=== PATIENT | female | born 1980 | race Caucasian/White ===

== ENCOUNTER 2020-04-21 13:06 | Outpatient (CLI) | payer BC, SELFPAY ==
[2020-04-21 14:03] LABS: Anion Gap 11 mmol/L (8-16); Blood Urea Nitrogen 13 mg/dL (7-18); Calcium 9.1 mg/dL (8.5-10.1); Carbon Dioxide 28 mmol/L (21-32); Chloride 101 mmol/L (98-108); Cholesterol 252 mg/dL (0-200); Estimated Glomerular Filt Rate > 60; Glucose 112 mg/dL (70-99); HDL Direct 67 mg/dL (40-60); LDL Cholesterol Calculated 159 mg/dL (<130); Osmolality Calculated 291 mOsm/kg (285-295); Potassium 3.3 mmol/L (3.5-5.1); Sodium 140 mmol/L (136-145); Thyroid Stimulating Hormone 1.06 uIU/mL (0.36-3.74); Triglycerides 129 mg/dL (0-150)
[2020-04-25 10:30] LABS: Vitamin D 25 Hydroxy 27 ng/mL (30-100)
== END 2020-04-21 13:07 | disposition home or self-care (01) ==
LOC: CHSLAB 13:10
PROVIDERS: PCP Family Medicine
DX: E55.9 Vitamin D deficiency, unspecified (principal); I10 Essential (primary) hypertension
CPT/HCPCS: 36415; 80048; 80061; 82306; 84443

== ENCOUNTER 2020-04-26 00:29 | Emergency (ER) | payer BC, SELFPAY ==
--- NOTE | ~2020-04-26 | XR_ITS ---
EXAMINATION: XR foot RT min 3V DATE: 04/26/2020 01:06 INDICATION: Right foot pain. Injury. TECHNIQUE: 4 views of right foot were obtained. COMPARISON: None. FINDINGS: Bone alignment is normal. No fracture. There is mild osteoarthritis of first metatarsophala ngeal joint. There are enthesophytes at the posterior and plantar aspects of calcaneal tuberosity. IMPRESSION: 1. No fracture. Reviewed, dictated and finalized at location A. IMPRESSION: 1. No fracture.
[2020-04-26 00:30] VITALS: BP 129/90; PULSE 94; RESP 20; TEMP 36.3; O2SAT 99
--- NOTE | 2020-04-26 00:49 | ED.GENADULT ---
HPI - General Adult General Chief complaint: Extremity Injury, Lower Stated complaint: foot ankle injury Source: patient Mode of arrival: ambulatory Limitations: no limitations History of Present Illness HPI narrative: Carmen is a 40F with a PMH of HTN, anxiety, right tarsal tunnel syndrome, and right peroneal tendon tear that presented to the ED after hitting her foot on a door frame. Earlier in the day she was carrying a box, couldn't see and hit her foot on the bottom of the door frame. She had immediate pain and swelling. No paralysis or loss of sensation. No other injuries or medical concerns today. Related Data Home Medications Medication Instructions Recorded Confirmed buspirone 10 mg tablet 10 mg PO BID 07/04/19 04/26/20 indapamide 2.5 mg tablet 2.5 mg PO DAILY 07/04/19 04/26/20 alprazolam 0.25 mg tablet 0.5 mg PO BID tablet 07/07/19 04/26/20 Allergies Allergy/AdvReac Type Severity Reaction Status Date / Time fluoxetine Allergy Unknown Verified 07/22/19 07:58 latex Allergy Unknown Verified 07/22/19 07:58 Review of Systems Constitutional: Constitutional: Reports no additional constitutional complaints Eyes: Eyes: Reports no additional eye complaints ENT: Reports system reviewed and no additional complaints, except as documented Cardiovascular: Cardiovascular: Reports no additional cardiovascular complaints Respiratory: Respiratory: Reports no additional respiratory complaints Gastrointestinal: Gastrointestinal: Reports no additional gastrointestinal complaints Genitourinary: Genitourinary: Reports no additional female genitourinary complaints Musculoskeletal: Musculoskeletal: Reports as per HPI Integumentary/Breasts: Skin/Breast: Reports system reviewed and no additional complaints, except as docu Neurologic: Reports system reviewed and no additional complaints, except as documented Psychiatric: Psychiatric: Reports no additional psychiatric complaints Endocrine: Endocrine: Reports no additional endocrine complaints Hematologic/Lymphatic: Hematologic/Lymphatic: Reports no additional hematologic/lymphatic complaints Allergic/Immunologic: Allergic/Immunologic: Reports no additional allergic/immunologic complaints FOR[facility]LY [facility] Past Medical History Medical History Anxiety GERD (gastroesophageal reflux disease) Premenopausal menorrhagia Rectal polyp Stress Family History Family History Mother Family history of obesity Patient's mother is in good health Family history of coronary artery disease Father Family history of diabetes mellitus in first degree relative Family history of coronary artery disease Grandparent Family history of malignant neoplasm of breast Family history of malignant neoplasm of ovary Other Family history of thyroid disease Social History Social History Smoking status: Never smoker Alcohol intake: never Exam Const: General: no acute distress and alert Orientation/consciousness: patient oriented x3 Limitations: No altered mental status HENMT: Head: normal to inspection Eyes: Conjunctivae: conjunctivae normal Pupils: Equal, round and reactive pupils present Neck: Neck: normal visual inspection Chest: Chest palpation & inspection: normal inspection of the chest Resp: Effort & Inspection: normal respiratory effort, not labored and not tachypneic Cardio: Rate: regular rate Skin: General skin exam: normal color Rashes: no rashes Neuro: General: patient oriented x3 and moves all extremities Extrem: General: normal to inspection Other: No deformity of the right foot. TTP worse over the anterior plantar surface of the foot. She is able to wiggle her toes without difficulty. No numbness. Pedal pulse intact as well as posterior tibialis tendon. Psych: Appearance: grossly normal Menta
[2020-04-26] MEDS: KETOROLAC (*BKC) 60 MG/2 ML VIAL 30 MG IM (01:03)
[2020-04-26 01:30] VITALS: BP 126/86; PULSE 85; RESP 18; TEMP 36.6; O2SAT 99
== END 2020-04-26 01:34 | disposition home or self-care (01) ==
PROVIDERS: Emergency Provider Family Medicine
DX: S90.31XA Contusion of right foot, initial encounter (principal); W22.09XA Striking against other stationary object, initial encounter
CPT/HCPCS: 73630; 96372; 99283; J1885; L2112

== ENCOUNTER → 2020-05-24 17:36 | Outpatient (CLI) | payer BC, SELFPAY ==
--- NOTE | ~2020-05-24 | MM_ITS ---
EXAMINATION: MM screening annabel BI w zuleyma HISTORY: Screening mammogram, family history of breast cancer in her mother. TECHNIQUE: Craniocaudal and mediolateral oblique 3-D tomosynthesis images were obtained and synthetic 2-D images were generated. CAD analysis was submitted and interpreted. COMPARISON: 05/06/2019, 04/30/2018, 04/06/2017 BREAST PARENCHYMAL COMPOSITION: The breasts are heterogeneously dense, which may obscure small masses . FINDINGS: There is no evidence of suspicious mass, calcification, or architectural distortion to sugg est malignancy in either breast. There has been no suspicious interval change. IMPRESSION: 1. No mammographic evidence of malignancy. 2. Recommend routine screening mammography in one year. BI-RADS Category 1: Negative Reviewed, dictated and finalized at location A. LEAK TESTER
== END ==
PROVIDERS: Visit Provider Nurse Practitioner
DX: Z12.31 Encounter for screening mammogram for malignant neoplasm of breast (principal)
CPT/HCPCS: 77063; 77067

== ENCOUNTER 2020-08-31 15:16 | Emergency (ER) | payer BC, SELFPAY ==
--- NOTE | ~2020-08-31 | CT_ITS ---
EXAMINATION: CT brain wo con DATE: 08/31/2020 17:18 INDICATION: Posterior and frontal headaches. TECHNIQUE: Computed tomography (CT) of the head was performed without intravenous contrast. The mA wa s adjusted according to patient size. Iterative reconstruction technique was employed. Exam dose: 60 5.33 mGy-cm total exam DLP. COMPARISON: 11/04/2018 MRI brain/brainstem 05/27/2015 CT brain FINDINGS: No intracranial mass lesion or hemorrhage or cerebrovascular accident. No midline shift or mass effect effect. Normal lloyd-white matter differentiation. Normal ventricular size. No subdural or epidural hematoma. No fracture or bone destruction of the cranial vault. Included paranasal sinuses and mastoid air cells are normally developed and aerated. IMPRESSION: Negative Reviewed, dictated and finalized at Location A. Reviewed, dictated and finalized at location B. EM DEVELOPER ASSOCIATE MANAGER IMPRESSION: Negative
[2020-08-31 15:48] VITALS: BP 157/113; PULSE 100; RESP 16; TEMP 36.6; O2SAT 97
--- NOTE | 2020-08-31 16:00 | PC.NURSE ---
PER EDP OK TO BREAK DEPAKOTE IN HALF.
[2020-08-31] MEDS: KETOROLAC (*BKC) 60 MG/2 ML VIAL IM (16:03)
[2020-08-31] MEDS: BACLOFEN 10 MG TABLET 20 MG PO (16:04)
[2020-08-31 16:05] LABS: Basophils Absolute Auto 0.03 K/mm3 (0.00-0.10); Basophils Percent Auto 0.3 % (0.0-1.0); Eosinophils Percent Auto 1.1 % (1.0-6.0); Hematocrit 45.3 % (35.0-49.0); Hemoglobin 15.1 g/dL (12.0-15.0); Immature Granulocyte Absolute 0.03 K/mm3 (0.00-0.00); Immature Granulocyte Percent A 0.3 % (0.0-0.0); Lymphocytes Absolute Auto 2.47 K/mm3 (1.10-4.50); Lymphocytes Percent Auto 27.7 % (18.0-42.0); Mean Corpuscular HGB Conc 33.3 g/dL (32.0-36.0); Mean Corpuscular Hemoglobin 27.7 pg (27.0-31.0); Mean Corpuscular Volume 83.1 fL (78.0-102.0); Mean Platelet Volume 10.2 fl (9.2-11.8); Monocytes Absolute Auto 0.63 K/mm3 (0.10-0.90); Monocytes Percent Auto 7.1 % (2.0-11.0); Neutrophils Absolute Auto 5.7 K/mm3 (1.7-7.2); Neutrophils Percent Auto 63.5 % (50.0-70.0); Platelet Count Result 288 K/mm3 (150-420); Red Blood Count 5.45 M/mm3 (4.20-5.40); Red Cell Distribution Width 12.9 % (11.6-14.4); White Blood Count 8.9 K/mm3 (4.8-10.8)
[2020-08-31 16:06] LABS: Add Urine Microscopic? NO; Appearance Urine Clear (Clear); Bilirubin Urine Negative (Negative); Blood Urine Negative (Negative); Color Urine Yellow (Yellow); Glucose Urine UA Negative (Negative); Ketones Urine Negative (Negative); Leukocyte Esterase Ur Negative (Negative); Nitrate Urine Negative (Negative); Protein Urine Negative (Negative); Urobilinogen Urine 0.2 mg/dL (0.2-1.0); pH Urine 6.5 (5.0-8.0)
[2020-08-31] MEDS: DIVALPROEX SODIUM ER 250 MG TAB.24H 750 MG PO (16:09)
--- NOTE | 2020-08-31 16:16 | ED.HA ---
HPI - Headache General Chief Complaint: Urogenital-Female Stated Complaint: peeing blood,random bruising, headache Time Seen by Provider: 08/31/20 15:50 Source: patient Mode of arrival: ambulatory Limitations: no limitations History of Present Illness MD elicited complaint: headache Onset description: gradually Location: left (behind left eye) Severity: moderate Quality & Timing: throbbing and pulsatile Exacerbating factors: none Relieving factors: nothing Associated symptoms: malaise Related Data Home Medications Medication Instructions Recorded Confirmed alprazolam 0.5 mg PO BID PRN 08/31/20 08/31/20 ergocalciferol (vitamin D2) 1,250 mcg PO WEEKLY 08/31/20 08/31/20 indapamide 1.5 mg PO DAILY 08/31/20 08/31/20 venlafaxine 150 mg PO DAILY 08/31/20 08/31/20 Allergies Allergy/AdvReac Type Severity Reaction Status Date / Time fluoxetine Allergy Unknown Verified 07/22/19 07:58 latex Allergy Unknown Verified 07/22/19 07:58 Review of Systems Constitutional: Constitutional: Reports no additional constitutional complaints Eyes: Eyes: Reports no additional eye complaints ENT: Reports system reviewed and no additional complaints, except as documented Cardiovascular: Cardiovascular: Reports no additional cardiovascular complaints Respiratory: Respiratory: Reports no additional respiratory complaints Gastrointestinal: Gastrointestinal: Reports no additional gastrointestinal complaints Genitourinary: Genitourinary: Reports no additional female genitourinary complaints Musculoskeletal: Musculoskeletal: Reports no additional musculoskeletal complaints Comments: Bruising on skin, on bilateral thighs, on left upper arm she is worried about. Integumentary/Breasts: Skin/Breast: Reports system reviewed and no additional complaints, except as docu Neurologic: Reports system reviewed and no additional complaints, except as documented Psychiatric: Psychiatric: Reports no additional psychiatric complaints Endocrine: Endocrine: Reports no additional endocrine complaints Hematologic/Lymphatic: Hematologic/Lymphatic: Reports no additional hematologic/lymphatic complaints Allergic/Immunologic: Allergic/Immunologic: Reports no additional allergic/immunologic complaints PMFSH Past Medical History Medical History Anxiety GERD (gastroesophageal reflux disease) Migraine Premenopausal menorrhagia Rectal polyp Stress Family History Family History Mother Family history of obesity Patient's mother is in good health Family history of coronary artery disease Father Family history of diabetes mellitus in first degree relative Family history of coronary artery disease Grandparent Family history of malignant neoplasm of breast Family history of malignant neoplasm of ovary Other Family history of thyroid disease Social History Social History Smoking status: Never smoker Alcohol intake: never Exam Const: General: no acute distress and alert Orientation/consciousness: patient oriented x3 HENMT: Head: normal to inspection Ears: external ears normal and TM's normal bilaterally Face and sinus: normal facial exam Mouth: Yes Normal oral and palatal mucosa present Eyes: Conjunctivae: conjunctivae normal Neck: Neck: normal visual inspection Chest: Chest palpation & inspection: normal inspection of the chest Resp: Effort & Inspection: normal respiratory effort Auscultation: clear to auscultation bilaterally Cardio: Rate: regular rate Rhythm: regular rhythm GI: GI Palp: Yes Soft to palpation (nontender ) Skin: General skin exam: normal color Neuro: General: patient oriented x3 and moves all extremities Extrem: General: normal to inspection Psych: Appearance: grossly normal Mental Status: mental status grossly normal Course Course Emergency C
[2020-08-31 16:18] LABS: Partial Thromboplastin Time 28.8 SEC (23.90-30.70); Prothrombin Time 10.3 Seconds (9.50-12.10)
[2020-08-31 16:19] LABS: Alanine Aminotransferase 22 U/L (14-59); Albumin Level 3.4 g/dL (3.4-5.0); Alkaline Phosphatase 66 U/L (46-116); Anion Gap 12 mmol/L (8-16); Aspartate Amino Transferase 13 U/L (15-37); Bilirubin,Total 0.4 mg/dL (0.00-1.00); Blood Urea Nitrogen 19 mg/dL (7-18); Calcium 9.3 mg/dL (8.5-10.1); Carbon Dioxide 27 mmol/L (21-32); Chloride 98 mmol/L (98-108); Estimated CRCL calculation 79 ml/min; Estimated Glomerular Filt Rate > 60; Glucose 134 mg/dL (70-99); Osmolality Calculated 288 mOsm/kg (285-295); Sodium 137 mmol/L (136-145); Total Protein 7.1 g/dL (6.4-8.2)
[2020-08-31 16:22] LABS: Potassium 2.5 mmol/L (3.5-5.1)
--- NOTE | 2020-08-31 16:30 | PC.NURSE ---
POTASSIUM DOSAGE CLARIFIED WITH EDP.
[2020-08-31 16:31] VITALS: BP 142/88; PULSE 96; O2SAT 97
--- NOTE | 2020-08-31 16:35 | PC.NURSE ---
PT PLACED ON CABLE COVERER
[2020-08-31] MEDS: POTASSIUM CHLORIDE 20 MEQ TABLET 50 MEQ PO (16:41)
[2020-08-31 16:47] LABS: Magnesium 1.8 mg/dL (1.8-2.4)
[2020-08-31 17:31] VITALS: BP 136/95; PULSE 95; RESP 16; O2SAT 98
== END 2020-08-31 17:40 | disposition home or self-care (01) ==
PROVIDERS: Emergency Provider Emergency Medicine; PCP Nurse Practitioner Adult Health
DX: E87.6 Hypokalemia (principal)
CPT/HCPCS: 36415; 70450; 80053; 81003; 83735; 85025; 85610; 85730; 99283; 99284; A9270; J1885

== ENCOUNTER 2021-01-04 01:01 | Emergency (ER) | payer SELFPAY ==
--- NOTE | ~2021-01-04 | XR_ITS ---
EXAMINATION: XR foot LT min 3V DATE: 01/04/2021 01:30 INDICATION: Left foot pain near the heel TECHNIQUE: Dorsoplantar, two oblique and lateral views of the left foot were obtained. COMPARISON: 05/08/2011 FINDINGS: Alignment is normal. No fracture. Joint spaces are normal. Small plantar calcaneal spur. Soft tissues are unremarkable. IMPRESSION: 1. Small plantar calcaneal spur. No acute osseous abnormality. Reviewed, dictated and finalized at location A.
[2021-01-04 01:08] VITALS: BP 157/112; PULSE 100; RESP 18; TEMP 36.7; O2SAT 98
--- NOTE | 2021-01-04 01:12 | ED.GENADULT ---
HPI - General Adult General Chief complaint: Extremity Injury, Lower <CAMDEN Moreno Last Filed: 01/04/21 01:14> Stated complaint: [place] a pop foot pain <CAMDEN Moreno Last Filed: 01/04/21 01:14> Time Seen by Provider: 01/04/21 01:07 <CAMDEN Moreno Last Filed: 01/04/21 01:14> Source: patient and RN notes reviewed <CAMDEN Moreno Last Filed: 01/04/21 01:14> Mode of arrival: ambulatory <CAMDEN Moreno Last Filed: 01/04/21 01:14> Limitations: no limitations <CAMDEN Moreno Last Filed: 01/04/21 01:14> History of Present Illness HPI narrative: Patient is a 40-year-old female who presents with left foot pain that began while dancing tonight and she felt a pop in the heel and has had moderate aching pain at this location since. 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 follows with <CAMDEN Moreno Last Filed: 01/04/21 01:14> Related Data Home medications: Home Medications Medication Instructions Recorded Confirmed alprazolam 0.5 mg PO BID PRN 08/31/20 08/31/20 ergocalciferol (vitamin D2) 1,250 mcg PO WEEKLY 08/31/20 08/31/20 hydrochlorothiazide 50 mg tablet 50 mg PO DAILY 11/21/20 indomethacin 25 mg capsule 25 mg PO BID cap 11/21/20 labetalol 100 mg tablet 50 mg PO Q12H tablet 11/21/20 magnesium oxide 400 mg PO BID 11/21/20 melatonin 10 mg capsule 10 mg PO QHS 11/21/20 potassium chloride 20 mEq 20 meq PO DAILY 11/21/20 tablet,extended release(part/cryst) <CAMDEN Moreno Last Filed: 01/04/21 01:14> Allergies/adverse reactions: Allergies Allergy/AdvReac Type Severity Reaction Status Date / Time fluoxetine Allergy Unknown Other Verified 01/04/21 01:12 latex Allergy Unknown Other Verified 01/04/21 01:12 <CAMDEN Moreno Last Filed: 01/04/21 01:14> Review of Systems Review of Systems: All systems reviewed & are unremarkable except as noted in HPI and below <Brett Patterson PA-C - Last Filed: 01/04/21 01:14> [facility] Past Medical History Medical History: Medical History Anxiety GERD (gastroesophageal reflux disease) Migraine Premenopausal menorrhagia Rectal polyp Stress TIA (transient ischemic attack) <Brett Patterson PA-C - Last Filed: 01/04/21 01:14> Surgical History Surgical History: Surgical History H/O: hysterectomy <Brett Patterson PA-C - Last Filed: 01/04/21 01:14> Family History Family History: Family History Mother Family history of obesity Patient's mother is in good health Family history of coronary artery disease Father Family history of diabetes mellitus in first degree relative Family history of coronary artery disease Grandparent Family history of malignant neoplasm of breast Family history of malignant neoplasm of ovary Other Family history of thyroid disease <Brett Patterson PA-C - Last Filed: 01/04/21 01:14> Social History Social History: Social History Smoking status: Never smoker Alcohol intake: current Alcohol use details: wine, beer ocassionally Substance use: never Substance use type: does not use Additional occupation/education comments: banker <Brett Patterson PA-C - Last Filed: 01/04/21 01:14> Exam Narrative: Exam Narrative: GENERAL: Well-appearing, obese, and in no acute distress. HEAD: Normocephalic, atraumatic. EYES: PERRLA and EOMI. EXTREMITIES: Normal range of motion. No edema. Tenderness on the plantar aspect of the left heel no deformities noted SKIN: Warm, dry, no rash. NEURO: No focal deficits. Alert and oriented x3. Neurovascularly intact PSYC
--- NOTE | 2021-01-04 01:40 | PC.NURSE ---
Pt refused crutches, states she is too clumsy for them. Post op show applied. EDP aware.
[2021-01-04 02:42] VITALS: BP 144/78; PULSE 88; RESP 18; O2SAT 97
== END 2021-01-04 02:43 | disposition home or self-care (01) ==
LOC: ANHED 01:39
PROVIDERS: Emergency Provider Emergency Medicine; PCP Nurse Practitioner Adult Health
DX: M79.672 Pain in left foot (principal); I10 Essential (primary) hypertension; F41.9 Anxiety disorder, unspecified; Z86.73 Personal history of transient ischemic attack (TIA), and cerebral infarction without residual deficits
CPT/HCPCS: 73630; 99283

== ENCOUNTER 2021-04-16 10:26 | Outpatient (CLI) | payer OTHER, SELFPAY ==
[2021-04-16 11:02] LABS: Basophils Percent Auto 0.5 % (0.2-1.2); Eosinophils Absolute Auto 0.1 K/mm3 (0-0.3); Eosinophils Percent Auto 1.5 % (0-4.4); Hematocrit 44.4 % (37.0-47.0); Hemoglobin 14.6 g/dL (12.0-15.0); Immature Granulocyte Absolute 0.02 K/mm3 (0.00-0.031); Immature Granulocyte Percent A 0.3 % (0-0.5); Lymphocytes Absolute Auto 1.44 K/mm3 (0.9-3.2); Lymphocytes Percent Auto 24.2 % (18.3-44.2); Mean Corpuscular HGB Conc 32.9 g/dl (32-36); Mean Corpuscular Hemoglobin 28.2 pg (26-34); Mean Corpuscular Volume 85.7 fl (80-100); Mean Platelet Volume 10.3 fl (7.4-10.4); Monocytes Absolute Auto 0.4 K/mm3 (0.1-0.6); Monocytes Percent Auto 6.7 % (2.6-8.5); Neutrophils Percent Auto 66.8 % (45.5-73.1); Platelet Count Result 262 k/mm3 (150-375); Red Blood Count 5.18 M/mm3 (4.2-5.4); Red Cell Distribution Width 13.8 % (11.5-14.5)
[2021-04-16 11:19] LABS: Alanine Aminotransferase 26 U/L (4-35); Albumin Level 4.6 g/dL (3.5-5.1); Alkaline Phosphatase 66 U/L (38-126); Anion Gap 7 mmol/L (8-16); Aspartate Amino Transferase 31 U/L (14-36); Bilirubin,Total 0.6 mg/dL (0.2-1.3); Blood Urea Nitrogen 15 mg/dL (7-17); CRP 0.5 mg/dL (<1.0); Calcium 9.4 mg/dL (8.4-10.2); Carbon Dioxide 33 mmol/L (22-30); Chloride 100 mmol/L (98-107); Estimated Glomerular Filt Rate > 60; Glucose 107 mg/dL (65-110); Potassium 3.2 mmol/L (3.4-5.0); Sodium 140 mmol/L (137-145)
[2021-04-16 11:57] LABS: Erythrocyte Sedimentation Rate 15 mm/hr (0-20)
[2021-04-16 13:12] LABS: Hepatitis B Surface Antigen Negative (Negative)
[2021-04-16 13:30] LABS: Hepatitis B Surface Anti Res Negative; Hepatitis C Virus Antibody Negative (Negative)
[2021-04-16 19:18] LABS: Complement C3 153 mg/dL (88-165)
[2021-04-19 09:50] LABS: Anti Cyclic Citrullinated Pept <16 Units (<20)
[2021-04-19 19:01] LABS: Anti Cardio Antibody IgM <2.0 MPL-U/mL (<20.0); Anti Cardiolipin Antibody IgA <2.0 APL-U/mL (<20.0); Anti Cardiolipin Antibody IgG <2.0 GPL-U/mL (<20.0)
[2021-04-19 23:04] LABS: SM Antibody <1.0; SM/RNP Antibody <1.0
[2021-04-20 06:37] LABS: Lupus dRVVT 1:1 Mix Interpreta Not Indicated; Lupus dRVVT Screen 41 sec (<=45); PTT-LA Screen 34 sec (<=40)
[2021-05-29 13:22] LABS: SS-A <1.0
[2021-05-29 13:24] LABS: SS-B <1.0
== END 2021-04-16 10:27 | disposition home or self-care (01) ==
PROVIDERS: PCP Nurse Practitioner Adult Health; Visit Provider Internal Medicine
DX: R76.8 Other specified abnormal immunological findings in serum (principal); M19.90 Unspecified osteoarthritis, unspecified site
CPT/HCPCS: 36415; 80053; 85025; 85613; 85652; 85730; 86038; 86039; 86140; 86146; 86147; 86160; 86200; 86225; 86235; 86706; 86803; 87340

== ENCOUNTER 2021-05-02 15:43 | Outpatient (CLI) | payer OTHER, SELFPAY ==
[2021-05-02 16:41] LABS: Basophils Percent Auto 0.5 % (0.2-1.2); Eosinophils Absolute Auto 0.1 K/mm3 (0-0.3); Eosinophils Percent Auto 1.3 % (0-4.4); Hematocrit 42.6 % (37.0-47.0); Immature Granulocyte Absolute 0.01 K/mm3 (0.00-0.031); Immature Granulocyte Percent A 0.2 % (0-0.5); Lymphocytes Absolute Auto 1.65 K/mm3 (0.9-3.2); Lymphocytes Percent Auto 26.2 % (18.3-44.2); Mean Corpuscular HGB Conc 32.9 g/dl (32-36); Mean Corpuscular Hemoglobin 28.3 pg (26-34); Mean Corpuscular Volume 86.2 fl (80-100); Mean Platelet Volume 10.9 fl (7.4-10.4); Monocytes Absolute Auto 0.6 K/mm3 (0.1-0.6); Monocytes Percent Auto 9.4 % (2.6-8.5); Neutrophils Absolute Auto 3.9 K/mm3 (1.3-6.7); Neutrophils Percent Auto 62.4 % (45.5-73.1); Platelet Count Result 254 k/mm3 (150-375); Red Blood Count 4.94 M/mm3 (4.2-5.4); Red Cell Distribution Width 13.3 % (11.5-14.5); White Blood Count 6.3 K/mm3 (4.5-10.0)
[2021-05-02 17:01] LABS: Alanine Aminotransferase 28 U/L (4-35); Albumin Level 4.3 g/dL (3.5-5.1); Alkaline Phosphatase 52 U/L (38-126); Amylase 69 U/L (30-110); Anion Gap 6 mmol/L (8-16); Aspartate Amino Transferase 31 U/L (14-36); Bilirubin,Total 0.5 mg/dL (0.2-1.3); Blood Urea Nitrogen 19 mg/dL (7-17); Calcium 9.6 mg/dL (8.4-10.2); Carbon Dioxide 33 mmol/L (22-30); Chloride 100 mmol/L (98-107); Estimated Glomerular Filt Rate > 60; Glucose 97 mg/dL (65-110); Lipase 38 U/L (23-300); Potassium 3.2 mmol/L (3.4-5.0); Sodium 139 mmol/L (137-145)
== END 2021-05-02 15:44 | disposition home or self-care (01) ==
LOC: ANHLAB 15:44
PROVIDERS: PCP Nurse Practitioner Adult Health; Visit Provider Nurse Practitioner Adult Health
DX: R10.12 Left upper quadrant pain (principal)
CPT/HCPCS: 36415; 80053; 82150; 83690; 85025

== ENCOUNTER 2021-05-10 13:18 | Outpatient (CLI) | payer OTHER, SELFPAY ==
[2021-05-11 08:20] LABS: Rheumatoid Factor < 8.6 IU/ML (<12)
== END 2021-05-10 13:19 | disposition home or self-care (01) ==
LOC: ANHLAB 13:19
PROVIDERS: PCP Nurse Practitioner Adult Health; Visit Provider Internal Medicine
DX: M19.90 Unspecified osteoarthritis, unspecified site (principal); R76.8 Other specified abnormal immunological findings in serum
CPT/HCPCS: 36415; 86430

== ENCOUNTER → 2021-07-11 10:14 | Outpatient (CLI) | payer OTHER, SELFPAY ==
--- NOTE | ~2021-07-11 | MM_ITS ---
EXAMINATION: MM screening annabel BI w zuleyma HISTORY: Screening TECHNIQUE: Craniocaudal and mediolateral oblique 3-D tomosynthesis images were obtained and synthetic 2-D images were generated. CAD analysis was submitted and interpreted. COMPARISON: Comparison to multiple prior studies sequentially, with oldest reviewed study dated 01/2015. BREAST PARENCHYMAL COMPOSITION: The breasts are heterogenously dense, which may obscure small masses. FINDINGS: The left breast is stable without evidence for malignancy. There is a developing mass in th e upper inner quadrant of the right breast which is partially obscured by fibroglandular tissue. IMPRESSION: 1. Developing right breast mass. 2. Additional mammographic views and possible breast ultrasound are recommended. BI-RADS Category 0: Incomplete: Needs additional imaging evaluation. Reviewed, dictated and finalized at location A. PMENT ASSOCIATE IMPRESSION: 1. Developing right breast mass. 2. Additional mammographic views and possible breast ultrasound are recommended . BI-RADS Category 0: Incomplete: Needs additional imaging evaluation.
== END ==
PROVIDERS: PCP Nurse Practitioner Adult Health; Visit Provider Nurse Practitioner
DX: Z12.31 Encounter for screening mammogram for malignant neoplasm of breast (principal); R92.8 Other abnormal and inconclusive findings on diagnostic imaging of breast
CPT/HCPCS: 77063; 77067

== ENCOUNTER 2021-07-23 08:15 | Outpatient (CLI) | payer OTHER, SELFPAY ==
[2021-07-23 08:52] LABS: Basophils Absolute Auto 0.04 K/mm3 (0.00-0.10); Basophils Percent Auto 0.6 % (0.0-1.0); Eosinophils Absolute Auto 0.09 K/mm3 (0.02-0.50); Eosinophils Percent Auto 1.4 % (1.0-6.0); Hematocrit 45.7 % (35.0-49.0); Hemoglobin 14.6 g/dL (12.0-15.0); Immature Granulocyte Absolute 0.03 K/mm3 (0.00-0.00); Immature Granulocyte Percent A 0.5 % (0.0-0.0); Lymphocytes Absolute Auto 1.58 K/mm3 (1.10-4.50); Lymphocytes Percent Auto 24.6 % (18.0-42.0); Mean Corpuscular HGB Conc 31.9 g/dL (32.0-36.0); Mean Corpuscular Hemoglobin 27.9 pg (27.0-31.0); Mean Corpuscular Volume 87.4 fL (78.0-102.0); Mean Platelet Volume 10.4 fl (9.2-11.8); Monocytes Absolute Auto 0.49 K/mm3 (0.10-0.90); Monocytes Percent Auto 7.6 % (2.0-11.0); Neutrophils Absolute Auto 4.2 K/mm3 (1.7-7.2); Neutrophils Percent Auto 65.3 % (50.0-70.0); Platelet Count Result 252 K/mm3 (150-420); Red Blood Count 5.23 M/mm3 (4.20-5.40); Red Cell Distribution Width 12.4 % (11.6-14.4); White Blood Count 6.4 K/mm3 (4.8-10.8)
[2021-07-23 09:25] LABS: Creatinine Urine 153.35 mg/dL (40-278); Total Protein Urine Random 17.6 mg/dL (0.0-11.9); Ur Ttl Prot Creatinine Ratio 0.11 mg/mg (0-0.20)
[2021-07-23 09:39] LABS: Albumin Level 3.7 g/dL (3.4-5.0); Anion Gap 13 mmol/L (8-16); Blood Urea Nitrogen 21 mg/dL (7-18); Calcium 8.9 mg/dL (8.5-10.1); Carbon Dioxide 24 mmol/L (21-32); Chloride 102 mmol/L (98-108); Estimated Glomerular Filt Rate > 60; Glucose 92 mg/dL (70-99); Osmolality Calculated 291 mOsm/kg (285-295); Phosphorus 3.6 mg/dL (2.6-4.7); Potassium 4.1 mmol/L (3.5-5.1); Sodium 139 mmol/L (136-145); Uric Acid 5.8 mg/dL (2.6-6.0)
[2021-07-25 18:44] LABS: Hepatitis B Core Antibody Nonreactive (Nonreactive); Hepatitis B Surface Antibody Nonreactive (Nonreactive); Hepatitis B Surface Antigen Nonreactive (Nonreactive)
== END 2021-07-23 08:16 | disposition home or self-care (01) ==
PROVIDERS: PCP Nurse Practitioner Adult Health; Visit Provider Hospitalist
DX: E55.9 Vitamin D deficiency, unspecified (principal); I12.9 Hypertensive chronic kidney disease with stage 1 through stage 4 chronic kidney disease, or unspecified chronic kidney disease; N18.2 Chronic kidney disease, stage 2 (mild)
CPT/HCPCS: 36415; 80069; 82088; 82306; 82570; 83930; 84156; 84550; 85025; 86705; 86706

== ENCOUNTER 2021-07-30 12:43 | Outpatient (CLI) | payer OTHER, SELFPAY ==
--- NOTE | ~2021-07-30 | MMUS_ITS ---
EXAMINATION: MM diagnostic annabel RT w zuleyma, US breast RT limited HISTORY: Follow-up right breast mass TECHNIQUE: Additional 3-D tomosynthesis images of the right breast were performed and synthetic 2-D i mages were generated. CAD analysis was submitted and interpreted. High resolution Limited right breas t ultrasound was performed. COMPARISON: Comparison to multiple prior studies sequentially, with oldest reviewed study dated 02/2016. BREAST PARENCHYMAL COMPOSITION: The breasts are heterogenously dense, which may obscure small masses. FINDINGS: MAMMOGRAPHIC FINDINGS: There is a focal asymmetry medially in the right breast on CC view which is not confirmed on medial l ateral views. No suspicious calcifications or architectural distortion. ULTRASOUND: Limited right breast ultrasound: At 1:00 near the nipple there is a 7 mm cyst. At 1:00, 2 cm from the nipple there is a 7 mm cyst. At 2:00, 3 cm from the nipple there is an oval hypoechoic mass with thi n echogenic hilum measuring 9 x 7 x 8 mm, possibly pathologic lymph node with effacement of the fatty hilum. No significant posterior features. IMPRESSION: 1. Oval hypoechoic right breast mass at 2:00, 3 cm from the nipple measuring 9 mm maximum dimension. 2. Ultrasound-guided right breast biopsy recommended. BI-RADS category 4, suspicious findings. Reviewed, dictated and finalized at location A. OR OFFICER IMPRESSION: 1. Oval hypoechoic right breast mass at 2:00, 3 cm from the nipple measuring 9 mm maximum dimension. 2. Ultrasound-guided right breast biopsy recommended. BI-RADS category 4, suspicious findings.
== END 2021-07-30 12:44 | disposition home or self-care (01) ==
PROVIDERS: PCP Nurse Practitioner Adult Health; Visit Provider Nurse Practitioner Adult Health
DX: R92.8 Other abnormal and inconclusive findings on diagnostic imaging of breast (principal)
CPT/HCPCS: 76642; 77061; 77065; G0279

== ENCOUNTER 2021-10-14 17:09 | Outpatient (CLI) | payer OTHER, SELFPAY ==
[2021-10-14 17:41] LABS: Appearance Urine Clear (Clear); Basophils Absolute Auto 0.02 K/mm3 (0.00-0.10); Basophils Percent Auto 0.4 % (0.0-1.0); Bilirubin Urine Negative (Negative); Color Urine Yellow (Yellow); Eosinophils Absolute Auto 0.09 K/mm3 (0.02-0.50); Eosinophils Percent Auto 1.6 % (1.0-6.0); Glucose Urine UA Negative (Negative); Hemoglobin 14.4 g/dL (12.0-15.0); Immature Granulocyte Absolute 0.01 K/mm3 (0.00-0.00); Immature Granulocyte Percent A 0.2 % (0.0-0.0); Ketones Urine Negative (Negative); Leukocyte Esterase Ur Negative (Negative); Lymphocytes Percent Auto 34.4 % (18.0-42.0); Mean Corpuscular Hemoglobin 28.3 pg (27.0-31.0); Mean Corpuscular Volume 88.4 fL (78.0-102.0); Mean Platelet Volume 10.4 fl (9.2-11.8); Monocytes Absolute Auto 0.54 K/mm3 (0.10-0.90); Monocytes Percent Auto 9.8 % (2.0-11.0); Neutrophils Percent Auto 53.6 % (50.0-70.0); Nitrate Urine Negative (Negative); Platelet Count Result 263 K/mm3 (150-420); Protein Urine Negative (Negative); Red Blood Count 5.09 M/mm3 (4.20-5.40); Red Cell Distribution Width 12.8 % (11.6-14.4); Specific Grav Ur 1.025 (1.010-1.020); Urobilinogen Urine 0.2 mg/dL (0.2-1.0); White Blood Count 5.5 K/mm3 (4.8-10.8); pH Urine 6.5 (5.0-8.0)
[2021-10-14 17:43] LABS: Add Urine Microscopic? YES; Bacteria Urine None seen /hpf; Blood Urine Trace-Intact (Negative); RBC Urine 0-2 /hpf (0-2); Squamous Epithelial Cell Urine Rare /hpf (Few); WBC Urine 0-3 /hpf (0-3)
[2021-10-14 17:57] LABS: Albumin Level 3.6 g/dL (3.4-5.0); Anion Gap 10 mmol/L (8-16); Blood Urea Nitrogen 17 mg/dL (7-18); Calcium 8.9 mg/dL (8.5-10.1); Carbon Dioxide 25 mmol/L (21-32); Chloride 102 mmol/L (98-108); Estimated Glomerular Filt Rate > 60; Glucose 116 mg/dL (70-99); Osmolality Calculated 286 mOsm/kg (285-295); Phosphorus 3.9 mg/dL (2.6-4.7); Potassium 3.5 mmol/L (3.5-5.1); Sodium 137 mmol/L (136-145)
[2021-10-14 18:08] LABS: Creatinine Urine 350.09 mg/dL (40-278); Total Protein Urine Random 21.6 mg/dL (0.0-11.9); Ur Ttl Prot Creatinine Ratio 0.06 mg/mg (0-0.20)
[2021-10-19 14:37] LABS: Vitamin D 25 Hydroxy 23 ng/mL (30-100)
== END 2021-10-14 17:10 | disposition home or self-care (01) ==
PROVIDERS: PCP Nurse Practitioner Adult Health; Visit Provider Hospitalist
DX: E87.6 Hypokalemia (principal); I12.9 Hypertensive chronic kidney disease with stage 1 through stage 4 chronic kidney disease, or unspecified chronic kidney disease; N18.2 Chronic kidney disease, stage 2 (mild)
CPT/HCPCS: 36415; 80069; 81001; 82306; 82570; 84156; 85025

== ENCOUNTER 2022-01-06 15:34 | Outpatient (CLI) | payer OTHER, SELFPAY ==
--- NOTE | ~2022-01-06 | US_ITS ---
US venous doppler [facility] DATE: 01/06/2022 16:12 INDICATION: Left calf pain TECHNIQUE: Real-time imaging and color flow imaging and Doppler analysis of the veins of the left low er extremity COMPARISON: None FINDINGS: The left greater saphenous vein is patent. There is spontaneous and phasic flow and normal augmentation and color flow signal and normal compression of the deep veins of the left leg. IMPRESSION: No evidence of deep venous thrombosis of left leg Reviewed, dictated and finalized at Location A. Reviewed, dictated and finalized at location B.
== END 2022-01-06 15:35 | disposition home or self-care (01) ==
PROVIDERS: PCP Nurse Practitioner Adult Health; Visit Provider Nurse Practitioner Adult Health
DX: M79.662 Pain in left lower leg (principal)
CPT/HCPCS: 93971

== ENCOUNTER 2022-01-07 13:21 | Outpatient (CLI) | payer OTHER, SELFPAY ==
[2022-01-07 13:37] LABS: Basophils Absolute Auto 0.03 K/mm3 (0.00-0.10); Basophils Percent Auto 0.4 % (0.0-1.0); Eosinophils Absolute Auto 0.07 K/mm3 (0.02-0.50); Hematocrit 43.3 % (35.0-49.0); Hemoglobin 13.8 g/dL (12.0-15.0); Immature Granulocyte Absolute 0.02 K/mm3 (0.00-0.00); Immature Granulocyte Percent A 0.3 % (0.0-0.0); Lymphocytes Absolute Auto 1.68 K/mm3 (1.10-4.50); Lymphocytes Percent Auto 23.8 % (18.0-42.0); Mean Corpuscular HGB Conc 31.9 g/dL (32.0-36.0); Mean Corpuscular Hemoglobin 28.2 pg (27.0-31.0); Mean Corpuscular Volume 88.4 fL (78.0-102.0); Mean Platelet Volume 10.6 fl (9.2-11.8); Monocytes Percent Auto 7.1 % (2.0-11.0); Neutrophils Absolute Auto 4.8 K/mm3 (1.7-7.2); Neutrophils Percent Auto 67.4 % (50.0-70.0); Platelet Count Result 220 K/mm3 (150-420); Red Cell Distribution Width 12.9 % (11.6-14.4); White Blood Count 7.1 K/mm3 (4.8-10.8)
[2022-01-07 14:45] LABS: Alanine Aminotransferase 21 U/L (14-59); Albumin Level 3.5 g/dL (3.4-5.0); Alkaline Phosphatase 65 U/L (46-116); Anion Gap 8 mmol/L (8-16); Aspartate Amino Transferase < 10 U/L (15-37); Bilirubin,Total 0.3 mg/dL (0.00-1.00); Blood Urea Nitrogen 22 mg/dL (7-18); Calcium 8.8 mg/dL (8.5-10.1); Carbon Dioxide 25 mmol/L (21-32); Chloride 107 mmol/L (98-108); Estimated Glomerular Filt Rate > 60; Folic Acid 8.6 ng/mL (8.6->20); Glucose 99 mg/dL (70-99); Magnesium 2.2 mg/dL (1.8-2.4); Osmolality Calculated 293 mOsm/kg (285-295); Potassium 4.3 mmol/L (3.5-5.1); Sodium 140 mmol/L (136-145); Thyroid Stimulating Hormone 0.84 uIU/mL (0.36-3.74); Total Protein 6.6 g/dL (6.4-8.2); Vitamin B12 348 pg/mL (193-986)
== END 2022-01-07 13:22 | disposition home or self-care (01) ==
LOC: CHSLAB 13:24
PROVIDERS: PCP Nurse Practitioner Adult Health; Visit Provider Nurse Practitioner Adult Health
DX: R25.2 Cramp and spasm (principal)
CPT/HCPCS: 36415; 80053; 82607; 82746; 83735; 84443; 85025

== ENCOUNTER 2022-03-03 18:13 | Outpatient (CLI) | payer OTHER, SELFPAY ==
[2022-03-03 18:32] LABS: Basophils Absolute Auto 0.03 K/mm3 (0.00-0.10); Basophils Percent Auto 0.6 % (0.0-1.0); Eosinophils Absolute Auto 0.08 K/mm3 (0.02-0.50); Eosinophils Percent Auto 1.5 % (1.0-6.0); Hematocrit 42.7 % (35.0-49.0); Hemoglobin 13.9 g/dL (12.0-15.0); Immature Granulocyte Absolute 0.02 K/mm3 (0.00-0.00); Immature Granulocyte Percent A 0.4 % (0.0-0.0); Lymphocytes Absolute Auto 1.92 K/mm3 (1.10-4.50); Lymphocytes Percent Auto 36.9 % (18.0-42.0); Mean Corpuscular HGB Conc 32.6 g/dL (32.0-36.0); Mean Corpuscular Hemoglobin 28.9 pg (27.0-31.0); Mean Corpuscular Volume 88.8 fL (78.0-102.0); Mean Platelet Volume 10.1 fl (9.2-11.8); Monocytes Absolute Auto 0.48 K/mm3 (0.10-0.90); Monocytes Percent Auto 9.2 % (2.0-11.0); Neutrophils Absolute Auto 2.7 K/mm3 (1.7-7.2); Neutrophils Percent Auto 51.4 % (50.0-70.0); Platelet Count Result 245 K/mm3 (150-420); Red Blood Count 4.81 M/mm3 (4.20-5.40); Red Cell Distribution Width 13.1 % (11.6-14.4); White Blood Count 5.2 K/mm3 (4.8-10.8)
[2022-03-03 18:36] LABS: Appearance Urine Clear (Clear); Bilirubin Urine Negative (Negative); Color Urine Light Yellow (Yellow); Glucose Urine UA Negative (Negative); Ketones Urine Negative (Negative); Leukocyte Esterase Ur Negative (Negative); Nitrate Urine Negative (Negative); Protein Urine Negative (Negative); Specific Grav Ur >= 1.030 (1.010-1.020); Urobilinogen Urine 0.2 mg/dL (0.2-1.0)
[2022-03-03 18:38] LABS: Creatinine Urine 269.41 mg/dL (40-278); Total Protein Urine Random 22.7 mg/dL (0.0-11.9); Ur Ttl Prot Creatinine Ratio 0.08 mg/mg (0-0.20)
[2022-03-03 18:56] LABS: Albumin Level 3.5 g/dL (3.4-5.0); Anion Gap 7 mmol/L (8-16); Blood Urea Nitrogen 21 mg/dL (7-18); Calcium 8.7 mg/dL (8.5-10.1); Carbon Dioxide 24 mmol/L (21-32); Chloride 104 mmol/L (98-108); Estimated Glomerular Filt Rate > 60; Glucose 89 mg/dL (70-99); Osmolality Calculated 282 mOsm/kg (285-295); Phosphorus 4.2 mg/dL (2.6-4.7); Sodium 135 mmol/L (136-145); Thyroid Stimulating Hormone 1.43 uIU/mL (0.36-3.74); Uric Acid 4.4 mg/dL (2.6-6.0)
[2022-03-03 19:03] LABS: Add Urine Microscopic? YES; Bacteria Urine Trace /hpf; Blood Urine Trace-Intact (Negative); Mucus Urine Few /lpf; Squamous Epithelial Cell Urine Few /hpf (Few); WBC Urine 0-3 /hpf (0-3)
[2022-03-06 22:12] LABS: Vitamin D 25 Hydroxy 41 ng/mL (30-100)
== END 2022-03-03 18:14 | disposition home or self-care (01) ==
LOC: CHSLAB 18:15
PROVIDERS: PCP Nurse Practitioner Adult Health; Visit Provider Hospitalist
DX: I12.9 Hypertensive chronic kidney disease with stage 1 through stage 4 chronic kidney disease, or unspecified chronic kidney disease (principal); E55.9 Vitamin D deficiency, unspecified
CPT/HCPCS: 36415; 80069; 81001; 82306; 82570; 84156; 84443; 84550; 85025

== ENCOUNTER 2022-10-27 08:07 | Outpatient (CLI) | payer OTHER, SELFPAY ==
--- NOTE | 2022-10-29 12:32 | P.PCNPFT_ITS ---
PFT Procedure Performed PFT Procedure Performed Spirometry with Pre/Post Bronchodilator Plethysmography (Lung Vol) Diffusing Cap (DLCO) Flow Vol Loop PFT Interpretation DOS: 10/27/2022 REQUESTING: Mathew Johnson MD REASON FOR TESTING: Dyspnea PULMONARY FUNCTION TESTS Results are reliable and reproducible Grade A for the pre bronchodilator portion. On the post bronchodilator portion, the repeatability was Grade B. Spirometry: pre bronchodilator FEV1 was 2.25 L, 76%, mildly reduced. Pre-b ronchodilator FVC is 2.99 L, 82%, normal. FEV1/FVC ratio is 75%, normal. After bronchodilator administration FEV1 was 2.38 L, 80%, 5% increased. After bronchodilator the FVC was 2.83 L, 78% predicted, below normal, a 5% drop. Lung volumes: Total lung capacity 4.41 L, 87% predicted, normal. Residual volume 1.42 L, 86%, normal. RV/TLC 32%, normal. Airway resistance 114% predicted, normal. Diffusion: DLCO is 21.4, 91%, normal. DLCO / VA 5.66, 120%, normal. Flow volume loop: Normal IMPRESSION: This study shows a mild ventilatory impairment without obstruction, without significant response to bronchodilator. Normal lung volumes. Normal diffusion. No prior studies for comparison. Cheryl Stockton MD
== END 2022-10-27 08:08 | disposition home or self-care (01) ==
PROVIDERS: PCP Family Medicine; Visit Provider Family Medicine
DX: R06.00 Dyspnea, unspecified (principal)
CPT/HCPCS: 94060; 94726; 94729

== ENCOUNTER 2023-01-16 17:23 | Outpatient (CLI) | payer OTHER, SELFPAY ==
[2023-01-16 17:45] LABS: Basophils Absolute Auto 0.04 K/mm3 (0.00-0.10); Basophils Percent Auto 0.7 % (0.0-1.0); Eosinophils Absolute Auto 0.09 K/mm3 (0.02-0.50); Eosinophils Percent Auto 1.5 % (1.0-6.0); Hematocrit 42.7 % (35.0-49.0); Hemoglobin 13.6 g/dL (12.0-15.0); Immature Granulocyte Absolute 0.03 K/mm3 (0.00-0.00); Immature Granulocyte Percent A 0.5 % (0.0-0.0); Lymphocytes Absolute Auto 1.92 K/mm3 (1.10-4.50); Lymphocytes Percent Auto 31.4 % (18.0-42.0); Mean Corpuscular HGB Conc 31.9 g/dL (32.0-36.0); Mean Corpuscular Hemoglobin 28.7 pg (27.0-31.0); Mean Corpuscular Volume 90.1 fL (78.0-102.0); Mean Platelet Volume 10.2 fl (9.2-11.8); Monocytes Percent Auto 9.8 % (2.0-11.0); Neutrophils Absolute Auto 3.4 K/mm3 (1.7-7.2); Neutrophils Percent Auto 56.1 % (50.0-70.0); Platelet Count Result 234 K/mm3 (150-420); Red Blood Count 4.74 M/mm3 (4.20-5.40); Red Cell Distribution Width 13.5 % (11.6-14.4); White Blood Count 6.1 K/mm3 (4.8-10.8)
[2023-01-16 18:00] LABS: Albumin Level 3.1 g/dL (3.4-5.0); Anion Gap 8 mmol/L (8-16); Blood Urea Nitrogen 24 mg/dL (7-18); Calcium 9.1 mg/dL (8.5-10.1); Carbon Dioxide 30 mmol/L (21-32); Chloride 103 mmol/L (98-108); Estimated Glomerular Filt Rate > 60; Glucose 92 mg/dL (70-99); Magnesium 1.8 mg/dL (1.8-2.4); Osmolality Calculated 296 mOsm/kg (285-295); Phosphorus 4.3 mg/dL (2.6-4.7); Potassium 3.3 mmol/L (3.5-5.1); Sodium 141 mmol/L (136-145)
[2023-01-16 18:07] LABS: Bilirubin Urine Negative (Negative); Blood Urine Trace-Intact (Negative); Color Urine Yellow (Yellow); Glucose Urine UA Negative (Negative); Ketones Urine Negative (Negative); Leukocyte Esterase Ur Negative (Negative); Nitrate Urine Negative (Negative); Protein Urine Negative (Negative); Specific Grav Ur >= 1.030 (1.010-1.020); Urobilinogen Urine 0.2 mg/dL (0.2-1.0); pH Urine 5.5 (5.0-8.0)
[2023-01-16 18:21] LABS: Creatinine Urine 214.86 mg/dL (40-278); Total Protein Urine Random 27.4 mg/dL (0.0-11.9); Ur Ttl Prot Creatinine Ratio 0.13 mg/mg (0-0.20)
[2023-01-16 19:10] LABS: Add Urine Microscopic? YES; Appearance Urine Slightly Cloudy (Clear); Bacteria Urine 2+ /hpf; RBC Urine 0-2 /hpf (0-2); Squamous Epithelial Cell Urine Moderate /hpf (Few); WBC Urine None seen /hpf (0-3)
[2023-01-22 16:19] LABS: Vitamin D 25 Hydroxy 49 ng/mL (30-100)
== END 2023-01-16 17:24 | disposition home or self-care (01) ==
LOC: CHSLAB 17:30
PROVIDERS: PCP Family Medicine; Visit Provider Hospitalist
DX: N18.2 Chronic kidney disease, stage 2 (mild) (principal); I10 Essential (primary) hypertension; E26.89 Other hyperaldosteronism
CPT/HCPCS: 36415; 80069; 81001; 82306; 82570; 83735; 84156; 85025

== ENCOUNTER 2023-02-24 07:49 | Outpatient (RCR) | payer OTHER, SELFPAY ==
--- NOTE | 2023-02-24 08:10 | OPREHPOC ---
Outpatient Therapy Plan of Care This is a Multidisciplinary Plan of Care that may contain components documented by all disciplines (PT, OT, and ST.) PT Problem 1 PT Problem #1 Knowledge Deficit PT Goal 1 Goal Patient to demonstrate independence with HEP Target Visit 6 PT Problem 2 PT Problem #2 Pain PT Goal 1 Goal 1. Patient to report highest pain at 2/10 2. Patient to report no sleep disturbance due to pain Target Visit 12 PT Problem 3 PT Problem #3 Impaired Strength PT Goal 1 Goal Patient to demonstrate 5/5 strength of R knee to return to squatting at PLOF Target Visit 12 PT Problem 4 PT Problem #4 Impaired Range of Motion PT Goal 1 Goal Patient to demonstrate 0-120deg of R knee AROM to return to stair navigation at PLOF Target Visit 12 PT Problem 5 PT Problem #5 Impaired Functional Mobil PT Goal 1 Goal 1. Patient to report return to house hold tasks at PLOF 2. Patient to improve LEFS by 30% Target Visit 12
--- NOTE | 2023-02-24 08:10 | PTOPEVAL1 ---
Assessment and note entered by Rosa M Saul DPT Evaluation Information Assessment Status Evaluation Diagnosis R knee pain Onset 02/09/23 Subjective Information Patient reports in 2014 she tore her meniscus and had PT with improved symptoms. Patient reports that on 12/12/22 she was climbing into the back seat of the vehicle and went to turn and felt pain. She reports she saw the MD who reports tear of meniscus and need for surgery. She has surgery scheduled for 03/05/23. Patient reports difficulty with walking, bending, squatting, stairs and sitting for prolonged periods. She reports she is here for pre-op appointment to learn HEP. Reported Pain Level Pain Score 3: Self Report Assessment PT Clinical Summary Patient is 43 year old female who presents to PT with R knee pain. Patient demonstrates decreased strength and ROM of the R knee limiting her ability to squat for house hold chores, ambulate prolonged distances, navigtate stairs and sitting for long periods of time. She would benefit from skilled PT following surgery to address impairments and return to PLOF. Plan of Care Interventions Electrical Stimulation,Gait Training,Hot Pack/Cold Pack,Intermittent Compression,Manual Therapy, Mechanical Traction,Neuro Re-education,Patient/ Caregiver Educati,Therapeutic Activities, Therapeutic Exercise PT Services Indicated Yes Treatment Frequency and 1 visit and hold until post surgical Duration These treatments will address the objective and functional deficits as defined above. The patient will be advanced safely and appropriately in order for the patient to progress towards his/her prior level of function. Additional exercises will be introduced and as well as a comprehensive home exercise program upon discharge, if needed, ?to ensure carryover of functional gains achieved in the clinic. This treatment plan has been reviewed and agreement upon by the patient.
--- NOTE | 2023-03-11 10:17 | PCPTNOTE ---
patient cancelled therapy today due to having surgery and being unable to drive for a few weeks. JTF
--- NOTE | 2023-03-24 08:16 | OPREHPOC ---
Outpatient Therapy Plan of Care This is a Multidisciplinary Plan of Care that may contain components documented by all disciplines (PT, OT, and ST.) PT Problem 1 PT Problem #1 Knowledge Deficit PT Goal 1 Goal Patient to demonstrate independence with HEP Target Visit 6 PT Problem 2 PT Problem #2 Pain PT Goal 1 Goal 1. Patient to report highest pain at 2/10 2. Patient to report no sleep disturbance due to pain Target Visit 13 PT Problem 3 PT Problem #3 Impaired Strength PT Goal 1 Goal Patient to demonstrate 5/5 strength of R knee to return to squatting at PLOF Target Visit 13 PT Problem 4 PT Problem #4 Impaired Range of Motion PT Goal 1 Goal Patient to demonstrate 0-120deg of R knee AROM to return to stair navigation at PLOF Target Visit 13 PT Problem 5 PT Problem #5 Impaired Functional Mobil PT Goal 1 Goal 1. Patient to report return to house hold tasks at PLOF 2. Patient to improve LEFS by 30% Target Visit 13
--- NOTE | 2023-03-24 08:16 | PTOPREEVAL ---
Assessment and note entered by Rosa M Saul DPT Evaluation Information Assessment Status Re-evaluation Diagnosis R knee pain Onset 02/09/23 Subjective Information Patient underwent knee surgery on 03/05. She reports she has not used an AD since surgery. She reports she thought she might have a blood clot and went to the ER and they did a dobbler that was negative. She reports she has a large bakers cyst on the posterior knee. She reports sitting, standing, walking and stair navigation are most difficult at this time. Reported Pain Level Pain Score 4: Self Report Assessment PT Clinical Summary Patient returns to PT this date following R knee menisectomy on 03/05/23. Patient demonstrates decreased R knee ROM and strength limiting her ability to sit at her desk to work, stand for house hold tasks and navigate stairs. Patient would benefit from skilled PT to address impairments and return to PLOF Plan of Care Interventions Electrical Stimulation,Gait Training,Hot Pack/Cold Pack,Intermittent Compression,Manual Therapy, Mechanical Traction,Neuro Re-education,Patient/ Caregiver Educati,Therapeutic Activities, Therapeutic Exercise PT Services Indicated Yes Treatment Frequency and 2x weekly for 12 visits Duration These treatments will address the objective and functional deficits as defined above. The patient will be advanced safely and appropriately in order for the patient to progress towards his/her prior level of function. Additional exercises will be introduced and as well as a comprehensive home exercise program upon discharge, if needed, ?to ensure carryover of functional gains achieved in the clinic. This treatment plan has been reviewed and agreement upon by the patient.
--- NOTE | 2023-03-24 08:17 | PTOPREEVAL ---
Assessment and note entered by Rosa M Saul DPT Evaluation Information Assessment Status Re-evaluation Diagnosis R knee pain Onset 02/09/23 Subjective Information Patient underwent knee surgery on 03/05/23. She reports she has not used an AD since surgery. She reports she thought she might have a blood clot and went to the ER and they did a doppler that was negative. She reports she has a large bakers cyst on the posterior knee. She reports sitting, standing, walking and stair navigation are most difficult at this time. Reported Pain Level Pain Score 4: Self Report Assessment PT Clinical Summary Patient returns to PT this date following R knee menisectomy on 03/05/23. Patient demonstrates decreased R knee ROM and strength limiting her ability to sit at her desk to work, stand for house hold tasks and navigate stairs. Patient would benefit from skilled PT to address impairments and return to PLOF Plan of Care Interventions Electrical Stimulation,Gait Training,Hot Pack/Cold Pack,Intermittent Compression,Manual Therapy, Mechanical Traction,Neuro Re-education,Patient/ Caregiver Educati,Therapeutic Activities, Therapeutic Exercise PT Services Indicated Yes Treatment Frequency and 2x weekly for 12 visits Duration These treatments will address the objective and functional deficits as defined above. The patient will be advanced safely and appropriately in order for the patient to progress towards his/her prior level of function. Additional exercises will be introduced and as well as a comprehensive home exercise program upon discharge, if needed, ?to ensure carryover of functional gains achieved in the clinic. This treatment plan has been reviewed and agreement upon by the patient.
--- NOTE | 2023-04-23 07:55 | OPREHPOC ---
Outpatient Therapy Plan of Care This is a Multidisciplinary Plan of Care that may contain components documented by all disciplines (PT, OT, and ST.) PT Problem 1 PT Problem #1 Knowledge Deficit PT Goal 1 Goal Patient to demonstrate independence with HEP Target Visit 6 Progress Met PT Problem 2 PT Problem #2 Pain PT Goal 1 Goal 1. Patient to report highest pain at 2/10 2. Patient to report no sleep disturbance due to pain Target Visit 21 Progress Partially Met Comment 2. met, continue with 1. PT Problem 3 PT Problem #3 Impaired Strength PT Goal 1 Goal Patient to demonstrate 5/5 strength of R knee to return to squatting at PLOF Target Visit 21 Comment continue, progressing PT Problem 4 PT Problem #4 Impaired Range of Motion PT Goal 1 Goal Patient to demonstrate 0-120deg of R knee AROM to return to stair navigation at PLOF Target Visit 21 Comment continue, progressing PT Problem 5 PT Problem #5 Impaired Functional Mobil PT Goal 1 Goal 1. Patient to report return to house hold tasks at PLOF 2. Patient to improve LEFS by 30% Target Visit 21 Comment continue, progressing
--- NOTE | 2023-04-23 07:56 | PTOPREEVAL ---
Assessment and note entered by Rosa M Saul DPT Evaluation Information Assessment Status Evaluation Diagnosis R knee pain Onset 02/09/23 Subjective Information Patient reports that driving is difficult for long periods of time. She reports she has improved ability to walk long distances. She reports that she can sit at her desk for longer periods of time but still gets discomfort. RTMD 05/11 Reported Pain Level Pain Score 2: Self Report Assessment PT Clinical Summary Patient has been seen for 10 visits with good progress towards goals. Patient has improved R knee ROM and strength with reported ability to sit and walk for longer periods of time. Patient continues to have pain on medial aspect of the R knee and difficulty with driving and standing for long periods of time. She would benefit from continued skilled PT to address remaining impairments and return to PLOF. Plan of Care Interventions Electrical Stimulation,Gait Training,Hot Pack/Cold Pack,Intermittent Compression,Manual Therapy, Mechanical Traction,Neuro Re-education,Patient/ Caregiver Educati,Therapeutic Activities, Therapeutic Exercise PT Services Indicated Yes Treatment Frequency and continue 2x weekly for 8 visits Duration These treatments will address the objective and functional deficits as defined above. The patient will be advanced safely and appropriately in order for the patient to progress towards his/her prior level of function. Additional exercises will be introduced and as well as a comprehensive home exercise program upon discharge, if needed, ?to ensure carryover of functional gains achieved in the clinic. This treatment plan has been reviewed and agreement upon by the patient.
== END 2023-04-30 14:48 | disposition home or self-care (01) ==
LOC: CHSPT 07:49
PROVIDERS: Visit Provider Orthopaedic Surgery
DX: Z48.89 Encounter for other specified surgical aftercare (principal); Z98.890 Other specified postprocedural states
CPT/HCPCS: 97014; 97110; 97140; 97161; 97530; G0283

== ENCOUNTER 2023-04-02 17:21 | Outpatient (CLI) | payer OTHER, SELFPAY ==
[2023-04-02 17:46] LABS: Appearance Urine Clear (Clear); Bilirubin Urine 1+ (Negative); Blood Urine Negative (Negative); Color Urine Light Yellow (Yellow); Glucose Urine UA Negative (Negative); Ketones Urine Trace (Negative); Leukocyte Esterase Ur Negative (Negative); Nitrate Urine Negative (Negative); Protein Urine Negative (Negative); Specific Grav Ur >= 1.030 (1.010-1.020); Urobilinogen Urine 0.2 mg/dL (0.2-1.0)
[2023-04-02 18:12] LABS: Add Urine Microscopic? YES; Bacteria Urine 4+ /hpf; RBC Urine 0-2 /hpf (0-2); Squamous Epithelial Cell Urine Moderate /hpf (Few); WBC Urine 0-3 /hpf (0-3)
[2023-04-02 18:21] LABS: Anion Gap 11 mmol/L (8-16); Blood Urea Nitrogen 19 mg/dL (7-18); Calcium 9.4 mg/dL (8.5-10.1); Carbon Dioxide 26 mmol/L (21-32); Chloride 104 mmol/L (98-108); Estimated Glomerular Filt Rate > 60; Glucose 108 mg/dL (70-99); Osmolality Calculated 295 mOsm/kg (285-295); Potassium 3.9 mmol/L (3.5-5.1); Sodium 141 mmol/L (136-145)
== END 2023-04-02 17:22 | disposition home or self-care (01) ==
LOC: CHSLAB 17:26
PROVIDERS: Visit Provider Nurse Practitioner Family
DX: N39.0 Urinary tract infection, site not specified (principal); I12.9 Hypertensive chronic kidney disease with stage 1 through stage 4 chronic kidney disease, or unspecified chronic kidney disease; N18.2 Chronic kidney disease, stage 2 (mild)
CPT/HCPCS: 36415; 80048; 81001; 87086

== ENCOUNTER → 2023-04-08 08:12 | Outpatient (CLI) | payer OTHER, SELFPAY ==
--- NOTE | ~2023-04-08 | US_ITS ---
Corrected Report Removal of incorrect Template Please see corrected report below 04/08/2023 SLJ This report was recreated on 04/08/2023. Original report was signed by Moo Saba M.D. on 04/08/2023 12:19 CDT. EXAMINATION: US retroperitoneal duplex ltd DATE: 04/08/2023 12:17 CDT INDICATION: Chronic kidney disease. TECHNIQUE: Multiple grayscale, color Doppler, and pulsed Doppler images of the kidneys and renal arteries were obtained. COMPARISON: None. FINDINGS: The aorta peak systolic velocity is 108 cm/s. The right renal artery peak systolic velocity is 139 cm/s in the proximal segment, 103 cm/s in the mid segment, 167 cm/s in the distal segment. The left renal artery peak systolic velocity is 167 cm/s in the proximal segment, mid segment not visualized due to overlying bowel gas, and [264 cm/s in the distal segment. The renal artery/aorta systolic ratio on the right is 1.55 and on the left is 2.44. Notes: renal artery stenosis is >=180-200 cm/s or >3.5:1 ratio of renal artery velocity to aorta. This correlates with >50-60% stenosis. IMPRESSION: 1. Elevated systolic velocity left renal artery, consistent with renal vascular hypertension. Reviewed, dictated and finalized at location B. MTDD IMPRESSION: 1. No Doppler evidence of renal artery stenosis. EXAMINATION: US retroperitoneal duplex ltd DATE: 04/08/2023 12:17 CDT INDICATION: Chronic kidney disease. TECHNIQUE: Multiple grayscale, color Doppler, and pulsed Doppler images of the kidneys and renal arteries were obtained. COMPARISON: None. FINDINGS: The aorta peak systolic velocity is 108 cm/s. The right renal artery peak systo lic velocity is 139 cm/s in the proximal segment, 103 cm/s in the mid segment, 167 cm/s in the distal segment. The left renal artery peak systolic velocity is 167 cm/s in the proximal segment, mid segment not visualized due to overlying bowel gas, and [264 cm/s in the distal segment. The renal artery/aorta systolic ratio on the right is 1.55 and on the left is 2 .44. Notes: renal artery stenosis is >=180-200 cm/s or >3.5:1 ratio of renal artery velocity to aorta. This correlates with >50-60% stenosis. IMPRESSION: 1. Elevated systolic velocity left renal artery, consistent with renal vascula r hypertension.
== END ==
PROVIDERS: PCP Nurse Practitioner Family; Visit Provider Nurse Practitioner Family
DX: I12.9 Hypertensive chronic kidney disease with stage 1 through stage 4 chronic kidney disease, or unspecified chronic kidney disease (principal); N18.2 Chronic kidney disease, stage 2 (mild)
CPT/HCPCS: 93976

== ENCOUNTER 2023-04-08 12:44 | Outpatient (CLI) | payer OTHER, SELFPAY ==
[2023-04-08 13:09] LABS: Basophils Absolute Auto 0.02 K/mm3 (0.00-0.10); Basophils Percent Auto 0.3 % (0.0-1.0); Eosinophils Absolute Auto 0.08 K/mm3 (0.02-0.50); Eosinophils Percent Auto 1.3 % (1.0-6.0); Hemoglobin 14.3 g/dL (12.0-15.0); Immature Granulocyte Absolute 0.03 K/mm3 (0.00-0.00); Immature Granulocyte Percent A 0.5 % (0.0-0.0); Lymphocytes Absolute Auto 1.44 K/mm3 (1.10-4.50); Lymphocytes Percent Auto 23.8 % (18.0-42.0); Mean Corpuscular HGB Conc 31.8 g/dL (32.0-36.0); Mean Corpuscular Hemoglobin 28.1 pg (27.0-31.0); Mean Corpuscular Volume 88.6 fL (78.0-102.0); Mean Platelet Volume 10.7 fl (9.2-11.8); Monocytes Absolute Auto 0.46 K/mm3 (0.10-0.90); Monocytes Percent Auto 7.6 % (2.0-11.0); Neutrophils Percent Auto 66.5 % (50.0-70.0); Platelet Count Result 245 K/mm3 (150-420); Red Blood Count 5.08 M/mm3 (4.20-5.40); Red Cell Distribution Width 12.7 % (11.6-14.4); White Blood Count 6.1 K/mm3 (4.8-10.8)
[2023-04-08 13:11] LABS: Appearance Urine Clear (Clear); Bilirubin Urine Negative (Negative); Blood Urine Negative (Negative); Color Urine Light Yellow (Yellow); Glucose Urine UA Negative (Negative); Ketones Urine Negative (Negative); Leukocyte Esterase Ur Negative (Negative); Nitrate Urine Negative (Negative); Protein Urine Negative (Negative); Urobilinogen Urine 0.2 mg/dL (0.2-1.0)
[2023-04-08 13:15] LABS: Add Urine Microscopic? NO
[2023-04-08 13:21] LABS: Creatinine Urine 69.92 mg/dL (40-278); Total Protein Urine Random 8.5 mg/dL (0.0-11.9); Ur Ttl Prot Creatinine Ratio 0.12 mg/mg (0-0.20)
[2023-04-08 13:42] LABS: Albumin Level 3.5 g/dL (3.4-5.0); Anion Gap 8 mmol/L (8-16); Blood Urea Nitrogen 10 mg/dL (7-18); Calcium 9.3 mg/dL (8.5-10.1); Carbon Dioxide 28 mmol/L (21-32); Chloride 105 mmol/L (98-108); Estimated Glomerular Filt Rate > 60; Glucose 114 mg/dL (70-99); Magnesium 2.2 mg/dL (1.8-2.4); Osmolality Calculated 292 mOsm/kg (285-295); Potassium 4.4 mmol/L (3.5-5.1); Sodium 141 mmol/L (136-145)
[2023-04-08 13:52] LABS: Phosphorus 3.4 mg/dL (2.6-4.7)
[2023-04-11 14:35] LABS: Vitamin D 25 Hydroxy 45 ng/mL (30-100)
== END 2023-04-08 12:45 | disposition home or self-care (01) ==
LOC: CHSLAB 12:49
PROVIDERS: PCP Family Medicine; Visit Provider Hospitalist
DX: N18.2 Chronic kidney disease, stage 2 (mild) (principal); I10 Essential (primary) hypertension; E26.89 Other hyperaldosteronism
CPT/HCPCS: 36415; 80069; 81003; 82306; 82570; 83735; 84156; 85025

== ENCOUNTER 2023-04-09 15:05 | Outpatient (CLI) | payer OTHER, SELFPAY ==
--- NOTE | ~2023-04-09 | CT_ITS ---
EXAMINATION: CT abdomen pelvis wo con DATE: 04/09/2023 15:50 INDICATION: Left flank pain. Anuria. TECHNIQUE: Computed tomography (CT) of the abdomen and pelvis was performed without intravenous contr ast. Automated exposure control and iterative reconstruction technique were employed. The dose-length product was 411.89 mGy-cm. COMPARISON: None FINDINGS: Lung bases are clear. Heart size is normal. No pericardial or pleural effusion. Liver, gallbladder, s pleen, pancreas, bilateral adrenal glands and kidneys are normal. No urolithiasis or hydronephrosis. Bladder is normal. The uterus is not identified and has likely been surgically resected. 2.3 cm left adnexal cyst/follicle. There are likely bilateral tubal ligation rings along side the left and right adnexa. Bowels are unremarkable with no obstruction. No free intraperitoneal gas or fluid. No patholo gically enlarged abdominal or pelvic lymphadenopathy. Mild scattered degenerative skeletal changes in the spine and at the bilateral sacroiliac joints. IMPRESSION: 1. No urolithiasis, hydronephrosis or acute intra-abdominal/pelvic process. Reviewed, dictated and finalized at location A.
[2023-04-09 16:05] LABS: Free T3 2.51 pg/mL (2.18-3.98); Free T4 Free Thyroxine 0.67 ng/dL (0.76-1.46); Thyroid Stimulating Hormone 1.22 uIU/mL (0.36-3.74)
[2023-05-02 07:32] LABS: PRA 3.45 ng/mL/h (0.25-5.82)
== END 2023-04-09 15:06 | disposition home or self-care (01) ==
PROVIDERS: PCP Family Medicine; Visit Provider Nurse Practitioner Family
DX: R34 Anuria and oliguria (principal); R25.1 Tremor, unspecified; N18.2 Chronic kidney disease, stage 2 (mild)
CPT/HCPCS: 36415; 74176; 82088; 84244; 84439; 84443; 84481

== ENCOUNTER 2023-04-24 23:42 | Emergency (ER) | payer OTHER, SELFPAY ==
[2023-04-24 23:44] VITALS: BP 150/115; PULSE 107; RESP 18; TEMP 36.4; O2SAT 99
[2023-04-25 00:02] VITALS: BP 158/113; PULSE 100; RESP 18; O2SAT 99
[2023-04-25] MEDS: cloNIDine HCL 0.2 MG TABLET PO (00:02)
[2023-04-25 00:34] VITALS: BP 158/107; PULSE 100; O2SAT 100
[2023-04-25 00:39] VITALS: PULSE 100
[2023-04-25] MEDS: LABETALOL HCL 50 MG TABLET PO (00:39)
[2023-04-25 01:02] VITALS: BP 118/88; PULSE 94; RESP 20; O2SAT 100
--- NOTE | 2023-04-25 01:19 | ED.GENADULT ---
HPI - General Adult General Chief complaint: Unspecified Stated complaint: High Blood Pressure History of Present Illness HPI narrative: Patient is a 43-year-old female with a significant past medical history that presents today for blood pressure. She has history of hypertension and takes 2 diuretics and labetalol. She does have apparent chronic renal artery stenosis this was just found a few weeks ago on testing. She has followed up with Nephrology since then and they continued her on 2 diuretics and labetalol. Her blood pressure was running high today she said as high as 190/110. Upon arrival her blood pressure was 150/115. Onset (ago): hour(s) Relieving factors: none Exacerbating factors: none Associated symptoms: denies other symptoms Related Data Home Medications Medication Instructions Recorded Confirmed alprazolam 0.5 mg tablet 0.5 mg PO BID PRN anxiety 08/31/20 04/25/23 ergocalciferol (vitamin D2) 1,250 1,250 mcg PO WEEKLY 08/31/20 04/25/23 mcg (50,000 unit) capsule indomethacin 25 mg capsule 25 mg PO BID 11/21/20 04/25/23 labetalol 100 mg tablet 50 mg PO Q12H 11/21/20 04/25/23 magnesium oxide 400 mg PO BID 11/21/20 04/25/23 melatonin 10 mg capsule 10 mg PO QHS 11/21/20 04/25/23 semaglutide 0.25 mg or 0.5 mg (2 0.25 mg subcut WEEKLY 04/16/21 04/25/23 mg/1.5 mL) subcutaneous pen injector (Ozempic) potassium chloride 20 mEq 30 meq PO DAILY 05/21/21 04/25/23 tablet,extended release(part/cryst) (Klor-Con M) Allergies Allergy/AdvReac Type Severity Reaction Status Date / Time fluoxetine Allergy Unknown Other Verified 05/21/21 09:05 latex Allergy Unknown Other Verified 05/21/21 09:05 Review of Systems Constitutional: Constitutional: Reports as per HPI and Reports no additional constitutional complaints Eyes: Eyes: Reports no additional eye complaints ENT: Reports system reviewed and no additional complaints, except as documented Cardiovascular: Cardiovascular: Reports no additional cardiovascular complaints Respiratory: Respiratory: Reports no additional respiratory complaints Gastrointestinal: Gastrointestinal: Reports no additional gastrointestinal complaints Genitourinary: Genitourinary: Reports no additional female genitourinary complaints Musculoskeletal: Musculoskeletal: Reports no additional musculoskeletal complaints Integumentary/Breasts: Skin/Breast: Reports system reviewed and no additional complaints, except as docu Neurologic: Reports system reviewed and no additional complaints, except as documented Psychiatric: Psychiatric: Reports no additional psychiatric complaints Endocrine: Endocrine: Reports no additional endocrine complaints [facility] Past Medical History Medical History KENDALL positive (~08/2020) Anxiety Easy bruising (~08/2020) GERD (gastroesophageal reflux disease) Hypokalemia due to loss of potassium Migraine Premenopausal menorrhagia Rectal polyp Stress TIA (transient ischemic attack) Surgical History Surgical History H/O: hysterectomy Family History Family History Mother Family history of obesity Patient's mother is in good health Family history of coronary artery disease Father Family history of diabetes mellitus in first degree relative Family history of coronary artery disease Grandparent Family history of malignant neoplasm of breast Family history of malignant neoplasm of ovary Other Family history of thyroid disease Social History Social History Smoking status: Never smoker Alcohol intake: current Alcohol use details: wine, beer ocassionally Substance use: never Substance use type: does not use Living arrangements: alone Occupation/Education: occupation Additional occupation/education comments:
== END 2023-04-25 01:48 | disposition home or self-care (01) ==
PROVIDERS: Emergency Provider Family Medicine; PCP Family Medicine
DX: I10 Essential (primary) hypertension (principal); Z79.899 Other long term (current) drug therapy; Z86.73 Personal history of transient ischemic attack (TIA), and cerebral infarction without residual deficits
CPT/HCPCS: 99283; A9270

== ENCOUNTER 2023-05-06 11:05 | Observation (INO) | payer OTHER, SELFPAY ==
[2023-05-06] VITALS (18 sets, daily range): BP systolic 126–143; BP diastolic 85–96; PULSE 100–115; RESP 13–20; TEMP 35.9–36.4; O2SAT 99–100; BMI 33.9
--- NOTE | ~2023-05-06 | CT_ITS ---
CT ANGIOGRAM NECK AND HEAD History: Facial droop, slurred speech. Technique: Serial spiral axial images through the head and neck were obtained during arterial phase I V injection of 100 cc of Omnipaque 350. 3-D postprocessing and MIP images were then reconstructed on the remote workstation. Dose reduction technique was used on this scan by utilizing automated [employer] control and iterative reconstruction technique. The dose-length product (DLP) was 1028.50 mGy-cm. CTA neck findings: Bilateral vertebral arteries are patent. Bilateral common carotid, internal carot id, and external carotid arteries are patent. No large vessel occlusion. No stenosis or aneurysm. The proximal right internal carotid artery demonstrates 0% stenosis relative to the normal distal artery lumen diameter. The proximal left internal carotid artery demonstrates 0% stenosis relative to the n ormal distal artery lumen diameter. CTA head findings: Distal vertebral arteries, basilar artery, and posterior cerebral arteries are pat ent. Distal internal carotid arteries, middle cerebral arteries, and anterior cerebral arteries are p atent. No large vessel occlusion. No stenosis or aneurysm. Impression: No significant abnormality seen. Reviewed, dictated and finalized at location . Impression: No significant abnormality seen.
--- NOTE | ~2023-05-06 | XR_ITS ---
Portable chest x-ray Comparison: 10/30/2018 Clinical History: Right-sided weakness, hypertension Findings: Lungs are clear, without focal consolidation or pleural effusion. Cardiomediastinal silho uette is stable. Bones and soft tissues are unremarkable. Impression: Clear lungs. Reviewed, dictated and finalized at location . Impression: Clear lungs.
--- NOTE | ~2023-05-06 | XR_ITS ---
EXAMINATION: XR lumbar spine 2-3V DATE: 05/07/2023 07:59 INDICATION: Lumbar tenderness. TECHNIQUE: 3 views of lumbar spine were obtained. COMPARISON: Lumbar spine radiographs 10/30/2018, CT abdomen and pelvis 04/09/2023 FINDINGS: There is 4 degrees dextrocurvature of thoracolumbar spine. Vertebral body heights and inter vertebral disc heights are normal. There is moderate facet joint osteoarthritis in lower lumbar spine . IMPRESSION: 1. Moderate facet joint osteoarthritis in lower lumbar spine. Reviewed, dictated and finalized at location E.
--- NOTE | ~2023-05-06 | CT_ITS ---
EXAMINATION: CT brain wo con DATE: 05/06/2023 11:15 INDICATION: Slurred speech, facial drooping, right-sided weakness TECHNIQUE: Computed tomography (CT) of the head was performed without intravenous contrast. The mA wa s adjusted according to patient size. Iterative reconstruction technique was employed. Exam dose: 60 5.33 mGy-cm total exam DLP. COMPARISON: August 31, 2020 CT brain FINDINGS: Bilateral carotid siphon internal carotid artery calcifications and some vertebrobasilar ar swapnil calcification is noted. No intracranial mass lesion or hemorrhage or cerebrovascular accident is evident. No midline shift or mass effect. Normal ventricular size. No subdural or epidural hematoma is detected. No skull fracture or bone destruction. The mastoid air cells and included paranasal sinuses are joey lly developed and aerated. IMPRESSION: Cerebral atherosclerosis No acute intracranial finding Dr. Novak telephoned the report on 05/06/2023 at 1120 hours to emergency room Nurse Practitioner Polo. Reviewed, dictated and finalized at Location A. Reviewed, dictated and finalized at location A. IMPRESSION: Cerebral atherosclerosis No acute intracranial finding Dr. Novak telephoned the report on 05/06/2023 at 1120 hours to emergency room Nu rse Practitioner Polo.
--- NOTE | ~2023-05-06 | XR_ITS ---
EXAMINATION: XR abdomen/kub 1V DATE: 05/06/2023 16:33 INDICATION: Foreign body. TECHNIQUE: A supine view of the abdomen on 2 radiographs was obtained. COMPARISON: CT abdomen and pelvis 04/09/2023 FINDINGS: There is contrast in the renal collecting system. There are no dilated loops of bowel. IMPRESSION: 1. No radiopaque foreign body. Reviewed, dictated and finalized at location E.
--- NOTE | ~2023-05-06 | XR_ITS ---
EXAMINATION: XR thoracic spine 2V DATE: 05/07/2023 07:59 INDICATION: Thoracic spine tenderness. TECHNIQUE: 3 views of thoracic spine on 4 radiographs were obtained. COMPARISON: CT abdomen and pelvis 04/09/2023 FINDINGS: There is 7 degrees dextrocurvature of upper thoracic spine and 9 degrees levocurvature of t horacolumbar spine. There is mild chronic anterior wedging of T8 vertebral body. Intervertebral disc heights are normal. There are endplate osteophytes at multiple levels. IMPRESSION: 1. Mild thoracic spondylosis. Reviewed, dictated and finalized at location E.
--- NOTE | ~2023-05-06 | MR_ITS ---
EXAMINATION: MR brain/brain stem wo con DATE: 05/07/2023 07:45 INDICATION: Facial weakness. Slurred speech. Neurological symptoms. TECHNIQUE: Magnetic resonance imaging (MRI) of the brain and brainstem was performed without intraven ous contrast. COMPARISON: Brain MRI 11/04/2018, head CT 05/06/2023 FINDINGS: There are approximately 4 scattered foci of increased T2-weighted signal intensity in the c erebral white matter, which is normal for the patient's age. There is no intracranial hemorrhage, acu te infarction, or abnormal intracranial mass lesion. The ventricles are normal in size. The orbits ar e normal. The paranasal sinuses are clear. The mastoid air cells are normal. IMPRESSION: 1. Normal brain. Reviewed, dictated and finalized at location E. IMPRESSION: 1. Normal brain.
--- NOTE | 2023-05-06 11:06 | ECG_ITS ---
Measurements Intervals [place] Rate: 103 P: 48 CA: 156 QRS: -3 QRSD: 84 T: 9 QT: 340 QTc: 446 Interpretive Statements SINUS TACHYCARDIA POSSIBLE LEFT ATRIAL ENLARGEMENT [-0.1mV P WAVE IN V1/V2] POSSIBLE LEFT VENTRICULAR HYPERTROPHY [VOLTAGE CRITERIA PLUS LAE OR QRS WIDENING] NONSPECIFIC T-WAVE ABNORMALITY BASELINE ARTIFACT NO PREVIOUS ECG AVAILABLE FOR COMPARISON Electronically Signed On 05-06-2023 20:23:17 CDT by Ratna Cali M.D.
[2023-05-06 11:21] LABS: Estimated Glomerular Filt Rate > 60
[2023-05-06 11:31] LABS: Basophils Percent Auto 0.6 % (0.2-1.2); Eosinophils Percent Auto 0.6 % (0-4.4); Hematocrit 45.5 % (37.0-47.0); Hemoglobin 14.8 g/dL (12.0-15.0); Immature Granulocyte Absolute 0.02 K/mm3 (0.00-0.031); Immature Granulocyte Percent A 0.3 % (0-0.5); Lymphocytes Absolute Auto 1.55 K/mm3 (0.9-3.2); Lymphocytes Percent Auto 21.6 % (18.3-44.2); Mean Corpuscular HGB Conc 32.5 g/dl (32-36); Mean Corpuscular Hemoglobin 28.1 pg (26-34); Mean Corpuscular Volume 86.3 fl (80-100); Mean Platelet Volume 11.1 fl (7.4-10.4); Monocytes Absolute Auto 0.6 K/mm3 (0.1-0.6); Monocytes Percent Auto 8.8 % (2.6-8.5); Neutrophils Absolute Auto 4.9 K/mm3 (1.3-6.7); Neutrophils Percent Auto 68.1 % (45.5-73.1); Platelet Count Result 236 k/mm3 (150-375); Red Blood Count 5.27 M/mm3 (4.2-5.4); Red Cell Distribution Width 13.3 % (11.5-14.5); White Blood Count 7.2 K/mm3 (4.5-10.0)
[2023-05-06 11:42] LABS: Alanine Aminotransferase 20 U/L (6-35); Albumin Level 4.5 g/dL (3.5-5.1); Alkaline Phosphatase 74 U/L (38-126); Anion Gap 8 mmol/L (8-16); Aspartate Amino Transferase 25 U/L (14-36); Bilirubin,Total 0.7 mg/dL (0.2-1.3); Blood Urea Nitrogen 22 mg/dL (7-17); Calcium 9.8 mg/dL (8.4-10.2); Carbon Dioxide 27 mmol/L (22-30); Chloride 100 mmol/L (98-107); Estimated CRCL calculation 96 ml/min; Estimated Glomerular Filt Rate > 60; Glucose 111 mg/dL (65-110); Potassium 3.2 mmol/L (3.4-5.0); Sodium 135 mmol/L (137-145)
[2023-05-06 11:44] LABS: INR 0.9; Partial Thromboplastin Time 27.6 SECONDS (22.3-36.8); Prothrombin Time 12.2 Seconds (11.1-14.7)
[2023-05-06 11:54] LABS: Troponin I < 0.012 ng/mL (0.000-0.034)
[2023-05-06] MEDS: LORazepam INJ (*CRX) 2 MG/ML VIAL 0.5 MG IV PUSH (12:06)
--- NOTE | 2023-05-06 14:02 | PC.NURSE ---
This patient, Carmen Garza, was admitted to [facility] Surg Room 324-02. Patient/family oriented to hospital policies and general routines including ID bracelet, bed and alarms, visiting hours, pain management, procedures, bathroom and other care routines, personal items, smoking policy, room service/diet, and visiting hours. Information on how to activate the Rapid Response Team has been discussed. Patient/Family are encouraged to report perceived risks to care and to ask questions if they do not understand what they are told or what they should do.
--- NOTE | 2023-05-06 14:15 | PC.NURSE ---
Sales Planning Manager called Raine Wilkins APRN and no answer.
--- NOTE | 2023-05-06 15:11 | PC.NURSE ---
Manager Programming called Raine Wilkins APRN and no answer.
--- NOTE | 2023-05-06 15:59 | PC.NURSE ---
RN went into room to collect MRI screening form. Patient appeared to have seizure like activity for 10 seconds. During this visitor at bedside said patient's name and asked her to sign screening form and patient responded with yes and sat up immediately to sign form. Patient is oriented times 3. Follows commands. Strong student counsellor and pushes. Patient stated she felt like she couldn't breathe. RN checked patients oxygen (see VITALS).
--- NOTE | 2023-05-06 16:52 | ED.NEUROSD ---
HPI - Neuro Symptoms/Deficit General Chief Complaint: Suspected CVA Stated Complaint: Code Stroke Time Seen by Provider: 05/06/23 11:08 History of Present Illness HPI Narrative: Patient presents as a code stroke, supposedly has history of hypertension, prior TIA, anxiety, she arrived here with reported facial droop and slurred speech. She is quite tearful and states that she feels like she cannot feel her face or move her arms or legs. Also reports headache. Related Data Home Medications Medication Instructions Recorded Confirmed alprazolam 0.5 mg tablet 0.5 mg PO TID PRN anxiety 08/31/20 05/06/23 ergocalciferol (vitamin D2) 1,250 1,250 mcg PO WEEKLY 08/31/20 05/06/23 mcg (50,000 unit) capsule indomethacin 25 mg capsule 25 mg PO DAILY 11/21/20 05/06/23 labetalol 100 mg tablet 50 mg PO Q12H 11/21/20 05/06/23 magnesium oxide 400 mg PO BID 11/21/20 05/06/23 melatonin 10 mg capsule 10 mg PO QHS PRN Insomnia 11/21/20 05/06/23 potassium chloride 20 mEq 30 meq PO DAILY 05/21/21 05/06/23 tablet,extended release(part/cryst) (Klor-Con M) losartan 100 100 tablet PO DAILY 05/06/23 05/06/23 mg-hydrochlorothiazide 25 mg tablet Allergies Allergy/AdvReac Type Severity Reaction Status Date / Time fluoxetine Allergy Unknown Other Verified 05/21/21 09:05 latex Allergy Unknown Other Verified 05/21/21 09:05 Review of Systems Review of Systems: CONST: No fever. HEENT: No sore throat C/V: No chest pain RESP: No cough GI: No abdominal pain : No dysuria. M/S: No joint pain. SKIN: No rash. NEURO: Headache PSYCH: Anxiety [facility] Past Medical History Medical History (Updated 05/06/23 @ 17:48 by Yary Pittman MD) KENDALL positive (~08/2020) Anxiety Easy bruising (~08/2020) Gastric ulcer GERD (gastroesophageal reflux disease) Hypertensive disorder Hypokalemia due to loss of potassium Migraine Premenopausal menorrhagia Rectal polyp Stress TIA (transient ischemic attack) Surgical History Surgical History H/O: hysterectomy Family History Family History Mother Family history of obesity Patient's mother is in good health Family history of coronary artery disease Father Family history of diabetes mellitus in first degree relative Family history of coronary artery disease Grandparent Family history of malignant neoplasm of breast Family history of malignant neoplasm of ovary Other Family history of thyroid disease Social History Social History Smoking status: Never smoker Alcohol intake: never Alcohol use details: wine, beer ocassionally Substance use: never Substance use type: does not use Lack of Transportation: No Lack of Food: Never True Current Housing: I Have Housing Concerned About Future Housing: No Difficulty Paying Gas/Electric Bills: No Difficulty Paying for Meds: No Currently Unemployed: No Education: Associate Degree Difficulty w/ Childcare or Family Care: No Living arrangements: alone Occupation/Education: occupation Additional occupation/education comments: banker Spiritual care concerns: No Exam Narrative: EXAMINATION OF ORGAN SYSTEMS/BODY AREAS: Constitutional: Vital signs per nursing GENERAL: Tearful and very anxious HEAD: Normal with no signs of head trauma. EYES: EOMI, conjunctiva normal, PERRL ENT: Patient seems to force a left sided facial droop when I talk to her however when she speaks she has normal facial symmetry, and when she is not being actively spoken to she also has normal facial symmetry. LUNGS: Nonlabored breathing. HEART: [Regular rate and rhythm] ABD: [Soft], [nontender to palpation] EXT: Patient tremulous in RUE (reports this is chronic); otherwise barely able to move any extremity against gravity. SKIN: [No rashes or lesions.] NEURO: [Alert and oriented x 3
[2023-05-06 17:03] LABS: Amphetamine Screen Urine Positive (Negative); Barbiturate Screen Urine Negative (Negative); Benzodiazepines Screen Urine Negative (Negative); Cannabinoid Screen Urine Positive (Negative); Cocaine Screen Urine Negative (Negative); Methadone Screen Urine Negative (Negative); Opiate Screen Urine Negative (Negative); Phencyclidine Screen Urine Negative (Negative)
--- NOTE | 2023-05-06 17:11 | PM.IMHP ---
H&P: HPI History of Present Illness Date/Time: 05/06/23 17:11 Chief Complaint: Dysarthria, Weakness Narrative: 43-year-old female presents here with dysarthria, facial droop, weakness, and seizure-like activity with past medical history of GERD, hypokalemia, anxiety, TIA, migraines, HTN, and emiliano's syndrome. Patient reports that she was at an appointment for evaluation of renal artery stenosis. After appointment patient became dizzy. States she felt like she could barely stand, was having difficulty calling a friend to transport her to the hospital, and difficulty moving her arms and legs. Patient describes the weakness as a heaviness in her extremities. Difficult to assess for numbness and tingling, patient unable to provide details. Does report a frontal headache that has been present since Thursday evening. Worse on the left. Reports she chronically has a headache but this is worse than her normal. Positive photo, phono, smell sensitivity, blurred vision bilaterally, and nausea. Per report to jr. java developer, patient reported she had sudden onset of headache, emesis, slurred speech, right upper extremity weakness. Per ED provider report, patient reported she could not feel her face or move her arms or legs accompanied by alternating dysarthria, aphasia, and normal speech. After arrival to the hospital, patient also developed seizure-like activity. Episodes lasting a few seconds to a maximum of 2 minutes. +CP with contractions and midthoracic pain w/palp. Patient rolls eyes up and back, back bows, shaking of arms and legs, tightening of face and jaw. No observed postictal phase, no incontinence, and patient alert during events. Patient able to describe events leading to the emergency department, however answered orientation questions incorrectly. Per family at bedside, some concerns for her mental health. Recent and other relationship with subsequent decreased appetite and unintentional weight loss. Currently abstaining from alcohol due to issues with drinking during that relationship. 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 However her son who is 17 just completed football. Review of Systems Review of Systems: Limited due to patient condition All systems reviewed & are unremarkable except as noted in HPI and below PMFSH Past Medical History Medical History (Updated 05/07/23 @ 01:09 by Raine Wilkins APRN) KENDALL positive (~08/2020) Anxiety Easy bruising (~08/2020) Gastric ulcer GERD (gastroesophageal reflux disease) Hypertensive disorder Hypokalemia due to loss of potassium Emiliano's syndrome Migraine Premenopausal menorrhagia Rectal polyp Stress TIA (transient ischemic attack) Surgical History Surgical History (Updated 05/07/23 @ 01:10 by Raine Wilkins APRN) H/O: hysterectomy History of bladder surgery Mesh sling placed Family History Family History Mother Family history of obesity Patient's mother is in good health Family history of coronary artery disease Father Family history of diabetes mellitus in first degree relative Family history of coronary artery disease Grandparent Family history of malignant neoplasm of breast Family history of malignant neoplasm of ovary Other Family history of thyroid disease Social History Social History (Updated 05/07/23 @ 01:11 by Raine Wilkins APRN) Social History: Patient lives at home with her 17-year-old son. Surrogate decision maker: Arianna Diaz, sister Code status: Full code Smoking status: Never smoker Alcohol intake: never Alcohol use details: wine, beer ocassionally Substance use: never Substance use type: does not use Lack of Transportation: No Lack of Food: Never True Current Housing: I Have Housing Concerned About Future Housing: No Difficulty Paying Gas/Electric Bills: No Difficulty
[2023-05-06 17:18] LABS: Ethanol < 10 mg/dL (<10)
[2023-05-06] MEDS: LABETALOL HCL 50 MG TABLET PO (21:09)
[2023-05-07] MEDS: KETOROLAC 30 MG/ML VIAL (*BKC) IV PUSH (00:22)
[2023-05-07] MEDS: diphenhydrAMINE HCl INJ 50 MG/ML VIAL 25 MG IV PUSH (00:23)
[2023-05-07] MEDS: SODIUM CHLORIDE 0.9% IV 1,000 ML 999 ML IV CONT (00:24)
[2023-05-07] MEDS: PROCHLORPERAZINE EDISYLATE 10 MG/2 ML VIAL IV PUSH (00:24)
--- NOTE | 2023-05-07 01:09 | PC.NURSE ---
This RN went into patient's room with another RN to pass medications. pulp house supervisor and charge nurse came in to move patients roommate. Patient had a seizure like episode that was witnessed by this RN, and others that were in room. Patient was disoriented to place, reported she was at the Drs office. Patient's right hand field artillery operations man was decreased, and patient was stuttering when trying to speak. Pt slowly came out of episode and was able to have a conversation with the powerhouse oiler about her labs and tests. Boyfriend remains at bedside and will be staying the night to assist patient.
[2023-05-07] MEDS: ENOXAPARIN 40 MG/0.4 ML SYRINGE SUB-Q ×2 (03:17→14:20)
[2023-05-07 06:00] VITALS: BP 116/71; PULSE 84; RESP 18; TEMP 35.8; O2SAT 100
--- NOTE | 2023-05-07 10:03 | WPDNEURCNPN ---
Assessment and Plan Assessment and plan (1) Seizure-like activity: Code(s): R56.9 - Unspecified convulsions Status: Acute (2) Difficulty with speech: Code(s): R47.9 - Unspecified speech disturbances Status: Acute Plan Ms. Garza is a 43 year old female presenting with an episode of dizziness, altered mental status, speech change, and what was described as seizure-like activity. MRI brain is normal. I have very low suspicion for epileptic seizures given the inconsistencies in patients symptoms. There also seems to be some relationship difficulties/life changes that could be the trigger. I do not think any additional neurological work-up is needed. She will need outpatient psych. Consult date: 05/07/23 Reason for consult: New neurological symptoms HPI: aCrmen Garza is a 43 year old female with a history of anxiety, hypertension, ?prior TIA presenting for evaluation of new neurological symptoms. Patient was at an appointment on 05/06 for evaluation of JAVI. After her appointment she became dizzy and was having difficulty moving both arms and legs. She described heaviness of her extremities. She also had a frontal headache that had been going on for the past three days. Associated with photophobia, phonophobia, blurry vision bilaterally, and nausea. When she presented to the ED, patient reported that she had sudden onset of headache, vomiting, slurred speech, and RUE weakness. Per the ED provider patient had alternating dysarthria, aphasia, and normal speech. While in the ED, she also had an episode described as seizure like activity, with eyes rolled back, shaking of arms and legs, tightening of face/jaw. Patient remained alert during the event. She did not have a post-ictal state. Patient has a history of anxiety and has had recent change in her relationship. Family also reportedy expressed concerns regarding her mental health. Her sister reports that there have been many inconsistencies in patient's behavior and also some attention seeking from ex-boyfriend. She reports that patient said she could not talk when she was first admitted, but when patient's boyfriend arrived, she was able to talk normally. MRI brain done this morning was normal. Review of Systems Constitutional: Constitutional: Denies chills, Denies fever(s) and Denies weight loss Eyes: Eyes: Reports blurry vision, Denies diplopia and Denies loss of vision ENT: Reports dizziness, Denies hearing loss and Denies tinnitus Cardiovascular: Cardiovascular: Reports chest pain, Denies syncope and Denies dyspnea Respiratory: Respiratory: Denies cough, Denies dyspnea and Denies wheezing Gastrointestinal: Gastrointestinal: Denies abdominal pain, Denies change in bowel habits and Denies vomiting Genitourinary: Genitourinary: Denies urinary incontinence Comments: decreased urination Musculoskeletal: Musculoskeletal: Reports arthralgias and Denies joint swelling Integumentary/Breasts: Skin/Breast: Denies new lesions and Denies rash Neurologic: Reports as per HPI, Denies dizziness, Denies syncope and Denies loss of vision Psychiatric: Psychiatric: Reports anxiety and Reports depression Endocrine: Endocrine: Denies cold intolerance and Denies heat intolerance Hematologic/Lymphatic: Hematologic/Lymphatic: Denies easy bleeding and Denies easy bruising Allergic/Immunologic: Allergic/Immunologic: Denies no additional allergic/immunologic complaints and Denies wheezing PMFSH Past Medical History Medical History KENDALL positive (~08/2020) Anxiety Easy bruising (~08/2020) Gastric ulcer GERD (gastroesophageal reflux disease) Hypertensive disorder Hypokalemia due to loss of potassium Emiliano's syndrome Migraine Premenopausal menorrhagia Rectal polyp Stress TIA (transient ischemic attack) Surgical History Surgical History H/O: hysterectomy Histor
[2023-05-07 10:16] VITALS: PULSE 84
[2023-05-07] MEDS: LOSARTAN POTASSIUM 100 MG TABLET PO (10:16)
[2023-05-07] MEDS: MAGNESIUM OXIDE 400 MG TABLET PO (10:16)
[2023-05-07] MEDS: hydroCHLOROthiazide 25 MG TABLET PO (10:16)
[2023-05-07] MEDS: LABETALOL HCL 50 MG TABLET PO (10:16)
[2023-05-07] MEDS: POTASSIUM CHLORIDE 10 MEQ ER TABLET 30 MEQ PO (10:17)
[2023-05-07] MEDS: amLODIPine BESYLATE 5 MG TABLET 10 MG PO (10:17)
[2023-05-07 11:10] VITALS: BMI 33.9
--- NOTE | 2023-05-07 11:45 | PCSTNOTE ---
Please refer to the Bedside Swallow Evaluation in the EMR. Please note, silent aspiration cannot be ruled out at bedside.
--- NOTE | 2023-05-07 14:34 | PM.DS ---
DS: Admitting Diagnosis Discharge Date 05/07/23 Admitting Diagnosis Dysarthria, Weakness DS: Discharge Diagnosis Discharge Diagnosis (1) Dysarthria: Code(s): R47.1 - Dysarthria and anarthria Status: Acute (2) Migraine: Code(s): G43.909 - Migraine, unspecified, not intractable, without status migrainosus Status: Acute (3) Seizure-like activity: Code(s): R56.9 - Unspecified convulsions Status: Acute DS: Summary Hospital Course Reason for hospitalization: 43yo female with migraines, HTN and anxiety here with dysarthria, facial droop, weakness, and seizure-like activity. Please see H&P for details. Hospital Course: Patient with neurologic symptoms after an office appointment. EKG showing sinus tach (103) and possible LAE with LVH. Head CT showing no acute findings. CTA head/neck showing no significant abnormalities. CXR was clear. Brain MRI normal. Thoracic and lumbar spine xrays showing mild thoracic spondylosis and moderate lumbar facet OA. UDS was positive for cannabinoids and amphetamines. She denies drug use. Was on phentermine recently so may have caused a false positive. Bedside speech therapy evaluation was normal. She was treated with Ativan. Neurology consulted. No further neurologic workup required. [place] symptoms were related to anxiety and possibly panic attack or conversion disorder. Her symptoms have resolved. She feels much better and feels ready for discharge. She does follow with a psychologist and plans to follow up with him. She overall did well and was able to be discharged home on 05/07/23. Status at Discharge Cognitive/behavioral status at discharge: stable Time Spent with Patient Time attestation: Total time spent providing and/or coordinating discharge services: 35 minutes Time spent: Greater than 30 minutes Exam Narrative: AF 96.5 116/71 84 18 100% ra Gen - NARD Chest - CTA bilaterally CV - RRR S1/S2 Abd - soft NT/ND Ext - no edema Neuro - slight weakness in the right career developer otherwise normal exam Psych - well groomed. alert, personable. mildly pressured speech. stays on topic. good eye contact Skin - warm and dry DS: Data Data Completed and Pending Labs on day of discharge: Labs from last 24 hours 05/06/23 05/06/23 16:47 15:42 Urine Opiates Screen Negative Urine Methadone Screen Negative Ur Barbiturates Screen Negative Ur Phencyclidine Scrn Negative Ur Amphetamine Screen Positive A U Benzodiazepines Scrn Negative Urine Cocaine Screen Negative U Cannabinoids Screen Positive A Ethyl Alcohol < 10 Discharge Plan Discharge Attending physician on discharge: Román Wright Consulting providers: Neena Mcmillan Discharging Clinician: Román Wright Anticipated Discharge Date/Time: 05/07/23 14:56 Patient Disposition: Home, Self-Care Activity: as tolerated Diet: heart healthy Discharge Instructions: Check blood pressure 1 to 2 times a day. Record and bring into your doctor for review. Call your doctor if your blood pressure is greater than 180/110. Avoid NSAIDs (ibuprofen, naproxen, Aleve). Tylenol is safe to take. Follow-up with your primary care provider in 1-2 weeks. Please call for appointment. Follow-up with your psychologist in 1 week. Please call for an appointment. Thank you for using [facility] for your health care needs. Patient Instructions: Antibiotic Form Stand Alone Forms: General Discharge Information Follow-up/Referrals: Alex,Mathew Beltran MD [Primary Care Provider] - Call for Appointment Discharge Medications: Continued amlodipine [Norvasc] 10 mg tablet 10 mg PO DAILY Qty: 30 0RF alprazolam 0.5 mg tablet 0.5 mg PO TID PRN (Reason: anxiety) ergocalciferol (vitamin D2) 1,250 mcg (50,000 unit) capsule 1,250 mcg PO WEEKLY Rx Instructions: thursday is when patient takes medication losartan-hydrochlorothiazide
== END 2023-05-07 15:45 | disposition home or self-care (01) ==
LOC: ANHED 13:31 → ANH3MEDSUR 13:32
PROVIDERS: Student in an Organized Health Care Education/Training Program; Admitting Provider Internal Medicine; Emergency Provider Emergency Medicine; PCP Family Medicine; Visit Provider Internal Medicine
DX: R47.1 Dysarthria and anarthria (principal); G43.909 Migraine, unspecified, not intractable, without status migrainosus; R56.9 Unspecified convulsions; F41.9 Anxiety disorder, unspecified; K21.9 Gastro-esophageal reflux disease without esophagitis; I67.2 Cerebral atherosclerosis; I10 Essential (primary) hypertension; I15.1 Hypertension secondary to other renal disorders; G47.00 Insomnia, unspecified; M47.816 Spondylosis without myelopathy or radiculopathy, lumbar region; M47.814 Spondylosis without myelopathy or radiculopathy, thoracic region; E87.6 Hypokalemia; Z86.73 Personal history of transient ischemic attack (TIA), and cerebral infarction without residual deficits; R94.31 Abnormal electrocardiogram [ECG] [EKG]; Z79.1 Long term (current) use of non-steroidal anti-inflammatories (NSAID); Z79.899 Other long term (current) drug therapy
CPT/HCPCS: 70450; 70496; 70498; 70551; 71045; 72070; 72100; 74018; 80053; 80307; 81025; 84484; 85025; 85610; 85730; 92610; 93005; 96372; 96374; 96375; 99285; A9270; G0378; J0780; J1200; J1650; J1885; J2060; J7030; Q9967

== ENCOUNTER 2023-09-04 17:12 | Outpatient (CLI) | payer OTHER, SELFPAY ==
[2023-09-04 17:31] LABS: Basophils Absolute Auto 0.04 K/mm3 (0.00-0.10); Basophils Percent Auto 0.5 % (0.0-1.0); Eosinophils Absolute Auto 0.14 K/mm3 (0.02-0.50); Eosinophils Percent Auto 1.9 % (1.0-6.0); Hematocrit 43.1 % (35.0-49.0); Hemoglobin 13.8 g/dL (12.0-15.0); Immature Granulocyte Absolute 0.04 K/mm3 (0.00-0.00); Immature Granulocyte Percent A 0.5 % (0.0-0.0); Lymphocytes Absolute Auto 2.25 K/mm3 (1.10-4.50); Lymphocytes Percent Auto 30.6 % (18.0-42.0); Mean Corpuscular Volume 87.6 fL (78.0-102.0); Mean Platelet Volume 9.3 fl (9.2-11.8); Monocytes Percent Auto 6.8 % (2.0-11.0); Neutrophils Absolute Auto 4.4 K/mm3 (1.7-7.2); Neutrophils Percent Auto 59.7 % (50.0-70.0); Platelet Count Result 296 K/mm3 (150-420); Red Blood Count 4.92 M/mm3 (4.20-5.40); Red Cell Distribution Width 12.2 % (11.6-14.4); White Blood Count 7.4 K/mm3 (4.8-10.8)
[2023-09-04 17:32] LABS: Add Urine Microscopic? NO; Appearance Urine Clear (Clear); Bilirubin Urine Negative (Negative); Blood Urine Negative (Negative); Color Urine Yellow (Yellow); Glucose Urine UA Negative (Negative); Ketones Urine Negative (Negative); Leukocyte Esterase Ur Negative (Negative); Nitrate Urine Negative (Negative); Protein Urine Negative (Negative); Specific Grav Ur >= 1.030 (1.010-1.020); Urobilinogen Urine 0.2 mg/dL (0.2-1.0); pH Urine 5.5 (5.0-8.0)
[2023-09-04 17:34] LABS: Creatinine Urine 195.38 mg/dL (40-278); Total Protein Urine Random 20.8 mg/dL (0.0-11.9); Ur Ttl Prot Creatinine Ratio 0.11 mg/mg (0-0.20)
[2023-09-04 17:45] LABS: Albumin Level 3.2 g/dL (3.4-5.0); Anion Gap 8 mmol/L (8-16); Blood Urea Nitrogen 21 mg/dL (7-18); Calcium 8.5 mg/dL (8.5-10.1); Carbon Dioxide 30 mmol/L (21-32); Chloride 103 mmol/L (98-108); Estimated Glomerular Filt Rate 60; Glucose 97 mg/dL (70-99); Osmolality Calculated 295 mOsm/kg (285-295); Phosphorus 3.9 mg/dL (2.6-4.7); Potassium 3.9 mmol/L (3.5-5.1); Sodium 141 mmol/L (136-145)
[2023-09-07 21:26] LABS: Parathyroid Intact 45 pg/mL (14-64)
== END 2023-09-04 17:13 | disposition home or self-care (01) ==
PROVIDERS: PCP Nurse Practitioner Family; Visit Provider Nurse Practitioner Family
DX: N18.2 Chronic kidney disease, stage 2 (mild) (principal)
CPT/HCPCS: 36415; 80069; 81003; 82570; 83970; 84156; 85025

== ENCOUNTER 2023-12-08 07:53 | Outpatient (RCR) | payer OTHER, SELFPAY ==
--- NOTE | 2023-12-08 08:47 | OPREHPOC ---
Outpatient Therapy Plan of Care This is a Multidisciplinary Plan of Care that may contain components documented by all disciplines (PT, OT, and ST.) PT Problem 1 PT Problem #1 Knowledge Deficit PT Goal 1 Goal The patient will be independent in a home exercise program. Target Visit 4 PT Problem 2 PT Problem #2 Pain PT Goal 1 Goal The patient will report no greater than 3/10 right knee pain with daily actvities. Target Visit 18 PT Problem 3 PT Problem #3 Impaired Range of Motion PT Goal 1 Goal The patient will demonstrate 0-125 degrees of right knee AROM to normalize gait. Target Visit 12 PT Problem 4 PT Problem #4 Impaired Functional Mobil PT Goal 1 Goal 1. The patient will demonstrate the ability to transfer sit to stand without use of the UE to improve functional strength. 2. The patient will demonstrate less than 25% self perceived disability per the LEFS. Target Visit 18 PT Problem 5 PT Problem #5 Impaired Strength PT Goal 1 Goal The patient will demonstrate at least 4/5 right quadriceps and hamstring strength to improve gait and functional mobility. Target Visit 18
--- NOTE | 2023-12-08 08:47 | PTOPEVAL1 ---
Assessment and note entered by Carmen Johnson, PT Evaluation Information Assessment Status Evaluation Diagnosis s/p R knee arthroscopy Onset 12/01/23 Subjective Information Carmen Garza reports she had right knee surgery on 12/01/23 to have debris removed, the patella shaved, and for a menisectomy. She injured her knee in July 2023 when she slipped on the ice and landed on her right knee. She reports she has been having a lot of swelling and she is unable to take NSAIDS. She is using oxycodone to help with pain. She is having increased pain with standing up, walking, and moving to end range. Reported Pain Level Pain Score 7: Self Report Assessment PT Clinical Summary Carmen Garza presents 1 week s/p right knee arthroscopy. She reports difficulty with standing up from sitting, walking, and moving her knee to end range. She objectively demonstrates decreased and painful right knee AROM, decreased right knee strength, impaired gait, and right knee edema. She will benefit from skilled PT to address these limitations. Plan of Care Interventions Electrical Stimulation,Hot Pack/Cold Pack,Neuro Re -education,Patient/Caregiver Educati,Therapeutic Activities,Therapeutic Exercise PT Services Indicated Yes Treatment Frequency and 3 times a week for 18 visits Duration These treatments will address the objective and functional deficits as defined above. The patient will be advanced safely and appropriately in order for the patient to progress towards his/her prior level of function. Additional exercises will be introduced and as well as a comprehensive home exercise program upon discharge, if needed, ?to ensure carryover of functional gains achieved in the clinic. This treatment plan has been reviewed and agreement upon by the patient.
--- NOTE | 2023-12-29 07:41 | OPREHPOC ---
Outpatient Therapy Plan of Care This is a Multidisciplinary Plan of Care that may contain components documented by all disciplines (PT, OT, and ST.) PT Problem 1 PT Problem #1 Knowledge Deficit PT Goal 1 Goal The patient will be independent in a home exercise program. Target Visit 4 Progress Met PT Problem 2 PT Problem #2 Pain PT Goal 1 Goal The patient will report no greater than 3/10 right knee pain with daily actvities. Target Visit 18 Progress Partially Met Comment continue PT Problem 3 PT Problem #3 Impaired Range of Motion PT Goal 1 Goal The patient will demonstrate 0-125 degrees of right knee AROM to normalize gait. Target Visit 12 Progress Partially Met Comment continue PT Problem 4 PT Problem #4 Impaired Functional Mobil PT Goal 1 Goal 1. The patient will demonstrate the ability to transfer sit to stand without use of the UE to improve functional strength. -met 2. The patient will demonstrate less than 25% self perceived disability per the LEFS. -not met Target Visit 18 Progress Partially Met Comment continue PT Problem 5 PT Problem #5 Impaired Strength PT Goal 1 Goal The patient will demonstrate at least 4/5 right quadriceps and hamstring strength to improve gait and functional mobility. Target Visit 18 Progress Partially Met Comment continue
--- NOTE | 2023-12-29 07:41 | PTOPPROG ---
Assessment and note entered by Carmen Johnson, PT Evaluation Information Assessment Status Progress Diagnosis s/p R knee arthroscopy Onset 12/01/23 Subjective Information Carmen reports her right knee is doing better but she still gets soreness the day after increased activity. She notes she has been walking more and that causes some soreness later in the day and the next day. She also notes less frequent popping around the kneecap but has grinding when she bends her knee. She notes limitations with transferring sit to stand and going up and down stairs. 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 Assessment PT Clinical Summary Carmen Garza has completed 10 skilled PT visits following a right knee arthroscopy. She is reporting improved mobility and less painful popping but she still c/o grinding around the patella with flexion motions. She is reporting improved ability to walk and drive but still notes soreness after increased activity. She demonstrates improved right knee AROM and strength but remains limited with right knee extension AROM, right knee and hip strength, and decreased ability to descend stairs with normal mechanics. She will continue to benefit from skilled PT to further improve her physical and functional limitations. Plan of Care Interventions Electrical Stimulation,Hot Pack/Cold Pack,Manual Therapy,Neuro Re-education,Patient/Caregiver Educati,Therapeutic Activities,Therapeutic Exercise PT Services Indicated Yes Treatment Frequency and Continue skilled PT 2 times a week for 8 visits Duration per original POC. These treatments will address the objective and functional deficits as defined above. The patient will be advanced safely and appropriately in order for the patient to progress towards his/her prior level of function. Additional exercises will be introduced and as well as a comprehensive home exercise program upon discharge, if needed, ?to ensure carryover of functional gains achieved in the clinic. This treatment plan has been reviewed and agreement upon by the patient.
--- NOTE | 2024-01-06 08:02 | PTOPPROGNS ---
Assessment and note entered by Carmen Johnson, PT Evaluation Information Assessment Status Progress Diagnosis s/p R knee arthroscopy Onset 12/01/23 Subjective Information Carmen reports her right knee has started popping really loud and catching again and she notes it with bending and straightening it. She notes when it pops it is very painful and then she can't straighten it all the way. She does note she has been able to move around and do more but she is fearful of it catching again. She continues to have difficulty going up and down stairs as well. She is using ice daily to help with inflammation. Assessment PT Clinical Summary Carmen Garza has completed 13 skilled PT visits since undergoing a right knee arthroscopy on 11/30. She is reporting improved overall mobility but continues to have increased pain after activity, difficulty with stairs, and she is experiencing loud popping followed by catching and then she has to force her knee to straighten. She is having a lot of pain with the loud pop and catch. She demonstrates tenderness over the right patella tendon and MCL, lack of full terminal knee extension AROM, decreased right hip and knee strength, and impaired gait. She also has mild gapping with right knee valgus stress testing at 30 degrees flexion as well today, Phoebe testing is negative. She does demonstrate improved right knee flexion AROM and improved strength overall. She will continue to benefit from skilled PT to improve above listed physical and functional deficits per POC. Plan of Care Interventions Hot Pack/Cold Pack,Intermittent Compression,Manual Therapy,Neuro Re-education,Patient/Caregiver Educati,Therapeutic Activities,Therapeutic Exercise PT Services Indicated Yes Treatment Frequency and Continue per current POC unless otherwise directed Duration by the physician. These treatments will address the objective and functional deficits as defined above. The patient will be advanced safely and appropriately in order for the patient to progress towards his/her prior level of function. Additional exercises will be introduced and as well as a comprehensive home exercise program upon discharge, if needed, ?to ensure carryover of functional gains achieved in the clinic. This treatment plan has been reviewed and agreement upon by the patient.
--- NOTE | 2024-03-09 09:19 | PCPTNOTE ---
Pt completed 13 skilled PT visits following a right knee arthroscopy. Refer to progress note on 01/06/24 for further information from last time patient was treated in PT. She did not return with new orders and will be discharged. -Carmen Johnson, PT
== END 2024-01-06 07:45 | disposition home or self-care (01) ==
LOC: CHSPT 07:53
PROVIDERS: Visit Provider Orthopaedic Surgery
DX: Z48.89 Encounter for other specified surgical aftercare (principal); Z98.890 Other specified postprocedural states
CPT/HCPCS: 97014; 97016; 97110; 97161; 97530; 97750; G0283

== ENCOUNTER 2023-12-18 17:27 | Outpatient (CLI) | payer OTHER, SELFPAY ==
[2023-12-18 17:46] LABS: Basophils Absolute Auto 0.03 K/mm3 (0.00-0.10); Basophils Percent Auto 0.5 % (0.0-1.0); Eosinophils Absolute Auto 0.11 K/mm3 (0.02-0.50); Eosinophils Percent Auto 1.8 % (1.0-6.0); Hematocrit 43.9 % (35.0-49.0); Hemoglobin 13.6 g/dL (12.0-15.0); Immature Granulocyte Absolute 0.02 K/mm3 (0.00-0.00); Immature Granulocyte Percent A 0.3 % (0.0-0.0); Lymphocytes Absolute Auto 1.87 K/mm3 (1.10-4.50); Lymphocytes Percent Auto 30.6 % (18.0-42.0); Mean Corpuscular Hemoglobin 27.5 pg (27.0-31.0); Mean Corpuscular Volume 88.9 fL (78.0-102.0); Mean Platelet Volume 9.2 fl (9.2-11.8); Monocytes Absolute Auto 0.62 K/mm3 (0.10-0.90); Monocytes Percent Auto 10.1 % (2.0-11.0); Neutrophils Absolute Auto 3.46 K/mm3 (1.70-7.20); Neutrophils Percent Auto 56.7 % (50.0-70.0); Platelet Count Result 290 K/mm3 (150-420); Red Blood Count 4.94 M/mm3 (4.20-5.40); Red Cell Distribution Width 12.5 % (11.6-14.4); White Blood Count 6.1 K/mm3 (4.8-10.8)
[2023-12-18 17:57] LABS: Appearance Urine Clear (Clear); Bilirubin Urine Negative (Negative); Blood Urine Negative (Negative); Color Urine Yellow (Yellow); Glucose Urine UA Negative (Negative); Ketones Urine Negative (Negative); Leukocyte Esterase Ur Negative (Negative); Nitrate Urine Negative (Negative); Protein Urine Negative (Negative); Specific Grav Ur >= 1.030 (1.010-1.020); Urobilinogen Urine 0.2 mg/dL (0.2-1.0); pH Urine 5.5 (5.0-8.0)
[2023-12-18 17:58] LABS: Add Urine Microscopic? NO
[2023-12-18 17:59] LABS: Creatinine Urine 320.31 mg/dL (40-278); Total Protein Urine Random 21.4 mg/dL (0.0-11.9); Ur Ttl Prot Creatinine Ratio 0.07 mg/mg (0-0.20)
[2023-12-18 18:05] LABS: Hemoglobin A1C 5.1 % (<5.7)
[2023-12-18 18:28] LABS: Albumin Level 3.4 g/dL (3.4-5.0); Anion Gap 9 mmol/L (4-12); Blood Urea Nitrogen 17 mg/dL (7-18); Calcium 8.6 mg/dL (8.5-10.1); Carbon Dioxide 31 mmol/L (21-32); Chloride 103 mmol/L (98-108); Estimated Glomerular Filt Rate 60; Glucose 105 mg/dL (70-99); Magnesium 2.1 mg/dL (1.8-2.4); Osmolality Calculated 297 mOsm/kg (285-295); Phosphorus 4.6 mg/dL (2.6-4.7); Potassium 3.9 mmol/L (3.5-5.1); Sodium 143 mmol/L (136-145); Thyroid Stimulating Hormone 0.87 uIU/mL (0.36-3.74)
[2023-12-20 04:54] LABS: Vitamin D 25 Hydroxy 69 ng/mL (30-100)
== END 2023-12-18 17:28 | disposition home or self-care (01) ==
LOC: CHSLAB 17:29
PROVIDERS: Visit Provider Hospitalist
DX: I12.9 Hypertensive chronic kidney disease with stage 1 through stage 4 chronic kidney disease, or unspecified chronic kidney disease (principal); N18.2 Chronic kidney disease, stage 2 (mild)
CPT/HCPCS: 36415; 80069; 81003; 82306; 82570; 83036; 83735; 84156; 84443; 85025

== ENCOUNTER 2024-02-24 12:43 | Emergency (ER) | payer OTHER, SELFPAY ==
[2024-02-24] VITALS (9 sets, daily range): BP systolic 105–126; BP diastolic 61–93; PULSE 75–90; RESP 16–20; TEMP 36.3–36.7; O2SAT 97–100
--- NOTE | 2024-02-24 12:51 | ED.ALLEREA ---
HPI - Allergic Reaction General Chief complaint: Allergic Reaction Stated complaint: ALLERGIC REACTION Time Seen by Provider: 02/24/24 12:50 Source: patient Mode of arrival: ambulatory Limitations: no limitations History of Present Illness HPI narrative: 44-year-old female with a history hypertension, anxiety, POTS, TIA presents to the ED with 8 hour history of -- generalized itching. No rash noted. The patient received right knee intra-articular cortisone injection 2 days ago. No prior allergic reactions to cortisone. No new medications. -- Throat discomfort without change in voice. No difficulty swallowing. -- Shortness of breath. patient has an oxygen saturation of 99% on room air with a respiratory rate of 20. No chest pain. No abdominal pain. -- Right knee which had the intra-articular injection has better range of motion. MD complaint: allergic reaction Onset (ago): hour(s) ( 8 hours) Exposure: other ( patient received right knee intra-articular injection 2 days ago.) Symptoms: itching Treatment prior to arrival: none Previous Allergic Reaction History: none Related Data Home Medications Medication Instructions Recorded Confirmed alprazolam 0.5 mg tablet 0.5 mg PO TID PRN anxiety 08/31/20 02/24/24 ergocalciferol (vitamin D2) 1,250 1,250 mcg PO WEEKLY 08/31/20 02/24/24 mcg (50,000 unit) capsule magnesium oxide 400 mg PO BID 11/21/20 02/24/24 potassium chloride 20 mEq 30 meq PO DAILY 05/21/21 02/24/24 tablet,extended release(part/cryst) (Klor-Con M) losartan 100 100 tablet PO DAILY 05/06/23 02/24/24 mg-hydrochlorothiazide 25 mg tablet propranolol 80 mg capsule,24 80 mg PO DAILY 02/24/24 02/24/24 hr,extended release Allergies Allergy/AdvReac Type Severity Reaction Status Date / Time fluoxetine Allergy Unknown Other Verified 02/24/24 12:49 latex Allergy Unknown Other Verified 02/24/24 12:49 Review of Systems Review of Systems: All systems reviewed & are unremarkable except as noted in HPI and below Constitutional: Constitutional: Reports as per HPI and Reports no additional constitutional complaints Eyes: Eyes: Reports as per HPI and Reports no additional eye complaints ENT: Reports system reviewed and no additional complaints, except as documented and Reports as per HPI Cardiovascular: Cardiovascular: Reports as per HPI and Reports no additional cardiovascular complaints Respiratory: Respiratory: Reports as per HPI, Reports no additional respiratory complaints and Reports dyspnea Gastrointestinal: Gastrointestinal: Reports as per HPI and Reports no additional gastrointestinal complaints Genitourinary: Genitourinary: Reports no additional female genitourinary complaints and Reports as per HPI Musculoskeletal: Musculoskeletal: Reports no additional musculoskeletal complaints and Reports as per HPI Comments: Right knee pain /decreased range of motion for which she received any intra-articular steroid with improvement of symptoms. Integumentary/Breasts: Skin/Breast: Reports system reviewed and no additional complaints, except as docu Comments: Patient has erythematous rash on both legs which has been present for the past few days Neurologic: Reports system reviewed and no additional complaints, except as documented and Reports as per HPI Psychiatric: Psychiatric: Reports no additional psychiatric complaints, Reports as per HPI and Reports anxiety Endocrine: Endocrine: Reports no additional endocrine complaints and Reports as per HPI Hematologic/Lymphatic: Hematologic/Lymphatic: Reports no additional hematologic/lymphatic complaints and Reports as per HPI Allergic/Immunologic: Allergic/Immunologic: Reports no additional allergic/immunologic complaints and Reports as per HPI [facility] Past Medical History Medical History KENDALL positive (~08/2020) Anxiety Easy bruising (~08/2020) Gastric ulcer GERD (gastroesophageal r
[2024-02-24 13:22] LABS: Basophils Absolute Auto 0.02 K/mm3 (0.00-0.10); Basophils Percent Auto 0.1 % (0.0-1.0); Hematocrit 41.1 % (35.0-49.0); Hemoglobin 13.6 g/dL (12.0-15.0); Immature Granulocyte Absolute 0.12 K/mm3 (0.00-0.00); Immature Granulocyte Percent A 0.8 % (0.0-0.0); Lymphocytes Absolute Auto 1.12 K/mm3 (1.10-4.50); Lymphocytes Percent Auto 7.6 % (18.0-42.0); Mean Corpuscular HGB Conc 33.1 g/dL (32-36); Mean Corpuscular Hemoglobin 28.1 pg (27.0-31.0); Mean Corpuscular Volume 84.9 fL (78.0-102.0); Mean Platelet Volume 9.8 fl (9.2-11.8); Monocytes Absolute Auto 1.23 K/mm3 (0.10-0.90); Monocytes Percent Auto 8.3 % (2.0-11.0); Neutrophils Absolute Auto 12.25 K/mm3 (1.70-7.20); Neutrophils Percent Auto 83.2 % (50.0-70.0); Platelet Count Result 252 K/mm3 (150-420); Red Blood Count 4.84 M/mm3 (4.20-5.40); Red Cell Distribution Width 12.8 % (11.6-14.4); White Blood Count 14.7 K/mm3 (4.8-10.8)
[2024-02-24] MEDS: hydrOXYzine HCL 25 MG TABLET PO (13:33)
[2024-02-24] MEDS: methylPREDNISolone SOD SUCC 125 MG VIAL IM (13:33)
[2024-02-24 13:40] LABS: Alanine Aminotransferase 19 U/L (14-59); Albumin Level 3.3 g/dL (3.4-5.0); Alkaline Phosphatase 73 U/L (46-116); Anion Gap 8 mmol/L (4-12); Aspartate Amino Transferase 13 U/L (15-37); Bilirubin,Total 0.2 mg/dL (0.00-1.00); Blood Urea Nitrogen 21 mg/dL (7-18); Calcium 8.9 mg/dL (8.5-10.1); Carbon Dioxide 27 mmol/L (21-32); Chloride 101 mmol/L (98-108); Estimated CRCL calculation 88 ml/min; Estimated Glomerular Filt Rate > 60; Glucose 115 mg/dL (70-99); Osmolality Calculated 286 mOsm/kg (285-295); Potassium 3.7 mmol/L (3.5-5.1); Sodium 136 mmol/L (136-145); Total Protein 7.1 g/dL (6.4-8.2); Troponin I < 4.0 ng/L (0.00-60.4)
[2024-02-24 13:42] LABS: Lactic Acid Reflex 1.8 mmol/L (0.4-2.0)
--- NOTE | 2024-02-24 13:44 | PC.NURSE ---
Pt stated injection site was burning and hurting after shot; relayed to RN; she stated to give pt icepack and would reassess
== END 2024-02-24 14:10 | disposition home or self-care (01) ==
PROVIDERS: Emergency Provider Internal Medicine Critical Care Medicine
DX: F41.9 Anxiety disorder, unspecified (principal); L29.9 Pruritus, unspecified; I10 Essential (primary) hypertension; Z86.73 Personal history of transient ischemic attack (TIA), and cerebral infarction without residual deficits; Z79.899 Other long term (current) drug therapy
CPT/HCPCS: 36415; 80053; 83605; 84484; 85025; 96372; 99284; A9270; J2919

== ENCOUNTER 2024-07-15 15:24 | Outpatient (CLI) | payer BC, SELFPAY ==
--- NOTE | ~2024-07-15 | XR_ITS ---
XR knee LT min 4V Ordering provider: Telly Sibley MD History: . NATANAEL KNEE PAIN,NKI,CHRONIC . Comparison: None. FINDINGS: BONES: No acute fracture or dislocation. JOINT SPACES: Normal. SOFT TISSUES: Normal. IMPRESSION: No acute osseous abnormality left knee. Reviewed, dictated and finalized at location A. LE BUSINESS ANALYST
--- NOTE | ~2024-07-15 | XR_ITS ---
XR knee RT min 4V Ordering provider: Telly Sibley MD History: . NATANAEL KNEE PAIN,NKI,CHRONIC . Comparison: None. FINDINGS: BONES: No acute fracture or dislocation. Small sclerotic area in the distal femur most likely bone is land. Follow-up advised. Minimal medial subluxation of the femur compared to the tibia is not exclude d. Clinical evaluation advised. JOINT SPACES: Normal. Marginal osteophytes in the patella. SOFT TISSUES: Normal. IMPRESSION: No acute osseous abnormality right knee. Minimal subluxation of the knee joint. Mild osteoarthritic changes. Reviewed, dictated and finalized at location A. TAGE WORKER
== END 2024-07-15 15:25 | disposition home or self-care (01) ==
DX: M25.562 Pain in left knee (principal); M25.561 Pain in right knee
CPT/HCPCS: 73564

== ENCOUNTER 2024-07-21 14:03 | Outpatient (CLI) | payer BC, SELFPAY ==
--- NOTE | ~2024-07-21 | XR_ITS ---
XR facial bones min 3V 07/21/2024 14:50 Indication: Facial pain Procedure: 7 views facial bones Comparison: No prior studies for comparison. Findings: No fracture, subluxation or dislocation. No significant soft tissue abnormality. No foreign bodies. No air-fluid levels. Mandible intact. Orbits are symmetric. Paranasal sinuses are pneumatize d. Impression: 1: No acute abnormality of the facial bones identified. Reviewed, dictated and finalized at location B. L CANS SUPERVISOR Impression: 1: No acute abnormality of the facial bones identified.
--- NOTE | ~2024-07-21 | XR_ITS ---
XR elbow LT min 3V 07/21/2024 14:50 INDICATION: Left elbow pain PROCEDURE: 4 views left elbow COMPARISON: 07/21/2014 FINDINGS: Fracture, dislocation or subluxation is not identified. The soft tissues appear within norm al limits. No foreign bodies are identified. IMPRESSION: 1: NO ACUTE BONE OR JOINT ABNORMALITY IDENTIFIED. Reviewed, dictated and finalized at location B. SCHOOL FOOTBALL COACH
--- NOTE | ~2024-07-21 | XR_ITS ---
XR wrist LT min 3V, XR hand LT min 3V 07/21/2024 14:50 INDICATION: Left wrist and hand pain PROCEDURE: 5 views left wrist 5 views left hand COMPARISON: No prior studies for comparison. FINDINGS: Fracture, dislocation or subluxation is not identified. No significant degenerative change. No erosive changes. The soft tissues appear within normal limits. No foreign bodies are identified. IMPRESSION: 1: No significant bone or joint abnormality. Reviewed, dictated and finalized at location B. TANNER IMPRESSION: 1: No significant bone or joint abnormality.
--- NOTE | ~2024-07-21 | XR_ITS ---
XR forearm LT 2V 07/21/2024 14:50 INDICATION: Left arm pain PROCEDURE: 2 views left forearm COMPARISON: No prior studies for comparison. FINDINGS: Fracture, dislocation or subluxation is not identified. The soft tissues appear within norm al limits. No foreign bodies are identified. IMPRESSION: 1: NO ACUTE BONE OR JOINT ABNORMALITY IDENTIFIED. Reviewed, dictated and finalized at location B. MONITOR
--- NOTE | ~2024-07-21 | XR_ITS ---
HISTORY: FALL LT SHOULDER PAIN THRU ARM COMPARISON: None TECHNIQUE: 4 views of the left shoulder were performed FINDINGS: No acute fracture. The glenohumeral and acromioclavicular joint space is maintained The visualized portion of the adjacent left lung is clear. The humeral head is well seated within the glenoid fossa. IMPRESSION: No acute fracture or anterior dislocation. Reviewed, dictated and finalized at location A. HOUSEKEEPER
[2024-07-21 14:22] LABS: Basophils Absolute Auto 0.03 K/mm3 (0.00-0.10); Basophils Percent Auto 0.5 % (0.0-1.0); Eosinophils Absolute Auto 0.09 K/mm3 (0.02-0.50); Eosinophils Percent Auto 1.5 % (1.0-6.0); Hematocrit 42.6 % (35.0-49.0); Hemoglobin 13.6 g/dL (12.0-15.0); Immature Granulocyte Absolute 0.02 K/mm3 (0.00-0.00); Immature Granulocyte Percent A 0.3 % (0.0-0.0); Lymphocytes Absolute Auto 1.89 K/mm3 (1.10-4.50); Lymphocytes Percent Auto 30.8 % (18.0-42.0); Mean Corpuscular HGB Conc 31.9 g/dL (32-36); Mean Corpuscular Hemoglobin 27.4 pg (27.0-31.0); Mean Corpuscular Volume 85.9 fL (78.0-102.0); Mean Platelet Volume 9.5 fl (9.2-11.8); Monocytes Absolute Auto 0.45 K/mm3 (0.10-0.90); Monocytes Percent Auto 7.3 % (2.0-11.0); Neutrophils Absolute Auto 3.66 K/mm3 (1.70-7.20); Neutrophils Percent Auto 59.6 % (50.0-70.0); Platelet Count Result 331 K/mm3 (150-420); Red Blood Count 4.96 M/mm3 (4.20-5.40); Red Cell Distribution Width 13.2 % (11.6-14.4); White Blood Count 6.1 K/mm3 (4.8-10.8)
[2024-07-21 15:10] LABS: Alanine Aminotransferase 25 U/L (14-59); Albumin Level 3.5 g/dL (3.4-5.0); Alkaline Phosphatase 72 U/L (46-116); Anion Gap 8 mmol/L (4-12); Aspartate Amino Transferase 19 U/L (15-37); Bilirubin,Total 0.3 mg/dL (0.00-1.00); Blood Urea Nitrogen 18 mg/dL (7-18); Calcium 8.7 mg/dL (8.5-10.1); Carbon Dioxide 29 mmol/L (21-32); Chloride 103 mmol/L (98-108); Estimated Glomerular Filt Rate > 60; Ferritin 102 ng/mL (8-252); Glucose 114 mg/dL (70-99); Iron 95 ug/dL (50-170); Magnesium 2.1 mg/dL (1.8-2.4); Osmolality Calculated 292 mOsm/kg (285-295); Percent Iron Saturation 34 % (12-57); Potassium 3.7 mmol/L (3.5-5.1); Sodium 140 mmol/L (136-145); Thyroid Stimulating Hormone 1.28 uIU/mL (0.36-3.74); Total Protein 6.7 g/dL (6.4-8.2)
[2024-07-21 16:33] LABS: Folic Acid 15.8 ng/mL (8.6->20); Vitamin B12 894 pg/mL (193-986)
[2024-07-22 06:58] LABS: Vitamin D 25 Hydroxy 82 ng/mL (30-100)
== END 2024-07-21 14:04 | disposition home or self-care (01) ==
LOC: CHSLAB 14:06
PROVIDERS: PCP Physician Assistant; Visit Provider Physician Assistant
DX: S49.92XA Unspecified injury of left shoulder and upper arm, initial encounter (principal); S09.93XA Unspecified injury of face, initial encounter
CPT/HCPCS: 36415; 70150; 73030; 73080; 73090; 73110; 73130; 80053; 82306; 82607; 82728; 82746; 83540; 83550; 83735; 84443; 85025

== ENCOUNTER 2024-08-25 08:37 | Outpatient (CLI) | payer BC, SELFPAY ==
--- OUTSIDE RECORDS SUMMARY | 2024-08-25 08:47 | XMS_ITS | Referral Summary ---
Author Organization [facility] Address [address] [place] [address] Care Team Providers Care Triage Nurse Name Role Phone Regina Lieberman FLAT CLOTHIER Unavailable Marine Yost Unavailable Becca Valles NP Primary Care Provider Allergies Active Allergy Reactions Criticality Noted Date Comments Adhesive Tape-Silicones Rash Medium 10/26/2020 Minor side effect Fluoxetine Hives,Other (See comments),Rash,Swelli ng High 01/04/2019 Latex Rash Medium 09/03/2020 Skin breaks out. Medications ergocalciferol (VITAMIN D) 50,000 unit capsule TAKE 1 CAPSULE BY MOUTH ONCE A WEEK WITH A LARGE MEAL 3 9 Active ALPRAZolam (XANAX) 0.5 mg tablet Take 1 tablet (0.5 mg total) by mouth 3 (three) times a day as needed for anxiety 1 9 Active melatonin 10 mg tablet Active magnesium oxide (MAG-OX) 400 mg (241.3 mg elemental magnesium) tabletIndicatio ns:hypomagnesem ia Take 1 tablet (400 mg total) by mouth 2 (two) times a day Active potassium chloride ER (KLOR-CON) 10 mEq CR tablet Take 1 tablet/capsule (10 mEq total) by mouth daily Active phentermine 37.5 mg capsule Take 1 capsule (37.5 mg total) by mouth every morning Active amLODIPine (NORVASC) 10 mg tablet Take 1 tablet (10 mg total) by mouth daily 3 Active losartan-hydroc hlorothiazide (HYZAAR) 100-25 mg per tablet Take 0.5 tablets by mouth daily 3 Active propranolol LA (INDERAL LA) 80 mg 24 hr capsule Take 1 capsule (80 mg total) by mouth daily Active escitalopram (LEXAPRO) 10 mg tablet Take 1 tablet (10 mg total) by mouth 2 (two) times a day 3 Active Klor-Con M20 20 mEq CR tablet Take 1 tablet (20 mEq total) by mouth daily 1 Active ascorbic acid (VITAMIN C) 500 mg tablet,chewable Take 1 tablet/chew tab (500 mg total) by mouth 2 (two) times a day 60 tablet/chew tab 4 Active aspirin 81 mg enteric coated tabletIndicatio ns:prevention of thrombosis Take 1 tablet (81 mg total) by mouth 2 (two) times a day for 14 days 28 tablet 4 Active ondansetron (ZOFRAN) 4 mg tabletIndicatio ns:Prevention of Post-Operative Nausea and Vomiting Take 1 tablet (4 mg total) by mouth every 6 (six) hours as needed for nausea or vomiting 20 tablet 1 4 Active senna-docusate (PERICOLACE) 8.6-50 mg Take 1 tablet by mouth 2 (two) times a day as needed for constipation 30 tablet 1 4 Active HYDROcodone-kevin taminophen (NORCO) 5-325 mg per tabletIndicatio ns:Pain Take 1-2 tablets by mouth every 4 (four) hours as needed for pain Take 1-2 tablets every 4 hours as needed for pain 15 tablet 4 Active Active Problems Problem Noted Date Diagnosed Date Complex tear of medial meniscus of right knee Atherosclerosis of renal artery 05/07/2023 Assessment & Plan (05/27/2023 2:06 PM MANAGER OF PMO): No evidence of renal artery stenosis based on her CTA. I suspect her renal Doppler was just inaccurate. Can follow-up as needed. Assessment & Plan (05/07/2023 2:09 PM CDT): Possible renal artery stenosis based on renal Doppler with multiple admissions for hypertensive urgency. Overall relatively young to have atherosclerotic disease of the renal arteries but will obtain CT to further evaluate. Other retention of urine 05/07/2023 Renal artery stenosis 05/07/2023 Pruritic rash 04/08/2023 Symptoms involving urinary system 04/08/2023 Memory impairment 04/06/2023 Tremor 04/06/2023 Mixed anxiety and depressive disorder 03/17/2023 Panic attack 03/06/2023 Chronic kidney disease 12/30/2022 Arthralgia of right knee 12/16/2022 Injury of right knee 12/15/2022 Pain in left foot 12/03/2022 Abnormal mammogram 08/22/2021 Mass of right breast on mammogram 07/14/2021 Easy bruising 10/26/2020 Chronic mixed headache syndrome 10/12/2020 Ventricular premature depolarization 10/12/2020 Obstructive sleep apnea syndrome 10/11/2020 Postural orthostatic tachycardia syndrome 2020 Hyperlipidemia 09/25/2020 Assessment & Plan (05/27/2023 2:07 PM MANAGER OF PMO): Recommend statin therapy. Assessment & Plan (05/07/2023 2:09 PM CDT): Recommend statin therapy. Obesity 09/25/2020 Transient ischemic attack 09/11/2020 Anxiety 06/11/2020 Hypertension 06/11/2020 Assessment & Plan (05/27/2023 2:06 PM MANAGER OF PMO): Ongoing workup by her PCP. Continue Norvasc 10 mg. Vitamin D deficiency 06/11/2020 Resolved Problems Problem Noted Date Diagnosed Date Resolved Date Sinusitis 07/13/2023 08/24/2023 Overweight 04/06/2023 08/24/2023 Synovial cyst of right popliteal space 04/06/2023 08/24/2023 Complex tear of medial meniscus of right knee 02/14/20 23 08/24/2023 Acute meniscal tear of left knee 02/06/2023 08/24/2023 Disorder of shoulder 02/06/2023 024 Sprain of ankle 02/06/2023 08/24/2023 Acute medial meniscus tear of right knee 12/16/2022 08/24/2023 Phlebitis of superficial vei ns of lower extremity 12/15/2022 08/24/2023 Abnormal weight 10/03/2022 08/24/2023 Costal chondritis 10/03/2022 08/24/2023 Dizziness 10/12/2020 08/24/2023 Dyspnea 10/12/2020 08/24/2023 COVID-19 09/19/2020 08/24/2023 Hypertensive urgency 09/03/2020 024 Assessment & Plan (05/07/2023 2:09 PM CDT): Continue labetalol losartan hydrochlorothiazide Hypokalemia 09/02/2020 08/24/2023 Hypertensive disorder 06/11/20202023 Immunizations Name Administration Dates Next Due Influenza, Quadrivalent, Spl it, Intramuscular 06/12/2020,03/30/2019 Influenza, Quadrivalent, Spl it, Preservative Free, Intramuscular 04/06/2023,05/19/2022,03/30/2019,03/30 Influenza, Trivalent, IM (MDV) 04/10/2014 Influenza, Trivalent, Preser vative Free, Intramuscular 04/02/2016,04/05/2015 Pfizer SARS-CoV-2 Monovalent Vaccination (12+ Yrs) PURPLE 08/02/2021,07/12/2021 Social History Tobacco Use Types Packs/Day Years Used Date Smoking Tobacco: Never Smokeless Tobacco: Never Tobacco Cessation:Counseling Given: Not Answered Alcohol Use Standard Drinks/Week Comments Yes 0 (1 standard drink = 0.6 oz pur e alcohol) AUDIT-C Answer Date Recorded Q1: How often do you have a drink containing alcohol? Never 02/09/2024 Q2: How many drinks containi ng alcohol do you have on a typical day when you are drinking? Patient does not drink Q3: How often do you have si x or more drinks on one occasion? Never 02/09/2024 Personal Safety Answer Date Recorded Have you ever been in or are you currently in a harmful physical or emotional relationship or is someone making you feel afraid or unsafe? Denies 12/01/2023 Comments No Sex and Gender Information Value Date Recorded Sex Assigned at Not on file Legal Sex Female 3:10 AM MANAGER OF PMO Gender Identity Female 04/29/2023 12:37 PM CDT Sexual Orientation Straight 04/29/2023 12 :37 PM CDT Last Filed Vital Signs Vital Sign Reading Time Taken Comments Blood Pressure 111/75 02/09/2024 3:48 PM CDT Pulse 83 02/09/2024 3:48 PM CDT Temperature 36.1 C (96.9 F) 12/01/2023 4:19 PM CDT Respiratory Rate 18 02/09/2024 3:48 PM CDT Oxygen Saturation 99% 12/01/2023 4:19 PM CDT Inhaled Oxygen Concentration - - Weight 101.2 kg (223 lb) 02/09/2024 3:48 PM CDT Height 162.6 cm (5' 4 ) 02/09/2024 3:48 PM CDT Body Mass Index 38.28 02/09/2024 3:48 PM CDT Plan of Treatment Not on file Procedures Procedure Name Priority Date/Time Associated Diagnosis Comments SCREENING MAMMOGRAM BILATERAL W LONNY Schedule Routine, Read Routine (OP Routine) 07/15/2023 7:49 AM MANAGER OF PMO Screening mammogram, encounter for from Last 3 Months or Most Recently Relevant to Health Maintenance Results * Screening Mammogram Bilateral W Lonny (07/15/2023 7:49 AM MANAGER OF PMO) Anatomical Region Laterality Modality Breast Bilateral Mammography Narrative 07/15/2023 1:33 PM MANAGER OF PMO Mammogram Technique: Bilateral Digital Breast Tomosynthesis, Bilateral C-view 2D Screening mammogram. Views obtained: bilateral craniocaudal and bilateral mediolateral oblique. Computer Aided Detection was performed. Mammogram Findings: The present examination has been compared to prior imaging studies performed at [facility] on 08/20/2021, 07/11/2022 and 07/28/2022. The breasts are heterogeneously dense, which may obscure small masses. There is no suspicious abnormality in either breast. Impression: There is no mammographic evidence of malignancy. Annual screening mammography is recommended.If supplemental screening is desired, breast MRI would be recommended in this patient with heterogeneously dense breasts. OVERALL FINAL ASSESSMENT: BI-RADS CATEGORY 1: Negative. Procedure Note Evon Ellison MD - 07/15/2023 Mammogram Technique: Bilateral Digital Breast Tomosynthesis, Bilateral C-view 2D Screening mammogram. Views obtained: bilateral craniocaudal and bilateral mediolateral oblique. Computer Aided Detection was performed. Mammogram Findings: The present examination has been compared to prior imaging studies performed at [facility] on 08/20/2021, 07/11/2022 and 07/28/2022. The breasts are heterogeneously dense, which may obscure small masses. There is no suspicious abnormality in either breast. Impression: There is no mammographic evidence of malignancy. Annual screening mammography is recommended.If supplemental screening is desired, breast MRI would be recommended in this patient with heterogeneously dense breasts. OVERALL FINAL ASSESSMENT: BI-RADS CATEGORY 1: Negative. us Self Screening Mammogram IMG MAMMO PROCEDURES Fi nal Result from Last 3 Months or Most Recently Relevant to Health Maintenance Insurance [employer] [facility] HMO/PPO Address: [facility] [address] [place] [address] [facility] H[facility]/PPO Address: [address] [address] [place] [address] [facility] [employer] [facility] HMO/PPO Address: [address] [place] [address] [place] CHO[place]PO [place] Care Teams Triage Nurse Relationship Specialty [place] [address] [place] [address] PCP - General Nurse Practitioner 08/22/24 Regina Lieberman NP [address] [address] Nurse Practitioner Nurse Practitioner 07/11/22 Marine Yost PA [address] [place] [address] [address] Physician Miner Assistant Orthopedic Surgery 03/05/23
--- OUTSIDE RECORDS SUMMARY | 2024-08-25 08:47 | XMS_ITS | Clinical Summary ---
Author Organization [facility] Address [address] [place] [address] Care Team Providers Care Interpreter Translator Name Role Phone Regina Lieberman POLICE SURGEON Unavailable Marine Yost Unavailable Becca Valles NP [...] 05/07/2023 Assessment & Plan (05/27/2023 2:06 PM IMPROVEMENT MANAGER): No evidence of renal artery stenosis based [...] 09/25/2020 Assessment & Plan (05/27/2023 2:07 PM IMPROVEMENT MANAGER): Recommend statin therapy. Assessment & Plan (05/07/2023 2:09 PM CDT): Recommend statin therapy. Obesity 09/25/2020 Transient ischemic attack 09/11/2020 Anxiety 06/11/2020 Hypertension 06/11/2020 Assessment & Plan (05/27/2023 2:06 PM IMPROVEMENT MANAGER): Ongoing workup by her PCP. Continue Norvasc [...] SARS-CoV-2 Monovalent Vaccination (12+ Yrs) PURPLE 08/02/2021,07/12/2021 Surgical History Surgery Date Site/Laterality Comments BREAST BIOPSY 07/13/2009 - 07/12/2010 Left HYSTERECTOMY BREAST LUMPECTOMY TARSAL TUNNEL RELEASE Right KNEE ARTHROSCOPY 03/05/2023 Right BLADDER SUSPENSION Medical History Medical History Date Comments Adiposity Obesity Hypertension Hypertension Hx Other Medical Chronic Anxiety Gastroesophageal reflux disease GERD Stroke (HCC) TIA 08/2020 Depression Lupus Peripheral neuropathy Peptic ulceration Rheumatoid arthritis (HCC) Migraines Covid-19 Complex tear of medial meniscus of right knee Phlebitis of superficial veins of lower extremit y Chronic kidney disease Anxiety Family History Medical History Relation Name Comments Cancer Father Heart attack Father Myocardial Infa rction; Cause of : Myocardial Infarction Breast cancer Maternal Grandmother 40's Cervical cancer Maternal Grandmother Eye cancer Maternal Grandmother Heart attack Mother Myocardial Infa rction; Arthritis Other Blood Clot Other Diabetes Other Heart disease Other Stroke Other Relation Name Status Comments Father (Age 59) Maternal Grandmother Mother Alive Other Social History Tobacco Use Types Packs/Day Years [...] on file Legal Sex Female 3:10 AM IMPROVEMENT MANAGER Gender Identity Female 04/29/2023 12:37 PM CDT Sexual Orientation Straight 04/29/2023 12 :37 PM CDT Obstetrics History Last Filed Vital Signs Vital Sign Reading [...] 02/09/2024 3:48 PM CDT Plan of Treatment Health Maintenance Due Date Last Done Comments Colon Cancer Screening-Colonoscopy 1979 Depression Screening 1979 Hepatitis C Screening 1979 DTaP/Tdap/Td Vaccine (1 - Tdap) 1990 Hepatitis B Screening 1997 Regular Well Visit/Exam 18-64 1997 Covid-19 Vaccine ( season) 2024 08/02/2021, 07/12/2021 Influenza Vaccine (#1) 2024 3, 05/19/2022, 06/12/2020, Additional history exists Breast Cancer Screening-Mammogram 07/15/2024 07/15/2023, 07/11/2022 HPV Vaccines Aged Out No longer eligi ble based on patient's age to complete this topic Pneumococcal vaccine <65 Aged Out No longer eligible based on patient's age to complete this topic Procedures Procedure Name Priority Date/Time Associated Diagnosis Comments SCREENING MAMMOGRAM BILATERAL W LONNY Schedule Routine, Read Routine (OP Routine) 07/15/2023 7:49 AM IMPROVEMENT MANAGER Screening mammogram, encounter for from Last 3 Months or Most Recently Relevant to Health Maintenance Results * Screening Mammogram Bilateral W Lonny (07/15/2023 7:49 AM IMPROVEMENT MANAGER) Anatomical Region Laterality Modality Breast Bilateral Mammography Narrative 07/15/2023 1:33 PM IMPROVEMENT MANAGER Mammogram Technique: Bilateral Digital Breast Tomosynthesis, Bilateral C-view 2D Screening mammogram. Views obtained: bilateral craniocaudal and bilateral mediolateral oblique. Computer Aided Detection was performed. Mammogram Findings: The present examination has been compared to prior imaging studies performed at [facility] on 08/20/2021, 07/11/2022 and 07/28/2022. The breasts [...] compared to prior imaging studies performed at [facility] on 08/20/2021, 07/11/2022 and 07/28/2022. The breasts [...] Most Recently Relevant to Health Maintenance Insurance [facility] CHOICE PLUS [facility] [employer] [facility] PRF PPO [place] Care Teams Interpreter Translator Relationship Specialty Start [place] [address] [place] [address] PCP - General Nurse Practitioner 08/22/24 Regina Lieberman, POLICE SURGEON [address] [place] [address] Nurse Practitioner Nurse Practitioner 07/11/22 Marine Yost PA [address] [place] [address] [address], [place] [address] Physician Sharepoint Analyst Orthopedic Surgery 03/05/23
--- OUTSIDE RECORDS SUMMARY | 2024-08-25 08:48 | XMS_ITS | Clinical Summary ---
Author Organization [facility] Address [address], [place] [address] Phone Care Team Providers Care Customer Order Clerk Name Role Phone Mathew Johnson MD Primary Care Provider [phone] Allergies Active Allergy Reactions Criticality Noted Date Comments Fluoxetine 06/18/2021 Latex 06/18/2021 Medications Medication Sig Dispensed Refills Start Date End Date Status magnesium oxide (MAG-OX) 400 mg tablet 400 mg 2 (two) times a day Active indomethacin (INDOCIN) 25 MG capsule Take 25 mg by mouth every other day Active ALPRAZolam (XANAX) 0.5 MG tablet Take 0.5 mg by mouth in the morning and 0.5 mg at noon and 0.5 mg in the evening. Active potassium chloride (MICRO-K) 10 MEQ CR capsule Take 10 mEq by mouth 1 (one) time each day Do not crush or chew. Active ergocalciferol (VITAMIN D-2) 1.25 MG (25683 UT) capsule Take 50,000 Units by mouth 1 (one) time per week Active escitalopram (LEXAPRO) 10 MG tablet Take 10 mg by mouth in the morning and 10 mg in the evening. Active losartan-hydroCHLOROt hiazide (HYZAAR) 100-25 MG per tablet Take 1 tablet by mouth 1 (one) time each day Take 0.5 tab daily Active amLODIPine (NORVASC) 10 MG tablet Take 10 mg by mouth 1 (one) time each day Active KLOR-CON 20 MEQ CR tablet TAKE 1 TABLET BY MOUTH 1 TIME EACH DAY. 90 tablet 1 07/09/2023 Active aMILoride (MIDAMOR) 5 MG tablet Take 5 mg by mouth in the morning and 5 mg in the evening. 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 in chronic kidney disease 12/23/2023 Proteinuria 12/23/2023 Vitamin D deficiency 12/30/2022 Chronic kidney disease stage 2 12/30/2022 Hypokalemia Resolved Problems Problem Noted Date Diagnosed Date Resolved Date Tremor 05/07/2023 12/23/2023 Other retention of urine 05/07/202306/2024 Renal artery stenosis 05/07/20232023 Anuria 04/09/2023 05/07/2023 Essential hypertension 05/07 Acute kidney injury due to trauma 01/14/2023 Family History Medical History Relation Comments Diabetes Father Heart disease Father Heart disease Mother Obesity Mother Relation Status Comments Father Mother Social History Tobacco Use Types Packs/Day Years Used Date Smoking Tobacco: Never Smokeless Tobacco: Never Tobacco Cessation:Counseling Given: Not Answered Alcohol Use Standard Drinks/Week Comments Yes 0 (1 standard drink = 0.6 oz pur e alcohol) occassionslly Sex and Gender Information Value Date Recorded Sex Assigned at Not on file Gender Identity Not on file Sexual Orientation Not on file Last Filed Vital Signs Vital Sign Reading Time Taken Comments Blood Pressure 112/78 09/08/2023 3:58 PM SALES PROGRAM COORDINATOR Pulse 68 09/08/2023 3:58 PM SALES PROGRAM COORDINATOR Temperature 36.8 C (98.2 F) 10/24/2021 2:01 PM CDT Respiratory Rate - - Oxygen Saturation - - Inhaled Oxygen Concentration - - Weight 90.3 kg (199 lb) 09/08/2023 3:58 PM SALES PROGRAM COORDINATOR Height 162.6 cm (5' 4 ) 12/23/2023 3:57 PM CDT Body Mass Index 34.16 09/08/2023 3:58 PM SALES PROGRAM COORDINATOR Plan of Treatment Health Maintenance Due Date Last Done Comments Pneumococcal PPSV23 Highest Risk Adult (1 of 3 - PCV13) 1998 Influenza Vaccine (#1) 2024 3, 05/19/2022, 03/30/2019, Additional history exists Care Teams Customer Order Clerk Relationship Specialty Start Date End Date Mathew Johnson MD [address] [place] [address] Dr. Delaney [address] [place] [phone] PCP - General Family Medicine 04/08/23
--- OUTSIDE RECORDS SUMMARY | 2024-08-25 08:48 | XMS_ITS | Encounter Summary ---
Author Organization [facility] Address [address] [place] [id number] Phone Care Team Providers Care Rail Car Operator Name Role Phone Mathew Johnson MD Primary Care Provider [phone] Reason for Visit * Reason Comments Med Refill Encounter Details Date Type Department Care Team ([facility] st Contact Info) Description 07/08/2023 Refill [facility] [address] [facility] [address] [place] [address] Ann Dickerson NP [address] [address] Social History Tobacco Use Types Packs/Day Years Used Date Smoking Tobacco: Never Smokeless Tobacco: Never Alcohol Use Standard Drinks/Week Comments Yes 0 (1 standard drink = 0.6 oz pur e alcohol) occassionslly Sex and Gender Information Value Date Recorded Sex Assigned at Not on file Gender Identity Not on file Sexual Orientation Not on file documented as of this encounter Plan of Treatment Not on file documented as of this encounter Visit Diagnoses Not on filedocumented in this encounter Care Teams Rail Car Operator Relationship Specialty Start Date End Date Mathew Johnson MD [address] [place], [place] [address]Jana Rhett [address] [place] [phone] PCP - General Family Medicine 04/08/23 documented as of this encounter
--- OUTSIDE RECORDS SUMMARY | 2024-08-25 08:48 | XMS_ITS | Data Portability ---
Author Organization [facility] [employer], Main Office Address [address] [place] [address] Assessment No assessment recorded. Plan of Treatment Reminders Order Date Submit Date Provider Last Modified By Organization Details Last Modified Time Details Appointments None recorded. Lab TSH, serum or plasma 2024 025 [email or web address] 2 [facility], [address] [place], [address], 5 08:21:43 CBC w/ auto diff 2024 025 [facility], [address] [place], [address], 5 18:57:05 vitamin D, 25-hydroxy, total, serum 2024 025 [facility], [address] [place], [address], 5 13:13:00 vitamin B12 + folate, serum or blood 2024 025 [email or web address] 2 [facility], [address] [place], [address], 5 08:21:43 iron + total iron-bindin g capacity (TIBC), serum 2024 025 [email or web address] 2 [facility], [address] [place], [address], 5 08:21:43 ferritin, serum or plasma 2024 025 [email or web address] 2 [facility], [address] [place], [address], 5 08:21:43 CMP, serum or plasma 2024 025 [email or web address] 2 [facility], [address] [place], [address], 5 08:21:43 magnesium, serum or plasma 2024 025 [email or web address] 2 [facility], [address] [place], [address], 5 08:21:44 Referral sleep medicine referral - Please eval and treat. Please call patient to schedule an appointment . Thank you 2023 024 [email or web address] Nehemiah Lainez MD, [facility] [place], [address], 4 09:29:53 Procedures None recorded. Surgeries None recorded. Imaging XR, facial bones, 3 or more view - left face 2024 025 [email or web address] 256 [facility] ([facility] Sched[facility]), [address] [place], [address], 5 08:47:01 XR, mandible, 4 or more view 2024 025 GISELL [facility] ([facility] Sched[facility]), [address] [place], [address], 5 09:50:38 XR, elbow, 3 or more view 2024 025 [email or web address] 256 [facility] ([facility] Sched[facility]), [address] [place], [address], 5 08:47:02 XR, forearm, 2 view 2024 025 [email or web address] [facility] ([facility] Sched[facility]), [address] [place], [address], 5 17:15:16 XR, wrist, 3 or more view [address] ([facility] Scheduling), [address] [place], [address], 5 08:47:02 XR, hand, 3 or more view 2024 025 [facility] ([facility] Scheduling), [address] [place], [address], 5 17:14:09 XR, shoulder, 2 or more view - Please call pt to schedule 2024 025 [facility] ([facility] Sched[facility]), [address] [place], [address], 5 17:13:09 MRI, lumbar spine, w/o contrast - Please call pt to schedule and get pre-pay 2023 [email or web address] [place] [address] ([facility] Call Scheduling), [address] [place], [address], 4 10:31:49 Medication Orders cyclobenzap rine 10 mg tablet 2024 025 [email or web address] 200 [facility], [address] [place] [address], [id number], 5 16:50:55 phentermine 37.5 mg tablet 2023 024 [email or web address] [facility]/Pharmacy #[id number], [address] [place], [address], 5 13:03:36 tramadol 50 mg tablet 2023 024 [facility]/Pharmacy #[id number], [address] [place], [address], 4 12:56:22 prednisone 20 mg tablet 2023 024 [email or web address] 2 [facility]/Pharmacy #[id number], [address] [place], [address], 4 15:30:10 alprazolam 0.5 mg tablet 2023 024 [facility]/Pharmacy #[id number], [address] [place], [address], 4 12:56:22 tramadol 50 mg tablet 2023 024 [facility]/Pharmacy #[id number], [address] [place], [address], 4 13:03:14 lidocaine 5 % topical cream 2023 024 [email or web address] 200 [facility]/Pharmacy #[id number], [address] [place], [address], 4 14:18:26 Depo-Medrol 80 mg/mL suspension for injection 2023 024 [email or web address] Not available 4 14:47:56 phentermine 37.5 mg tablet 2023 024 [email or web address] [facility]/Pharmacy #[id number], [address] [place], [address], 5 13:03:36 lidocaine 5 % topical patch 2023 024 [facility]/Pharmacy #70044, [address] [place], [address], 4 09:26:23 acetaminoph en 300 mg-codeine 30 mg tablet 2023 024 [email or web address] [facility] #[id number], [address] [place], [address], 12:43:52 alprazolam 0.5 mg tablet 2023 024 GISELL [facility] #[id number], [address] [place], [address], 09:25:21 Patient TargetsNo targets recorded. Patient InstructionsNo instructions recorded. Reason for Referral Sleep Medicine Referral for Excessive daytime sleepiness - normal night sleep Please eval and treat. Please call patient to schedule an appointment. Thank you Referring Physician: James Castellanos, Family Medicine, Encounter Date: 11/18/2023 Results Created Date Observation Date Name Description Value Unit Range Abnormal Flag Note LastModifiedBy Organization Detail LastModifiedTime 07/22/1907/21/2024 XR, anshul ble, 4 or more view No observ ation record ed. [email or web address] ([facility]) [address] [place], [address], 07/25/2024 16:32:36 07/25/19 25 07/21/2024 XR, shoul patricia, 2 or more view No observ ation record ed. [address] [place], [address], 08/08/2024 17:13:09 07/25/19 25 07/21/2024 XR, elbow , 3 or more view No observ ation record ed. [address] [place], [address], 08/08/2024 17:13:37 07/25/19 25 07/21/2024 XR, hand, 3 or more view No observ ation record ed. [address] [place], [address], 08/08/2024 17:14:09 Result Notes None recorded. Problems Name Problem SNOMED Code Status Onset Date Resolution Date Notes Provider Name and Address Organization Details Recorded Time Disorder of shoulder 232384347 Completed Not Available [facility] 3 16:59:18 Mammogra phic mass of right breast [id number] 566530 Active 2021 Not Available [facility] 3 16:59:18 Current tear of medial cartilag e AND/OR meniscus of knee Completed Not Available [facility] 3 16:59:18 Vitamin D deficien cy 58482278 Active 2019 Not Available [facility] 3 16:59:18 Hyperten sive disorder 64147649 Active 2019 Not Available [facility] 3 16:59:18 Hypokale glen 76903434 Active 2020 Not Available [facility] 3 16:59:18 Sprain of ankle 77979000 Completed Not Available [facility] 3 16:59:18 Anxiety 49091336 Active 2019 Not Available [facility] 3 16:59:18 COVID-19 664412259 Active 2020 Not Available [facility] 3 16:59:18 Abnormal weight 61297679 Active 2022 JAVON Mart null, [employer] 3 09:17:52 Obesity 068189418 Active 2022 Mathew Johnson MD [address], [place], [address] , [employer] 3 09:32:13 Dyspnea 699408773 Active 2022 Mathew Johnson MD [address], [place], [address] , [employer] 3 09:33:47 Costal chondrit is 09150378 Active 2022 Mathew Johnson MD [address], [place], [address] , [employer] 3 09:38:18 [facility] hyperten arias 00313151 Active 2022 Mathew Johnson MD [address], [place], [address] , [facility] 3 09:33:02 Pain in left foot 80224728341 9107 Active 2022 Mathew Johnson MD [address], [place], [address] , [facility] 3 09:34:57 Injury of right knee 43233640520 903169 Active 2022 JAMIE Meraz [address], [place], [address] , [facility] 3 10:03:17 Phlebiti s of superfic ial veins of lower extremit y 13697105 Active 2022 JAMIE Meraz [address], [place], [address] , [facility] 3 10:18:00 Pain of left knee joint 86336194994 4107 Active 2022 JAVON Babin, [facility] 3 14:36:27 Pain of right knee joint 96584461195 4100 Active 2022 TACHO Dinh, [facility] 3 16:48:43 Acute tear of medial meniscus of right knee 53690890500 490184 Active 2022 JAMIE Andrews [address], [place], [address] , [facility] 3 16:53:53 Panic attack 280036440 Active 2022 Mathew Johnson MD [address], [place], [address] , [facility] 3 09:37:30 Mixed anxiety and depressi ve disorder 671034914 Active 2022 Mathew Johnson MD [address], [place], [address] , [facility] 3 10:51:13 Synovial cyst of right knee 66289727168 9104 Active 2022 Mathew Johnson MD [address], [place], [address] , [facility] 3 09:54:11 Tremor 16987033 Active 2022 Mathew Johnson MD [address], [place], [address] , [facility] 3 09:56:31 Overweig ht 822372979 Active 2022 Mathew Johnson MD [address], [place], [address] , [facility] 3 09:59:35 Chronic kidney disease 725065367 Active [address] Ziegler in [place] and [employer] JAMIE Duncan [address], [place], [address] , [facility] 4 13:03:35 Memory impairme nt 747409949 Active 2022 Mathew Johnson MD [address], [place], [address] , [facility] 3 10:01:04 Pruritic rash 61303210 Active 2022 Mathew Johnson MD [address], [place], [address] , [facility] 3 10:41:08 Urinary symptoms 339185094 Active 2022 Mathew Johnson MD [address], [place], [address] , [facility] 3 10:48:30 Sinusiti s 30364249 Active 2023 JAMIE Meraz [address], [place], [address] , [employer] 4 15:35:24 Bilatera l earache 075672271 Active 2023 JAMIE Meraz [address], [place], [address] , [employer] [facility] 4 13:56:02 Phlebiti s of superfic ial veins of lower extremit y 35109073 Active 2023 JAMIE Meraz [address], [place], [address] , [employer] 4 13:56:08 Edema 278133204 Active 2023 JAMIE Meraz [address], [place], [address] , [employer] 4 12:51:40 Low back pain 710324043 Active 2023 JAMIE Meraz [address], [place], [address] , [employer] 4 14:19:51 Excessiv e daytime sleepine ss - normal night sleep 706809856 Active 2023 JAMIE Meraz [address], [place], [address] , [employer] 4 14:21:18 Injury of left shoulder 88562112690 978289 Active 2024 JAMIE eMraz [address], [place], [address] , [employer] [facility] 5 13:10:55 Injury of face 033174655 Active 2024 JAMIE Meraz [address], [place], [address] , [employer] 13:12:19 Fatigue 22777720 Active 2024 JAMIE Meraz [address], [address] [address], [place], [address] , [facility] [employer] [facility] 5 13:18:01 Injury of left elbow region 61604975917 511059 Active 2024 JAMIE Meraz [address] [facility] [address], [place], [address] , [facility] [employer] [facility] 5 10:02:26 Notes:Some problems listed i n Document: #[id number] could not be added to this patient's chart. Please review this document and add these problems to the patient's chart manually as needed. Problem Notes None recorded. Procedures Surgical History Date Name Laterality Status Provider Name and Address Organization Details Recorded Time 11/11/19 24 Knee completed Yolande Walker RN [facility] [employer] [facility] 05/31/2024 12:46:54 07/13/19 10 Hysterectomy completed Not Available [facility] 023 16:57:30 tarsal tunnel release completed JAVON Babin [facility] [employer] [facility] 12/16/2022 14:35:11 Imaging Results Imaging Date Name Status LastModified by Organiz ation Details LastModified Time 07/21/2024 XR, mandible, 4 or more view completed [address] ([facility]) [address] [place], [address], 07/25/2024 16:32:36 07/21/2024 XR, shoulder, 2 or more view completed [address] [place], [address], 08/08/2024 17:13:09 07/21/2024 XR, elbow, 3 or more view completed [address] [place], [address], 08/08/2024 17:13:37 07/21/2024 XR, hand, 3 or more view completed [address] [place], [address], 08/08/2024 17:14:09 Procedure Notes None recorded. Medical Equipment None Reported. Allergies Allergen ID Allergen Name Allergen Category Reaction Reaction Severity Criticality Documentation Date Start Date Code Code System Note Provider Name and Address Organization Details Recorded Time 65366 Prozac medicatio n other severe Not available 09/10/2022 33612 RxNorm Not Available [facility] 17:01:23 Medications Name Sig Start Date Stop Date Status Note LastModified by Organization Details LastModified Time celecoxib 200 mg capsule 05/27 completed Not Available Not Available Not Available cyclobenz aprine 10 mg tablet Take 1 tablet every day by oral route at bedtime for 30 days. active Not Available Not Available No t Available amoxicill in 500 mg capsule TAKE 2 CAPSULES BY MOUTH TWICE A DAY FOR 10 DAYS 07/14 completed Not Available Not Available Not Available furosemid e 40 mg tablet TAKE 1 TABLET EVERY DAY BY ORAL ROUTE FOR 10 DAYS, FOR EDEMA. 05/31 completed Not Available Not Available Not Available venlafaxi ne ER 37.5 mg capsule,e xtended release 24 hr TAKE 1 CAPSULE BY MOUTH EVERY DAY active Not Available Not Available No t Available potassium chloride ER 10 mEq capsule,e xtended release TAKE 1 CAPSULE BY MOUTH EVERY DAY IN THE MORNING active Not Available Not Available No t Available venlafaxi ne ER 75 mg capsule,e xtended release 24 hr TAKE 1 CAPSULE BY MOUTH EVERY DAY active Not Available Not Available No t Available indapamid e 2.5 mg tablet TAKE 1 TABLET BY MOUTH EVERY DAY active Not Available Not Available No t Available lidocaine 5 % topical cream APPLY TO RIGHT KNEE AND BACK 3 TIMES A DAY BY TOPICAL ROUTE FOR 30 DAYS. active Not Available Not Available No t Available ibuprofen 800 mg tablet TAKE 1 TABLET BY MOUTH THREE TIMES A DAY WITH MEALS 05/11 completed Not Available Not Available Not Available Lidocaine Viscous 2 % mucosal solution 06/12 completed Not Available Not Available Not Available fluconazo le 150 mg tablet TAKE 1 BY MOUTH FOR 1 DAY 05/31 completed Not Available Not Available Not Available hydrochlo rothiazid e 50 mg tablet TAKE 1 TABLET BY MOUTH EVERY DAY 08/15 completed Not Available Not Available Not Available valacyclo vir 1 gram tablet TAKE 1 TABLET BY MOUTH 3 TIMES A DAY FOR 7 DAYS 2023 active Not Available Not Available Not Avai lable hydrocodo ne 5 mg-acetam inophen 325 mg tablet TAKE 1-2 TABLETS BY MOUTH EVERY 4 HOURS NEEDED FOR PAIN 05/31 completed Not Available Not Available Not Available meperidin e 50 mg tablet 06/12 completed Not Available Not Available Not Available fluconazo le 200 mg tablet TAKE 1 TABLET BY MOUTH NOW. MAY REPEAT IN 3 DAYS 05/31 completed Not Available Not Available Not Available lisinopri l 20 mg tablet 12/18 completed Not Available Not Available Not Available ondansetr on HCl 4 mg tablet 05/31 completed Not Available Not Available Not Available prednison e 20 mg tablet Take 2 tabs PO twice daily for 2 days; 1 tab PO twice daily for 5 days; 1/2 tab PO twice daily for 2 days; 1/2 tab PO once for 1 day. TAKE 2ND DOSE EVERYDAY AT NOON-10 DAY COURSE 07/12 completed Not Available Not Available Not Available terconazo le 0.8 % vaginal cream 06/12 completed Not Available Not Available Not Available Zithromax Z-Jose 250 mg tablet TAKE 2 TABLETS (500 MG) BY ORAL ROUTE ONCE DAILY FOR 1 DAY THEN 1 TABLET (250 MG) BY ORAL ROUTE ONCE DAILY FOR 4 DAYS 12/03 completed Not Available Not Available Not Available potassium chloride ER 10 mEq tablet,ex tended release TAKE 1 TABLET BY MOUTH EVERY DAY WITH 20MEQ active Not Available Not Available No t Available phentermi ne 37.5 mg tablet TK 1 T PO MID MORNING D 07/21 completed Not Available Not Available Not Available acetamino phen 300 mg-codein e 30 mg tablet Take 1 tablet 3 times a day by oral route as needed for 30 days. 05/31 completed Not Available Not Available Not Available chlorthal idone 25 mg tablet TK 1 T PO D 06/12 completed Not Available Not Available Not Available amlodipin e 5 mg tablet TAKE 1 TABLET BY MOUTH AT BEDTIME 12/18 completed Not Available Not Available Not Available ciproflox acin 500 mg tablet TAKE 1 TABLET BY MOUTH EVERY 12 HOURS FOR 10 DAYS 11/17 completed Not Available Not Available Not Available omeprazol e 40 mg capsule,d elayed release TAKE 1 CAPSULE BY MOUTH EVERY DAY 06/09 completed Not Available Not Available Not Available metoprolo l tartrate 50 mg-hydroc hlorothia zide 25 mg tablet 06/12 completed Not Available Not Available Not Available tramadol 50 mg tablet Take 1 tablet twice a day by oral route as needed for 30 days. 2023 active Not Available Not Available Not Avai lable Depo-Medr ol 80 mg/mL suspensio n for injection Take 1 mL by injectio n route. 2023 active Not Available Not Available Not Avai lable Kenalog 40 mg/mL suspensio n for injection Take 1 mL by injectio n route. 05/27 completed Not Available Not Available Not Available losartan 100 mg-hydroc hlorothia zide 25 mg tablet Take 1 tablet every day by oral route. active Not Available Not Available No t Available alprazola m 0.5 mg tablet TAKE ONE TABLET BY MOUTH THREE TIMES A DAY NEEDED active Not Available Not Available No t Available amiloride 5 mg tablet TAKE 2 TABLETS BY MOUTH DAILY 04/27 completed Not Available Not Available Not Available alprazola m 0.25 mg tablet 06/12 completed Not Available Not Available Not Available citalopra m 20 mg tablet 06/12 completed Not Available Not Available Not Available potassium chloride ER 20 mEq tablet,ex tended release(p art/cryst ) TAKE 1 TABLET BY MOUTH EVERY DAY active Not Available Not Available No t Available magnesium oxide 400 mg (241.3 mg magnesium ) tablet TAKE 1 TABLET BY MOUTH TWICE A DAY 2024 active Not Available Not Available Not Avai lable metoclopr amide 5 mg tablet TAKE 1 TABLET BY MOUTH AT BEDTIME 06/12 completed Not Available Not Available Not Available Kenalog 10 mg/mL suspensio n for injection Take 20 mg by injectio n route. 05/27 completed [facility]: [id number] 4-20 Not Available Not Available Not Available amlodipin e 10 mg tablet TAKE 1 TABLET BY MOUTH EVERY DAY active Not Available Not Available No t Available hydrocodo ne 7.5 mg-acetam inophen 325 mg tablet Take 1 tablet 3 times a day by oral route as needed for 14 days. 2024 active Not Available Not Available Not Avai lable cephalexi n 500 mg capsule 06/12 completed Not Available Not Available Not Available pantopraz ole 40 mg tablet,de layed release 06/12 completed Not Available Not Available Not Available oseltamiv ir 75 mg capsule TAKE 1 CAPSULE BY MOUTH TWICE A DAY FOR 5 DAYS active Not Available Not Available No t Available buspirone 10 mg tablet TAKE 1 TABLET BY MOUTH TWICE A DAY active Not Available Not Available No t Available hyoscyami ne 0.125 mg sublingua l tablet 06/12 completed Not Available Not Available Not Available lidocaine 5 % topical patch APPLY 1 PATCH BY TOPICAL ROUTE ONCE DAILY (MAY WEAR UP TO 12HOURS. ) 2023 active Not Available Not Available Not Avai lable propranol ol ER 80 mg capsule,2 4 hr,extend ed release TAKE 1 CAPSULE BY MOUTH EVERY DAY 2023 active Not Available Not Available Not Avai lable indometha noble 25 mg capsule TAKE 1 CAPSULE BY MOUTH TWICE A DAY NEEDED 05/31 completed Not Available Not Available Not Available gabapenti n 300 mg capsule PLEASE SEE ATTACHED FOR DETAILED DIRECTIO NS 05/31 completed makes pt anxious Not Available Not Available Not Available Pain Relief Regular Strength 325 mg tablet TAKE 2 TABLETS BY MOUTH EVERY 6 HOURS NEEDED. 06/09 completed Not Available Not Available Not Available aspirin 81 mg chewable tablet 12/18 completed Not Available Not Available Not Available hydroxyzi ne HCl 25 mg tablet TAKE 1 TABLET BY MOUTH 3 TIMES A DAY NEEDED FOR ITCHING 07/12 completed Not Available Not Available Not Available lisinopri l 5 mg tablet Take 1 po daily 12/18 completed Not Available Not Available Not Available hydrochlo rothiazid e 25 mg tablet TAKE 1/2 TAB BY MOUTH DAILY 12/03 completed Not Available Not Available Not Available ergocalci ferol (vitamin D2) 1,250 mcg (50,000 unit) capsule TAKE 1 CAPSULE BY MOUTH ONE TIME PER WEEK active Not Available Not Available No t Available oxycodone -acetamin ophen 7.5 mg-325 mg tablet 06/12 completed Not Available Not Available Not Available methylpre dnisolone 4 mg tablets in a dose pack TAKE 6 TABLETS ON DAY 1 DIRECTED ON PACKAGE AND DECREASE BY 1 TAB EACH DAY FOR A TOTAL OF 6 DAYS 11/17 completed Not Available Not Available Not Available labetalol 100 mg tablet TAKE HALF TAB BY MOUTH TWICE A DAY. REDUCED DOSE. 07/14 completed Not Available Not Available Not Available albuterol sulfate HFA 90 mcg/actua tion aerosol inhaler INHALE 2 PUFFS EVERY 4 HOURS BY INHALATI ON ROUTE NEEDED 12/16 completed Not Available Not Available Not Available naproxen 500 mg tablet 05/02 completed Not Available Not Available Not Available amoxicill in 875 mg-potass ium clavulana te 125 mg tablet Take 1 tablet every 12 hours by oral route. active Not Available Not Available No t Available escitalop harshal 10 mg tablet TAKE 1 TABLET BY MOUTH TWICE A DAY active Not Available Not Available No t Available cyclobenz aprine 5 mg tablet 05/11 completed Not Available Not Available Not Available bupropion HCl XL 150 mg 24 hr tablet, extended release 06/12 completed Not Available Not Available Not Available escitalop harshal 5 mg tablet TAKE 1 TABLET BY MOUTH EVERY DAY AT BEDTIME active Not Available Not Available No t Available nitrofura ntoin monohydra te/macroc rystals 100 mg capsule TAKE 1 CAPSULE BY MOUTH EVERY 12 HOURS FOR 5 DAYS 05/28 completed Not Available Not Available Not Available hydrochlo rothiazid e 12.5 mg tablet TAKE 1 TABLET BY MOUTH EVERY DAY 04/27 completed Not Available Not Available Not Available cholecalc iferol (vitamin D3) 50 mcg (2,000 unit) capsule Take 1 capsule every day by oral route with meal(s) for 30 days. 2024 active Not Available Not Available Not Avai lable venlafaxi ne ER 150 mg tablet,ex tended release 24 hr TAKE 1 TABLET BY MOUTH EVERY DAY active Not Available Not Available No t Available GaviLyte- N 420 gram oral solution 06/12 completed Not Available Not Available Not Available butalbita l-acetami nophen-ca ffeine 50 mg-300 mg-40 mg capsule active Not Available Not Available Not Available ropivacai ne (PF) 5 mg/mL (0.5 %) injection solution Take 20 mg by injectio n route. 05/27 completed [facility] [address]-26 10-11 Not Available Not Available Not Available Luisana 5 mg tablet,de layed release 06/12 completed Not Available Not Available Not Available potassium chloride ER 20 mEq tablet,ex tended release active HOLD Not Available Not Available Not Available Fluvirin 45 mcg (15 mcg x 3)/0.5 mL intramusc ular suspensio n INJECT 0.5 ML INTRAMUS CULARLY DIRECTED . 06/12 completed Not Available Not Available Not Available naloxone 4 mg/actuat ion nasal spray active Not Available Not Available Not Available Ozempic 0.25 mg or 0.5 mg (2 mg/1.5 mL) subcutane ous pen injector INJECT 0.25MG SUBCUTAN EOUSLY ONCE WEEKLY X4 WEEKS, THEN INCREASE TO 0.5MG SUBCUTAN EOUSLY WEEKLY 12/03 completed Not Available Not Available Not Available butalbita l 50 mg-acetam inophen 300 mg capsule Take 1 capsule every 4 hours by oral route as needed for 5 days. 09/03 completed Not Available Not Available Not Available Wegovy 0.25 mg/0.5 mL subcutane ous pen injector INJECT 0.25 MG EVERY WEEK BY SUBCUTAN EOUS ROUTE. 12/03 completed Not Available Not Available Not Available Plenity (Welcome Kit) 0.75 gram capsule Use as directed 08/15 completed Not Available Not Available Not Available Vitals Date Recorded Body height Body mass index (BMI) Body weight Body temperature Heart rate Respiratory rate Oxygen saturation Oxygen saturation in Arterial blood by Pulse oximetry Systolic blood pressure Diastolic blood pressure Provider Name and Address Organization Details Last Updated DateTime 4 162.56 cm 35.6 kg/m2 59492.6 7 g 98 [degF] 80 /min 20 /min 99 % 99 % 128 mm[Hg] 66 mm[Hg] Jalil CHAMBERS [employer] [facility] 4 09:17:00 Date Recorded Body height Body mass index (BMI) Body weight Body temperature Respiratory rate Heart rate Oxygen saturation Oxygen saturation in Arterial blood by Pulse oximetry Systolic blood pressure Diastolic blood pressure Provider Name and Address Organization Details Last Updated DateTime 4 162.56 cm 36.9 kg/m2 24466.3 6 g 97.9 [degF] 16 /min 74 /min 99 % 99 % 98 mm[Hg] 66 mm[Hg] Yolande Walker RN [facility] [employer] [facility] 4 14:13:15 Date Recorded Body height Body mass index (BMI) Body weight Body temperature Heart rate Oxygen saturation Oxygen saturation in Arterial blood by Pulse oximetry Systolic blood pressure Diastolic blood pressure Provider Name and Address Organization Details Last Updated DateTime 4 162.56 cm 38.1 kg/m2 983531. 21 g 98.7 [degF] 77 /min 94 % 94 % 110 mm[Hg] 65 mm[Hg] Danica Drake MA [facility] [employer] [facility] 4 12:45:01 Date Recorded Body height Body mass index (BMI) Body weight Body temperature Heart rate Oxygen saturation Oxygen saturation in Arterial blood by Pulse oximetry Systolic blood pressure Diastolic blood pressure Provider Name and Address Organization Details Last Updated DateTime 4 162.56 cm 39 kg/m2 025857. 47 g 98.3 [degF] 86 /min 99 % 99 % 98 mm[Hg] 70 mm[Hg] Yolande Walker RN [facility] [employer] [facility] 4 12:48:46 Date Recorded Body height Body mass index (BMI) Body weight Body temperature Heart rate Oxygen saturation Oxygen saturation in Arterial blood by Pulse oximetry Systolic blood pressure Diastolic blood pressure Provider Name and Address Organization Details Last Updated DateTime 5 162.56 cm 39.5 kg/m2 437235. 25 g 98.3 [degF] 79 /min 98 % 98 % 100 mm[Hg] 70 mm[Hg] Yolande Walker RN [facility] [employer] [facility] 5 13:06:04 Social History Question Answer Notes LastModified by Organizat ion Details LastModified Time Tobacco Smoking Status Never Smoker Cyndy braun [facility] [employer] [facility] 10/03/2022 09:12:24 What Is Your Level Of Alcohol Consumption? Occasional [id number] Information not available 09/10/2022 What Is Your Level Of Caffeine Consumption? Moderate [id number] Information not available 09/10/2022 How Much Tobacco Do You Chew? None [id number] Information not available 09/10/2022 In The 14 Days Before Symptom Onset, Have You Had Close Contact With A Laboratory-confir med COVID-19 While That Case Was Ill? No [email or web address] Information not available 10/03/2022 In The 14 Days Before Symptom Onset, Have You Had Close Contact With A Person Who Is Under Investigation For COVID-19 While That Person Was Ill? No [email or web address] Information not available 10/03/2022 What Type Of Diet Are You Following? REGULAR [id number] Information not available 09/10/2022 Which Illicit Or Recreational Drugs Have You Used? No [email or web address] Information not available 10/03/2022 Do You Or Have You Ever Used E-cigarettes Or Vape? Never Used Electronic Cigarettes [email or web address] Information not available 10/03/2022 Have You Ever Been Counseled For Unhealthy Alcohol Use? No [email or web address] Information not available 10/03/2022 Do You Or Have You Ever Used Smokeless Tobacco? Never Used Smokeless Tobacco [id number] Information not available 09/10/2022 Do You Use Any Illicit Or Recreational Drugs? No [email or web address] Information not available 10/03/2022 Has Tobacco Cessation Counseling Been Provided? No [email or web address] Information not available 10/03/2022 Have You Recently Traveled Abroad? No [email or web address] Information not available 10/03/2022 Do You Have Any Dietary Restrictions? No [email or web address] Information not available 10/03/2022 Do You Or Have You Ever Used Any Other Forms Of Tobacco Or Nicotine? No [email or web address] Information not available 10/03/2022 Sex: Unknown Functional Status Question Answer Note LastModified by Organizat ion Details LastModified Time What is your exercise level? None [id number] Information not available 09/10/2022 Mental Status None recorded. Family History Relationship Description Onset Age of this Age Resolved Age Notes LastModified by Organization Details LastModified Time Mother Heart disease Not available 2022 14:34:04 Maternal Grandmother Family history of malignant neoplasm [email or web address] Not available 01/12 12:14:24 Notes:low BP, & BS mom & Sis ter Medical History Condition Response BLINDNESS N RHEUMATIC FEVER N KIDNEY STONES N BLADDER PROBLEMS N OTHER # 1 N POLIO N LUNG DISEASE/DISORDER N RADIATION / CHEMOTHERAPY N COPD N Other # 2 N BLOOD DISEASES N SURGERY N EAR OR HEARING PROBLEMS N MUMPS N FEMALE PROBLEMS / INFECTIONS N DEPRESSION (INCLUDING POST ) N BOWEL PROBLEMS N STROKE/TIA N THYROID DISEASE N ULCERS N BENIGN PROSTATIC HYPERPLASIA N MEASLES N CERVICALGIA N TB SKIN TEST N MYOCARDIAL INFARCTION N PARAPELGIA N OBESITY N GERD/NAUSEA N ANEURYSM N URINARY/BLADDER/KIDNEY PROBLEMS N INPATIENT PSYCH CARE N CORONARY ARTERY DISEASE (CAD) N MENIERE'S DISEASE N ADDICTION CONCERNS N ENDOMETRIOSIS N USE OF BLOOD THINNERS N SKIN PROBLEMS N EMPHYSEMA N GASTROINTESTINAL DISORDER N MUSCLE,JOINT OR BONE PROBLEMS N GASTROINTESTINAL BLEEDING N BLOOD CLOTS N ASTHMA N CATARACTS N ERECTILE DYSFUNCTION N GI PROBLEMS N CHF N Low Testosterone N NEUROPATHY N INFERTILITY N AIDS/HIV N FRACTURES N VISION/EYE PROBLEMS N LIVER DISEASE N MALE HYPOGONADISM N HYPERTENSION N ANXIETY DISORDER N BLOOD TRANSFUSION N ANEMIA/BLOOD DISORDER N CHRONIC EAR INFECTIONS N BRONCHITIS N TUBERCULOSIS N GLAUCOMA N DIVERTICULITIS N SLEEP APNEA N CHICKENPOX N ALLERGIES/HAYFEVER N INFECTIOUS DISEASE N PROSTATE N HEART ARRHYTHMIA N INSOMNIA N HIGH CHOLESTEROL / HYPERLIPIDEMIA N HYPERTHYROIDISM N EYE PROBLEMS N EATING DISORDER N NEUROLOGICAL PROBLEMS N EDEMA N CHRONIC PAIN SYNDROME N HYPOTHYROIDISM N CONSTIPATION N CAROTID BLOCKAGE N BACK / NECK PROBLEMS N HAVE YOU BEEN HOSPITALIZED OR SEEN IN [facility] IN THE PAST YEAR ? N ATHEROSCLEROSIS N BREAST PROBLEMS N DIALYSIS N ECZEMA N FIBROMYALGIA N OSTEOPOROSIS N ARTHRITIS N NO SIGNIFICANT PAST MEDICAL HISTORY N APPENDICITIS N DIABETES, TYPE N BAD TEETH N HEARTBURN / REFLUX N ADD/ADHD N AUTISM SPECTRUM DISORDER (ASD) N HEPATITIS / LIVER DISEASE N PULMONARY DISEASE N GOUT N SLEEP DISORDER N ALZHEIMER'S DISEASE N PAIN N HERPES N DEMENTIA N SEIZURES/EPILEPSY N HEADACHES/MIGRAINES N VASCULAR DISEASE N PACEMAKER N DIZZINESS N KIDNEY DISEASE N HEART DISEASE/HEART PROBLEMS N SCARLET FEVER N MULTIPLE SCLEROSIS N MENTAL DISORDER/ILLNESS N DEVELOPMENTAL OR BEHAVIORAL DISORDERS N CARDIAC ARRHYTHMIA N CANCER: SPECIFY N PNEUMONIA N ANESTHESIA COMPLICATIONS N ATRIAL FIBRILLATION N PULMONARY EMBOLISM N AUTOIMMUNE DISEASE N Gynecological HistoryNo gynecological history recorded. Obstetrics History GPAL:G 0 P 0 0 0 0 Immunizations Vaccine Type Date Status Note Provider Nam e and Address Organization Details Recorded Time COVID-19, mRNA, LNP-S, PF, 30 mcg/0.3 mL dose 2 completed Regina Arnold CMA null, [place] [facility] 04/08/2023 10:33:22 COVID-19, mRNA, LNP-S, PF, 30 mcg/0.3 mL dose 1 completed Regina Arnold SCRATCHER null, [place] [facility] 04/08/2023 10:33:22 Influenza, split virus, quadrivalent, preservative 0 completed Not Available [facility] 09/10/2022 17:01:19 Influenza, split virus, quadrivalent, PF 2 completed Not Available [facility] 09/10/2022 17:01:19 Influenza, split virus, quadrivalent, PF 3 completed Mathew Johnson MD [address] [place] [address], [address], [facility] 04/06/2023 18:38:18 Past Encounters Encounter ID Performer Location Encounter Start Date Encounter Closed Date Diagnosis/Indication Diagnosis SNOMED-CT Code Diagnosis ICD10 Code Diagnosis Note [id number] [facility] [place] [address] [facility] [address] 09/11/2020 00:00:00 09/11/2020 09:41:45 [id number] [facility] [place] [address] [facility] [place] [address] 09/18/2020 00:00:00 09/18/2020 10:28:32 [id number] [facility] [place] [address] [facility] [place] [address] 12/18/2020 00:00:00 12/19/2020 08:09:36 [id number] [facility] [place] [address] [facility] [place] [address] 05/02/2021 00:00:00 05/02/2021 15:37:39 [id number] [facility] [place] [address] [place] [address] 10/24/2021 00:00:00 10/24/2021 10:19:23 [id number] [facility] [place] m[facility]mahon [facility] [place] [address] [address] [address] 05/19/2022 00:00:00 05/19/2022 09:06:36 [id number] [facility] Don[place] mcmahon [facility] [place] [address] [address] [place] [address] 05/28/2022 00:00:00 05/28/2022 13:33:08 [id number] [facility] Donato mcmahon [facility] [place] [address] [address] [address] 08/15/2022 00:00:00 08/15/2022 17:09:03 [id number] Mathew Johnson MD [facility] [place] [facility] [place] [place] [address] 10/03/2022 09:10:12 10/03/2022 09:45:56 Obesity 966543393 E66.9 Call for refills. F/u in 2 months. Dyspnea 140753223 R06.00 May need to see pulmonolog ist. Costal chondritis 442850 04 M94.0 Heat and NSAIDs [id number] Mathew Johnson MD [facility] [place] mcmahon [facility] [place] [place] [address] 12/03/2022 09:14:26 12/03/2022 09:38:24 Essential hypertension 98603604 I10 Recheck BP 160/108. Watch salt in diet and check BP away from here. If continues to be high needs f/u appt. Anxiety 36038902 F41.9 Call for refills of alprazolam Pain in left foot 578920 9513 96830 M79.672 Ice and elevate and see wage adjuster if needed. [id number] [facility] Donato mcmahon [facility] [place] [place] [address] 12/15/2022 09:43:13 12/15/2022 10:21:51 Injury of right knee 1148591852 9641752 S89.91XA Phlebitis of superficial veins of lower extremity 21615664 I80.02 ankle, left [id number] JAMIE Andrews [facility] [address] [place] [address] 12/16/2022 14:07:59 12/18/2022 15:31:05 Pain of right knee joint 2785500283 65667 M25.561 Acute tear of medial meniscus of right knee 6172266439 5483798 S83.241A [id number] Alfredo Castellanos MD [facility] [address] [place] [address] 12/30/2022 15:02:49 12/30/2022 15:54:54 Acute tear of medial meniscus of right knee 2255566189 7295079 S83.241A Injury of right knee 075 1526563 2440943 S89.91XA Pre-surger y evaluation 961961317 Z01.818 [id number] Mathew Johnson MD [facility] [address] [place] [address] 12/30/2022 15:56:27 12/30/2022 16:22:35 Acute tear of medial meniscus of right knee 8529278529 8182002 S83.241D RICE and NSAIDs [id number] Mathew Johnson MD [facility] [address] [place] [address] 02/02/2023 09:42:26 02/02/2023 10:06:39 Anxiety 51931990 F41.9 Call for refills of alprazolam . Double up on lexapro and call for 20 mg dosage. Essential hypertension 03223156 I10 Recheck BP 160/100. Watch salt in diet and check BP away from here. If continues to be high needs f/u appt. [id number] Mathew Johnson MD [facility] [place] [address] [place] [address] 03/06/2023 08:45:28 03/06/2023 09:45:59 Pain of right knee joint 4256496393 44737 M25.561 Panic attack 738169276 F 41.0 Take 1 po TID prn and call when runs out for refill to TID 3 #90Continu e counseling . F/u in 1 month [id number] Mathew Johnson MD [facility] Don[place] mcmahon [facility] [place] [address] 04/06/2023 09:11:48 04/06/2023 10:02:35 Synovial cyst of right knee 3698760567 01354 M71.21 f/u with ortho Tremor 43737596 R25.1 Overweight 035034480 E66 .3 Continue phentermin e Chronic ki dney disease 333055841 N18.9 F/u with nephrologi st. Memory impairment 993632 006 R41.3 Brain fog. Administra tion of influenza vaccine 29819380 Z23 [id number] Mathew Johnson MD [facility] Donato mcmahon [address] [place] [address] [place] [address] 04/08/2023 10:17:46 04/08/2023 11:05:58 Pruritic rash 67930420 L28.2 Urinary symptoms 2595966 08 R39.9 F/u with nephrologi st seeing them for urinary retention. [id number] Mathew Johnson MD [facility] Don[place] mcmahon [address] [place] [address] [place] [address] 04/27/2023 09:54:55 04/27/2023 10:35:35 Essential hypertension 56970886 I10 Recheck BP 120/80. Watch salt in diet and check BP away from here Start new BP meds. Losartan/h ct and amlodipine F/u in 2 weeks. Call if BPs are running high still.Has renal artery stenosis. [id number] Mathew Johnson MD [facility] [place] mcmahon [address] [place] [address] [place] [address] 05/11/2023 11:55:21 05/11/2023 12:19:45 Essential hypertension 67166899 I10 Recheck BP 120/70. Watch salt in diet and check BP away from here. Call if BPs are running high. F/u in 3 monthsHas renal artery stenosis. F/u with nephrologi st/vascula r surgeon Mixed anxi ety and depressive disorder 812752474 F41.8 Continue current meds. [id number] Mathew Johnson MD [facility] [place] [address] [facility] [place] [address] 05/27/2023 12:49:03 05/27/2023 13:54:17 Essential hypertension 68830712 I10 F/u in 2 weeks. D/c labetolol and start propranolo l. Renewal of prescription 957780278 Z76.0 Tremor 71140335 R25.1 Will try propranolo l for this and d/c the labetolol [id number] JAMIE Meraz [facility] [facility] [address] [facility] [place] [address] 07/14/2023 14:56:53 07/14/2023 15:45:15 Vitamin D deficiency 84830574 E55.9 Acute tear of medial meniscus of right knee 5613162254 9929611 S83.241D [id number] JAMIE Meraz [facility] [place] [facility] [address] [place] [address] [place] [address] 10/14/2023 09:10:49 10/14/2023 09:41:51 Chronic kidney disease 992752631 N18.9 Acute tear of medial meniscus of right knee 2092080756 6635565 S83.241D Essential hypertension 62410916 I10 Mixed anxi ety and depressive disorder 548729029 F41.8 Obesity 282285954 E66.9 Anxiety 32325808 F41.9 Vitamin D deficiency 347 81257 E55.9 [id number] JAMIE Meraz [facility] [facility] [address] [place] [address] 11/18/2023 13:43:13 11/18/2023 14:31:55 Pain of right knee joint 4557276449 31169 M25.561 Low back pain 605492237 M54.50 Excessive daytime sleepiness - normal night sleep 176062182 G47.19 Anxiety 05570348 F41.9 Chronic ki dney disease 972651863 N18.9 Essential hypertension 05542595 I10 Obesity 374251307 E66.9 Synovial c yst of right knee 7831513413 19547 M71.21 Vitamin D deficiency 347 75028 E55.9 [id number] JAMIE Meraz [facility] [address] [place] [address] [place] [address] 01/13/2024 12:11:59 01/13/2024 13:58:49 Acute tear of medial meniscus of right knee 4844045723 8474198 S83.241D Anxiety 18985335 F41.9 Chronic ki dney disease 167410124 N18.9 Essential hypertension 46853585 I10 Obesity 858519925 E66.9 Panic attack 800795846 F 41.0 Vitamin D deficiency 347 03612 E55.9 [id number] JAMIE Meraz [facility] [address] [place] [address] [place] [address] 05/31/2024 12:30:19 05/31/2024 13:05:31 Anxiety 19385605 F41.9 Acute tear of medial meniscus of right knee 8413253867 9849434 S83.241D Obesity 816953573 E66.9 Low back pain 465141932 M54.50 Essential hypertension 46982545 I10 Vitamin D deficiency 347 48899 E55.9 Panic attack 349418415 F 41.0 Chronic ki dney disease 194641650 N18.9 Injury of right knee 456 3532200 1776000 S89.91XA Mixed anxi ety and depressive disorder 670378423 F41.8 [id number] JAMIE Meraz [address] [address] 07/21/2024 12:46:53 07/21/2024 13:44:36 Injury of left shoulder 9053685553 6836620 S49.92XA Injury of face 327436316 S09.93XA Fatigue 78612746 R53.83 Health Concerns Section Related Observation LastModified by Organization Detai ls LastModified Time None Recorded Concern Status LastModified by Organization Details LastModified Time None Recorded Advance Directives Directive None Recorded Payers Encounter Date Sequence Insurance Name Policy Number Policy Bell Covered Member ID Bell Member ID Guarantor Name 10/14/2023 1 [facility] [id number] Carmen Garza [id number] Carmen Garza 11/18/2023 1 [facility] [id number] Carmen Garza [id number] Carmen Garza 01/13/2024 1 [facility] [id number] Carmen Garza [id number] Carmen Garza 05/31/2024 1 *SELF PAY* Chloe Garza 07/21/2024 1 [place] [id number] Carmen Garza [id number] Carmen Garza Notes Date Note Type Note Provider Name and Address Organization Details Recorded Time 10/14/2023 text/html almost a year with no alcohol. lidocaine patch denied. buying 4% patches otc , expensive JAMIE Meraz [address] [employer], [place], [address], [employer] 10/26/2023 15:11:59 11/18/2023 text/html seeing ortho JAMIE Meraz [address], [place], [address], [employer] 12/06/2023 22:52:36 01/13/2024 text/html had knee surgery, doing well JAMIE Meraz [address], [place], [address], [employer] [facility] [employer] 02/06/2024 10:48:28 05/31/2024 text/html ortho drained off a lot of fluid right knee JAMIE Meraz [address], [place], [address], [place] [employer] [facility] 06/18/2024 18:58:59 07/21/2024 text/html fell , left elbow really hurts and is bruise , left shoulder too , left wrist , forearm , hand , facial bones , left jaw swollen JAMIE Meraz [address] [facility], [facility] [address], [place], [address], [employer] [facility] 07/26/2024 16:54:08 OBGyn Episode No OBEpisode recorded.
--- OUTSIDE RECORDS SUMMARY | 2024-08-25 08:48 | XMS_ITS | Clinical Summary ---
Author Organization [facility] Agatha Wilcox Address [address] [place] [address] Care Team Providers Care Painter Decorator Name Role Phone Kendra Leslie Primary Care Provider Allergies Active Allergy Reactions Criticality Noted Date Comments Adhesive Tape-Silicones Rash Low 10/26/2020 Minor side effect Fluoxetine Other (See Comments),Swelling High 01/04/2019 Latex Rash Low 09/03/2020 Skin breaks out. Medications ALPRAZolam (XANAX) 0.5 mg tablet alprazolam 0.5 mg tablet TAKE 1 TABLET BY MOUTH TWICE A DAY NEEDED FOR STRESS 9 Active ergocalciferol (VITAMIN D2) 50,000 unit capsule ergocalciferol (vitamin D2) 1,250 mcg (50,000 unit) capsule 9 Active hydroCHLOROthi azide 50 mg tablet Take by mouth. 1 Active labetaloL (NORMODYNE) 100 mg tablet labetalol 100 mg tablet Take 1 po bid 1 Active indomethacin (INDOCIN) 25 mg capsule indomethacin 25 mg capsule TAKE 1 CAPSULE BY MOUTH TWICE A DAY NEEDED 1 Active magnesium oxide (MAG-OX) 400 mg (241.3 mg magnesium) tablet Take by mouth 2 times daily. 1 Active melatonin 2.5 mg Tablet, Chewable [facility] MELATONIN GUMMIES TABLET CHEWABLE 1 Active potassium chloride (Klor-Con M20) 20 mEq Extended Release tablet Take by mouth. 1 Active Active Problems Problem Noted Date Diagnosed Date Easy bruising 10/26/2020 Family History Medical History Relation Name Comments Heart Disease Mother Relation Name Status Comments Father Mother Sister Alive Son 1 Alive Son 2 Alive Social History Tobacco Use Types Packs/Day Years Used Date Smoking Tobacco: Never Smokeless Tobacco: Never Alcohol Use Standard Drinks/Week Comments Yes 0 (1 standard drink = 0.6 oz pur e alcohol) occasional Comments Unknown Sex and Gender Information Value Date Recorded Sex Assigned at Not on file Legal Sex Female 2:31 PM CDT Gender Identity Not on file Sexual Orientation Not on file Last Filed Vital Signs Vital Sign Reading Time Taken Comments Blood Pressure 152/86 10/26/2020 10:06 AM CDT Pulse 99 10/26/2020 10:06 AM CDT Temperature 36.7 C (98.1 F) 10/26/2020 10:06 AM CDT Respiratory Rate - - Oxygen Saturation 98% 10/26/2020 10: 06 AM CDT Inhaled Oxygen Concentration - - Weight 111.2 kg (245 lb 3.2 oz) 021 10:06 AM CDT Height 160 cm (5' 3 ) 10/26/2020 10:06 AM CDT Body Mass Index 43.44 10/26/2020 10:06 AM CDT Plan of Treatment Health Maintenance Due Date Last Done Comments DTAP/TDAP/TD VACCINES (1 - Tdap) 1998 HEPATITIS B VACCINES (1 of 3 - 19+ 3-dose series) 1998 CERVICAL CANCER SCREENING 2009 BREAST CANCER SCREENING 2019 COLORECTAL SCREENING 01/29/2024 Colorectal Cancer Screening 01/29/2024 FIT-DNA Q 3 years 01/29/2024 FIT/FOBT Q 1 year 01/29/2024 Flex Sig/CT Colonography Q 5 years 01/29/2024 INFLUENZA VACCINE (#1) 2024 06/12/2020 HPV VACCINES Aged Out No longer eligi ble based on patient's age to complete this topic PNEUMOCOCCAL VACCINE 0-64 YEARS Aged Out No longer eligible based on patient's age to complete this topic Care Teams Painter Decorator Relationship Specialty Start Date End Date Kendra Leslie ANP [address] [address] PCP - General Nurse Practitioner Adult Health 10/26/20
--- OUTSIDE RECORDS SUMMARY | 2024-08-25 08:48 | XMS_ITS | Encounter Summary ---
Author Organization [facility] - [facility] Address [address] [place] [address] Care Team Providers Care Semiconductor Technician Name Role Phone Gumaro Abdalla MD Primary Care Provider [phone] Kendra Leslie NP Primary Care Provider [phone] Encounter Details Date Type Department Care Team (Late st Contact Info) Description 12/10/2018 Hospital Orders Only [facility] Medical Group Multispecialty Care - [facility] [address] [facility], [address] [place] [address] Ted Gillespie MD [address] [place] [address] Social History Tobacco Use Types Packs/Day Years Used Date Smoking Tobacco: Never Assessed Comments Unknown Sex and Gender Information Value Date Recorded Sex Assigned at Not on file Legal Sex Female 9:27 AM CDT Gender Identity Not on file Sexual Orientation Not on file documented as of this encounter Plan of Treatment Not on file documented as of this encounter Visit Diagnoses Not on filedocumented in this encounter Care Teams Semiconductor Technician Relationship Specialty Start Date End Date Gumaro Abdalla MD [address] [place] [id number] PCP - General FAMILY PRACTICE 01/04/19 09/04/20 Kendra Leslie NP [address] [place] [address] PCP - General NURSE PRACTITIONER 09/05/20 documented as of this encounter
--- OUTSIDE RECORDS SUMMARY | 2024-08-25 08:48 | XMS_ITS | Continuity of Care Document ---
Author Organization [facility] Address [address] [place] [address] Phone Care Team Providers Care Collision Mechanic Name Role Phone Fadia Prescott Unavailable Unavailable Procedures Procedure Date Office Consultation Advance Directives Directive Yes / No Effective Date File Name No Information Encounters Encounter Description Practice Location Reason(s) For Visit Diagnoses Date Provider Providers Copied on Encounter Office Consultation [facility], [address], [place], [place], [id number], [place] tel:[phone] [facility] No Information [address] [facility] , [address], [place], [address], [place]. tel:[phone] Referring Provider: Janessa Quach OD, [address] [facility], [place], [address]. tel:[phone] Family History Family Member Type Diagnosis Age At Onset No Information Payers Payer name Insurance type Covered democrat ID Authoriza tion(s) BCBS [place] Out Of State [id number] Social History Type Description Quantity Date Captured [...]
--- OUTSIDE RECORDS SUMMARY | 2024-08-25 08:49 | XMS_ITS | Encounter Summary ---
Author Organization [facility] Address [address] [place] [address] Care Team Providers Care Package Handler Name Role Phone Chava Leslieie LILIAN Primary Care Provider [phone] Encounter Details Date Type Department Care Team (Late st Contact Info) Description 09/06/2020 Hospital Follow-up Call [facility] [place] [address] Brittney Parham, RN Social History Tobacco Use Types Packs/Day Years Used Date Smoking Tobacco: Never Smokeless Tobacco: Never Alcohol Use Standard Drinks/Week Comments Yes 0 (1 standard drink = 0.6 oz pur e alcohol) socially AUDIT-C Answer Date Recorded Frequency of Alcohol Consumption Never 01/04/2019 Average Number of Drinks Not on file 019 Frequency of Binge Drinking Not on file 12/12 Comments No Sex and Gender Information Value Date Recorded Sex Assigned at Not on file Legal Sex Female 9:27 AM CDT Gender Identity Not on file Sexual Orientation Not on file COVID-19 Exposure Response Date Recorded In the last month, have you been in contact with someone who was confirmed or suspected to have Coronavirus / COVID-19? No / Unsure 09/03/2020 9:07 AM LABOR EXPEDITER documented as of this encounter Functional Status * RETIRED Are you deaf or do you have serious difficulty hearing Answer Date of Assessment Author Status No 09/03/2020 7:05 PM LABOR EXPEDITER Activ e * RETIRED Are you blind or do you have serious difficulty seeing, even when wearing glasses? Answer Date of Assessment Author Status No 09/03/2020 7:05 PM LABOR EXPEDITER Activ e * Do you have serious difficulty walking or climbing stairs? Answer Date of Assessment Author Status No 09/03/2020 7:05 PM Almaz Vanegas RN Active * Do you have difficulty dressing or bathing? Answer Date of Assessment Author Status No 09/03/2020 7:05 PM Almaz Vanegas RN Active * Because of a physical, mental, or emotional condition, do you have difficulty doing errands alone such as visiting a doctor's office or shopping? Answer Date of Assessment Author Status No 09/03/2020 7:05 PM Almaz Vanegas RN Active documented as of this encounter Mental Status * Because of a physical, mental, or emotional condition, do you have serious difficulty concentrating, remembering, or making decisions? Answer Entry Date Author Status No 09/03/2020 7:05 PM Almaz Vanegas RN Active documented in this encounter Plan of Treatment Not on file documented as of this encounter Visit Diagnoses Not on filedocumented in this encounter Care Teams Package Handler Relationship Specialty Start Date End Date Kendra Leslie NP [address] [place] [address] PCP - General NURSE PRACTITIONER 09/05/20 documented as of this encounter
--- OUTSIDE RECORDS SUMMARY | 2024-08-25 08:49 | XMS_ITS | Encounter Summary ---
Author Organization [facility] Address [address] [place] [address] Care Team Providers Care Deli Worker Name Role Phone Unavailable Primary Care Provider Unavailabl e Reason for Visit * Diagnostic Imaging (Routine) - Closed Specialty Diagnoses / Procedures Referred By Kyle wong Referred To Contact Procedures Breast Imaging Screening Outside Reference Dina Otero NP Phone: tel: fax: Referral ID Status Reason Start Date Expiration Date Visits Re quested Visits Authorized [id number] Closed 08/12/2021 09/11/2022 1 1 Encounter Details Date Type Department Care Team (Late st Contact Info) Description 03/20/1916 Hospital Encounter [facility] Radiology [facility] [address] [place] [phone] Social History Tobacco Use Types Packs/Day Years [...] on file Legal Sex Female 3:10 AM CUSTODIAN MANAGER Gender Identity Female 04/29/2023 12:37 PM CDT Sexual Orientation Straight 04/29/2023 12 :37 PM CDT documented as of this encounter Plan of Treatment Not on file documented as of this encounter Procedures Procedure Name Priority Date/Time Associated Diagnosis Comments BREAST IMAGING MG SCREENING OUTSIDE REFERENCE Routine 03/20/1916 12:00 AM CUSTODIAN MANAGER documented in this encounter Results * Breast Imaging Screening Outside Reference (03/20/1916 12:00 AM CUSTODIAN MANAGER) Impressions [facility] - 08/12/2021 4:29 PM CUSTODIAN MANAGER These images are for Reference purposes only and have not been reviewed by [facility] Radiology. There will be no report generated by a [facility] Radiologist. Narrative [facility] - 08/12/2021 4:29 PM CUSTODIAN MANAGER EXAMINATION: Images For Reference Purposes Only us Dina Otero NP IMG MAMMO PROCEDURES Fin al Result [facility] documented in this encounter Visit Diagnoses Not on filedocumented in this encounter
--- OUTSIDE RECORDS SUMMARY | 2024-08-25 08:49 | XMS_ITS | Clinical Summary ---
Author Organization [facility] Address [address] [place] [address] Care Team Providers Care Hand Collator Name Role Phone Kendra Leslie NP Primary Care Provider [phone] Allergies Active Allergy Reactions Criticality Noted Date Comments Fluoxetine Swelling Medium 01/04/2019 Latex Rash Low 09/03/2020 Skin breaks out. Medications ALPRAZolam 0.5 MG tablet Take 0.5 mg by mouth 2 (two) times daily as needed for Anxiety. 0 9 Active vitamin D2, ergocalciferol, 24775 UNITS capsule Take 50,000 Units by mouth every 7 days. Takes on Wednesdays 9 Active venlafaxine XR 150 MG 24 hr tablet Take 150 mg by mouth daily. 1 Active labetalol 100 MG tablet Take 1 tablet (100 mg total) by mouth every 12 (twelve) hours. 60 tablet 1 Active potassium chloride CR 20 MEQ Tab CR tablet Take 20 mEq by mouth daily. 30 tablet 1 Active butalbital-acet aminophen-caffe ine 50-300-40 MG capsule Take 1 capsule by mouth every 6 (six) hours as needed for Headaches. 8 capsule 1 Active melatonin 5 MG tablet Take 5 mg by mouth nightly at bedtime. Active aspirin 81 MG chewable tablet Chew 1 tablet (81 mg total) by mouth daily. 30 tablet 1 Active indomethacin 25 MG capsule Take 1 capsule (25 mg total) by mouth 3 (three) times daily with meals. 21 capsule 1 Active lisinopril 5 MG tablet Take 1 tablet (5 mg total) by mouth daily. 30 tablet Active Active Problems Problem Noted Date Diagnosed Date TIA (transient ischemic attack) 09/11/2020 Hypertensive urgency 09/03/2020 Hypokalemia 09/03/2020 Hypertensive disorder 06/12/2020 Anxiety 06/12/2020 Vitamin D deficiency 06/12/2020 Family History Medical History Relation Comments Heart Disease Father Stroke Father Cancer Maternal Grandmother Heart Disease Mother Relation Status Comments Father Maternal Grandmother Mother Social History Tobacco Use Types Packs/Day [...] Sign Reading Time Taken Comments Blood Pressure 116/74 09/13/2020 11:12 AM OPERATIONS COORDINATOR Pulse 93 09/13/2020 11:12 AM OPERATIONS COORDINATOR Temperature 36.6 C (97.8 F) 09/13/2020 11:12 AM OPERATIONS COORDINATOR Respiratory Rate 16 09/13/2020 11:1 2 AM OPERATIONS COORDINATOR Oxygen Saturation 99% 09/13/2020 11: 12 AM OPERATIONS COORDINATOR Inhaled Oxygen Concentration - - Weight 108.9 kg (240 lb 1.3 oz) 09/13/2020 6:28 AM OPERATIONS COORDINATOR Height 160 cm (5' 3 ) 09/11/2020 11:44 AM OPERATIONS COORDINATOR Body Mass Index 42.53 09/11/2020 11:44 AM OPERATIONS COORDINATOR Plan of Treatment Health Maintenance Due Date Last Done Comments ASCVD Statin 1979 Colorectal Cancer Screening Colonoscopy (10 Years) 1979 Annual Physical 1982 PHQ-2 (Physician [place]) 1991 Hepatitis C 1997 DTaP, Tdap and Td Vaccines (1 - Tdap) 1998 Hepatitis B Vaccines (1 of 3 - 19+ 3-dose series) 1998 ASCVD LDL 09/12/2021 09/12/2020 COVID-19 Vaccine (3 - 2023-25 season) 2024 08/02/2021, 07/12/2021 Influenza Adult (#1) 2024 04/06/2023, 05/19/2022, 06/12/2020, Additional history exists PHQ-2 (Physician [place]) 07/13/2024 Mammogram Screening 07/15/2025 07/15/2023, 07/28/2022, 07/11/2022, Additional history exists HPV Vaccines Aged Out No longer eligi ble based on patient's age to complete this topic Meningococcal B Vaccine Aged Out No l onger eligible based on patient's age to complete this topic Meningococcal Vaccine Aged Out No jazmyne khushboo eligible based on patient's age to complete this topic Pneumococcal Vaccine: Pediatrics (0 to 5 Years) and At-Risk Patients (6 to 64 Years) Aged Out No longer eligible based on patient's age to complete this topic RSV Immunizations Under 20 Months Aged Out No longer eligible based on patient's age to complete this topic Procedures Procedure Name Priority Date/Time Associated Diagnosis Comments LIPID PANEL Routine 09/12/2020 6:05 AM OPERATIONS COORDINATOR from Last 3 Months or Most Recently Relevant to Health Maintenance Results * (ABNORMAL) LIPID PANEL (09/12/2020 6:05 AM OPERATIONS COORDINATOR) CHOLESTEROL 198 <200 MG/DL 09/12/2020 7:05 AM [facility] TRIGLYCERIDES 138 <150 MG/DL 09/12/2020 7:05 AM [facility] HDL 49 >40.0 MG/DL 09/12/2020 7:05 AM [facility] LDL (CALCULATED) 121(H) <100 MG/DL 09/12/2020 7:05 AM [facility] NON HDL CHOLESTEROL 149(H) <130 MG/DL 09/12/2020 7:05 AM [facility] CHOL/HDL RATIO 4.0 0.0 - 4.5 09/12/2020 7:05 AM [facility] VLDL CALCULATION 28 5 - 55 MG/DL 09/12/2020 7:05 AM OPERATIONS COORDINATOR [facility] LIPID INTERPRETATION 09/12/2020 7:05 AM OPERATIONS COORDINATOR [facility] Comment: NIH CONCENSUS REPORT RECOMMENDATIONS: ADULT CHILD LOW RISK: CHOLESTEROL <200 <170 TRIGLYCERIDE <150 --- HDL >=60 --- LDL <100 <110 BORDERLINE: CHOLESTEROL 200-239 170-199 TRIGLYCERIDE 150-199 --- HDL 40-59 --- LDL 100-159 110-129 HIGH RISK: CHOLESTEROL >=240 >=200 TRIGLYCERIDE >=200 --- HDL <40 --- LDL >=160 >=130 09/12/2020 6:05 AM OPERATIONS COORDINATOR Regina Mcgraw NP LABORATORY Final Resul t [facility] [address] [place] [address], from Last 3 Months or Most Recently Relevant to Health Maintenance [place] [place] [address] Advance Directives * Full Code (Latest Code Status on File) Date Activated Date Inactivated Comments 09/11/2020 10:52 AM 09/13/2020 5:53 PM * Full Code Date Activated Date Inactivated Comments 09/03/2020 7:26 PM 09/06/2020 12:43 PM Care Teams Hand Collator Relationship Specialty Start Date End Date Kendra Leslie NP [facility] [place] [address] PCP - General NURSE PRACTITIONER 09/05/20
--- OUTSIDE RECORDS SUMMARY | 2024-08-25 08:49 | XMS_ITS | Encounter Summary ---
Author Organization [facility] Address [address] [place] [address] Care Team Providers Care Travel Ot Name Role Phone Chava Leslieie LILIAN Primary Care Provider [phone] Encounter Details Date Type Department Care Team (Late st Contact Info) Description 09/14/2020 Hospital Follow-up Call [facility] Telemetry Unit [facility] [address] Brittney Parham, RN Social History Tobacco Use [...] have Coronavirus / COVID-19? No / Unsure 09/11/2020 11:43 AM INCIDENT RESPONSE ANALYST documented as of this encounter Functional Status * RETIRED Are you deaf or do you have serious difficulty hearing Answer Date of Assessment Author Status No 09/11/2020 11:49 AM INCIDENT RESPONSE ANALYST Acti ve * RETIRED Are you blind or do you have serious difficulty seeing, even when wearing glasses? Answer Date of Assessment Author Status No 09/11/2020 11:49 AM INCIDENT RESPONSE ANALYST Acti ve * Do you have serious difficulty walking or climbing stairs? Answer Date of Assessment Author Status No 09/11/2020 11:49 AM Fidencio Pedersen R N Active * Do you have difficulty dressing or bathing? Answer Date of Assessment Author Status No 09/11/2020 11:49 AM Fidencio Pedersen R N Active * Because of a physical, mental, or emotional condition, do you have difficulty doing errands alone such as visiting a doctor's office or shopping? Answer Date of Assessment Author Status No 09/11/2020 11:49 AM Fidencio Pedersen R N Active documented as of this encounter Mental Status * Because of a physical, mental, or emotional condition, do you have serious difficulty concentrating, remembering, or making decisions? Answer Entry Date Author Status No 09/11/2020 11:49 AM Fidencio Pedersen R N Active documented in this encounter Plan of Treatment Not on file documented as of this encounter Visit Diagnoses Not on filedocumented in this encounter Care Teams Travel Ot Relationship Specialty Start Date End Date Kendra Leslie NP [address] [place] [address] PCP - General NURSE PRACTITIONER 09/05/20 documented as of this encounter
[2024-08-25 09:42] LABS: Hemoglobin A1C 5.3 % (<5.7)
[2024-08-25 10:02] LABS: Rheumatoid Factor Screen Negative (Negative)
[2024-08-25 10:05] LABS: Anion Gap 8 mmol/L (4-12); Blood Urea Nitrogen 15 mg/dL (7-18); CRP 0.7 mg/dL (0.0-0.9); Calcium 8.9 mg/dL (8.5-10.1); Carbon Dioxide 28 mmol/L (21-32); Chloride 104 mmol/L (98-108); Estimated Glomerular Filt Rate > 60; Glucose 93 mg/dL (70-99); Osmolality Calculated 290 mOsm/kg (285-295); Potassium 4.1 mmol/L (3.5-5.1); Sodium 140 mmol/L (136-145)
[2024-08-27 04:28] LABS: FSH 3.6 mIU/mL
[2024-08-27 06:19] LABS: Cortisol Random 5.8 mcg/dL
== END 2024-08-25 08:38 | disposition home or self-care (01) ==
PROVIDERS: PCP Nurse Practitioner; Visit Provider Family Medicine
DX: M19.90 Unspecified osteoarthritis, unspecified site (principal); I15.1 Hypertension secondary to other renal disorders; N95.1 Menopausal and female climacteric states; Z13.1 Encounter for screening for diabetes mellitus; I10 Essential (primary) hypertension
CPT/HCPCS: 36415; 80048; 82024; 82533; 82670; 83001; 83036; 86038; 86140; 86430

== ENCOUNTER 2024-09-06 09:28 | Outpatient (CLI) | payer BC, SELFPAY ==
--- OUTSIDE RECORDS SUMMARY | 2024-09-06 10:34 | XMS_ITS | Encounter Summary ---
Author Organization [facility] Healthcare Address [address] [place] [address] Care Team Providers Care Casing Soaker Name Role Phone Unavailable Primary Care Provider Unavailabl e Reason for Visit * Diagnostic Imaging (Routine) - Closed Specialty Diagnoses / Procedures Referred By Kyle wong Referred To Contact Procedures Breast Imaging Screening Outside Reference Dina Otero NP Phone: tel: fax: Referral ID Status Reason Start Date Expiration Date Visits Re quested Visits Authorized [id number] Closed 08/12/2021 09/11/2022 1 1 Encounter Details Date Type Department Care Team (Late st Contact Info) Description 03/20/1916 Hospital Encounter [facility] [address] [place] [id number] Social History Tobacco Use Types Packs/Day Years [...] on file Legal Sex Female 3:10 AM MAINTENANCE DEPARTMENT TECHNICIAN Gender Identity Female 04/29/2023 12:37 PM CDT Sexual Orientation Straight 04/29/2023 12 :37 PM CDT documented as of this encounter Functional Status documented as of this encounter Plan of Treatment Not on file documented as of this encounter Procedures Procedure Name Priority Date/Time Associated Diagnosis Comments BREAST IMAGING MG SCREENING OUTSIDE REFERENCE Routine 03/20/1916 12:00 AM MAINTENANCE DEPARTMENT TECHNICIAN documented in this encounter Results * Breast Imaging Screening Outside Reference (03/20/1916 12:00 AM MAINTENANCE DEPARTMENT TECHNICIAN) Impressions [facility] - 08/12/2021 4:29 PM MAINTENANCE DEPARTMENT TECHNICIAN These images are for Reference purposes only and have not been reviewed by [facility] Radiology. There will be no report generated by a [facility] Radiologist. Narrative [facility] - 08/12/2021 4:29 PM MAINTENANCE DEPARTMENT TECHNICIAN EXAMINATION: Images For Reference Purposes Only us Dina Otero NP IMG MAMMO PROCEDURES Fin al Result [facility] documented in this encounter Visit Diagnoses Not on filedocumented in this encounter
--- OUTSIDE RECORDS SUMMARY | 2024-09-06 10:34 | XMS_ITS | Encounter Summary ---
Author Organization [facility] Address [address] [place] [address] Care Team Providers Care Nail Galvanizer Name Role Phone Chava Leslieie LILIAN Primary Care Provider [phone] Encounter Details Date Type Department Care Team (Late st Contact Info) Description 09/06/2020 Hospital Follow-up Call [facility] [place] [address] Brittney Parham, RN Social History Tobacco Use [...] COVID-19? No / Unsure 09/03/2020 9:07 AM SANDING MACHINE OPERATOR OR TENDER documented as of this encounter Functional Status * RETIRED Are you deaf or do you have serious difficulty hearing Answer Date of Assessment Author Status No 09/03/2020 7:05 PM SANDING MACHINE OPERATOR OR TENDER Activ e * RETIRED Are you blind or do you have serious difficulty seeing, even when wearing glasses? Answer Date of Assessment Author Status No 09/03/2020 7:05 PM SANDING MACHINE OPERATOR OR TENDER Activ e * Do you have serious difficulty walking or climbing stairs? Answer Date of Assessment Author Status No 09/03/2020 7:05 PM Almaz Vanegas RN Active * Do you have difficulty dressing or bathing? Answer Date of Assessment Author Status No 09/03/2020 7:05 PM Alamz Vanegas RN Active * Because of a [...] on filedocumented in this encounter Care Teams Nail Galvanizer Relationship Specialty Start Date End Date Kendra Leslie NP [address] [place] [address] PCP - General NURSE PRACTITIONER 09/05/20 documented as of this encounter
--- OUTSIDE RECORDS SUMMARY | 2024-09-06 10:34 | XMS_ITS | Clinical Summary ---
Author Organization [facility] Agatha Wilcox Address [address] [place] [address] Care Team Providers Care Traffic Or System Dispatcher Name Role Phone Kendra Leslie Primary Care Provider [phone] Allergies Active Allergy Reactions Criticality Noted Date [...] age to complete this topic Care Teams Traffic Or System Dispatcher Relationship Specialty Start Date End Date Kendra Leslie ANP [address] [address] PCP - General Nurse Practitioner Adult Health 10/26/20
--- OUTSIDE RECORDS SUMMARY | 2024-09-06 10:34 | XMS_ITS | Clinical Summary ---
Author Organization [facility] Address [address] [place] [address] Care Team Providers Care Arbor End Mainspring Former Name Role Phone Kendra Leslie NP Primary Care Provider Allergies Active Allergy Reactions Criticality Noted Date Comments Fluoxetine Swelling Medium 01/04/2019 Latex Rash Low 09/03/2020 Skin breaks out. Medications ALPRAZolam 0.5 MG tablet Take 0.5 mg by mouth 2 (two) times daily as needed for Anxiety. 0 9 Active vitamin D2, ergocalciferol, 01145 UNITS capsule Take 50,000 Units by mouth [...] Comments Blood Pressure 116/74 09/13/2020 11:12 AM CABLE MACHINE OPERATOR Pulse 93 09/13/2020 11:12 AM CABLE MACHINE OPERATOR Temperature 36.6 C (97.8 F) 09/13/2020 11:12 AM CABLE MACHINE OPERATOR Respiratory Rate 16 09/13/2020 11:1 2 AM CABLE MACHINE OPERATOR Oxygen Saturation 99% 09/13/2020 11: 12 AM CABLE MACHINE OPERATOR Inhaled Oxygen Concentration - - Weight 108.9 kg (240 lb 1.3 oz) 09/13/2020 6:28 AM CABLE MACHINE OPERATOR Height 160 cm (5' 3 ) 09/11/2020 11:44 AM CABLE MACHINE OPERATOR Body Mass Index 42.53 09/11/2020 11:44 AM CABLE MACHINE OPERATOR Plan of Treatment Health Maintenance Due Date Last Done Comments ASCVD Statin 1979 Colorectal Cancer Screening Colonoscopy (10 Years) 1979 Annual Physical 1982 PHQ-2 (Physician [place]) 1991 Hepatitis C 1997 DTaP, Tdap and Td Vaccines (1 - Tdap) 1998 Hepatitis B Vaccines (1 of 3 - 19+ 3-dose series) 1998 ASCVD LDL 09/12/2021 09/12/2020 COVID-19 Vaccine (3 - 2023-25 season) 2024 08/02/2021, 07/12/2021 Influenza Adult (#1) 2024 04/06/2023, 05/19/2022, 06/12/2020, Additional history exists PHQ-2 (Physician [place]) 07/13/2024 Mammogram Screening 07/15/2025 07/15/2023, 07/28/2022, 07/11/2022, [...] Comments LIPID PANEL Routine 09/12/2020 6:05 AM CABLE MACHINE OPERATOR from Last 3 Months or Most Recently Relevant to Health Maintenance Results * (ABNORMAL) LIPID PANEL (09/12/2020 6:05 AM CABLE MACHINE OPERATOR) CHOLESTEROL 198 <200 MG/DL 09/12/2020 7:05 AM [facility] TRIGLYCERIDES 138 <150 MG/DL 09/12/2020 7:05 AM [facility] HDL 49 >40.0 MG/DL 09/12/2020 7:05 AM [facility] LDL (CALCULATED) 121(H) <100 MG/DL 09/12/2020 7:05 AM [facility] NON HDL CHOLESTEROL 149(H) <130 MG/DL 09/12/2020 7:05 AM [facility] CHOL/HDL RATIO 4.0 0.0 - 4.5 09/12/2020 7:05 AM [facility] VLDL CALCULATION 28 5 - 55 MG/DL 09/12/2020 7:05 AM CABLE MACHINE OPERATOR [facility] LIPID INTERPRETATION 09/12/2020 7:05 AM CABLE MACHINE OPERATOR [facility] Comment: NIH CONCENSUS REPORT RECOMMENDATIONS: ADULT CHILD LOW RISK: CHOLESTEROL <200 <170 TRIGLYCERIDE <150 --- HDL >=60 --- LDL <100 <110 BORDERLINE: CHOLESTEROL 200-239 170-199 TRIGLYCERIDE 150-199 --- HDL 40-59 --- LDL 100-159 110-129 HIGH RISK: CHOLESTEROL >=240 >=200 TRIGLYCERIDE >=200 --- HDL <40 --- LDL >=160 >=130 09/12/2020 6:05 AM CABLE MACHINE OPERATOR Regina Mcgraw NP LABORATORY Final Resul t [facility] [address] [place] [address], from Last 3 Months or Most Recently Relevant to Health Maintenance [place] [address] Advance Directives * Full Code (Latest Code Status on File) Date Activated Date Inactivated Comments 09/11/2020 10:52 AM 09/13/2020 5:53 PM * Full Code Date Activated Date Inactivated Comments 09/03/2020 7:26 PM 09/06/2020 12:43 PM Care Teams Arbor End Mainspring Former Relationship Specialty Start Date End Date Kendra Leslie NP [facility] [place] [address] PCP - General NURSE PRACTITIONER 09/05/20
--- OUTSIDE RECORDS SUMMARY | 2024-09-06 10:34 | XMS_ITS | CONTINUITY OF CARE DOCUMENT ---
Author Name caty alememily Address Unknown Organization [facility] Address [address] [place] [address] Phone [phone] Care Team Providers Care Field Secretary Name Role Phone Rosy BAUGH, Yvon Unavailable [phone] JAI MILTON Unavailable JAI MILTON Unavailable PROBLEMS Condition Status Date Provider Notes HTN screening active Yvon Gallegos MD Hyperlipidemia active Yvon Gallegos MD Hypertension active Yvon Gallegos MD Sleep apnea, obstructive, mild active Marine Llamas RN Obesity active Yvon Gallegos MD TIA active Yvon Gallegos MD Postural orthostatic tachycardia syndrome active 10/09 Yvon Gallegos MD PVC's active [facility] COVID antibodies positive, swab neg active [facility] Dizziness active [facility] Hypokalemia active [place] Dyspnea active [place] Headaches active [facility] ENCOUNTERS Date Type Provider Location Encounter Diag nosis - In-person encounter Office Visit Yvon Gallegos MD [facility] - In-person encounter Office Visit Yvon Gallegos MD [facility] - In-person encounter Office Visit Yvon Gallegos MD [facility] - In-person encounter Office Visit Yvon Gallegos MD [facility] - In-person encounter Office Visit Franklin Quinn MD [facility] - In-person encounter Office Visit Franklin Quinn MD [facility] PVC'sCOVID antibodies positive, swab negDizzinessHypokalemiaDyspneaHeadaches - In-person encounter Office Visit Yvon Gallegos MD [facility] Postural orthostatic tachycardia syndrom e - In-person encounter Office Visit Yvon Gallegos MD [facility] HTN screeningHyperlipidemiaHypertensionSleep apnea, obstructive, mildObesityTIA VITAL SIGNS Date Observation Value Provider Body Mass Index (Ratio) 36.49 kg/m2 Tim Gallegos MD blood pressure, diastolic 70 mm[Hg] Albania Bond blood pressure, systolic 134 mm[Hg] Jaimie Bond oxygen saturation, oximetry 96 % Latasha Bond respiratory rate E&M 16 /min Shorty Bond pulse rate 80 /min Latasha fried weight E&M 206 [lb_av] Latasha fried blood pressure, cuff size regular [place] Bond height E&M 63 [in_i] Latasha fried Body Mass Index (Ratio) 37.55 kg/m2 Tim Gallegos MD blood pressure, cuff size large Tr katie Sexton blood pressure, diastolic 70 mm[Hg] Kar Sexton blood pressure, systolic 110 mm[Hg] Jomar Sexton oxygen saturation, oximetry 99 % Julián Sexton respiratory rate E&M 16 /min Julián Sexton pulse rate 90 /min Julián Sexton weight E&M 212 [lb_av] Julián Sexton height E&M 63 [in_i] Julián Sexton Body Mass Index (Ratio) 39.25 kg/m2 Tim Gallegos MD blood pressure, diastolic 70 mm[Hg] Jordin Priest Vladislav blood pressure, systolic 110 mm[Hg] Rekha Loomis oxygen saturation, oximetry 99 % Sameer Loomis respiratory rate E&M 16 /min Janae Loomis pulse rate 83 /min Sameer Coronado rebeccagarth weight E&M 221.6 [lb_av] Sameer echolsgarth height E&M 63 [in_i] Sameer Cliff katrin Body Mass Index (Ratio) 43.57 kg/m2 Tim Gallegos MD blood pressure, resting Yes Krish sofia Cristobal blood pressure, diastolic 88 mm[Hg] darrin Cristobal blood pressure, systolic 144 mm[Hg] [facility]obal oxygen saturation, oximetry 95 % Yamile Cristobal pulse rate 84 /min Yamile Eli cardona respiratory rate E&M 18 /min Krishliz sandhya Jain weight E&M 246 [lb_av] Yamile Benitez cardona height E&M 63 [in_i] Yamile Benitez dulce Body Mass Index (Ratio) 42.33 kg/m2 Mahad West blood pressure, diastolic 90 mm[Hg] Cy sergei Vines blood pressure, systolic 144 mm[Hg] Idalia fam Vines blood pressure, cuff size regular Cy sergei Vines pulse rate 102 /min Courtney Campbel l oxygen saturation, oximetry 98 % Courtney Vines respiratory rate E&M 16 /min Courtney Vines weight E&M 239 [lb_av] Courtney can height E&M 63 [in_i] Courtney can Body Mass Index (Ratio) 41.09 kg/m2 Tim Gallegos MD blood pressure, cuff size large Ke rri Gruenelisa blood pressure, diastolic 68 mm[Hg] Ke rri Gruetierraeldsemaj blood pressure, systolic 102 mm[Hg] Tyler Singh oxygen saturation, oximetry 99 % Nancy Singh respiratory rate E&M 16 /min Nancy alarcon pulse rate 92 /min Nancy watkinser weight E&M 232 [lb_av] Nancy watkinser height E&M 63 [in_i] Nancy watkinser Body Mass Index (Ratio) 41.09 kg/m2 Tim Gallegos MD blood pressure, cuff size large Ke rri Albinonelisa blood pressure, diastolic 108 mm[Hg] Ke rri Gruenebharatheldsemaj blood pressure, systolic 164 mm[Hg] Mc Gallegos MD oxygen saturation, oximetry 98 % Nancy Singh respiratory rate E&M 18 /min Nancy tripletteldsemaj pulse rate 89 /min Nancy Brandt lder weight E&M 232 [lb_av] Nancy watkinser height E&M 63 [in_i] Nancy Gruenenfe lder ALLERGIES Allergy Name Onset Date Reaction Criticality Status PROZAC Low Criticality active RESULTS Date Observation Value Provider Reference Range Interpretation Location ferritin, serum 127 ng/mL [facility] 15-150 iron saturation percent, serum 35 % [facility] 15-55 iron, serum 105 ug/dL [facility] 27-159 iron binding capacity, unsaturated 191 ug/dL [facility] 028-124 4352/09/ 29 iron binding capacity, total 296 ug/dL [facility] 479-862 3615/09/ 29 lipoprotein, beta, serum, point, quantitative, calculated 143 mg/dL [facility] 0-99 High HDL cholesterol, serum 50 mg/dL [facility] >39 triglyceride, serum, random 86 mg/dL [facility] 0-149 cholesterol, serum 208 mg/dL [facility] 100-199 High alanine aminotransferase (SGPT), serum 20 1/L [facility] 0-32 aspartate aminotransferase (SGOT), serum 15 1/L [facility] 0-40 alkaline phosphatase, serum 63 1/L [facility] 44-121 bilirubin, serum, total 0.3 mg/dL [facility] 0.0-1.2 albumin/globulin ratio, serum 1.7 [facility] 1.2-2.2 globulin, serum 2.6 [facility] 1.5-4.5 albumin, serum 4.4 g/dL [facility] 3.8-4.8 protein, total, serum 7.0 g/dL [facility] 6.0-8.5 calcium, serum 9.5 mg/dL [facility] 8.7-10.2 carbon dioxide, venous blood 23 mmol/L [facility] 20-29 chloride, serum 102 mmol/L [facility] 96-106 potassium, serum 3.7 mmol/L [facility] 3.5-5.2 sodium, serum 141 mmol/L [facility] 024-056 6823/09/ 29 urea nitrogen/creatinine ratio, serum 26 [facility] 9-23 High eGFR if 104 mL/min/{1.7 3_m2} [facility] >59 eGFR if not 90 mL/min/{1.7 3_m2} [facility] >59 creatinine, serum 0.81 mg/dL [facility] 0.57-1.00 urea nitrogen, blood 21 mg/dL [facility] 6-24 blood glucose, random 94 mg/dL [facility] 65-99 hemoglobin A1C, blood, as % of total hemoglobin 5.4 % [facility] 4.8-5.6 basophil count, absolute 0.0 x10E3/uL [facility] 0.0-0.2 Eosinophil Absolute Count 0.1 X10E3/UL [facility] 0.0-0.4 monocyte count, blood, automated 0.5 X10E3/UL [facility] 0.1-0.9 lymphocyte count, blood, automated 1.5 X10E3/UL [facility] 0.7-3.1 Absolute Neutrophils 4.1 X10E3/UL [facility] 1.4-7.0 basophils as percent of blood leukocytes 1 % [facility] Not Estab. eosinophils as percent of blood leukocytes 2 % [facility] Not Estab. monocytes as percent of blood leukocytes 8 % [facility] Not Estab. lymphocytes as percent of blood leukocytes 25 % [facility] Not Estab. neutrophils as percent of blood leukocytes 64 % [facility] Not Estab. platelet count 230 X10E3/UL [facility] 132-229 0449/09/ 29 red blood cell distribution width 13.2 % [facility] 11.7-15.4 mean corpuscular hemoglobin concentration, RBC 33.2 G/DL [facility] 31.5-35.7 mean corpuscular hemoglobin, RBC 28.2 pg [facility] 26.6-33.0 mean corpuscular volume, RBC 85 fL [facility] 79-97 hematocrit, blood 43.4 % [facility] 34.0-46.6 hemoglobin, blood 14.4 g/dL [facility] 11.1-15.9 erythrocyte (RBC) count 5.10 X10E6/UL [facility] 3.77-5.28 leukocyte count, blood 6.3 X10E3/UL [facility] 3.4-10.8 METANEPHRINE PLASMA 12.1 [facility] 0.0-88.0 pro brain natriuretic peptide 115 pg/mL [facility] 0-130 platelet count 254 X10E3/UL [facility] 372-146 1340/04/ 10 red blood cell distribution width 13.2 % [facility] 11.7-15.4 mean corpuscular hemoglobin concentration, RBC 32.0 G/DL [facility] 31.5-35.7 mean corpuscular hemoglobin, RBC 27.7 pg [facility] 26.6-33.0 mean corpuscular volume, RBC 86 fL [facility] 79-97 hematocrit, blood 44.0 % [facility] 34.0-46.6 hemoglobin, blood 14.1 g/dL [facility] 11.1-15.9 erythrocyte (RBC) count 5.09 X10E6/UL [facility] 3.77-5.28 leukocyte count, blood 5.4 X10E3/UL [facility] 3.4-10.8 calcium, serum 8.6 mg/dL [facility] 8.7-10.2 Low carbon dioxide, venous blood 22 mmol/L [facility] 20-29 chloride, serum 107 mmol/L [facility] 96-106 High potassium, serum 4.4 mmol/L [facility] 3.5-5.2 sodium, serum 142 mmol/L [facility] 431-364 9106/04/ 10 urea nitrogen/creatinine ratio, serum 18 [facility] 9-23 eGFR if 120 mL/min/{1.7 3_m2} [facility] >59 eGFR if not 104 mL/min/{1.7 3_m2} [facility] >59 creatinine, serum 0.72 mg/dL [facility] 0.57-1.00 urea nitrogen, blood 13 mg/dL [facility] 6-24 blood glucose, random 87 mg/dL [facility] 65-99 bacteria, urine microscopy None seen [facility] None seen/Few epithelial cells, urine 0-10 [facility] 0 - 10 RBC, Urine 0-2 /hpf [facility] 0 - 2 WBC urine on microscopy 0-5 /hpf [facility] 0 - 5 urinalysis, microscopic examination See report [facility] nitrate, urine Negative [facility] Negative urobilinogen, urine, semiquantitative (dipstick) 0.2 [facility] 0.2-1.0 bilirubin, urine Negative [facility] Negative hemoglobin, urine, by dipstick Negative [facility] Negative ketones, urine, by test strip Negative [facility] Negative glucose, urine Negative [facility] Negative protein, urine, semiquantitative (dipstick) Negative [facility] Negative/Tra ce leukocyte esterase, urine, by dipstick Negative [facility] Negative appearance, urine Clear [facility] Clear urine color Yellow [facility] Yellow pH, urine, semiquantitative 6.0 [facility] 5.0-7.5 specific gravity, body fluid 1.019 [facility] 1.005-1.030 HISTORY OF MEDICATION USE Medication Status Instructions Dates Provider Indications [facility] león Ozempic 0.25 mg or 0.5 mg(2 mg/1.5 mL) pen injector active INJECT 0.25MG SUBCUTANEOUSLY ONCE WEEKLY X4 WEEKS, THEN INCREASE TO 0.5MG SUBCUTANEOUSLY WEEKLY 08/28 Elida Caba labetalol 100 mg tablet active TAKE HALF TAB BY MOUTH TWICE A DAY. REDUCED DOSE. 03/11 Nancy Singh Klor-Con M20 20 mEq tablet,ER particles/crystals active TAKE 1 TABLET BY MOUTH EVERY DAY 02/04 Tea Hudson magnesium oxide 400 mg (241.3 mg magnesium) tablet active TAKE 1 TABLET BY MOUTH TWICE A DAY 12/23 Sameer Loomis Klor-Con 10 10 mEq tablet extended release active Latasha Bond amiloride-hydrochlo rothiazide 5-50 mg tablet active Take 1 once a day Latasha Bnod hydrochlorothiazide 50 mg tablet active TAKE 1/2 TABLET BY MOUTH EVERY DAY 08/11 Latahsa Bond Vitamin D2 1,250 mcg (50,000 unit) capsule completed 1 capsule by mouth once a week - 10/08 Sameer Loomis Ozempic 0.25 mg or 0.5 mg(2 mg/1.5 mL) pen injector completed inject 0.25mg subcutaneously once weekly x4 weeks, then increase to 0.5mg subcutaneously weekly reduces risk of major CV events 12/18 - 08/28 Elida Caba Klor-Con M20 20 mEq tablet,ER particles/crystals completed 1 tablet by mouth once a day 10/22 - 02/04 Tae Hudson hydrochlorothiazide 50 mg tablet completed Take 1 tablet by mouth once a day 10/22 - 08/11 Gus Sumner AMLODIPINE BESYLATE 5 MG ORAL TABLET completed one tab by mouth at bedtime 10/12 - 10/16 Franklin Quinn MD magnesium oxide 400 mg (241.3 mg magnesium) tablet completed 1 tablet by mouth twice a day 10/12 - 12/23 Isabel Brett melatonin 2.5 mg tablet,chewable active tablet by mouth as needed 09/25 Nancy Singh VALACYCLOVIR HCL 1 GM ORAL TABLET completed take one pill for 2 more days 09/25 - 02/05 Nancy Singh MEDROL 4 MG ORAL TABLET completed taper dose for 2 more days 09/25 - 02/05 Nancy Singh alprazolam 0.5 mg tablet active Take 1 by mouth twice a day 09/25 Nancy Singh LISINOPRIL 20 MG ORAL TABLET completed 1 po daily 09/25 - 10/09 Yvon Gallegos MD indomethacin 25 mg capsule active Take 1 by mouth once a day 09/25 Latasha Bond VENLAFAXINE HCL ER 150 MG ORAL CAPSULE EXTENDED RELEASE 24 HOUR completed once in the am 09/25 - 02/05 Nancy Singh labetalol 100 mg tablet completed 0.5 twice a day 09/25 - 03/11 Nancy Singh SOCIAL HISTORY Date Observation Value Provider social history reviewed E&M revi ewed - no changes required Yvon Gallegos MD Exercise counseling yes Xavier Bond social history E&M Marital Statu s: Single 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 Yvon Gallegos MD social history reviewed E&M revi ewed - no changes required Yvon Gallegos MD smoking status Never smoker Julián hemphill social history E&M Marital Statu s: Single C marcelladren: 2 O ccupation: Mortgage Officer Smoking History: P atelizabeth has never smoked. Yvon Gallegos MD social history reviewed E&M revi ewed - no changes required Yvon Gallegos MD passive cigarette sm ari exposure no Sameer Loomis smoking status Never smoker Sameer Bah social history E&M Marital Statu s: Single Cody castilloen: 2 O ccupation: Mortgage Officer Smoking History: P atient has never smoked. Yvon Gallegos MD social history reviewed E&M revi ewed - no changes required Yvon Gallegos MD passive cigarette sm ari exposure no Yamile Jain smoking status Never smoker Yamile story social history reviewed E&M revi ewed - no changes required Isabel West social history E&M Marital Statu s: Single Cody naranjoen: 2 O ccupation: Mortgage Officer Smoking History: P atient has never smoked. [facility] social history reviewed E&M revi ewed - no changes required [facility] passive cigarette sm ari exposure no Courtney Mohinder smoking status Never smoker Courtney Ibeth larios social history E&M Marital Statu s: Single Cody naranjoen: 2 O ccupation: Mortgage Officer Smoking History: P atient has never smoked. Yvon Gallegos MD social history reviewed E&M revi ewed - no changes required Yvon Gallegos MD passive cigarette sm ari exposure no Nancy Singh smoking status Never smoker Nancy witt passive cigarette sm ari exposure no Yvon Gallegos MD social history reviewed E&M revi ewed - no changes required Yvon Gallegos MD social history E&M Marital Statu s: Single Cody naranjoen: 2 O ccupation: Mortgage Officer Smoking History: P atient has never smoked. Yvon Gallegos MD smoking status Never smoker Nancy witt FAMILY HISTORY Family Member Condition First Degree Blood Relative No Known Fam martha History INSURANCE PROVIDERS Payer name Policy type / Coverage type [place] red democrat ID AARP MEDICARE ADVANTAGE HMO-POS HMO [id number] ADVANCE DIRECTIVES Name Date DISCUSSED - NO DECISION MADE TREATMENT PLAN Date Name Performer [id number],S, Yvondavid alexander MD [id number],B, Yvondavid Aburtoada benjamin BAUGH [id number],S, Yvondavid Aburtoada benjamin BAUGH [id number],S, Yvon alexander MD [id number],B, Yvon alexander MD [id number],B, Yvon Aburtoada benjamin BAUGH [id number],S, Yvon alexander MD [id number],B, Yvon Lamonteada benjamin BAUGH [id number],S, Yvon Ramada benjamin BAUGH [id number],S, Yvon Aburtoada benjamin BAUGH [id number],S, Yvon Ramada benjamin BAUGH [id number],B,Lost 25 pound s. Yvon Gallegos MD [id number],S, Vyon Ramada benjamin BAUGH [id number],S, Yvon Ramada benjamin BAUGH [id number],B, Yvon Ramleo alexander MD Cardiology Yvon Gallegos MD Cardiology Yvon Gallegos MD Cardiology Yvon Gallegos MD Cardiology Yvon Ramtabitha BAUGH Cardiology Yvon Gallegos MD Cardiology Yvon Gallegos MD Cardiology Yvon Gallegos MD Cardiology Yvon Gallegos MD Cardiology Yvon Glalegos MD Cardiology Yvon Gallegos MD Cardiology Yvon Gallegos MD Cardiology:Lost 25 pounds. Yvon Gallegos MD Cardiology Yvon Gallegos MD Cardiology Yvon Gallegos MD Cardiology Yvon Gallegos MD Electrophysiology:Trial Ozempic Yvon Gallegos MD Electrophysiology Yvon Gallegos MD Electrophysiology Yvon Gallegos MD Electrophysiology Yvon Gallegos MD Electrophysiology Yvon Gallegos MD Electrophysiology Yvon Gallegos MD Electrophysiology Yvon Gallegos MD Cardiology 12: B P unchanged P rior BP: 144/90 (10/12/2020) Labs Reviewed: C reat: 0.72 (10/20/2020) Her updated medication list for this problem includes: Hydrochlorothiazide 50 Mg Oral Tablet (Hydrochlorothiazide) ..... One tab. daily Labetalol Hcl 100 Mg Oral Tablet (Labetalol hcl) ..... Half tab twice a day. reduced dose. [facility] 12 [facility] 12 [facility] 12: H er updated medication list for this problem includes: Labetalol Hcl 100 Mg Oral Tablet (Labetalol hcl) ..... Half tab twice a day. reduced dose. 631 total out of a 975745 beats analyzed roughly 0.1% burden. R hythm: Sinus Rhythm. M inimum Heart Rate was 51 bpm, Average Heart Rate was 91 bpm, and Maximum Heart Rate was 161 bpm. V entricular Ectopy was 631, with 0 V-Pairs and 1 V-Run in the form of a triplet. S upraVentricular Ectopy was 6, with 1 SV-Runs. R eport Date: 10/09/2020. Hgb: 14.1 (10/20/2020) HCT: 44.0 (10/20/2020) Platelets: 254 X10E3/UL (10/20/2020) R BC: 5.09 X10E6/UL (10/20/2020) WBC: 5.4 X10E3/UL (10/20/2020) B UN: 13 (10/20/2020) Creat: 0.72 (10/20/2020) Na+: 142 (10/20/2020) K+: 4.4 (10/20/2020) Cl: 107 (10/20/2020) Calcium: 8.6 (10/20/2020) Trevorcarlotta Brett Electrophysiology Ne w Patient 13: O rders: A ldosterone (091191) C ortisol (539010) M etanephrines, Frac., Pl. Free (040523) C BC (H/H, RBC, INDICES, WBC, PLT) (1339) K idney Ultrasound (CPT-46087) U RINALYSIS, COMPLETE W/REFLEX TO CULTURE (3020) Mahadgarth Brett Electrophysiology Ne w Patient 13: O rders: B ASIC METABOLIC PANEL W/EGFR (39131) K idney Ultrasound (CPT-40003) U RINALYSIS, COMPLETE W/REFLEX TO CULTURE (3020) Mahadgarth Brett Electrophysiology New Patient 13 Trevorcarlotta Brett Electrophysiology New Patient 13 Trevorcarlotta Brett Electrophysiology Ne w Patient 13: r eviewed bps and hsopital records o n hctz her potassium was 2.7 severely depleted.09/02/2020 hemoconcentrated hg was 17. a void diuretic. start amlodipine. BP today: 144/90 P rior BP: 102/68 (10/09/2020) Her updated medication list for this problem includes: Amlodipine Besylate 5 Mg Oral Tablet (Amlodipine besylate) ..... One tab by mouth at bedtime Labetalol Hcl 100 Mg Oral Tablet (Labetalol hcl) ..... Half tab twice a day. reduced dose. Mahadgarth Brett Electrophysiology Ne w Patient 13: 6 31 total out of a [id number] beats analyzed roughly 0.1% burden. H er updated medication list for this problem includes: Labetalol Hcl 100 Mg Oral Tablet (Labetalol hcl) ..... Take one pill twice a day Rhythm: Sinus Rhythm. M inimum Heart Rate was 51 bpm, Average Heart Rate was 91 bpm, and Maximum Heart Rate was 161 bpm. V entricular Ectopy was 631, with 0 V-Pairs and 1 V-Run in the form of a triplet. S upraVentricular Ectopy was 6, with 1 SV-Runs. R eport Date: 10/09/2020. [facility] Follow up Ra alycia Gallegos MD Cardiology Hospital Follow up Ra alycia Gallegos MD [facility]iology Hospital Follow up Ra alycia Gallegos MD Cardiology Hospital Follow up :Symptoms suggest this diagnosis. W ill have patient see Dr Cheyenne Gallegos MD Cardiology New Patient Yvon lu MD Cardiology New Patient Yvon lu MD Cardiology New Patient Yvon lu MD Cardiology New Patient Yvon lu MD Cardiology New Patie nt :Increase lisinopril. S leep study R enal artery duplex Yvon Gallegos MD Date Name HEMOGLOBIN A1c LIPID PANEL IRON AND TOTAL IRON BINDING CAPACITY FERRITIN CBC (INCLUDES DIFF/P LT) COMPREHENSIVE METABO LIC PANEL, W/EGFR URINALYSIS, COMPLETE W/REFLEX TO CULTURE PROBNP, N TERMINAL Kidney Ultrasound CBC (H/H, RBC, INDIC ES, WBC, PLT) BASIC METABOLIC PANE L W/EGFR Metanephrines, Frac. , Pl. Free Cortisol Aldosterone Lyme Ab/Western Blot Reflex Renal Artery Duplex Sleep Study Home HISTORY OF PROCEDURES Procedure Date Procedure Name Provider Procedure Notes S tatus Holter, 24 or 48 Yvon Gallegos MD co mpleted EKG Franklin Quinn MD comp leted EKG Yvon Gallegos MD complete d
--- OUTSIDE RECORDS SUMMARY | 2024-09-06 10:34 | XMS_ITS | Encounter Summary ---
Author Organization [facility] Address [address] [place] [address] Care Team Providers Care Upholstery Cutter Name Role Phone Chava Leslieie LILIAN Primary Care Provider [phone] Encounter Details Date Type Department Care Team (Late st Contact Info) Description 09/14/2020 Hospital Follow-up Call [facility] Telemetry Unit [facility] [place] [address] Brittney Parham, RN Social History Tobacco Use [...] COVID-19? 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 Answer Date of Assessment Author Status No 09/11/2020 11:49 AM CATALYST RECOVERY OPERATOR Acti ve * Do you have serious [...] on filedocumented in this encounter Care Teams Upholstery Cutter Relationship Specialty Start Date End Date Kendra Leslie NP [address] [place] [address] PCP - General NURSE PRACTITIONER 09/05/20 documented as of this encounter
--- OUTSIDE RECORDS SUMMARY | 2024-09-06 10:34 | XMS_ITS | Data Portability ---
Author Organization [facility], Main Office Address [address] [place] [address] Assessment No assessment recorded. Plan of Treatment Reminders Order Date Submit Date Provider Last Modified By Organization Details Last Modified Time Details Appointments None recorded. Lab TSH, serum or plasma 2024 025 [email or web address] 2 [facility], [address] [place], [address], 5 08:21:43 CBC w/ auto diff 2024 025 [facility] Influenza [facility], [address] [place], [address], 5 18:57:05 vitamin D, 25-hydroxy, total, serum 2024 025 [facility], [address] [place], [address], 5 13:13:00 vitamin B12 + folate, serum or blood 2024 025 [email or web address] 2 [facility], [address] [place], [address], 5 08:21:43 iron + total iron-bindin g capacity (TIBC), serum 2024 025 [email or web address] 2 [facility], [address] [place], [address], 5 08:21:43 ferritin, serum or plasma 2024 025 [email or web address] 2 [facility], [address] [place], [address], 5 08:21:43 CMP, serum or plasma 2024 025 [email or web address] 2 [facility], [address] [place], [address], 5 08:21:43 magnesium, serum or plasma 2024 025 [email or web address] 2 [facility], [address] [place], [address], 5 08:21:44 Referral sleep medicine referral - Please eval and treat. Please call patient to schedule an appointment . Thank you 2023 024 [email or web address] Nehemiah Lainez MD, [facility] [place], [address], 4 09:29:53 Procedures None recorded. Surgeries None recorded. Imaging XR, facial bones, 3 or more view - left face 2024 025 [email or web address] 256 [facility] ([facility] Scheduling), [address] [place], [address], 5 08:47:01 XR, mandible, 4 or more view 2024 025 [email or web address] [facility] ([facility] Call Scheduling), [address] [place], [address], 5 09:50:38 XR, elbow, 3 or more view 2024 025 [email or web address] 256 [facility] ([facility] Call Scheduling), [address] [place], [address], 5 08:47:02 XR, forearm, 2 view 2024 025 [email or web address] [facility] ([facility] Call Scheduling), [address] [place], [address], 5 17:15:16 XR, wrist, 3 or more view [address] (One Call Scheduling), [address] [place], [address], 5 08:47:02 XR, hand, 3 or more view 2024 025 [facility] ([facility] Call Scheduling), [address] [place], [address], 5 17:14:09 XR, shoulder, 2 or more view - Please call pt to schedule 2024 025 [facility] ([facility] Scheduling), [address] [place], [address], 5 17:13:09 MRI, lumbar spine, w/o contrast - Please call pt to schedule and get pre-pay 2023 [email or web address] [place] [address] (One Call Scheduling), [address] [place], [address], 4 10:31:49 Medication Orders cyclobenzap rine 10 mg tablet 2024 025 [email or web address] 200 [facility], [address] [place] [address], [id number], 5 16:50:55 phentermine 37.5 mg tablet 2023 024 [email or web address] [facility]/Pharmacy #[id number], [address] [place], [address], 5 13:03:36 tramadol 50 mg tablet 2023 024 [facility]/Pharmacy #[id number], [address] [place], [address], 4 12:56:22 prednisone 20 mg tablet 2023 024 [email or web address] 2 [facility]/Pharmacy #[id number], [address] [place], [address], 4 15:30:10 alprazolam 0.5 mg tablet 2023 024 [facility]/Pharmacy #[id number], [address] [place], [address], 4 12:56:22 tramadol 50 mg tablet 2023 024 [facility]/Pharmacy #[id number], [address] [place], [address], 4 13:03:14 lidocaine 5 % topical cream 2023 024 [email or web address] 200 [facility]/Pharmacy #[id number], [address] [place], [address], 4 14:18:26 Depo-Medrol 80 mg/mL suspension for injection 2023 024 [email or web address] Not available 4 14:47:56 phentermine 37.5 mg tablet 2023 024 [email or web address] [facility]/Pharmacy #83306, [address] [place], [address], 5 13:03:36 lidocaine 5 % topical patch 2023 024 [facility]/Pharmacy #[id number], [address] [place], [address], 4 09:26:23 acetaminoph en 300 mg-codeine 30 mg tablet 2023 024 [email or web address] [facility][id number], [address] [place], [address], 12:43:52 alprazolam 0.5 mg tablet 2023 024 GISELL [facility][id number], [address] [place], [address], 09:25:21 Patient TargetsNo targets recorded. Patient InstructionsNo [...] more view No observ ation record ed. [email or web address] ([facility] Call Scheduling) [address] [place], [address], 07/25/2024 16:32:36 07/25/19 25 07/21/2024 XR, shoul patricia, 2 or more view No observ ation record ed. [address] [place], [address], 08/08/2024 17:13:09 07/25/19 25 07/21/2024 XR, elbow , 3 or more view No observ ation record ed. [email or web address] [place], [address], 08/08/2024 17:13:37 07/25/19 25 07/21/2024 XR, hand, 3 or more view No observ ation record ed. [address] [place], [address], 08/08/2024 17:14:09 08/26/19 25 08/25/2024 MAMMO , scree cassia, digit al, bilat eral No observ ation record ed. [email or web address] [place], [address], 08/29/2024 16:20:46 Result Notes None recorded. Problems Name Problem SNOMED Code Status Onset Date Resolution Date Notes Provider Name and Address Organization Details Recorded Time Disorder of shoulder 247105174 Completed Not Available [facility] 3 16:59:18 Mammogra phic mass of right breast 80543967799 853083 Active 2021 Not Available [facility] 3 16:59:18 Current tear of medial cartilag e AND/OR meniscus of knee Completed Not Available [facility] 3 16:59:18 Vitamin D deficien cy 73093287 Active 2019 Not Available [facility] 3 16:59:18 Hyperten sive disorder 09451180 Active 2019 Not Available [facility] 3 16:59:18 [place] 26986109 Active 2020 Not Available [facility] 3 16:59:18 Sprain of ankle 42901396 Completed Not Available [facility] 3 16:59:18 Anxiety 61284492 Active 2019 Not Available [facility] 3 16:59:18 COVID-19 679436468 Active 2020 Not Available [facility] 3 16:59:18 Abnormal weight 42248857 Active 2022 JAVON Mart null, [facility] [employer] [facility] 3 09:17:52 Obesity 634446561 Active 2022 Mathew Johnson MD [address], [place], [address] , [facility] 3 09:32:13 Dyspnea 870127998 Active 2022 Mathew Johnson MD [address], [place], [address] , [place] [facility] 3 09:33:47 Costal chondrit is 73694940 Active 2022 Mathew Johnson MD [address], [address], [place], [address] , [place] [facility] 3 09:38:18 [employer]entia l hyperten arias 25988808 Active 2022 Mathew Johnson MD [address], [place], [address] , [place] [facility] 3 09:33:02 Pain in left foot 99307328879 9107 Active 2022 Mathew Johnson MD [address], [place], [address] , [place] [facility] 3 09:34:57 Injury of right knee 13184511120 932456 Active 2022 JAMIE Meraz [address], [place], [address] , [facility] 3 10:03:17 Phlebiti s of superfic ial veins of lower extremit y 19650185 Active 2022 AJMIE Meraz [address], [place], [address] , [place] [facility] 3 10:18:00 Pain of left knee joint 00345165127 4107 Active 2022 JAVON Babin, [place] [facility] 3 14:36:27 Pain of right knee joint 75431233176 4100 Active 2022 TACHO Dinh, [place] [facility] 3 16:48:43 Acute tear of medial meniscus of right knee 73493039683 955160 Active 2022 JAMIE Andrews [address], [place], [address] , [place] [facility] 3 16:53:53 Panic attack 439284428 Active 2022 Mathew Johnson MD [address], [place], [address] , [facility] 3 09:37:30 Mixed anxiety and depressi ve disorder 875186462 Active 2022 Mathew Johnson MD [address], [place], [address] , [facility] 3 10:51:13 Synovial cyst of right knee 81746968870 9104 Active 2022 Mathew Johnson MD [address], [place], [address] , [facility] 3 09:54:11 Tremor 68314425 Active 2022 Mathew Johnson MD [address] [address], [place], [address] , [facility] 3 09:56:31 Overweig ht 254878677 Active 2022 Mathew Johnson MD [address] [address], [place], [address] , [facility] 3 09:59:35 Chronic kidney disease 897123225 Active [address] Ziegler in [place] and JAMIE Sarmiento [address], [place], [address] , [facility] 4 13:03:35 Memory impairme nt 481154733 Active 2022 Mathew Johnson MD [address], [place], [address] , [facility] 3 10:01:04 Pruritic rash 88650101 Active 2022 Mathew Johnson MD [address], [place], [address] , [facility] 3 10:41:08 Urinary symptoms 547119436 Active 2022 Mathew Johnson MD [address], [place], [address] , [facility] 3 10:48:30 Sinusiti s 93545299 Active 2023 JAMIE Meraz [address], [place], [address] , [facility] [employer] [facility] 4 15:35:24 Bilatera l earache 795706190 Active 2023 JAMIE Meraz [address], [place], [address] , [facility] 4 13:56:02 Phlebiti s of superfic ial veins of lower extremit y 11025796 Active 2023 JAMIE Meraz [address] [employer], [address] [employer], [place], [address] , [facility] [employer] [facility] 4 13:56:08 Edema 977400626 Active 2023 JAMIE Meraz [address] [employer] [address] [employer] [employer], [place], [address] , [facility] [employer] [facility] [employer] [facility] 4 12:51:40 Low back pain 037201630 Active 2023 JAMIE Meraz [address] [employer] [employer], [place], [address] , [facility] [employer] [facility] 4 14:19:51 Excessiv e daytime sleepine ss - normal night sleep 225138625 Active 2023 JAMIE Meraz [address] [employer], [address], [place], [address] , [facility] 4 14:21:18 Injury of left shoulder 09490648059 996367 Active 2024 AJMIE Meraz [address] [employer], [address], [place], [address] , [facility] [employer] [facility] [employer] [facility] 13:10:55 Injury of face 221938143 Active 2024 JAMIE Meraz [address] [facility], [address] [address], [place], [address] , [facility] [employer] [facility] 13:12:19 Fatigue 90698799 Active 2024 JAMIE Meraz [address] [facility], [address] [address], [place], [address] , [facility] [employer] [facility] [employer] [facility] 13:18:01 Injury of left elbow region 09930366560 495595 Active 2024 JAMIE Meraz [address] [facility] [address] [address], [place], [address] , [facility] [employer] [facility] 10:02:26 Notes:Some problems listed i n Document: #[id number] could not be added to this patient's chart. Please review this document and add these problems to the patient's chart manually as needed. Problem Notes None recorded. Procedures Surgical History Date Name Laterality Status Provider Name and Address Organization Details Recorded Time 11/11/19 24 Knee completed Yolande Walker RN [facility] 05/31/2024 12:46:54 07/13/19 10 Hysterectomy completed Not Available [facility] 023 16:57:30 tarsal tunnel release completed JAVON Babin [facility] 12/16/2022 14:35:11 Imaging Results Imaging Date Name Status LastModified by Organiz [facility] Details LastModified Time 07/21/2024 XR, mandible, 4 or more view completed [email or web address] ([facility] Call Scheduling) [address] [place], [address], 07/25/2024 16:32:36 07/21/2024 XR, shoulder, 2 or more view completed [address] [place], [address], 08/08/2024 17:13:09 07/21/2024 XR, elbow, 3 or more view completed [email or web address] [facility] [address] [place], [address], 08/08/2024 17:13:37 07/21/2024 XR, hand, 3 or more view completed [email or web address] [facility] [address] [place], [address], 08/08/2024 17:14:09 08/25/2024 MAMMO, screening, digital, bilateral completed [email or web address] [address], [address], 08/29/2024 16:20:46 Procedure Notes None recorded. Medical Equipment None Reported. Allergies Allergen ID Allergen Name Allergen Category Reaction Reaction Severity Criticality Documentation Date Start Date Code Code System Note Provider Name and Address Organization Details Recorded Time 23509 Prozac medicatio n other severe Not available 09/10/2022 21864 RxNorm Not Available [facility] 17:01:23 Medications Name Sig Start Date [...] mg by injectio n route. 05/27 completed [facility] [place] 2]: 0003-049 4-20 Not Available Not Available Not [...] completed Not Available Not Available Not Available lisdexamf etamine 20 mg capsule active Not Available Not Available Not Available cholecalc [...] mg by injectio n route. 05/27 completed [facility] [place]NOTE 2] 24856-56 10-11 Not Available Not Available Not Available Luisana 5 mg tablet,de layed release 06/12 completed Not Available Not Available Not Available potassium chloride ER 20 mEq tablet,ex tended release active HOLD Not Available Not Available Not Available Fluvirin 0609-9749 45 mcg (15 mcg x 3)/0.5 mL [...] Updated DateTime 4 162.56 cm 35.6 kg/m2 87328.6 7 g 98 [degF] 80 /min 20 /min 99 % 99 % 128 mm[Hg] 66 mm[Hg] Jalil Murphy [facility] [employer] [facility] 4 09:17:00 Date Recorded Body height Body mass index (BMI) Body weight Body temperature Respiratory rate Heart rate Oxygen saturation Oxygen saturation in Arterial blood by Pulse oximetry Systolic blood pressure Diastolic blood pressure Provider Name and Address Organization Details Last Updated DateTime 4 162.56 cm 36.9 kg/m2 92523.3 6 g 97.9 [degF] 16 /min 74 /min 99 % 99 % 98 mm[Hg] 66 mm[Hg] Yolande Walker RN [facility] [employer] [facility] 4 14:13:15 Date Recorded Body height Body mass index (BMI) Body weight Body temperature Heart rate Oxygen saturation Oxygen saturation in Arterial blood by Pulse oximetry Systolic blood pressure Diastolic blood pressure Provider Name and Address Organization Details Last Updated DateTime 4 162.56 cm 38.1 kg/m2 936176. 21 g 98.7 [degF] 77 /min 94 % 94 % 110 mm[Hg] 65 mm[Hg] Danica Drake MA [facility] [employer] [facility] 4 12:45:01 Date Recorded Body height Body mass index (BMI) Body weight Body temperature Heart rate Oxygen saturation Oxygen saturation in Arterial blood by Pulse oximetry Systolic blood pressure Diastolic blood pressure Provider Name and Address Organization Details Last Updated DateTime 4 162.56 cm 39 kg/m2 986764. 47 g 98.3 [degF] 86 /min 99 % 99 % 98 mm[Hg] 70 mm[Hg] Yolande Walker RN [facility] [employer] [facility] 4 12:48:46 Date Recorded Body height Body mass index (BMI) Body weight Body temperature Heart rate Oxygen saturation Oxygen saturation in Arterial blood by Pulse oximetry Systolic blood pressure Diastolic blood pressure Provider Name and Address Organization Details Last Updated DateTime 5 162.56 cm 39.5 kg/m2 444184. 25 g 98.3 [degF] 79 /min 98 % 98 % 100 mm[Hg] 70 mm[Hg] Yolande Walker RN [facility] [employer] [facility] 13:06:04 Social History Question Answer Notes LastModified by Organizat ion Details LastModified Time Tobacco Smoking Status Never Smoker Cyndy braun [facility] [employer] [facility] 10/03/2022 09:12:24 What Is Your Level Of Alcohol Consumption? Occasional [id number] Information not available 09/10/2022 What Is Your Level Of Caffeine Consumption? Moderate [id number] Information not available 09/10/2022 How Much Tobacco Do You Chew? None [id number] Information not available 09/10/2022 In The 14 Days Before Symptom Onset, Have You Had Close Contact With A Laboratory-confir med COVID-19 While That Case Was Ill? No [email or web address] Information not available 10/03/2022 In The 14 Days Before Symptom Onset, Have You Had Close Contact With A Person Who Is Under Investigation For COVID-19 While That Person Was Ill? No [email or web address] Information not available 10/03/2022 What Type Of Diet Are You Following? REGULAR [id number] Information not available 09/10/2022 Which Illicit Or Recreational Drugs Have You Used? No [email or web address] Information not available 10/03/2022 Do You Or Have You Ever Used E-cigarettes Or Vape? Never Used Electronic Cigarettes [email or web address] Information not available 10/03/2022 Have You Ever Been Counseled For Unhealthy Alcohol Use? No Information not available 10/03/2022 Do You Or Have You Ever Used Smokeless Tobacco? Never Used Smokeless Tobacco [id number] Information not available 09/10/2022 Do You Use Any Illicit Or Recreational Drugs? No [email or web address] Information not available 10/03/2022 Has Tobacco Cessation Counseling Been Provided? No [email or web address] Information not available 10/03/2022 Have You Recently Traveled Abroad? No Information not available 10/03/2022 Do You Have Any Dietary Restrictions? No [email or web address] Information not available 10/03/2022 Do You Or Have You Ever Used Any Other Forms Of Tobacco Or Nicotine? No [email or web address] Information not available 10/03/2022 Sex: Unknown Functional Status Question Answer Note LastModified by Organizat ion Details LastModified Time What is your exercise level? None [id number] Information not available 09/10/2022 Mental Status None recorded. Family History Relationship Description Onset Age of this Age Resolved Age Notes LastModified by Organization Details LastModified Time Mother Heart disease [email or web address] Not available 2022 14:34:04 Maternal Grandmother Family history of malignant neoplasm [email or web address] Not available 01/12 12:14:24 Notes:low BP, & BS mom & Sis ter Medical History Condition Response BLINDNESS N RHEUMATIC FEVER N BLADDER PROBLEMS N KIDNEY STONES N OTHER # 1 N POLIO N LUNG DISEASE/DISORDER N RADIATION / CHEMOTHERAPY N COPD N Other # 2 N BLOOD DISEASES N SURGERY N EAR OR HEARING PROBLEMS N MUMPS N DEPRESSION (INCLUDING POST ) N FEMALE PROBLEMS / INFECTIONS N BOWEL PROBLEMS N STROKE/TIA N THYROID [...] N TUBERCULOSIS N GLAUCOMA N DIVERTICULITIS N CHICKENPOX N SLEEP APNEA N ALLERGIES/HAYFEVER N INFECTIOUS DISEASE N HEART ARRHYTHMIA N PROSTATE N INSOMNIA N HIGH CHOLESTEROL / HYPERLIPIDEMIA N HYPERTHYROIDISM N EYE PROBLEMS N EATING DISORDER N NEUROLOGICAL PROBLEMS N EDEMA N CHRONIC PAIN SYNDROME N HYPOTHYROIDISM N CAROTID BLOCKAGE N CONSTIPATION N BACK / NECK PROBLEMS N HAVE YOU BEEN HOSPITALIZED OR SEEN IN [facility] IN THE PAST YEAR ? N [...] N PAIN N HERPES N DEMENTIA N HEADACHES/MIGRAINES N SEIZURES/EPILEPSY N VASCULAR DISEASE N PACEMAKER N DIZZINESS N HEART DISEASE/HEART PROBLEMS N KIDNEY DISEASE N DEVELOPMENTAL OR BEHAVIORAL DISORDERS N MULTIPLE SCLEROSIS N SCARLET FEVER N MENTAL DISORDER/ILLNESS N CARDIAC ARRHYTHMIA N CANCER: SPECIFY N ANESTHESIA COMPLICATIONS N PNEUMONIA N ATRIAL FIBRILLATION N PULMONARY EMBOLISM N AUTOIMMUNE DISEASE N Gynecological HistoryNo gynecological history recorded. Obstetrics History GPAL:G 0 P 0 0 0 0 Immunizations Vaccine Type Date Status Note Provider Nam e and Address Organization Details Recorded Time COVID-19, mRNA, LNP-S, PF, 30 mcg/0.3 mL dose 2 completed Regina Arnold [facility] null, [employer] 04/08/2023 10:33:22 COVID-19, mRNA, LNP-S, PF, 30 mcg/0.3 mL dose 1 completed Regina Arnold CMA null, [employer] [facility] 04/08/2023 10:33:22 Influenza, split virus, quadrivalent, preservative 0 completed Not Available [facility] 09/10/2022 17:01:19 Influenza, split virus, quadrivalent, PF 2 completed Not Available [facility] 09/10/2022 17:01:19 Influenza, split virus, quadrivalent, PF 3 completed Mathew Johnson MD [address] [place] [address], [address], [facility] [employer] [facility] [employer] 04/06/2023 18:38:18 Past Encounters Encounter ID Performer Location Encounter Start Date Encounter Closed Date Diagnosis/Indication Diagnosis SNOMED-CT Code Diagnosis ICD10 Code Diagnosis Note [id number] [facility] [address] [place] [address] 09/11/2020 00:00:00 09/11/2020 09:41:45 [id number] [facility] [place] [address] 09/18/2020 00:00:00 09/18/2020 10:28:32 [id number] [facility] [place] [address] [place] [address] 12/18/2020 00:00:00 12/19/2020 08:09:36 [id number] [facility] [place] [address] [place] [address] 05/02/2021 00:00:00 05/02/2021 15:37:39 [id number] [facility] [place] [address] [facility] [place] [address] 10/24/2021 00:00:00 10/24/2021 10:19:23 [id number] [facility] [place] [address] [facility] [place] [address] 05/19/2022 00:00:00 05/19/2022 09:06:36 [id number] [facility] [place] [address] [facility] [place] [address] 05/28/2022 00:00:00 05/28/2022 13:33:08 [id number] [facility] [place] [address] [facility] [place] [address] 08/15/2022 00:00:00 08/15/2022 17:09:03 [id number] Mathew Johnson MD [facility] [facility] [address] [place] [address] [place] [address] 10/03/2022 09:10:12 10/03/2022 09:45:56 Obesity 258301513 E66.9 Call for refills. F/u in 2 months. Dyspnea 454207736 R06.00 May need to see pulmonolog ist. Costal chondritis 598687 04 M94.0 Heat and NSAIDs [id number] Mathew Johnson MD [facility] [place] [address] [place] [address] 12/03/2022 09:14:26 12/03/2022 09:38:24 Essential hypertension 35504987 I10 Recheck BP 160/108. Watch salt in diet and check BP away from here. If continues to be high needs f/u appt. Anxiety 69410995 F41.9 Call for refills of alprazolam Pain in left foot 078565 6123 58698 M79.672 Ice and elevate and see angular js developer if needed. [id number] [facility] [address] [place] [address] [place] [address] 12/15/2022 09:43:13 12/15/2022 10:21:51 Injury of right knee 4143573809 1443728 S89.91XA Phlebitis of superficial veins of lower extremity 13325432 I80.02 ankle, left 850250 JAMIE Andrews [facility] [place] [address] [place] [address] 12/16/2022 14:07:59 12/18/2022 15:31:05 Pain of right knee joint 3718790113 16117 M25.561 Acute tear of medial meniscus of right knee 8535171022 7552484 S83.241A [id number] Alfredo Castellanos MD [facility] [place] [address] [place] [address] 12/30/2022 15:02:49 12/30/2022 15:54:54 Acute tear of medial meniscus of right knee 3299667892 1077247 S83.241A Injury of right knee 836 0361221 0217984 S89.91XA Pre-surger y evaluation 914138485 Z01.818 [id number] Mathew Johnson MD [facility] [address] [place] [address] [place] [address] 12/30/2022 15:56:27 12/30/2022 16:22:35 Acute tear of medial meniscus of right knee 5161055006 6504302 S83.241D RICE and NSAIDs 113779 Mathew Johnson MD [facility] [address] [place] [address] 02/02/2023 09:42:26 02/02/2023 10:06:39 Anxiety 44534206 F41.9 Call for refills of alprazolam . Double up on lexapro and call for 20 mg dosage. Essential hypertension 84040160 I10 Recheck BP 160/100. Watch salt in diet and check BP away from here. If continues to be high needs f/u appt. [id number] Mathew Johnson MD [facility] [address] [place] [address] [place] [address] 03/06/2023 08:45:28 03/06/2023 09:45:59 Pain of right knee joint 0870875247 34505 M25.561 Panic attack 060723990 F 41.0 Take 1 po TID prn and call when runs out for refill to TID 3 #90Continu e counseling . F/u in 1 month [id number] Mathew Johnson MD [facility] [address] [facility] [place] [address] 04/06/2023 09:11:48 04/06/2023 10:02:35 Synovial cyst of right knee 7354247838 92499 M71.21 f/u with ortho Tremor 29156326 R25.1 Overweight 425201508 E66 .3 Continue phentermin e Chronic ki dney disease 064665682 N18.9 F/u with nephrologi st. Memory impairment 912789 006 R41.3 Brain fog. Administra tion of influenza vaccine 51870653 Z23 [id number] Mathew Johnson MD [facility] [address] [place] [address] [place] [address] 04/08/2023 10:17:46 04/08/2023 11:05:58 Pruritic rash 61431934 L28.2 Urinary symptoms 0144381 08 R39.9 F/u with nephrologi st seeing them for urinary retention. [id number] Mathew Johnson MD [facility] [address] [place] [address] [place] [address] 04/27/2023 09:54:55 04/27/2023 10:35:35 Essential hypertension 98321248 I10 Recheck BP 120/80. Watch salt in diet and check BP away from here Start new BP meds. Losartan/h ct and amlodipine F/u in 2 weeks. Call if BPs are running high still.Has renal artery stenosis. [id number] Mathew Johnson MD [facility] [address] [place] [address] [place] [address] 05/11/2023 11:55:21 05/11/2023 12:19:45 Essential hypertension 95712118 I10 Recheck BP 120/70. Watch salt in diet and check BP away from here. Call if BPs are running high. F/u in 3 monthsHas renal artery stenosis. F/u with nephrologi st/vascula r surgeon Mixed anxi ety and depressive disorder 529856173 F41.8 Continue current meds. [id number] Mathew Johnson MD [facility] [address] [place] [address] [place] [address] 05/27/2023 12:49:03 05/27/2023 13:54:17 Essential hypertension 21546214 I10 F/u in 2 weeks. D/c labetolol and start propranolo l. Renewal of prescription 016049185 Z76.0 Tremor 80992055 R25.1 Will try propranolo l for this and d/c the labetolol [id number] JAMIE Meraz [facility] [address] [facility] [place] [address] 07/14/2023 14:56:53 07/14/2023 15:45:15 Vitamin D deficiency 99980151 E55.9 Acute tear of medial meniscus of right knee 4928569950 2677971 S83.241D 7695215 JAMIE Meraz [facility] [place] [address] [place] [address] 10/14/2023 09:10:49 10/14/2023 09:41:51 Chronic kidney disease 594002323 N18.9 Acute tear of medial meniscus of right knee 3948687813 0522801 S83.241D Essential hypertension 70587958 I10 Mixed anxi ety and depressive disorder 580065501 F41.8 Obesity 135161286 E66.9 Anxiety 95949978 F41.9 Vitamin D deficiency 347 57713 E55.9 [id number] JMAIE Meraz [facility] [place] [address] [place] [address] 11/18/2023 13:43:13 11/18/2023 14:31:55 Pain of right knee joint 1551814371 50675 M25.561 Low back pain 938021054 M54.50 Excessive daytime sleepiness - normal night sleep 018671000 G47.19 Anxiety 24987249 F41.9 Chronic ki dney disease 649183838 N18.9 Essential hypertension 27098505 I10 Obesity 936463369 E66.9 Synovial c yst of right knee 7786065920 82286 M71.21 Vitamin D deficiency 347 88233 E55.9 [id number] JAMIE Meraz [facility] [place] [address] [place] [address] 01/13/2024 12:11:59 01/13/2024 13:58:49 Acute tear of medial meniscus of right knee 1768546742 5506863 S83.241D Anxiety 60748717 F41.9 Chronic ki dney disease 838687102 N18.9 Essential hypertension 52704542 I10 Obesity 370655110 E66.9 Panic attack 079825049 F 41.0 Vitamin D deficiency 347 78561 E55.9 2283089 JAMIE Meraz [facility] [place] [address] [place] [address] 05/31/2024 12:30:19 05/31/2024 13:05:31 Anxiety 58693276 F41.9 Acute tear of medial meniscus of right knee 8556527823 9685742 S83.241D Obesity 744200064 E66.9 Low back pain 102359562 M54.50 Essential hypertension 30771594 I10 Vitamin D deficiency 347 41616 E55.9 Panic attack 964455704 F 41.0 Chronic ki dney disease 035551214 N18.9 Injury of right knee 723 0621134 3676874 S89.91XA Mixed anxi ety and depressive disorder 672088617 F41.8 [id number] JAMIE Meraz [facility] [address] [place] [address] 07/21/2024 12:46:53 07/21/2024 13:44:36 Injury of left shoulder 8627214171 2842560 S49.92XA Injury of face 252816551 S09.93XA Fatigue 34473397 R53.83 Health Concerns Section Related Observation LastModified by Organization Detai ls LastModified Time None Recorded Concern Status LastModified by Organization Details LastModified Time None Recorded Advance Directives Directive None Recorded Payers Encounter Date Sequence Insurance Name Policy Number Policy Bell Covered Member ID Bell Member ID Guarantor Name 10/14/2023 1 [facility] [id number] Carmen Garza [id number] Carmen Garza 11/18/2023 1 [facility] [id number] Carmen Garza [id number] Carmen Garza 01/13/2024 1 [facility] [id number] Carmen Garza [id number] Carmen Garza 05/31/2024 1 *SELF PAY* Chloe Garza 07/21/2024 1 [place] [id number] Carmen Garza [id number] Carmen Garza Notes Date Note Type Note Provider Name and Address Organization Details Recorded Time 10/14/2023 text/html almost a year with no alcohol. lidocaine patch denied. buying 4% patches otc , expensive JAMIE Meraz [address] [place] [address], [place], [address], [facility] [employer] 10/26/2023 15:11:59 11/18/2023 text/html seeing ortho JAMIE Meraz [address], [place], [address], [employer] [facility] 12/06/2023 22:52:36 01/13/2024 text/html had knee surgery, doing well JAMIE Meraz [address], [place], [address], [employer] 02/06/2024 10:48:28 05/31/2024 text/html ortho drained off a lot of fluid right knee JAIME Meraz [address], [place], [address], [employer] 06/18/2024 18:58:59 07/21/2024 text/html fell , left elbow really hurts and is bruise , left shoulder too , left wrist , forearm , hand , facial bones , left jaw swollen JAMIE Meraz [address], [place], [address], [employer] [facility] 07/26/2024 16:54:08 OBGyn Episode No OBEpisode recorded.
--- OUTSIDE RECORDS SUMMARY | 2024-09-06 10:34 | XMS_ITS | Encounter Summary ---
Author Organization [facility] Address [address] [place] [address] Phone Care Team Providers Care Executive Director Name Role Phone Mathew Johnson MD Primary Care Provider [phone] Reason for Visit * Reason Comments Med Refill Encounter Details Date Type Department Care Team ([facility] st Contact Info) Description 07/08/2023 Refill [facility] [address] [facility] 1 [place] [address] Ann Dickerson NP [address] [address] Social History Tobacco Use Types [...] on filedocumented in this encounter Care Teams Executive Director Relationship Specialty Start Date End Date Mathew Johnson MD [address] [place], [place] [address] [place] [address] PCP - General Family Medicine 04/08/23 documented as of this encounter
--- OUTSIDE RECORDS SUMMARY | 2024-09-06 10:34 | XMS_ITS | Encounter Summary ---
Author Organization [facility] Address [address] [place] [address] Care Team Providers Care Finish Production Manager Name Role Phone Gumaro Abdalla MD Primary Care Provider [phone] Kendra Leslie NP Primary Care Provider [phone] Encounter Details Date Type Department Care Team (Late st Contact Info) Description 12/10/2018 Hospital Orders Only [facility] Multispecialty [facility] - [facility] [address] [facility], [address] [place] [address] Ted Gillespie MD [address] [place] [address] Social History Tobacco Use Types Packs/Day Years [...] on filedocumented in this encounter Care Teams Finish Production Manager Relationship Specialty Start Date End Date Gumaro Abdalla MD [address] [place] [id number] PCP - General FAMILY PRACTICE 01/04/19 09/04/20 Kendra Leslie NP [address] [place] [address] PCP - General NURSE PRACTITIONER 09/05/20 documented as of this encounter
--- OUTSIDE RECORDS SUMMARY | 2024-09-06 10:34 | XMS_ITS | Clinical Summary ---
Author Organization [facility] Address [address], [place] [address] Phone Care Team Providers Care Hygiene Coordinator Name Role Phone Mathew Johnson MD Primary Care Provider Allergies Active Allergy Reactions [...] chew. Active ergocalciferol (VITAMIN D-2) 1.25 MG (27292 UT) capsule Take 50,000 Units by mouth [...] Comments Blood Pressure 112/78 09/08/2023 3:58 PM BRAILLE OPERATOR Pulse 68 09/08/2023 3:58 PM BRAILLE OPERATOR Temperature 36.8 C (98.2 F) 10/24/2021 2:01 PM CDT Respiratory Rate - - Oxygen Saturation - - Inhaled Oxygen Concentration - - Weight 90.3 kg (199 lb) 09/08/2023 3:58 PM BRAILLE OPERATOR Height 162.6 cm (5' 4 ) 12/23/2023 3:57 PM CDT Body Mass Index 34.16 09/08/2023 3:58 PM BRAILLE OPERATOR Plan of Treatment Health Maintenance Due Date Last Done Comments Pneumococcal PPSV23 Highest Risk Adult (1 of 3 - PCV13) 1998 Influenza Vaccine (#1) 2024 3, 05/19/2022, 03/30/2019, Additional history exists Care Teams Hygiene Coordinator Relationship Specialty Start Date End Date Mathew Johnson MD [address] [place] [address] Dr[address] Del[address] [place] [address] PCP - General Family Medicine 04/08/23
--- OUTSIDE RECORDS SUMMARY | 2024-09-06 10:34 | XMS_ITS | Continuity of Care Document ---
Author Organization [facility] Address [address] [place] [address] Phone Care Team Providers Care Job Training Specialist Name Role Phone Fadia Prescott Unavailable Unavailable Procedures Procedure Date Office Consultation Advance Directives Directive Yes / No Effective Date File Name No Information Encounters Encounter Description Practice Location Reason(s) For Visit Diagnoses Date Provider Providers Copied on Encounter Office Consultation [facility], [address], [place], [place], [id number], [place] tel:[phone] [facility] No Information [address] [facility] , [address], [place], [address], [place]. tel:[phone] Referring Provider: Janessa Quach OD, [address] [facility], [place], [address]. tel:[phone] Family History Family Member Type Diagnosis Age At Onset No Information Payers Payer name Insurance type Covered green party ID Authoriza tion(s) [place] [id number] Social History Type Description Quantity Date Captured [...]
--- OUTSIDE RECORDS SUMMARY | 2024-09-06 10:34 | XMS_ITS | Clinical Summary ---
Author Organization [facility] Address [address] [place] [address] Care Team Providers Care Nut Packer Name Role Phone Regina Lieberman TRANSFER CLERK Unavailable Marine Yost Unavailable Becca Valles NP [...] 05/07/2023 Assessment & Plan (05/27/2023 2:06 PM CASING FLUID TENDER): No evidence of renal artery stenosis based [...] 09/25/2020 Assessment & Plan (05/27/2023 2:07 PM CASING FLUID TENDER): Recommend statin therapy. Assessment & Plan (05/07/2023 2:09 PM CDT): Recommend statin therapy. Obesity 09/25/2020 Transient ischemic attack 09/11/2020 Anxiety 06/11/2020 Hypertension 06/11/2020 Assessment & Plan (05/27/2023 2:06 PM CASING FLUID TENDER): Ongoing workup by her PCP. Continue Norvasc [...] hydrochlorothiazide Hypokalemia 09/02/2020 08/24/2023 Hypertensive disorder 06/11/20202023 Encounters Date Type Department Care Team Description 08/25/2024 2:59 PM CASING FLUID TENDER - 08/25/2024 11:59 PM CASING FLUID TENDER Hospital Encounter [facility] Breast [facility] ([facility]) [address] [place] [address] Screening mammogram, encounter for Discharge Disposition: Discharge to home or self care from Last 3 Months Immunizations Immunization Administration Dates Next Due Influenza, Quadrivalent, Spl [...] on file Legal Sex Female 3:10 AM CASING FLUID TENDER Gender Identity Female 04/29/2023 12:37 PM CDT [...] Regular Well Visit/Exam 18-64 1997 Covid-19 Vaccine (3 - season) 2024 08/02/2021, 07/12/2021 Influenza Vaccine (#1) 2024 3, 05/19/2022, 06/12/2020, Additional history exists Breast Cancer Screening-Mammogram 08/25/2025 08/25/2024, 07/15/2023, 07/11/2022 HPV Vaccines Aged Out No longer eligi ble based on patient's age to complete this topic Pneumococcal vaccine <65 Aged Out No longer eligible based on patient's age to complete this topic Procedures Procedure Name Priority Date/Time Associated Diagnosis Comments SCREENING MAMMOGRAM BILATERAL W LONNY Schedule Routine, Read Routine (OP Routine) 08/25/2024 3:16 PM CASING FLUID TENDER Screening mammogram, encounter for from Last 3 Months Results * Screening Mammogram Bilateral W Lonny (08/25/2024 3:16 PM CASING FLUID TENDER) Anatomical Region Laterality Modality Breast Bilateral Mammography Narrative 08/26/2024 2:25 PM CASING FLUID TENDER Mammogram Technique: Bilateral Digital Breast Tomosynthesis, Bilateral C-view 2D Screening mammogram. Views obtained: bilateral craniocaudal and bilateral mediolateral oblique. Computer Aided Detection was performed. Mammogram Findings: The present examination has been compared to prior imaging studies performed at [facility] on 07/11/2022, 07/28/2022 and 07/15/2023. The breasts are heterogeneously dense, which may obscure small masses. There is no suspicious abnormality in either breast. There are no significant changes from the prior study. Impression: There is no mammographic evidence of malignancy. Annual screening mammography is recommended. If supplemental screening is desired, breast MRI would be recommended in this patient with heterogeneously dense breasts. OVERALL FINAL ASSESSMENT: BI-RADS CATEGORY 1: Negative. Procedure Note Allen Alexsi MD - 08/26/2024 Mammogram Technique: Bilateral Digital Breast Tomosynthesis, Bilateral C-view 2D Screening mammogram. Views obtained: bilateral craniocaudal and bilateral mediolateral oblique. Computer Aided Detection was performed. Mammogram Findings: The present examination has been compared to prior imaging studies performed at [facility] on 07/11/2022, 07/28/2022 and 07/15/2023. The breasts are heterogeneously dense, which may obscure small masses. There is no suspicious abnormality in either breast. There are no significant changes from the prior study. Impression: There is no mammographic evidence of malignancy. Annual screening mammography is recommended. If supplemental screeningis desired, breast MRI would be recommended in this patient with heterogeneously dense breasts. OVERALL FINAL ASSESSMENT: BI-RADS CATEGORY 1: Negative. us Self Screening Mammogram IMG MAMMO PROCEDURES Fi nal Result from Last [address] Insurance [facility] CHOICE PLUS [facility] HMO/PPO Address: [facility] [address] [place] [address] [facility] CHOICE [facility] HMO/PPO Address: [address] [address] [place] [address] BL [place] [facility] CORE HEALTH PLAN [facility] HMO/PPO Address: [address] [place] [address] BL [place] Care Teams Nut Packer Relationship Specialty [place] [address] [place] [address] PCP - General Nurse Practitioner 08/22/24 Regina Lieberman, LILIAN [address] [place] [address] Nurse Practitioner Nurse Practitioner 07/11/22 Marine Yost PA [address] [facility] [address] [place] [address] Physician Hot Head Machine Operator Orthopedic Surgery 03/05/23
--- OUTSIDE RECORDS SUMMARY | 2024-09-06 10:34 | XMS_ITS | Referral Summary ---
Author Organization [facility] Address 1 [place] [address] Care Team Providers Care Egg Processing Supervisor Name Role Phone Regina Lieberman AT RISK SPECIALIST Unavailable Marine Yost Unavailable Becca Valles AT RISK SPECIALIST Primary Care Provider Encounters Date Type Department Care Team Description 08/25/2024 2:59 PM SCENIC ARTIST - 08/25/2024 11:59 PM [facility] Hospital Encounter [facility] Breast [facility] ([facility]) [address] [place] [address] Screening mammogram, encounter for Discharge Disposition: Discharge to home or self care from Last 3 Months Allergies Active Allergy Reactions Criticality Noted Date [...] a day as needed for anxiety 1 10/06/201 9 Active melatonin 10 mg tablet Active [...] 05/07/2023 Assessment & Plan (05/27/2023 2:06 PM SCENIC ARTIST): No evidence of renal artery stenosis based [...] 09/25/2020 Assessment & Plan (05/27/2023 2:07 PM SCENIC ARTIST): Recommend statin therapy. Assessment & Plan (05/07/2023 2:09 PM CDT): Recommend statin therapy. Obesity 09/25/2020 Transient ischemic attack 09/11/2020 Anxiety 06/11/2020 Hypertension 06/11/2020 Assessment & Plan (05/27/2023 2:06 PM SCENIC ARTIST): Ongoing workup by her PCP. Continue Norvasc 10 mg. Vitamin D deficiency 06/11/2020 Resolved Problems Problem Noted Date Diagnosed Date Resolved Date Sinusitis 07/13/2023 08/24/2023 Overweight 04/06/2023 08/24/2023 Synovial cyst of right popliteal space 04/06/2023 08/24/2023 Complex tear of medial meniscus of right knee 02/14/2008/24/2023 Acute meniscal tear of left knee 02/06/2023 [...] Hypokalemia 09/02/2020 08/24/2023 Hypertensive disorder 06/11/20202023 Immunizations Immunization Administration Dates Next Due Influenza, [...] on file Legal Sex Female 3:10 AM SCENIC ARTIST Gender Identity Female 04/29/2023 12:37 PM CDT [...] Read Routine (OP Routine) 08/25/2024 3:16 PM SCENIC ARTIST Screening mammogram, encounter for from Last 3 Months Results * Screening Mammogram Bilateral W Lonny (08/25/2024 3:16 PM SCENIC ARTIST) Anatomical Region Laterality Modality Breast Bilateral Mammography Narrative 08/26/2024 2:25 PM SCENIC ARTIST Mammogram Technique: Bilateral Digital Breast Tomosynthesis, Bilateral C-view 2D Screening mammogram. Views obtained: bilateral craniocaudal and bilateral mediolateral oblique. Computer Aided Detection was performed. Mammogram Findings: The present examination has been compared to prior imaging studies performed at [facility] on 07/11/2022, 07/28/2022 and 07/15/2023. The breasts [...] BI-RADS CATEGORY 1: Negative. Procedure Note Allen Alexis MD - 08/26/2024 Mammogram Technique: Bilateral Digital Breast Tomosynthesis, Bilateral C-view 2D Screening mammogram. Views obtained: bilateral craniocaudal and bilateral mediolateral oblique. Computer Aided Detection was performed. Mammogram Findings: The present examination has been compared to prior imaging studies performed at [facility] on 07/11/2022, 07/28/2022 and 07/15/2023. The breasts [...] nal Result from Last 3 Months Insurance [facility] CHOICE [facility]US [facility] HMO/PPO Address: [address] [address] [place] [address] [facility] CHOICE [facility]US [facility] HMO/PPO Address: [address] [address] [place] [address] BL [place] [facility] CORE HEALTH PLAN [facility] HMO/PPO Address: [address] [place] [address] BL [place] Care Teams Egg Processing Supervisor Relationship Specialty [place] [address] [place] [address] PCP - General Nurse Practitioner 08/22/24 Regina Lieberman, LILIAN [address] [place] [address] Nurse Practitioner Nurse Practitioner 07/11/22 Marine Yost PA [address] [place] [address] [address] [place] [address] Physician Small Business Banking Officer Orthopedic Surgery 03/05/23
== END 2024-09-06 09:29 | disposition home or self-care (01) ==
LOC: CHSLAB 09:32
PROVIDERS: PCP Nurse Practitioner; Visit Provider Nurse Practitioner
DX: R76.8 Other specified abnormal immunological findings in serum (principal)
CPT/HCPCS: 36415; 86225; 86235

== ENCOUNTER 2024-09-15 08:14 | Outpatient (CLI) | payer BC, SELFPAY ==
--- NOTE | ~2024-09-15 | MR_ITS ---
EXAMINATION: MR knee LT wo con DATE: 09/15/2024 08:42 INDICATION: Generalized left knee pain post injury with popping sensation 6 weeks prior. TECHNIQUE: Magnetic resonance imaging (MRI) of the left knee was performed without intravenous contra st. Sequences included coronal PD-weighted FSE, coronal PD-weighted FS FSE, sagittal T2-weighted FSE , sagittal PD-weighted FS FSE and axial PD weighted fat saturated FSE. COMPARISON: None. FINDINGS: Medial compartment: Medial meniscus is normal. Articular cartilage is normal. Lateral compartment: Lateral meniscus is normal. Articular cartilage is normal. Patellofemoral compartment: Partial tearing at the mid to inferior medial patellar facet and apical ridge and along the caudal th ird of the lateral facet. Additional deep chondral ulceration and fissuring with underlying cortical irregularity and mild subarticular edema-like signal change at the inferior aspect of the medial troc hlea. Mild shallow chondral ulceration along the inferior aspect of the lateral trochlea. Ligaments and tendons: Anterior and posterior cruciate ligaments are normal. The fibular collateral ligament complex is norm al. The proximal medial collateral ligament is mildly thickened without significant surrounding edema consistent with mild scarring related to chronic sprain. The extensor mechanism is normal. The visua lized medial and lateral hamstring tendons as well as the iliotibial band are normal. Fluid: Small joint effusion at the suprapatellar pouch. No loose osteochondral bodies identified. Osseous/other: There is mild cystic change at the intercondylar eminence underlying the footplate of the anterior cr uciate ligament. Bone marrow signal is otherwise unremarkable. No fracture or pathologic marrow repla cing process. IMPRESSION: 1. 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 2. Small left knee joint effusion. 2. Likely chronic medial collateral ligament sprain with mild thickening of the proximal ligament wit hout surrounding edema to suggest acute injury. Reviewed, dictated and finalized at location L. [employer] IMPRESSION: 1. Mild patellofemoral osteoarthritis with moderate and high-grade chondromalac ia. 2. Small left knee joint effusion. 2. Likely chronic medial collateral ligament sprain with mild thickening of the proximal ligament without surrounding edema to suggest acute injury.
== END 2024-09-15 08:15 | disposition home or self-care (01) ==
PROVIDERS: PCP Nurse Practitioner; Visit Provider Orthopaedic Surgery
DX: S89.92XA Unspecified injury of left lower leg, initial encounter (principal); M17.12 Unilateral primary osteoarthritis, left knee; M22.42 Chondromalacia patellae, left knee; M25.462 Effusion, left knee; X58.XXXA Exposure to other specified factors, initial encounter
CPT/HCPCS: 73721

== ENCOUNTER 2024-09-16 11:25 | Outpatient (CLI) | payer BC, SELFPAY ==
--- NOTE | ~2024-09-16 | XR_ITS ---
XR knee RT 3V Ordering provider: Becca Valles, MINERAL SURVEYING TECHNICIAN History: . knee pain scoliosis . Comparison: July 15, 2023 FINDINGS: BONES: No acute fracture or dislocation. JOINT SPACES: Normal. SOFT TISSUES: Normal. IMPRESSION: No acute osseous abnormality right knee. Reviewed, dictated and finalized at location A. NE STEWARD
--- NOTE | ~2024-09-16 | XR_ITS ---
EXAMINATION: XR scoliosis survey DATE: 09/16/2024 11:55 INDICATION: Scoliosis. TECHNIQUE: Anteroposterior and lateral views of the entire spine standing with breast goodrich were ob tained. COMPARISON: Lumbar spine radiographs 05/07/2023 FINDINGS: Left femoral head stands 9 mm higher than the right. There are 12 pairs of ribs. There are 5 nonrib-bearing lumbar segments. There is 16 degrees levoscoliosis from T5 to T12 by the Stark method . There is 12 degrees dextroscoliosis from T12 to L4. There is kyphosis of cervical spine. There is m ild chronic anterior wedging of T7-T9 vertebral bodies. IMPRESSION: 1. Left femoral head stands 9 mm higher than the right. 2. 16 degrees levoscoliosis from T5 to T12 and 12 degrees dextroscoliosis from T12 to L4. Reviewed, dictated and finalized at location A. T SUPERVISOR
--- OUTSIDE RECORDS SUMMARY | 2024-09-16 12:18 | XMS_ITS | Data Portability ---
Author Organization [facility] [employer], Main Office Address [address] [place] [address] Assessment No assessment recorded. Plan of Treatment Reminders Order Date Submit Date Provider Last Modified By Organization Details Last Modified Time Details Appointments None recorded. Lab TSH, serum or plasma 2024 025 [email or web address] 2 [facility], [address] [place], [address], 5 08:21:43 CBC w/ auto diff 2024 025 [facility], [address] [place], [address], 5 18:57:05 vitamin D, 25-hydroxy, total, serum 2024 025 [facility], [address] [place], [address], 5 13:13:00 vitamin B12 + folate, serum or blood 2024 025 [email or web address] 2 [facility], [address] [place], [address], 5 08:21:43 iron + total iron-bindin g capacity (TIBC), serum 2024 025 [email or web address] 2 [facility], [address] [place], [address], 5 08:21:43 ferritin, serum or plasma 2024 025 [email or web address] 2 [facility], [address] [place], [address], 5 08:21:43 CMP, serum or plasma 2024 025 [email or web address] 2 [facility], [address] [place], [address], 5 08:21:43 magnesium, serum or plasma 2024 025 [email or web address] 2 [facility], [address] [place], [address], 5 08:21:44 Referral sleep medicine referral - Please eval and treat. Please call patient to schedule an appointment . Thank you 2023 024 [email or web address] Nehemiah Lainez MD, [facility] [place], [address], 4 09:29:53 Procedures None recorded. Surgeries None recorded. Imaging XR, facial bones, 3 or more view - left face 2024 025 [email or web address] 256 [facility] ([facility]), [address] [place], [address], 5 08:47:01 XR, mandible, 4 or more view 2024 025 GISELL [facility] ([facility]), [address] [place], [address], 5 09:50:38 XR, elbow, 3 or more view 2024 025 [email or web address] 256 [facility] ([facility] Sched[facility]), [address] [place], [address], 5 08:47:02 XR, forearm, 2 view 2024 025 [email or web address] [facility] ([facility]), [address] [place], [address], 5 17:15:16 XR, wrist, 3 or more view [email or web address] ([facility] Scheduling), [address] [place], [address], 5 08:47:02 XR, hand, 3 or more view 2024 025 [facility] ([facility] Scheduling), [address] [place], [address], 5 17:14:09 XR, shoulder, 2 or more view - Please call pt to schedule 2024 025 [facility] ([facility] Sched[facility]), [address] [place], [address], 5 17:13:09 MRI, lumbar spine, w/o contrast - Please call pt to schedule and get pre-pay 2023 [email or web address] [place] [address] ([facility] Call Scheduling), [address] [place], [address], 4 10:31:49 Medication Orders cyclobenzap rine 10 mg tablet 2024 025 [email or web address] 200 [facility], [address] [place] [address], [id number], 5 16:50:55 phentermine 37.5 mg tablet 2023 024 [email or web address] [facility]/Pharmacy #[id number], [address] [place], [address], 5 13:03:36 tramadol 50 mg tablet 2023 024 [facility]/Pharmacy #[id number], [address] [place], [address], 4 12:56:22 prednisone 20 mg tablet 2023 024 [email or web address] 2 [facility]/Pharmacy #[id number], [address] [place], [address], 4 15:30:10 alprazolam 0.5 mg tablet 2023 024 [facility]/Pharmacy #[id number], [address] [place], [address], 4 12:56:22 tramadol 50 mg tablet 2023 024 [facility]/Pharmacy #[id number], [address] [place], [address], 4 13:03:14 lidocaine 5 % topical cream 2023 024 [email or web address] 200 [facility]/Pharmacy #[id number], [address] [place], [address], 4 14:18:26 Depo-Medrol 80 mg/mL suspension for injection 2023 024 [email or web address] Not available 4 14:47:56 phentermine 37.5 mg tablet 2023 024 [email or web address] [facility]/Pharmacy #[id number], [address] [place], [address], 5 13:03:36 lidocaine 5 % topical patch 2023 024 [facility]/Pharmacy #[id number], [address] [place], [address], 4 09:26:23 acetaminoph en 300 mg-codeine 30 mg tablet 2023 024 [email or web address] [facility][id number], [address] [place], [address], 12:43:52 alprazolam 0.5 mg tablet 2023 024 GISELL [facility][id number], [address] [place], [address], 09:25:21 Patient TargetsNo targets recorded. Patient InstructionsNo [...] more view No observ ation record ed. [email or web address] ([facility] Scheduling) [address] [place], [address], 07/25/2024 16:32:36 07/25/19 25 07/21/2024 XR, shoul patricia, 2 or more view No observ ation record ed. [address] [place], [address], 08/08/2024 17:13:09 07/25/19 25 07/21/2024 XR, elbow , 3 or more view No observ ation record ed. [email or web address] [place], [address], 08/08/2024 17:13:37 07/25/19 25 07/21/2024 XR, hand, 3 or more view No observ ation record ed. [address] [place], [address], 08/08/2024 17:14:09 08/26/19 25 08/25/2024 MAMMO , scree cassia, digit al, bilat eral No observ ation record ed. [id number] [place], [address], 08/29/2024 16:20:46 Result Notes None recorded. Problems Name Problem SNOMED Code Status Onset Date Resolution Date Notes Provider Name and Address Organization Details Recorded Time Disorder of shoulder 645844874 Completed Not Available [facility] 3 16:59:18 Mammogra phic mass of right breast 08145092914 354263 Active 2021 Not Available [facility] 3 16:59:18 Current tear of medial cartilag e AND/OR meniscus of knee Completed Not Available [facility] 3 16:59:18 Vitamin D deficien cy 52565981 Active 2019 Not Available [facility] 3 16:59:18 Hyperten sive disorder 00723842 Active 2019 Not Available [facility] 3 16:59:18 Hypokale glen 91484405 Active 2020 Not Available [facility] 3 16:59:18 Sprain of ankle 31461019 Completed Not Available [facility] 3 16:59:18 Anxiety 21803665 Active 2019 Not Available [facility] 3 16:59:18 COVID-19 540990776 Active 2020 Not Available [facility] 3 16:59:18 Abnormal weight 81850636 Active 2022 JAVON Mart null, [facility] 3 09:17:52 Obesity 204008049 Active 2022 Mathew Johnson MD [address], [place], [address] , [facility] 3 09:32:13 Dyspnea 865043381 Active 2022 Mathew Johnson MD [address], [place], [address] , [place] [facility] 3 09:33:47 Costal chondrit is 17406214 Active 2022 Mathew Johnson MD [address], [place], [address] , [place] [facility] 3 09:38:18 Essentia l hyperten arias 97595235 Active 2022 Mathew Johnson MD [address], [place], [address] , [place] [facility] 3 09:33:02 Pain in left foot 16557845157 9107 Active 2022 Mathew Johnson MD [address], [place], [address] , [place] [facility] 3 09:34:57 Injury of right knee 55055534129 896543 Active 2022 JAMIE Meraz [address], [place], [address] , [facility] 3 10:03:17 Phlebiti s of superfic ial veins of lower extremit y 78266087 Active 2022 JAMIE Meraz [address], [place], [address] , [place] [facility] 3 10:18:00 Pain of left knee joint 26733947343 4107 Active 2022 JAVON Babin, [place] [facility] 3 14:36:27 Pain of right knee joint 45186421898 4100 Active 2022 TACHO Dinh, [place] [facility] 3 16:48:43 Acute tear of medial meniscus of right knee 57574824955 117373 Active 2022 JAMIE Andrews [address], [place], [address] , [place] [facility] 3 16:53:53 Panic attack 465563522 Active 2022 Mathew Johnson MD [address], [place], [address] , [facility] 3 09:37:30 Mixed anxiety and depressi ve disorder 095573677 Active 2022 Mathew Johnson MD [address], [place], [address] , [facility] 3 10:51:13 Synovial cyst of right knee 03640180282 9104 Active 2022 Mathew Johnson MD [address], [place], [address] , [facility] 3 09:54:11 Tremor 62928604 Active 2022 Mathew Johnson MD [address] [address], [place], [address] , [facility] 3 09:56:31 Overweig ht 639500489 Active 2022 Mathew Johnson MD [address] [address], [place], [address] , [facility] 3 09:59:35 Chronic kidney disease 183541749 Active [address] Ziegler in [place] and JAMIE Sarmiento [address], [place], [address] , [facility] 4 13:03:35 Memory impairme nt 468847308 Active 2022 Mathew Johnson MD [address], [place], [address] , [facility] 3 10:01:04 Pruritic rash 09383950 Active 2022 Mathew Johnson MD [address], [place], [address] , [facility] 3 10:41:08 Urinary symptoms 283447730 Active 2022 Mathew Johnson MD [address], [place], [address] , [facility] 3 10:48:30 Sinusiti s 21690170 Active 2023 JAMIE Meraz [address], [place], [address] , [facility] [employer] [facility] 4 15:35:24 Bilatera l earache 388828834 Active 2023 JAMIE Meraz [address], [place], [address] , [facility] 4 13:56:02 Phlebiti s of superfic ial veins of lower extremit y 44756654 Active 2023 JAMIE Meraz [address], [place], [address] , [facility] [employer] [facility] 4 13:56:08 Edema 485360288 Active 2023 JAMIE Meraz [address], [place], [address] , [facility] [employer] [facility] [employer] [facility] 4 12:51:40 Low back pain 480609767 Active 2023 JAMIE Meraz [address], [place], [address] , [facility] [employer] [facility] 4 14:19:51 Excessiv e daytime sleepine ss - normal night sleep 296540384 Active 2023 JAMIE Meraz [address], [place], [address] , [facility] 4 14:21:18 Injury of left shoulder 78654121487 161246 Active 2024 JAMIE Meraz [address], [place], [address] , [facility] [employer] [facility] [employer] [facility] 13:10:55 Injury of face 629615521 Active 2024 JAMIE Meraz [address] [facility] [address], [place], [address] , [facility] [employer] [facility] 13:12:19 Fatigue 43368867 Active 2024 JAMIE Meraz [address] [facility], [address] [address], [place], [address] , [facility] [employer] [facility] [employer] [facility] 13:18:01 Injury of left elbow region 93881755183 093698 Active 2024 JAMIE Meraz [address] [address], [place], [address] , [facility] [employer] [facility] 10:02:26 Notes:Some problems listed i n Document: #[id number] could not be added to this patient's chart. Please review this document and add these problems to the patient's chart manually as needed. Problem Notes None recorded. Procedures Surgical History Date Name Laterality Status Provider Name and Address Organization Details Recorded Time 11/11/19 24 Knee completed Yolande Walker RN [facility] [employer] 05/31/2024 12:46:54 07/13/19 10 Hysterectomy completed Not Available [facility] 023 16:57:30 tarsal tunnel release completed JAVON Babin [facility] [employer] 12/16/2022 14:35:11 Imaging Results Imaging Date Name Status LastModified by Organiz [facility] Details LastModified Time 07/21/2024 XR, mandible, 4 or more view completed [email or web address] ([facility]) [address] [place], [address], 07/25/2024 16:32:36 07/21/2024 XR, shoulder, 2 or more view completed [address] [place], [address], 08/08/2024 17:13:09 07/21/2024 XR, elbow, 3 or more view completed [email or web address] [facility] [address] [place], [address], 08/08/2024 17:13:37 07/21/2024 XR, hand, 3 or more view completed [email or web address] [facility] [address] [place], [address], 08/08/2024 17:14:09 08/25/2024 MAMMO, screening, digital, bilateral completed [email or web address] [address], [address], 08/29/2024 16:20:46 Procedure Notes None recorded. Medical Equipment None Reported. Allergies Allergen ID Allergen Name Allergen Category Reaction Reaction Severity Criticality Documentation Date Start Date Code Code System Note Provider Name and Address Organization Details Recorded Time 01880 Prozac medicatio n other severe Not available 09/10/2022 67073 RxNorm Not Available [facility] 17:01:23 Medications Name Sig Start Date Stop [...] mg by injectio n route. 05/27 completed [facility]: 0003-049 4-20 Not Available Not Available Not [...] mg by injectio n route. 05/27 completed [facility] 75253-45 10-11 Not Available Not Available Not Available Luisana 5 mg tablet,de layed release 06/12 completed Not Available Not Available Not Available potassium chloride ER 20 mEq tablet,ex tended release active HOLD Not Available Not Available Not Available Fluvirin 1122-6098 45 mcg (15 mcg x 3)/0.5 mL [...] Updated DateTime 4 162.56 cm 35.6 kg/m2 60383.6 7 g 98 [degF] 80 /min 20 /min 99 % 99 % 128 mm[Hg] 66 mm[Hg] Jalil Murphy [facility] [employer] [facility] 4 09:17:00 Date Recorded Body height Body mass index (BMI) Body weight Body temperature Respiratory rate Heart rate Oxygen saturation Oxygen saturation in Arterial blood by Pulse oximetry Systolic blood pressure Diastolic blood pressure Provider Name and Address Organization Details Last Updated DateTime 4 162.56 cm 36.9 kg/m2 52877.3 6 g 97.9 [degF] 16 /min 74 /min 99 % 99 % 98 mm[Hg] 66 mm[Hg] Yolande Walker RN [facility] [employer] [facility] 4 14:13:15 Date Recorded Body height Body mass index (BMI) Body weight Body temperature Heart rate Oxygen saturation Oxygen saturation in Arterial blood by Pulse oximetry Systolic blood pressure Diastolic blood pressure Provider Name and Address Organization Details Last Updated DateTime 4 162.56 cm 38.1 kg/m2 824156. 21 g 98.7 [degF] 77 /min 94 % 94 % 110 mm[Hg] 65 mm[Hg] Danica Drake MA [facility] [employer] [facility] 4 12:45:01 Date Recorded Body height Body mass index (BMI) Body weight Body temperature Heart rate Oxygen saturation Oxygen saturation in Arterial blood by Pulse oximetry Systolic blood pressure Diastolic blood pressure Provider Name and Address Organization Details Last Updated DateTime 4 162.56 cm 39 kg/m2 554883. 47 g 98.3 [degF] 86 /min 99 % 99 % 98 mm[Hg] 70 mm[Hg] Yolande Walker RN [facility] [employer] [facility] 4 12:48:46 Date Recorded Body height Body mass index (BMI) Body weight Body temperature Heart rate Oxygen saturation Oxygen saturation in Arterial blood by Pulse oximetry Systolic blood pressure Diastolic blood pressure Provider Name and Address Organization Details Last Updated DateTime 5 162.56 cm 39.5 kg/m2 885402. 25 g 98.3 [degF] 79 /min 98 % 98 % 100 mm[Hg] 70 mm[Hg] Yolande Walker RN [facility] [employer] [facility] 13:06:04 Social History Question Answer Notes LastModified by Organizat ion Details LastModified Time Tobacco Smoking Status Never Smoker Cyndy braun [facility] [employer] [facility] 10/03/2022 09:12:24 What Is Your Level Of Alcohol Consumption? Occasional [id number] Information not available 09/10/2022 What Is Your Level Of Caffeine Consumption? Moderate [id number] Information not available 09/10/2022 How Much Tobacco Do You Chew? None [id number] Information not available 09/10/2022 In The 14 Days Before Symptom Onset, Have You Had Close Contact With A Laboratory-confir med COVID-19 While That Case Was Ill? No [email or web address] Information not available 10/03/2022 In The 14 Days Before Symptom Onset, Have You Had Close Contact With A Person Who Is Under Investigation For COVID-19 While That Person Was Ill? No [email or web address] Information not available 10/03/2022 What Type Of Diet Are You Following? REGULAR [id number] Information not available 09/10/2022 Which Illicit Or Recreational Drugs Have You Used? No Information not available 10/03/2022 Do You Or Have You Ever Used E-cigarettes Or Vape? Never Used Electronic Cigarettes [email or web address] Information not available 10/03/2022 Have You Ever Been Counseled For Unhealthy Alcohol Use? No [email or web address] Information not available 10/03/2022 Do You Or Have You Ever Used Smokeless Tobacco? Never Used Smokeless Tobacco [id number] Information not available 09/10/2022 Do You Use Any Illicit Or Recreational Drugs? No [email or web address] Information not available 10/03/2022 Has Tobacco Cessation Counseling Been Provided? No [email or web address] Information not available 10/03/2022 Have You Recently Traveled Abroad? No Information not available 10/03/2022 Do You Have Any Dietary Restrictions? No Information not available 10/03/2022 Do You Or Have You Ever Used Any Other Forms Of Tobacco Or Nicotine? No Information not available 10/03/2022 Sex: Unknown Functional Status Question Answer Note LastModified by Organizat ion Details LastModified Time What is your exercise level? None [id number] Information not available 09/10/2022 Mental Status None recorded. Family History Relationship Description Onset Age of this Age Resolved Age Notes LastModified by Organization Details LastModified Time Mother Heart disease [email or web address] Not available 2022 14:34:04 Maternal Grandmother Family history of malignant neoplasm [email or web address] Not available 01/12 12:14:24 Notes:low BP, & BS mom & Sis ter Medical History Condition Response BLINDNESS N RHEUMATIC FEVER N BLADDER PROBLEMS N KIDNEY STONES N OTHER # 1 N POLIO N LUNG DISEASE/DISORDER N RADIATION / CHEMOTHERAPY N COPD N Other # 2 N BLOOD DISEASES N SURGERY N EAR OR HEARING PROBLEMS N MUMPS N BOWEL PROBLEMS N FEMALE PROBLEMS / INFECTIONS N DEPRESSION (INCLUDING POST ) N STROKE/TIA N THYROID DISEASE N ULCERS [...] HAVE YOU BEEN HOSPITALIZED OR SEEN IN [facility] IN THE PAST YEAR ? N ATHEROSCLEROSIS [...] mcg/0.3 mL dose 2 completed Regina Arnold ETYMOLOGY TEACHER null, [employer] 04/08/2023 10:33:22 COVID-19, mRNA, LNP-S, PF, 30 mcg/0.3 mL dose 1 completed Regina Arnold CMA null, [employer] 04/08/2023 10:33:22 Influenza, split virus, quadrivalent, preservative 0 completed Not Available [facility] 09/10/2022 17:01:19 Influenza, split virus, quadrivalent, PF 2 completed Not Available [facility] 09/10/2022 17:01:19 Influenza, split virus, quadrivalent, PF 3 completed Mathew Johnson MD [address] [place] [address], [address], [facility] [employer] [facility] [employer] 04/06/2023 18:38:18 Past Encounters Encounter ID Performer Location Encounter Start Date Encounter Closed Date Diagnosis/Indication Diagnosis SNOMED-CT Code Diagnosis ICD10 Code Diagnosis Note [id number] [facility] [address] [place] [address] 09/11/2020 00:00:00 09/11/2020 09:41:45 [id number] [facility] [place] [address] 09/18/2020 00:00:00 09/18/2020 10:28:32 [id number] [facility] [place] [address] [place] [address] 12/18/2020 00:00:00 12/19/2020 08:09:36 [id number] [facility] [place] [address] [place] [address] 05/02/2021 00:00:00 05/02/2021 15:37:39 [id number] [facility] [place] [address] [facility] [place] [address] 10/24/2021 00:00:00 10/24/2021 10:19:23 [id number] [facility] [place] [address] [facility] [place] [address] 05/19/2022 00:00:00 05/19/2022 09:06:36 [id number] [facility] [place] [address] [facility] [place] [address] 05/28/2022 00:00:00 05/28/2022 13:33:08 [id number] [facility] [place] [address] [facility] [place] [address] 08/15/2022 00:00:00 08/15/2022 17:09:03 [id number] Mathew Johnson MD [facility] [place] [address] [place] [address] [place] [address] 10/03/2022 09:10:12 10/03/2022 09:45:56 Obesity 180545274 E66.9 Call for refills. F/u in 2 months. Dyspnea 634207854 R06.00 May need to see pulmonolog ist. Costal chondritis 062782 04 M94.0 Heat and NSAIDs [id number] Mathew Johnson MD [facility] [place] [address] [place] [address] 12/03/2022 09:14:26 12/03/2022 09:38:24 Essential hypertension 81814842 I10 Recheck BP 160/108. Watch salt in diet and check BP away from here. If continues to be high needs f/u appt. Anxiety 08374572 F41.9 Call for refills of alprazolam Pain in left foot 553660 0385 93931 M79.672 Ice and elevate and see bark skinner if needed. [id number] [facility] [address] [place] [address] [place] [address] 12/15/2022 09:43:13 12/15/2022 10:21:51 Injury of right knee 0543665396 4350141 S89.91XA Phlebitis of superficial veins of lower extremity 76192655 I80.02 ankle, left [id number] JAMIE Andrews [facility] [place] [address] [place] [address] 12/16/2022 14:07:59 12/18/2022 15:31:05 Pain of right knee joint 0227246693 82016 M25.561 Acute tear of medial meniscus of right knee 5245563843 3855091 S83.241A [id number] Alfredo Castellanos MD [facility] [place] [address] [place] [address] 12/30/2022 15:02:49 12/30/2022 15:54:54 Acute tear of medial meniscus of right knee 7525950109 3906669 S83.241A Injury of right knee 850 7328681 1863640 S89.91XA Pre-surger y evaluation 746428830 Z01.818 [id number] Mathew Johnson MD [facility] [address] [place] [address] [place] [address] 12/30/2022 15:56:27 12/30/2022 16:22:35 Acute tear of medial meniscus of right knee 9230677152 1816731 S83.241D RICE and NSAIDs [id number] Mathew Johnson MD [facility] [address] [place] [address] 02/02/2023 09:42:26 02/02/2023 10:06:39 Anxiety 67325980 F41.9 Call for refills of alprazolam . Double up on lexapro and call for 20 mg dosage. Essential hypertension 81221740 I10 Recheck BP 160/100. Watch salt in diet and check BP away from here. If continues to be high needs f/u appt. [id number] Mathew Johnson MD [facility] Donato mcmahon [address] [place] [address] [place] [address] 03/06/2023 08:45:28 03/06/2023 09:45:59 Pain of right knee joint 1632569109 80943 M25.561 Panic attack 629148723 F 41.0 Take 1 po TID prn and call when runs out for refill to TID 3 #90Continu e counseling . F/u in 1 month [id number] Mathew Johnson MD [facility] Donato mcmahon [facility] [place] [address] 04/06/2023 09:11:48 04/06/2023 10:02:35 Synovial cyst of right knee 9854266065 15582 M71.21 f/u with ortho Tremor 44921070 R25.1 Overweight 887676799 E66 .3 Continue phentermin e Chronic ki dney disease 611484434 N18.9 F/u with nephrologi st. Memory impairment 150307 006 R41.3 Brain fog. Administra tion of influenza vaccine 55747164 Z23 [id number] Mathew Johnson MD [facility] Donato mcmahon [address] [place] [address] [place] [address] 04/08/2023 10:17:46 04/08/2023 11:05:58 Pruritic rash 99771841 L28.2 Urinary symptoms 9108797 08 R39.9 F/u with nephrologi st seeing them for urinary retention. [id number] Mathew Johnson MD [facility] Donato mcmahon [address] [place] [address] [place] [address] 04/27/2023 09:54:55 04/27/2023 10:35:35 Essential hypertension 40037014 I10 Recheck BP 120/80. Watch salt in diet and check BP away from here Start new BP meds. Losartan/h ct and amlodipine F/u in 2 weeks. Call if BPs are running high still.Has renal artery stenosis. [id number] Mathew Johnson MD [facility] Donato mcmahon [address] [place] [address] [place] [address] 05/11/2023 11:55:21 05/11/2023 12:19:45 Essential hypertension 00311303 I10 Recheck BP 120/70. Watch salt in diet and check BP away from here. Call if BPs are running high. F/u in 3 monthsHas renal artery stenosis. F/u with nephrologi st/vascula r surgeon Mixed anxi ety and depressive disorder 843646080 F41.8 Continue current meds. [id number] Mathew Johnson MD [facility] Donato mcmahon [address] [place] [address] [place] [address] 05/27/2023 12:49:03 05/27/2023 13:54:17 Essential hypertension 41381774 I10 F/u in 2 weeks. D/c labetolol and start propranolo l. Renewal of prescription 476818568 Z76.0 Tremor 40538989 R25.1 Will try propranolo l for this and d/c the labetolol [id number] JAMIE Meraz [facility] Donato mcmahon [facility] [place] [address] 07/14/2023 14:56:53 07/14/2023 15:45:15 Vitamin D deficiency 58814632 E55.9 Acute tear of medial meniscus of right knee 2288560388 3208918 S83.241D [id number] JAMIE Meraz [facility] [place] [address] [place] [address] 10/14/2023 09:10:49 10/14/2023 09:41:51 Chronic kidney disease 801238416 N18.9 Acute tear of medial meniscus of right knee 3826852120 8640347 S83.241D Essential hypertension 97989232 I10 Mixed anxi ety and depressive disorder 186063223 F41.8 Obesity 708923238 E66.9 Anxiety 69859445 F41.9 Vitamin D deficiency 347 60278 E55.9 [id number] JAMIE Meraz [facility] [place] [address] [place] [address] 11/18/2023 13:43:13 11/18/2023 14:31:55 Pain of right knee joint 2166178623 87790 M25.561 Low back pain 816232566 M54.50 Excessive daytime sleepiness - normal night sleep 858034745 G47.19 Anxiety 10832916 F41.9 Chronic ki dney disease 634564136 N18.9 Essential hypertension 36818262 I10 Obesity 043528324 E66.9 Synovial c yst of right knee 1937349659 07224 M71.21 Vitamin D deficiency 347 99929 E55.9 [id number] JAMIE Meraz [facility] [place] [address] [place] [address] 01/13/2024 12:11:59 01/13/2024 13:58:49 Acute tear of medial meniscus of right knee 7378941631 8134465 S83.241D Anxiety 40204100 F41.9 Chronic ki dney disease 629825625 N18.9 Essential hypertension 66837970 I10 Obesity 303804813 E66.9 Panic attack 674650497 F 41.0 Vitamin D deficiency 347 12504 E55.9 [id number] JAMIE Meraz [facility] [place] [address] [place] [address] 05/31/2024 12:30:19 05/31/2024 13:05:31 Anxiety 30726273 F41.9 Acute tear of medial meniscus of right knee 6711960903 3489128 S83.241D Obesity 627000579 E66.9 Low back pain 331781736 M54.50 Essential hypertension 52475461 I10 Vitamin D deficiency 347 67938 E55.9 Panic attack 937071409 F 41.0 Chronic ki dney disease 602689674 N18.9 Injury of right knee 547 2563444 1856332 S89.91XA Mixed anxi ety and depressive disorder 292238176 F41.8 [id number] JAMIE Meraz [facility] [address] [place] [address] 07/21/2024 12:46:53 07/21/2024 13:44:36 Injury of left shoulder 2267587053 6844231 S49.92XA Injury of face 652544019 S09.93XA Fatigue 57257109 R53.83 Health Concerns Section Related Observation LastModified by Organization Detai ls LastModified Time None Recorded Concern Status LastModified by Organization Details LastModified Time None Recorded Advance Directives Directive None Recorded Payers Encounter Date Sequence Insurance Name Policy Number Policy Bell Covered Member ID Bell Member ID Guarantor Name 10/14/2023 1 [facility] [id number] Carmen Garza [id number] Carmen Garza 11/18/2023 1 [facility] [id number] Carmen Garza [id number] Carmen Garza 01/13/2024 1 [facility] [id number] Carmen Garza [id number] Carmen Garza 05/31/2024 1 *SELF PAY* Chloe Garza 07/21/2024 1 [place] [id number] Carmen Garza [id number] Carmen Garza Notes Date Note Type Note Provider Name and Address Organization Details Recorded Time 10/14/2023 text/html almost a year with no alcohol. lidocaine patch denied. buying 4% patches otc , expensive JAMIE Meraz [address], [place] [address], [place], [address], [facility] [employer] 10/26/2023 15:11:59 11/18/2023 text/html seeing ortho JAMIE Meraz [address], [place], [address], [facility] 12/06/2023 22:52:36 01/13/2024 text/html had knee surgery, doing well JAMIE Meraz [address], [place], [address], [employer] 02/06/2024 10:48:28 05/31/2024 text/html ortho drained off a lot of fluid right knee JAMIE Meraz [address], [place], [address], [employer] 06/18/2024 18:58:59 07/21/2024 text/html fell , left elbow really hurts and is bruise , left shoulder too , left wrist , forearm , hand , facial bones , left jaw swollen JAMIE Meraz [address], [place], [address], [facility] 07/26/2024 16:54:08 OBGyn Episode No OBEpisode recorded.
--- OUTSIDE RECORDS SUMMARY | 2024-09-16 12:18 | XMS_ITS | CONTINUITY OF CARE DOCUMENT ---
Author Name caty alememily Address Unknown Organization [facility] Address [address] [place] [address] Phone [phone] Care Team Providers Care Applications Project Manager Name Role Phone Rosy BAUGH, Yvon Unavailable [phone] JAI MILTON Unavailable [phone] JAI MILTON Unavailable PROBLEMS Condition Status Date [...] In-person encounter Office Visit Yvon Gallegos MD [facility] - In-person encounter Office Visit Yvon Gallegos MD [facility] - In-person encounter Office Visit Yvon Gallegos MD [facility] - In-person encounter Office Visit Yvon Gallegos MD [facility] - In-person encounter Office Visit Franklin Quinn MD [facility] - In-person encounter Office Visit Franklin Quinn MD [facility] PVC'sCOVID antibodies positive, swab negDizzinessHypokalemiaDyspneaHeadaches - In-person encounter Office Visit Yvon Gallegos MD [facility] Postural orthostatic tachycardia syndrom e - In-person encounter Office Visit Yvon Gallegos MD [facility] HTN screeningHyperlipidemiaHypertensionSleep apnea, obstructive, mildObesityTIA VITAL [...] Cristobal blood pressure, systolic 144 mm[Hg] [facility] Cristobal oxygen saturation, oximetry 95 % Yamile [...] Brandt lder weight E&M 232 [lb_av] Nancy watkniser height E&M 63 [in_i] Nancy Gruenenfe lder ALLERGIES Allergy Name Onset Date Reaction Criticality Status PROZAC Low Criticality active RESULTS Date Observation Value Provider Reference Range Interpretation Location ferritin, serum 127 ng/mL [facility] 15-150 iron saturation percent, serum 35 % [facility] 15-55 iron, serum 105 ug/dL [facility] 27-159 iron binding capacity, unsaturated 191 ug/dL [facility] 393-714 0702/09/ 29 iron binding capacity, total 296 ug/dL [facility] 750-430 5778/09/ 29 lipoprotein, beta, serum, point, quantitative, calculated [...] [facility] 3.5-5.2 sodium, serum 141 mmol/L [facility] 370-784 1705/09/ 29 urea nitrogen/creatinine ratio, serum 26 [facility] [...] Not Estab. platelet count 230 X10E3/UL [facility] 498-134 6288/09/ 29 red blood cell distribution width 13.2 [...] [facility] 0-130 platelet count 254 X10E3/UL [facility] 145-544 8613/04/ 10 red blood cell distribution width 13.2 [...] [facility] 3.5-5.2 sodium, serum 142 mmol/L [facility] 664-447 2658/04/ 10 urea nitrogen/creatinine ratio, serum 18 [facility] [...] USE Medication Status Instructions Dates Provider Indications [facility] lóen Ozempic 0.25 mg or 0.5 mg(2 mg/1.5 [...] active Take 1 once a day Latasha Bond hydrochlorothiazide 50 mg tablet active TAKE 1/2 TABLET BY MOUTH EVERY DAY 08/11 Latasha Bond Vitamin D2 1,250 mcg (50,000 unit) [...] mouth once a day 10/22 - 02/04 Tea Hudson hydrochlorothiazide 50 mg tablet completed Take [...] Payer name Policy type / Coverage type Cecil red republican ID AARP MEDICARE ADVANTAGE HMO-POS HMO [id number] ADVANCE DIRECTIVES Name Date DISCUSSED - NO DECISION MADE TREATMENT PLAN Date Name Performer [id number],S, Yvondavid alexander MD [id number],B, Yvondavid Aburtoada benjamin BAUGH [id number],S, Yvondavid Aburtoada benjamin BAUGH [id number],S, Yvon alexander MD [id number],B, Yvon alexander MD [id number],B, Yvon Aburtoada benjamin BAUGH [id number],S, Yvon alexander MD [id number],B, Yvon Lamonteada benjamin BAUGH [id number],S, Yvon Ramada benjamin BAUGH [id number],S, Yvon Aburtoada benjamin BAUGH [id number],S, Yvon Ramada benjamin BAUGH [id number],B,Lost 25 pound s. Yvon Gallegos MD [id number],S, Yvon Ramada benjamin BAUGH [id number],S, Yvon Ramada benjamin BAUGH [id number],B, Yvon Ramleo alexander MD Cardiology Yvon Gallegos [...] reduced dose. 631 total out of a 295054 beats analyzed roughly 0.1% burden. R hythm: [...] w Patient 13: O rders: A ldosterone (943713) C ortisol (059696) M etanephrines, Frac., Pl. Free (881068) C BC (H/H, RBC, INDICES, WBC, PLT) (1129) K idney Ultrasound (CPT-34862) U RINALYSIS, COMPLETE W/REFLEX TO CULTURE (3020) [facility] Brett Electrophysiology Ne w Patient 13: O rders: B ASIC METABOLIC PANEL W/EGFR (12436) K idney Ultrasound (CPT-82404) U RINALYSIS, COMPLETE W/REFLEX TO CULTURE (3020) [...] 13: 6 31 total out of a 421267 beats analyzed roughly 0.1% burden. H er [...]
--- OUTSIDE RECORDS SUMMARY | 2024-09-16 12:18 | XMS_ITS | Clinical Summary ---
Author Organization [facility] Agatha Wilcox Address [address] [place] [address] Care Team Providers Care Recreation Facility Manager Name Role Phone Kendra Leslie Primary Care Provider [phone] Allergies Active Allergy Reactions Criticality Noted Date [...] age to complete this topic Care Teams Recreation Facility Manager Relationship Specialty Start Date End Date Kendra Leslie ANP [address] [address] PCP - General Nurse Practitioner Adult Health 10/26/20
--- OUTSIDE RECORDS SUMMARY | 2024-09-16 12:18 | XMS_ITS | Referral Summary ---
Author Organization [facility] Address [address] [place] [address] Care Team Providers Care Installment Account Checker Name Role Phone Regina Lieberman BILINGUAL SPEECH LANGUAGE PATHOLOGIST Unavailable Marine Yost Unavailable [phone] Becca Valles BILINGUAL SPEECH LANGUAGE PATHOLOGIST Primary Care Provider Encounters Date Type Department Care Team Description 08/25/2024 2:59 PM CLINICAL ESTHETICIAN - 08/25/2024 11:59 PM [facility] Hospital Encounter [facility] Medicine Breast Imaging [facility] Advanced Medicine ([facility]) [address] [place] [address] Screening mammogram, encounter for Discharge Disposition: [...] 05/07/2023 Assessment & Plan (05/27/2023 2:06 PM CLINICAL ESTHETICIAN): No evidence of renal artery stenosis based [...] 09/25/2020 Assessment & Plan (05/27/2023 2:07 PM CLINICAL ESTHETICIAN): Recommend statin therapy. Assessment & Plan (05/07/2023 2:09 PM CDT): Recommend statin therapy. Obesity 09/25/2020 Transient ischemic attack 09/11/2020 Anxiety 06/11/2020 Hypertension 06/11/2020 Assessment & Plan (05/27/2023 2:06 PM CLINICAL ESTHETICIAN): Ongoing workup by her PCP. Continue Norvasc [...] on file Legal Sex Female 3:10 AM CLINICAL ESTHETICIAN Gender Identity Female 04/29/2023 12:37 PM CDT [...] Read Routine (OP Routine) 08/25/2024 3:16 PM CLINICAL ESTHETICIAN Screening mammogram, encounter for from Last 3 Months Results * Screening Mammogram Bilateral W Lonny (08/25/2024 3:16 PM CLINICAL ESTHETICIAN) Anatomical Region Laterality Modality Breast Bilateral Mammography Narrative 08/26/2024 2:25 PM CLINICAL ESTHETICIAN Mammogram Technique: Bilateral Digital Breast Tomosynthesis, Bilateral C-view 2D Screening mammogram. Views obtained: bilateral craniocaudal and bilateral mediolateral oblique. Computer Aided Detection was performed. Mammogram Findings: The present examination has been compared to prior imaging studies performed at [facility] on 07/11/2022, 07/28/2022 and 07/15/2023. The breasts [...] to prior imaging studies performed at [facility] on 07/11/2022, 07/28/2022 and 07/15/2023. The breasts [...] nal Result from Last 3 Months Insurance [facility] CHOICE PLUS [facility] CHOICE PLUS [place] [facility] CORE HEALTH PLAN [place] Care Teams Installment Account Checker Relationship Specialty [place] [address] [place] [address] PCP - General Nurse Practitioner 08/22/24 Regina Lieberman, LILIAN [address] [place] [address] Nurse Practitioner Nurse Practitioner 07/11/22 Marine Yost PA [address] [place] [address] [address] [place] [address] Physician Vehicle Operator Technician Orthopedic Surgery 03/05/23
--- OUTSIDE RECORDS SUMMARY | 2024-09-16 12:18 | XMS_ITS | Encounter Summary ---
Author Organization [facility] Address [address] [place] [address] Phone Care Team Providers Care Manager Mutual Fund Name Role Phone Mathew Johnson MD Primary Care Provider [phone] Reason for Visit * Reason Comments Med Refill Encounter Details Date Type Department Care Team ([facility] st Contact Info) Description 07/08/2023 Refill [facility] [address] [facility] [address] [place] [address] Ann Dickerson NP [address] [address] Social History Tobacco Use Types [...] on filedocumented in this encounter Care Teams Manager Mutual Fund Relationship Specialty Start Date End Date Mathew Johnson MD [address] [place], [place] [address] [place] [address] PCP - General Family Medicine 04/08/23 documented as of this encounter
--- OUTSIDE RECORDS SUMMARY | 2024-09-16 12:18 | XMS_ITS | Clinical Summary ---
Author Organization [facility] bustillos Address [address], [place] [address] Phone Care Team Providers Care Buckle Frame Shaper Name Role Phone Mathew Johnson MD Primary Care Provider [phone] Allergies Active Allergy Reactions Criticality Noted Date [...] chew. Active ergocalciferol (VITAMIN D-2) 1.25 MG (35954 UT) capsule Take 50,000 Units by mouth [...] Comments Blood Pressure 112/78 09/08/2023 3:58 PM MOUNTAIN OR GLACIER GUIDE Pulse 68 09/08/2023 3:58 PM MOUNTAIN OR GLACIER GUIDE Temperature 36.8 C (98.2 F) 10/24/2021 2:01 PM CDT Respiratory Rate - - Oxygen Saturation - - Inhaled Oxygen Concentration - - Weight 90.3 kg (199 lb) 09/08/2023 3:58 PM MOUNTAIN OR GLACIER GUIDE Height 162.6 cm (5' 4 ) 12/23/2023 3:57 PM CDT Body Mass Index 34.16 09/08/2023 3:58 PM MOUNTAIN OR GLACIER GUIDE Plan of Treatment Health Maintenance Due Date Last Done Comments Pneumococcal PPSV23 Highest Risk Adult (1 of 3 - PCV13) 1998 Influenza Vaccine (#1) 2024 3, 05/19/2022, 03/30/2019, Additional history exists Care Teams Buckle Frame Shaper Relationship Specialty Start Date End Date Mathew Johnson MD [address] [place] [address] Dr. Del[address] [place] [address] PCP - General Family Medicine 04/08/23
--- OUTSIDE RECORDS SUMMARY | 2024-09-16 12:18 | XMS_ITS | Clinical Summary ---
Author Organization [facility] Address [address] [place] [address] Care Team Providers Care Valve Mechanic Name Role Phone Regina Lieberman POST SECONDARY PROFESSIONAL Unavailable Marine Yost Unavailable Becca Valles NP [...] 05/07/2023 Assessment & Plan (05/27/2023 2:06 PM SOLE BUFFER): No evidence of renal artery stenosis based [...] 09/25/2020 Assessment & Plan (05/27/2023 2:07 PM SOLE BUFFER): Recommend statin therapy. Assessment & Plan (05/07/2023 2:09 PM CDT): Recommend statin therapy. Obesity 09/25/2020 Transient ischemic attack 09/11/2020 Anxiety 06/11/2020 Hypertension 06/11/2020 Assessment & Plan (05/27/2023 2:06 PM SOLE BUFFER): Ongoing workup by her PCP. Continue Norvasc [...] Department Care Team Description 08/25/2024 2:59 PM SOLE BUFFER - 08/25/2024 11:59 PM SOLE BUFFER Hospital Encounter [facility] Breast Imaging Advanced Medicine ([facility]) [address] [place] [address] Screening mammogram, encounter for Discharge Disposition: Discharge [...] Peptic ulceration Rheumatoid arthritis (HCC) Migraines Covid-19 09/19/2020 Complex tear of medial meniscus of right knee 02/13/2023 Phlebitis of superficial veins of lower extremit y 12/15/2022 Chronic kidney disease Anxiety Family History Medical [...] on file Legal Sex Female 3:10 AM SOLE BUFFER Gender Identity Female 04/29/2023 12:37 PM CDT [...] Read Routine (OP Routine) 08/25/2024 3:16 PM SOLE BUFFER Screening mammogram, encounter for from Last 3 Months Results * Screening Mammogram Bilateral W Lonny (08/25/2024 3:16 PM SOLE BUFFER) Anatomical Region Laterality Modality Breast Bilateral Mammography Narrative 08/26/2024 2:25 PM SOLE BUFFER Mammogram Technique: Bilateral Digital Breast Tomosynthesis, Bilateral C-view 2D Screening mammogram. Views obtained: bilateral craniocaudal and bilateral mediolateral oblique. Computer Aided Detection was performed. Mammogram Findings: The present examination has been compared to prior imaging studies performed at [facility] on 07/11/2022, 07/28/2022 and 07/15/2023. The [...] compared to prior imaging studies performed at [facility] on 07/11/2022, 07/28/2022 and 07/15/2023. The [...] nal Result from Last 3 Months Insurance [facility] CHOICE PLUS [facility] CHOICE PLUS [place] Care Teams Valve Mechanic Relationship Specialty [place] [address] [place] [address] PCP - General Nurse Practitioner 08/22/24 Regina Lieberman, LILIAN [address] [place] [address] Nurse Practitioner Nurse Practitioner 07/11/22 Marine Yost PA [address] [place] [address] [address] [place] [address] Physician Roustabout Crew Leader Orthopedic Surgery 03/05/23
--- OUTSIDE RECORDS SUMMARY | 2024-09-16 12:18 | XMS_ITS | Continuity of Care Document ---
Author Organization [facility] Address [address] [place] [address] Phone Care Team Providers Care Ice Skating Instructor Name Role Phone Fadia Prescott Unavailable Unavailable Procedures Procedure Date Office Consultation Advance Directives Directive Yes / No Effective Date File Name No Information Encounters Encounter Description Practice Location Reason(s) For Visit Diagnoses Date Provider Providers Copied on Encounter Office Consultation [facility], [address], [place], [place], [id number], [place] tel:[phone] [facility] No Information [address] , [address], [place], [address], [place]. tel:[phone] Referring Provider: Janessa Quach OD, [address] [facility], [place], [address]. tel:[phone] Family History Family Member Type Diagnosis Age At Onset No Information Payers Payer name Insurance type Covered constitution party ID Authoriza tion(s) [place] Out [place] [id number] Social History Type Description Quantity Date Captured [...]
--- OUTSIDE RECORDS SUMMARY | 2024-09-16 12:18 | XMS_ITS | Encounter Summary ---
Author Organization [facility] Address [address] [place] [address] Care Team Providers Care Director Of Dance Name Role Phone Gumaro Abdalla MD Primary Care Provider [phone] Kendra Leslie NP Primary Care Provider [phone] Encounter Details Date Type Department Care Team (Late st Contact Info) Description 12/10/2018 Hospital Orders Only [facility] Multispecialty Care - [facility] [address] [facility], [address] [place] [address] Ted Gillespie MD [address] [place] [address] Social History Tobacco Use Types Packs/Day Years [...] on filedocumented in this encounter Care Teams Director Of Dance Relationship Specialty Start Date End Date Gumaro Abdalla MD [address] [place] [id number] PCP - General FAMILY PRACTICE 01/04/19 09/04/20 Kendra Leslie NP [address] [place] [address] PCP - General NURSE PRACTITIONER 09/05/20 documented as of this encounter
--- OUTSIDE RECORDS SUMMARY | 2024-09-16 12:19 | XMS_ITS | Clinical Summary ---
Author Organization [facility] Address [address] [place] [address] Care Team Providers Care Air And Water Tester Name Role Phone Kendra Leslie NP Primary Care Provider [phone] Allergies Active Allergy Reactions Criticality Noted Date Comments Fluoxetine Swelling Medium 01/04/2019 Latex Rash Low 09/03/2020 Skin breaks out. Medications ALPRAZolam 0.5 MG tablet Take 0.5 mg by mouth 2 (two) times daily as needed for Anxiety. 0 9 Active vitamin D2, ergocalciferol, 43209 UNITS capsule Take 50,000 Units by mouth [...] Comments Blood Pressure 116/74 09/13/2020 11:12 AM PRODUCT MANAGEMENT INTERN Pulse 93 09/13/2020 11:12 AM PRODUCT MANAGEMENT INTERN Temperature 36.6 C (97.8 F) 09/13/2020 11:12 AM PRODUCT MANAGEMENT INTERN Respiratory Rate 16 09/13/2020 11:1 2 AM PRODUCT MANAGEMENT INTERN Oxygen Saturation 99% 09/13/2020 11: 12 AM PRODUCT MANAGEMENT INTERN Inhaled Oxygen Concentration - - Weight 108.9 kg (240 lb 1.3 oz) 09/13/2020 6:28 AM PRODUCT MANAGEMENT INTERN Height 160 cm (5' 3 ) 09/11/2020 11:44 AM PRODUCT MANAGEMENT INTERN Body Mass Index 42.53 09/11/2020 11:44 AM PRODUCT MANAGEMENT INTERN Plan of Treatment Health Maintenance Due Date Last Done Comments ASCVD Statin 1979 Colorectal Cancer Screening Colonoscopy (10 Years) 1979 Annual Physical 1982 PHQ-2 (Physician [place]) 1991 Hepatitis C 1997 DTaP, Tdap and Td Vaccines (1 - Tdap) 1998 Hepatitis B Vaccines (1 of 3 - 19+ 3-dose series) 1998 ASCVD LDL 09/12/2021 09/12/2020 COVID-19 Vaccine (3 - 2023-25 season) 2024 08/02/2021, 07/12/2021 Influenza Adult (#1) 2024 04/06/2023, 05/19/2022, 06/12/2020, Additional history exists PHQ-2 (Physician [place]) 07/13/2024 Mammogram Screening 07/15/2025 07/15/2023, 07/28/2022, 07/11/2022, [...] Comments LIPID PANEL Routine 09/12/2020 6:05 AM PRODUCT MANAGEMENT INTERN from Last 3 Months or Most Recently Relevant to Health Maintenance Results * (ABNORMAL) LIPID PANEL (09/12/2020 6:05 AM PRODUCT MANAGEMENT INTERN) CHOLESTEROL 198 <200 MG/DL 09/12/2020 7:05 AM [facility] TRIGLYCERIDES 138 <150 MG/DL 09/12/2020 7:05 AM [facility] HDL 49 >40.0 MG/DL 09/12/2020 7:05 AM [facility] LDL (CALCULATED) 121(H) <100 MG/DL 09/12/2020 7:05 AM [facility] NON HDL CHOLESTEROL 149(H) <130 MG/DL 09/12/2020 7:05 AM [facility] CHOL/HDL RATIO 4.0 0.0 - 4.5 09/12/2020 7:05 AM [facility] VLDL CALCULATION 28 5 - 55 MG/DL 09/12/2020 7:05 AM PRODUCT MANAGEMENT INTERN [facility] LIPID INTERPRETATION 09/12/2020 7:05 AM PRODUCT MANAGEMENT INTERN [facility] Comment: NIH CONCENSUS REPORT RECOMMENDATIONS: ADULT CHILD LOW RISK: CHOLESTEROL <200 <170 TRIGLYCERIDE <150 --- HDL >=60 --- LDL <100 <110 BORDERLINE: CHOLESTEROL 200-239 170-199 TRIGLYCERIDE 150-199 --- HDL 40-59 --- LDL 100-159 110-129 HIGH RISK: CHOLESTEROL >=240 >=200 TRIGLYCERIDE >=200 --- HDL <40 --- LDL >=160 >=130 09/12/2020 6:05 AM PRODUCT MANAGEMENT INTERN Regina Mcgraw NP LABORATORY Final Resul t [facility] [address] [place] [address], from Last 3 Months or Most Recently Relevant to Health Maintenance [place] [address] [place] [address] Advance Directives * Full Code (Latest Code Status on File) Date Activated Date Inactivated Comments 09/11/2020 10:52 AM 09/13/2020 5:53 PM * Full Code Date Activated Date Inactivated Comments 09/03/2020 7:26 PM 09/06/2020 12:43 PM Care Teams Air And Water Tester Relationship Specialty Start Date End Date Kendra Leslie NP [facility] [place] [address] PCP - General NURSE PRACTITIONER 09/05/20
--- OUTSIDE RECORDS SUMMARY | 2024-09-16 12:19 | XMS_ITS | Encounter Summary ---
Author Organization [facility] Healthcare Address [address] [place] [address] Care Team Providers Care Test Evaluator Name Role Phone Unavailable Primary Care Provider Unavailabl e Reason for Visit * Diagnostic Imaging (Routine) - Closed Specialty Diagnoses / Procedures Referred By Kyle wong Referred To Contact Procedures Breast Imaging Screening Outside Reference Dina Otero NP Phone: tel: fax: Referral ID Status Reason Start Date Expiration Date Visits Re quested Visits Authorized [id number] Closed 08/12/2021 09/11/2022 1 1 Encounter Details Date Type Department Care Team (Late st Contact Info) Description 03/20/1916 Hospital Encounter [facility] [address] [place] [address] [id number] Social History Tobacco Use Types Packs/Day Years [...] on file Legal Sex Female 3:10 AM VEST MAKER Gender Identity Female 04/29/2023 12:37 PM CDT Sexual Orientation Straight 04/29/2023 12 :37 PM CDT documented as of this encounter Functional Status documented as of this encounter Plan of Treatment Not on file documented as of this encounter Procedures Procedure Name Priority Date/Time Associated Diagnosis Comments BREAST IMAGING MG SCREENING OUTSIDE REFERENCE Routine 03/20/1916 12:00 AM VEST MAKER documented in this encounter Results * Breast Imaging Screening Outside Reference (03/20/1916 12:00 AM VEST MAKER) Impressions [facility] - 08/12/2021 4:29 PM VEST MAKER These images are for Reference purposes only and have not been reviewed by [facility]. There will be no report generated by a [facility] Radiologist. Narrative [facility] - 08/12/2021 4:29 PM VEST MAKER EXAMINATION: Images For Reference Purposes Only us Dina Otero NP IMG MAMMO PROCEDURES Fin al Result [facility] documented in this encounter Visit Diagnoses Not on filedocumented in this encounter
--- OUTSIDE RECORDS SUMMARY | 2024-09-16 12:19 | XMS_ITS | Encounter Summary ---
Author Organization [facility] Address [address] [place] [address] Care Team Providers Care Umbrella Frame Maker Name Role Phone Chava Leslieie LILIAN Primary Care Provider [phone] Encounter Details Date Type Department Care Team (Late st Contact Info) Description 09/14/2020 Hospital Follow-up Call [facility] Telemetry Unit A [facility] [address] Brittney Parham, RN Social History Tobacco Use [...] COVID-19? No / Unsure 09/11/2020 11:43 AM FURNACE COMBUSTION ANALYST documented as of this encounter Functional Status * RETIRED Are you deaf or do you have serious difficulty hearing Answer Date of Assessment Author Status No 09/11/2020 11:49 AM FURNACE COMBUSTION ANALYST Acti ve * RETIRED Are you blind or do you have serious difficulty seeing, even when wearing glasses? Answer Date of Assessment Author Status No 09/11/2020 11:49 AM FURNACE COMBUSTION ANALYST Acti ve * Do you have [...] on filedocumented in this encounter Care Teams Umbrella Frame Maker Relationship Specialty Start Date End Date Kendra Leslie NP [address] [place] [address] PCP - General NURSE PRACTITIONER 09/05/20 documented as of this encounter
--- OUTSIDE RECORDS SUMMARY | 2024-09-16 12:19 | XMS_ITS | Encounter Summary ---
Author Organization [facility] Address [address] [place] [address] Care Team Providers Care Lodging House Keeper Name Role Phone Chava Leslieie LILIAN Primary Care Provider [phone] Encounter Details Date Type Department Care Team (Late st Contact Info) Description 09/06/2020 Hospital Follow-up Call [facility] [place] [address] Brittney Parham, RN Social History Tobacco Use [...] COVID-19? No / Unsure 09/03/2020 9:07 AM REFRIGERATION SPECIALIST documented as of this encounter Functional Status * RETIRED Are you deaf or do you have serious difficulty hearing Answer Date of Assessment Author Status No 09/03/2020 7:05 PM REFRIGERATION SPECIALIST Activ e * RETIRED Are you blind or do you have serious difficulty seeing, even when wearing glasses? Answer Date of Assessment Author Status No 09/03/2020 7:05 PM REFRIGERATION SPECIALIST Activ e * Do you have serious [...] on filedocumented in this encounter Care Teams Lodging House Keeper Relationship Specialty Start Date End Date Kendra Leslie NP [address] [place] [address] PCP - General NURSE PRACTITIONER 09/05/20 documented as of this encounter
== END 2024-09-16 11:26 | disposition home or self-care (01) ==
PROVIDERS: PCP Nurse Practitioner; Visit Provider Nurse Practitioner
DX: M41.84 Other forms of scoliosis, thoracic region (principal); M41.85 Other forms of scoliosis, thoracolumbar region; M21.752 Unequal limb length (acquired), left femur
CPT/HCPCS: 72082; 73562

== ENCOUNTER 2024-09-17 10:34 | Outpatient (CLI) | payer BC, SELFPAY ==
--- NOTE | ~2024-09-17 | MR_ITS ---
EXAMINATION: MR brain/brain stem wo con DATE: 09/17/2024 11:29 INDICATION: Generalized weakness. TECHNIQUE: Magnetic resonance imaging (MRI) of the brain and brainstem was performed without intraven ous contrast. COMPARISON: Brain MRI 05/07/2023 FINDINGS: There are 4 scattered foci of increased T2-weighted signal intensity in the cerebral white matter, which is normal for the patient's age. There is no intracranial hemorrhage, acute infarction, or abnormal intracranial mass lesion. The ventricles are normal in size. The orbits are normal. The paranasal sinuses are clear. The mastoid air cells are normal. IMPRESSION: 1. Normal brain. Reviewed, dictated and finalized at location A. R HELPER IMPRESSION: 1. Normal brain.
--- OUTSIDE RECORDS SUMMARY | 2024-09-17 10:37 | XMS_ITS | Referral Summary ---
Author Organization [facility] Address [address] [place] [address] Care Team Providers Care Administrative Office Specialist Name Role Phone Regina Lieberman POUNDMASTER Unavailable Marine Yost Unavailable Becca Valles POUNDMASTER Primary Care Provider Encounters Date Type Department Care Team Description 08/25/2024 2:59 PM AUDITING SPECIALIST - 08/25/2024 11:59 PM [facility] Hospital Encounter [facility] Breast Imaging [facility] ([facility]) [address] [place] [address] Screening mammogram, encounter for Discharge Disposition: [...] 05/07/2023 Assessment & Plan (05/27/2023 2:06 PM AUDITING SPECIALIST): No evidence of renal artery stenosis based [...] 09/25/2020 Assessment & Plan (05/27/2023 2:07 PM AUDITING SPECIALIST): Recommend statin therapy. Assessment & Plan (05/07/2023 2:09 PM CDT): Recommend statin therapy. Obesity 09/25/2020 Transient ischemic attack 09/11/2020 Anxiety 06/11/2020 Hypertension 06/11/2020 Assessment & Plan (05/27/2023 2:06 PM AUDITING SPECIALIST): Ongoing workup by her PCP. Continue Norvasc [...] on file Legal Sex Female 3:10 AM AUDITING SPECIALIST Gender Identity Female 04/29/2023 12:37 PM CDT [...] Read Routine (OP Routine) 08/25/2024 3:16 PM AUDITING SPECIALIST Screening mammogram, encounter for from Last 3 Months Results * Screening Mammogram Bilateral W Lonny (08/25/2024 3:16 PM AUDITING SPECIALIST) Anatomical Region Laterality Modality Breast Bilateral Mammography Narrative 08/26/2024 2:25 PM AUDITING SPECIALIST Mammogram Technique: Bilateral Digital Breast Tomosynthesis, Bilateral C-view 2D Screening mammogram. Views obtained: bilateral craniocaudal and bilateral mediolateral oblique. Computer Aided Detection was performed. Mammogram Findings: The present examination has been compared to prior imaging studies performed at [facility] on 07/11/2022, 07/28/2022 and 07/15/2023. The breasts [...] compared to prior imaging studies performed at [facility] on 07/11/2022, 07/28/2022 and 07/15/2023. The breasts [...] nal Result from Last 3 Months Insurance [facility] CHOICE PLUS [facility] CHOICE PLUS [place] [facility] CORE HE[employer] PLAN [place] Care Teams Administrative Office Specialist Relationship Specialty [place] [address] [place] [address] PCP - General Nurse Practitioner 08/22/24 Regina Lieberman, LILIAN [address] [place] [address] Nurse Practitioner Nurse Practitioner 07/11/22 Marine Yost PA [address] [place] [address] [address] [place] [address] Physician Warp Tying Machine Knotter Orthopedic Surgery 03/05/23
--- OUTSIDE RECORDS SUMMARY | 2024-09-17 10:37 | XMS_ITS | Clinical Summary ---
Author Organization [facility] Address [address] [place] [address] Care Team Providers Care Sack Department Supervisor Name Role Phone Regina Lieberman SCRIPT READER Unavailable Marine Yost Unavailable Becca Valles NP [...] 05/07/2023 Assessment & Plan (05/27/2023 2:06 PM PLUMBING INSPECTOR): No evidence of renal artery stenosis based [...] 09/25/2020 Assessment & Plan (05/27/2023 2:07 PM PLUMBING INSPECTOR): Recommend statin therapy. Assessment & Plan (05/07/2023 2:09 PM CDT): Recommend statin therapy. Obesity 09/25/2020 Transient ischemic attack 09/11/2020 Anxiety 06/11/2020 Hypertension 06/11/2020 Assessment & Plan (05/27/2023 2:06 PM PLUMBING INSPECTOR): Ongoing workup by her PCP. Continue Norvasc [...] Department Care Team Description 08/25/2024 2:59 PM PLUMBING INSPECTOR - 08/25/2024 11:59 PM PLUMBING INSPECTOR Hospital Encounter [facility] Breast Imaging [facility] ([facility]) [address] [place] [address] Screening mammogram, encounter for Discharge Disposition: Discharge [...] on file Legal Sex Female 3:10 AM PLUMBING INSPECTOR Gender Identity Female 04/29/2023 12:37 PM CDT [...] Read Routine (OP Routine) 08/25/2024 3:16 PM PLUMBING INSPECTOR Screening mammogram, encounter for from Last 3 Months Results * Screening Mammogram Bilateral W Lonny (08/25/2024 3:16 PM PLUMBING INSPECTOR) Anatomical Region Laterality Modality Breast Bilateral Mammography Narrative 08/26/2024 2:25 PM PLUMBING INSPECTOR Mammogram Technique: Bilateral Digital Breast Tomosynthesis, Bilateral C-view 2D Screening mammogram. Views obtained: bilateral craniocaudal and bilateral mediolateral oblique. Computer Aided Detection was performed. Mammogram Findings: The present examination has been compared to prior imaging studies performed at [facility] on 07/11/2022, 07/28/2022 and 07/15/2023. The [...] compared to prior imaging studies performed at [facility] on 07/11/2022, 07/28/2022 and 07/15/2023. The [...] nal Result from Last 3 Months Insurance [facility] CHOICE PLUS [facility] CHOICE PLUS [place] Care Teams Sack Department Supervisor Relationship Specialty [place] [address] [place] [address] PCP - General Nurse Practitioner 08/22/24 Regina Lieberman, LILIAN [address] [place] [address] Nurse Practitioner Nurse Practitioner 07/11/22 Marine Yost PA [address] [place] [address] [address] [place] [address] Physician Safety Deposit Boxes Custodian Orthopedic Surgery 03/05/23
--- OUTSIDE RECORDS SUMMARY | 2024-09-17 10:38 | XMS_ITS | Encounter Summary ---
Author Organization [facility] Healthcare Address [address] [place] [address] Care Team Providers Care Mobile Pet Groomer Name Role Phone Unavailable Primary Care Provider Unavailabl e Reason for Visit * Diagnostic Imaging (Routine) - Closed Specialty Diagnoses / Procedures Referred By Kyle wong Referred To Contact Procedures Breast Imaging Screening Outside Reference Dina Otero NP Phone: tel: fax: Referral ID Status Reason Start Date Expiration Date Visits Re quested Visits Authorized [id number] Closed 08/12/2021 09/11/2022 1 1 Encounter Details Date Type Department Care Team (Late st Contact Info) Description 03/20/1916 Hospital Encounter [facility]) [address] [place] [address] [phone] Social History Tobacco Use Types Packs/Day Years [...] on file Legal Sex Female 3:10 AM SIGNWRITER Gender Identity Female 04/29/2023 12:37 PM CDT Sexual Orientation Straight 04/29/2023 12 :37 PM CDT documented as of this encounter Functional Status documented as of this encounter Plan of Treatment Not on file documented as of this encounter Procedures Procedure Name Priority Date/Time Associated Diagnosis Comments BREAST IMAGING MG SCREENING OUTSIDE REFERENCE Routine 03/20/1916 12:00 AM SIGNWRITER documented in this encounter Results * Breast Imaging Screening Outside Reference (03/20/1916 12:00 AM SIGNWRITER) Impressions [facility] - 08/12/2021 4:29 PM SIGNWRITER These images are for Reference purposes only and have not been reviewed by [facility]. There will be no report generated by a [facility] Radiologist. Narrative [facility] - 08/12/2021 4:29 PM SIGNWRITER EXAMINATION: Images For Reference Purposes Only us Dina Otero NP IMG MAMMO PROCEDURES Fin al Result [facility] documented in this encounter Visit Diagnoses Not on filedocumented in this encounter
--- OUTSIDE RECORDS SUMMARY | 2024-09-17 10:38 | XMS_ITS | Encounter Summary ---
Author Organization [facility] Address [address] [place] [address] Care Team Providers Care Construction Producer Name Role Phone Gumaro Abdalla MD Primary Care Provider [phone] Kendra Leslie NP Primary Care Provider [phone] Encounter Details Date Type Department Care Team (Late st Contact Info) Description 12/10/2018 Hospital Orders Only [facility] Multispecialty Care - [facility] [address] [facility], [address] [place] [address] Ted Gillespie MD [address] [place] [address] Social History Tobacco Use Types Packs/Day Years [...] on filedocumented in this encounter Care Teams Construction Producer Relationship Specialty Start Date End Date Gumaro Abdalla MD [address] [place] [address] [phone] PCP - General FAMILY PRACTICE 01/04/19 09/04/20 Kendra Leslie NP [address] [place] [address] PCP - General NURSE PRACTITIONER 09/05/20 documented as of this encounter
--- OUTSIDE RECORDS SUMMARY | 2024-09-17 10:38 | XMS_ITS | CONTINUITY OF CARE DOCUMENT ---
Author Name caty alememily Address Unknown Organization [facility] Address [address] [facility] [address] [place] [address] Phone [phone] Care Team Providers Care Commercial Real Estate Associate Name Role Phone Rosy BAUGH, Yvon Unavailable JAI MILTON Unavailable [phone] JAI MILTON Unavailable [phone] PROBLEMS Condition Status Date Provider Notes HTN [...] In-person encounter Office Visit Yvon Gallegos MD [facility] - In-person encounter Office Visit Yvon Gallegos MD [facility] - In-person encounter Office Visit Yvon Gallegos MD [facility] - In-person encounter Office Visit Yvon Gallegos MD [facility] - In-person encounter Office Visit Franklin Quinn MD [facility] - In-person encounter Office Visit Franklin Quinn MD [facility] PVC'sCOVID antibodies positive, swab negDizzinessHypokalemiaDyspneaHeadaches - In-person encounter Office Visit Yvon Gallegos MD [facility] Postural orthostatic tachycardia syndrom e - In-person encounter Office Visit Yvon Gallegos MD [facility] HTN screeningHyperlipidemiaHypertensionSleep apnea, obstructive, mildObesityTIA VITAL [...] Cristobal blood pressure, systolic 144 mm[Hg] She [facility] Cristobal oxygen saturation, oximetry 95 % Yamile [...] iron binding capacity, unsaturated 191 ug/dL [employer] [phone]/09/ 29 iron binding capacity, total 296 ug/dL [employer] [phone]/09/ 29 lipoprotein, beta, serum, point, quantitative, calculated [...] [employer] 3.5-5.2 sodium, serum 141 mmol/L [employer] [phone]/09/ 29 urea nitrogen/creatinine ratio, serum 26 [employer] [...] Not Estab. platelet count 230 X10E3/UL [employer] [phone]/09/ 29 red blood cell distribution width 13.2 [...] [employer] 0-130 platelet count 254 X10E3/UL [employer] [phone]/04/ 10 red blood cell distribution width 13.2 [...] [employer] 3.5-5.2 sodium, serum 142 mmol/L [employer] [phone]/04/ 10 urea nitrogen/creatinine ratio, serum 18 [employer] [...] USE Medication Status Instructions Dates Provider Indications [facility] león Ozempic 0.25 mg or 0.5 mg(2 [...] revi ewed - no changes required Yvon Gallgeos MD social history E&M Marital Statu s: Single Cody naranjoen: 2 O ccupation: Mortgage Officer Smoking History: P atient has never smoked. Yvon Gallegos MD smoking status Never smoker Nancy witt FAMILY HISTORY Family Member Condition First Degree Blood Relative No Known Fam martha History INSURANCE PROVIDERS Payer name Policy type / Coverage type [place] red constitution party ID AARP MEDICARE ADVANTAGE HMO-POS HMO [id number] ADVANCE DIRECTIVES Name Date DISCUSSED - NO DECISION MADE TREATMENT PLAN Date Name Performer [id number],S, Yvondavid alexander MD [id number],B, Yvondavid Aburtoada benjamin BAUGH [id number],S, Yvondavid Aburtoada benjamin BAUGH [id number],S, Yvon alexander MD [id number],B, Yvon alexander MD [id number],B, Yvon Aburtoada benjamin BAUGH [id number],S, Yvon alexander MD [id number],B, Yvon Lamonteada benjamin BAUGH [id number],S, Yvon Ramada benjamin BAUGH [id number],S, Yvon Aburtoada benjamin BAUGH [id number],S, Yvon Ramada benjamin BAUGH [id number],B,Lost 25 pound s. Yvon Gallegos MD [id number],S, Yvon Ramada benjamin BAUGH [id number],S, Yvon Ramada benjamin BAUGH [id number],B, Yvon Ramleo alexander MD Cardiology Yvon Gallegos MD Cardiology Yvon Gallegos MD Cardiology Yvon Gallegos MD Cardiology Yvon Ramtabitha BAUGH Cardiology Yvon Gallegos MD Cardiology Yvon Gallegos MD Cardiology Yvon Gallegos MD Cardiology Yvon Galelgos MD Cardiology Yvon Gallegos MD Cardiology Yvon Gallegos MD Cardiology Yvon Gallegos MD Cardiology:Lost 25 pounds. Yvon Gallegos MD Cardiology Yvon Gallegos MD Cardiology Yvon Gallegos MD Cardiology Yvon Gallegos MD Electrophysiology:Trial Ozempic Yvon Gallgeos MD Electrophysiology Yvon Gallegos MD Electrophysiology Yvon [...] reduced dose. 631 total out of a 166126 beats analyzed roughly 0.1% burden. R hythm: [...] w Patient 13: O rders: A ldosterone (349470) C ortisol (700552) M etanephrines, Frac., Pl. Free (097953) C BC (H/H, RBC, INDICES, WBC, PLT) (7509) K idney Ultrasound (CPT-98409) U RINALYSIS, COMPLETE W/REFLEX TO CULTURE (3020) [facility] Electrophysiology Ne w Patient 13: O rders: B ASIC METABOLIC PANEL W/EGFR (62169) K idney Ultrasound (CPT-14697) U RINALYSIS, COMPLETE W/REFLEX TO CULTURE (3020) [...] 13: 6 31 total out of a 067886 beats analyzed roughly 0.1% burden. H er [...]
--- OUTSIDE RECORDS SUMMARY | 2024-09-17 10:38 | XMS_ITS | Encounter Summary ---
Author Organization [facility] Address [address] [place] [address] Phone Care Team Providers Care Ivory Polisher Name Role Phone Mathew Johnson MD Primary Care Provider [phone] Reason for Visit * Reason Comments Med Refill Encounter Details Date Type Department Care Team ([facility] st Contact Info) Description 07/08/2023 Refill [facility] [address] [facility] [address] [place] [address] Ann Dickerson NP [address] [address] Social History Tobacco Use Types [...] on filedocumented in this encounter Care Teams Ivory Polisher Relationship Specialty Start Date End Date Mathew Johnson MD [address] [place], [place] [address]Jana Rhett [address] [place] [address] PCP - General Family Medicine 04/08/23 documented as of this encounter
--- OUTSIDE RECORDS SUMMARY | 2024-09-17 10:38 | XMS_ITS | Clinical Summary ---
Author Organization [facility] Address [address] [place] [address] Care Team Providers Care Bakery Team Member Name Role Phone Kendra Leslie NP Primary Care Provider [phone] Allergies Active Allergy Reactions Criticality Noted Date Comments Fluoxetine Swelling Medium 01/04/2019 Latex Rash Low 09/03/2020 Skin breaks out. Medications ALPRAZolam 0.5 MG tablet Take 0.5 mg by mouth 2 (two) times daily as needed for Anxiety. 0 9 Active vitamin D2, ergocalciferol, 46915 UNITS capsule Take 50,000 Units by mouth [...] Comments Blood Pressure 116/74 09/13/2020 11:12 AM RN TRAUMA Pulse 93 09/13/2020 11:12 AM RN TRAUMA Temperature 36.6 C (97.8 F) 09/13/2020 11:12 AM RN TRAUMA Respiratory Rate 16 09/13/2020 11:1 2 AM RN TRAUMA Oxygen Saturation 99% 09/13/2020 11: 12 AM RN TRAUMA Inhaled Oxygen Concentration - - Weight 108.9 kg (240 lb 1.3 oz) 09/13/2020 6:28 AM RN TRAUMA Height 160 cm (5' 3 ) 09/11/2020 11:44 AM RN TRAUMA Body Mass Index 42.53 09/11/2020 11:44 AM RN TRAUMA Plan of Treatment Health Maintenance Due Date Last Done Comments ASCVD Statin 1979 Colorectal Cancer Screening Colonoscopy (10 Years) 1979 Annual Physical 1982 PHQ-2 (Physician [place]) 1991 Hepatitis C 1997 DTaP, Tdap and Td Vaccines (1 - Tdap) 1998 Hepatitis B Vaccines (1 of 3 - 19+ 3-dose series) 1998 ASCVD LDL 09/12/2021 09/12/2020 COVID-19 Vaccine (3 - 2023-25 season) 2024 08/02/2021, 07/12/2021 Influenza Adult (#1) 2024 04/06/2023, 05/19/2022, 06/12/2020, Additional history exists PHQ-2 (Physician [place]) 07/13/2024 Mammogram Screening 07/15/2025 07/15/2023, 07/28/2022, 07/11/2022, [...] Comments LIPID PANEL Routine 09/12/2020 6:05 AM RN TRAUMA from Last 3 Months or Most Recently Relevant to Health Maintenance Results * (ABNORMAL) LIPID PANEL (09/12/2020 6:05 AM RN TRAUMA) CHOLESTEROL 198 <200 MG/DL 09/12/2020 7:05 AM [facility] TRIGLYCERIDES 138 <150 MG/DL 09/12/2020 7:05 AM [facility] HDL 49 >40.0 MG/DL 09/12/2020 7:05 AM [facility] LDL (CALCULATED) 121(H) <100 MG/DL 09/12/2020 7:05 AM [facility] NON HDL CHOLESTEROL 149(H) <130 MG/DL 09/12/2020 7:05 AM [facility] CHOL/HDL RATIO 4.0 0.0 - 4.5 09/12/2020 7:05 AM [facility] VLDL CALCULATION 28 5 - 55 MG/DL 09/12/2020 7:05 AM RN TRAUMA [facility] LIPID INTERPRETATION 09/12/2020 7:05 AM RN TRAUMA [facility] Comment: NIH CONCENSUS REPORT RECOMMENDATIONS: ADULT CHILD LOW RISK: CHOLESTEROL <200 <170 TRIGLYCERIDE <150 --- HDL >=60 --- LDL <100 <110 BORDERLINE: CHOLESTEROL 200-239 170-199 TRIGLYCERIDE 150-199 --- HDL 40-59 --- LDL 100-159 110-129 HIGH RISK: CHOLESTEROL >=240 >=200 TRIGLYCERIDE >=200 --- HDL <40 --- LDL >=160 >=130 09/12/2020 6:05 AM RN TRAUMA Regina Mcgraw NP LABORATORY Final Resul t [facility] [address] [place] [address], from Last 3 Months or Most Recently Relevant to Health Maintenance [place] [address] [place] [address] Advance Directives * Full Code (Latest Code Status on File) Date Activated Date Inactivated Comments 09/11/2020 10:52 AM 09/13/2020 5:53 PM * Full Code Date Activated Date Inactivated Comments 09/03/2020 7:26 PM 09/06/2020 12:43 PM Care Teams Bakery Team Member Relationship Specialty Start Date End Date Kendra Leslie NP [facility] [place] [address] PCP - General NURSE PRACTITIONER 09/05/20
--- OUTSIDE RECORDS SUMMARY | 2024-09-17 10:38 | XMS_ITS | Clinical Summary ---
Author Organization [facility] Address [address], [place] [address] Phone Care Team Providers Care Board Operator Name Role Phone Mathew Johnson MD Primary Care Provider [phone] Allergies Active Allergy Reactions Criticality Noted Date [...] chew. Active ergocalciferol (VITAMIN D-2) 1.25 MG (54098 UT) capsule Take 50,000 Units by mouth [...] Comments Blood Pressure 112/78 09/08/2023 3:58 PM DIVISION OPERATIONS SPECIALIST Pulse 68 09/08/2023 3:58 PM DIVISION OPERATIONS SPECIALIST Temperature 36.8 C (98.2 F) 10/24/2021 2:01 PM CDT Respiratory Rate - - Oxygen Saturation - - Inhaled Oxygen Concentration - - Weight 90.3 kg (199 lb) 09/08/2023 3:58 PM DIVISION OPERATIONS SPECIALIST Height 162.6 cm (5' 4 ) 12/23/2023 3:57 PM CDT Body Mass Index 34.16 09/08/2023 3:58 PM DIVISION OPERATIONS SPECIALIST Plan of Treatment Health Maintenance Due Date Last Done Comments Pneumococcal PPSV23 Highest Risk Adult (1 of 3 - PCV13) 1998 Influenza Vaccine (#1) 2024 3, 05/19/2022, 03/30/2019, Additional history exists Care Teams Board Operator Relationship Specialty Start Date End Date Mathew Johnson MD [address] [place] [address] Dr. [address] [place] [phone] PCP - General Family Medicine 04/08/23
--- OUTSIDE RECORDS SUMMARY | 2024-09-17 10:38 | XMS_ITS | Clinical Summary ---
Author Organization [facility] Agatha Wilcox Address [address] [place] [address] Care Team Providers Care Utilization Engineer Name Role Phone Kendra Leslie Primary Care Provider [phone] Allergies Active Allergy Reactions Criticality Noted Date [...] age to complete this topic Care Teams Utilization Engineer Relationship Specialty Start Date End Date Kendra Leslie ANP [address] [address] PCP - General Nurse Practitioner Adult Health 10/26/20
--- OUTSIDE RECORDS SUMMARY | 2024-09-17 10:38 | XMS_ITS | Encounter Summary ---
Author Organization [facility] Address [address] [place] [address] Care Team Providers Care Skip Loader Name Role Phone Chava Leslieie LILIAN Primary Care Provider Encounter Details Date Type Department Care Team (Late st Contact Info) Description 09/06/2020 Hospital Follow-up Call [facility] [place] [address] Brittney Parham, RN Social History Tobacco Use [...] COVID-19? No / Unsure 09/03/2020 9:07 AM ARTS AND SCIENCES DEAN documented as of this encounter Functional Status * RETIRED Are you deaf or do you have serious difficulty hearing Answer Date of Assessment Author Status No 09/03/2020 7:05 PM ARTS AND SCIENCES DEAN Activ e * RETIRED Are you blind or do you have serious difficulty seeing, even when wearing glasses? Answer Date of Assessment Author Status No 09/03/2020 7:05 PM ARTS AND SCIENCES DEAN Activ e * Do you have serious [...] on filedocumented in this encounter Care Teams Skip Loader Relationship Specialty Start Date End Date Kendra Leslie NP [address] [place] [address] PCP - General NURSE PRACTITIONER 09/05/20 documented as of this encounter
--- OUTSIDE RECORDS SUMMARY | 2024-09-17 10:38 | XMS_ITS | Continuity of Care Document ---
Author Organization [facility] Address [address] [place] [address] Phone Care Team Providers Care Wood Shop Teacher Name Role Phone Fadia Prescott Unavailable Unavailable Procedures Procedure Date Office Consultation Advance Directives Directive Yes / No Effective Date File Name No Information Encounters Encounter Description Practice Location Reason(s) For Visit Diagnoses Date Provider Providers Copied on Encounter Office Consultation [facility], [address], [place], [place], [id number], [place] tel:[phone] [facility] No Information [address] [facility] , [address], [place], [address], [place]. tel:[phone] Referring Provider: Janessa Quach OD, [address] [facility], [place], [address]. tel:[phone] Family History Family Member Type Diagnosis Age At Onset No Information Payers Payer name Insurance type Covered constitution party ID Authoriza tion(s) [place] Out Of [place] [id number] Social History Type Description Quantity Date Captured [...]
--- OUTSIDE RECORDS SUMMARY | 2024-09-17 10:38 | XMS_ITS | Encounter Summary ---
Author Organization [facility] Address [address] [place] [address] Care Team Providers Care Packaging Clerk Name Role Phone Chava Leslieie LILIAN Primary Care Provider [phone] Encounter Details Date Type Department Care Team (Late st Contact Info) Description 09/14/2020 Hospital Follow-up Call [facility] Telemetry Unit [place] [address] Brittney Parham, RN Social History Tobacco Use [...] COVID-19? No / Unsure 09/11/2020 11:43 AM STRETCHER DRIER OPERATOR documented as of this encounter Functional Status * RETIRED Are you deaf or do you have serious difficulty hearing Answer Date of Assessment Author Status No 09/11/2020 11:49 AM STRETCHER DRIER OPERATOR Acti ve * RETIRED Are you blind or do you have serious difficulty seeing, even when wearing glasses? Answer Date of Assessment Author Status No 09/11/2020 11:49 AM STRETCHER DRIER OPERATOR Acti ve * Do you have [...] on filedocumented in this encounter Care Teams Packaging Clerk Relationship Specialty Start Date End Date Kendra Leslie NP [address] [place] [address] PCP - General NURSE PRACTITIONER 09/05/20 documented as of this encounter
== END 2024-09-17 10:35 | disposition home or self-care (01) ==
LOC: CHSIMG 10:36
PROVIDERS: PCP Nurse Practitioner; Visit Provider Nurse Practitioner
DX: M41.9 Scoliosis, unspecified (principal); R53.1 Weakness; M54.12 Radiculopathy, cervical region; M54.16 Radiculopathy, lumbar region
CPT/HCPCS: 70551

== ENCOUNTER 2024-09-22 09:51 | Outpatient (CLI) | payer BC, SELFPAY ==
--- NOTE | ~2024-09-22 | MR_ITS ---
MRI of the lumbar spine Clinical History: Back pain Technique: Axial T2-weighted images, and sagittal T1-weighted, T2-weighted, and T2 fat-sat images wer e acquired. Findings: There is no fracture or subluxation of the lumbar spine. Vertebral bodies maintain normal h eight and alignment. No bone marrow signal abnormality seen. At L1-L2, L2-L3, L3-L4, there is no disc bulge or herniation. No spinal canal stenosis or neural fora ashley narrowing at these levels. At L4-L5, there is mild disc desiccation with possible minimal bulge. There is mild facet arthropathy . No central canal stenosis. No definite neural foraminal narrowing. At L5-S1, there is no disc bulge or herniation. No spinal canal stenosis or neural foraminal narrowin g. Paravertebral soft tissues are unremarkable. Impression: Minimal degenerative change at L4-L5, as above. Reviewed, dictated and finalized at [facility]. Impression: Minimal degenerative change at L4-L5, as above.
--- NOTE | ~2024-09-22 | MR_ITS ---
MRI of the cervical spine Clinical History: Neck pain Technique: Axial T2-weighted and gradient images, and sagittal T1-weighted, T2-weighted, and STIR curtis ges were acquired. Findings: There is no fracture or subluxation of the cervical spine. Vertebral bodies maintain normal height and alignment. No bone marrow signal abnormality seen. No significant disc bulge or herniation seen in the cervical spine. There are areas of mild facet art hropathy. Possible minimal left neural foraminal narrowing at C5-C6. Remaining neural foramina are pr eserved bilaterally throughout the cervical spine. No canal stenosis or cord compression at any cervi alexandra level. No abnormal signal seen in the spinal cord. No epidural mass or collection. Paravertebral soft tissue s are unremarkable. Impression: Minimal degenerative spondylosis, as above. Reviewed, dictated and finalized at [facility]. Impression: Minimal degenerative spondylosis, as above.
--- OUTSIDE RECORDS SUMMARY | 2024-09-22 11:17 | XMS_ITS | Clinical Summary ---
Author Organization [facility] Address [address] [place] [address] Care Team Providers Care Stratigraphy Teacher Name Role Phone Kendra Leslie NP Primary Care Provider [phone] Allergies Active Allergy Reactions Criticality Noted Date Comments Fluoxetine Swelling Medium 01/04/2019 Latex Rash Low 09/03/2020 Skin breaks out. Medications ALPRAZolam 0.5 MG tablet Take 0.5 mg by mouth 2 (two) times daily as needed for Anxiety. 0 9 Active vitamin D2, ergocalciferol, 99705 UNITS capsule Take 50,000 Units by mouth [...] Comments Blood Pressure 116/74 09/13/2020 11:12 AM MILLER HEAD Pulse 93 09/13/2020 11:12 AM MILLER HEAD Temperature 36.6 C (97.8 F) 09/13/2020 11:12 AM MILLER HEAD Respiratory Rate 16 09/13/2020 11:1 2 AM MILLER HEAD Oxygen Saturation 99% 09/13/2020 11: 12 AM MILLER HEAD Inhaled Oxygen Concentration - - Weight 108.9 kg (240 lb 1.3 oz) 09/13/2020 6:28 AM MILLER HEAD Height 160 cm (5' 3 ) 09/11/2020 11:44 AM MILLER HEAD Body Mass Index 42.53 09/11/2020 11:44 AM MILLER HEAD Plan of Treatment Health Maintenance Due Date Last Done Comments ASCVD Statin 1979 Colorectal Cancer Screening Colonoscopy (10 Years) 1979 Annual Physical 1982 PHQ-2 (Physician [place]) 1991 Hepatitis C 1997 DTaP, Tdap and Td Vaccines (1 - Tdap) 1998 Hepatitis B Vaccines (1 of 3 - 19+ 3-dose series) 1998 ASCVD LDL 09/12/2021 09/12/2020 COVID-19 Vaccine (3 - 2023-25 season) 2024 08/02/2021, 07/12/2021 Influenza Adult (#1) 2024 04/06/2023, 05/19/2022, 06/12/2020, Additional history exists PHQ-2 (Physician [place]) 07/13/2024 Mammogram Screening 07/15/2025 07/15/2023, 07/28/2022, 07/11/2022, [...] Comments LIPID PANEL Routine 09/12/2020 6:05 AM MILLER HEAD from Last 3 Months or Most Recently Relevant to Health Maintenance Results * (ABNORMAL) LIPID PANEL (09/12/2020 6:05 AM MILLER HEAD) CHOLESTEROL 198 <200 MG/DL 09/12/2020 7:05 AM [facility] TRIGLYCERIDES 138 <150 MG/DL 09/12/2020 7:05 AM [facility] HDL 49 >40.0 MG/DL 09/12/2020 7:05 AM [facility] LDL (CALCULATED) 121(H) <100 MG/DL 09/12/2020 7:05 AM [facility] NON HDL CHOLESTEROL 149(H) <130 MG/DL 09/12/2020 7:05 AM [facility] CHOL/HDL RATIO 4.0 0.0 - 4.5 09/12/2020 7:05 AM [facility] VLDL CALCULATION 28 5 - 55 MG/DL 09/12/2020 7:05 AM MILLER HEAD [facility] LIPID INTERPRETATION 09/12/2020 7:05 AM MILLER HEAD [facility] Comment: NIH CONCENSUS REPORT RECOMMENDATIONS: ADULT CHILD LOW RISK: CHOLESTEROL <200 <170 TRIGLYCERIDE <150 --- HDL >=60 --- LDL <100 <110 BORDERLINE: CHOLESTEROL 200-239 170-199 TRIGLYCERIDE 150-199 --- HDL 40-59 --- LDL 100-159 110-129 HIGH RISK: CHOLESTEROL >=240 >=200 TRIGLYCERIDE >=200 --- HDL <40 --- LDL >=160 >=130 09/12/2020 6:05 AM MILLER HEAD Regina Mcgraw NP LABORATORY Final Resul t [facility] [address] [place] [address], from Last 3 Months or Most Recently Relevant to Health Maintenance [place] [address] [place] [address] Advance Directives * Full Code (Latest Code Status on File) Date Activated Date Inactivated Comments 09/11/2020 10:52 AM 09/13/2020 5:53 PM * Full Code Date Activated Date Inactivated Comments 09/03/2020 7:26 PM 09/06/2020 12:43 PM Care Teams Stratigraphy Teacher Relationship Specialty Start Date End Date Kendra Leslie NP [facility] [place] [address] PCP - General NURSE PRACTITIONER 09/05/20
--- OUTSIDE RECORDS SUMMARY | 2024-09-22 11:17 | XMS_ITS | Encounter Summary ---
Author Organization [facility] Address [address] [place] [address] Care Team Providers Care Child Study Team Director Name Role Phone Chava Leslieie LILIAN Primary Care Provider [phone] Encounter Details Date Type Department Care Team (Late st Contact Info) Description 09/14/2020 Hospital Follow-up Call [facility] Telemetry Unit A [facility] [place] [address] Brittney Parham, RN Social History Tobacco Use [...] COVID-19? No / Unsure 09/11/2020 11:43 AM LOUVER DOOR ASSEMBLER documented as of this encounter Functional Status * RETIRED Are you deaf or do you have serious difficulty hearing Answer Date of Assessment Author Status No 09/11/2020 11:49 AM LOUVER DOOR ASSEMBLER Acti ve * RETIRED Are you blind or do you have serious difficulty seeing, even when wearing glasses? Answer Date of Assessment Author Status No 09/11/2020 11:49 AM LOUVER DOOR ASSEMBLER Acti ve * Do you have serious [...] on filedocumented in this encounter Care Teams Child Study Team Director Relationship Specialty Start Date End Date Kendra Leslie NP [address] [place] [address] PCP - General NURSE PRACTITIONER 09/05/20 documented as of this encounter
--- OUTSIDE RECORDS SUMMARY | 2024-09-22 11:17 | XMS_ITS | Encounter Summary ---
Author Organization [facility] Address [address] [place] [address] Phone Care Team Providers Care Senior Peoplesoft Developer Name Role Phone Mathew Johnson MD Primary Care Provider [phone] Reason for Visit * Reason Comments Med Refill Encounter Details Date Type Department Care Team ([facility] st Contact Info) Description 07/08/2023 Refill [facility] [address] [facility] 1 [place] [address] Ann Dickerson NP [address] [address] Social History Tobacco Use Types [...] on filedocumented in this encounter Care Teams Senior Peoplesoft Developer Relationship Specialty Start Date End Date Mathew Johnson MD [address] [place], [place] [address] [place] [address] PCP - General Family Medicine 04/08/23 documented as of this encounter
--- OUTSIDE RECORDS SUMMARY | 2024-09-22 11:17 | XMS_ITS | Clinical Summary ---
Author Organization [facility] Agatha Wilcox Address [address] [place] [address] Care Team Providers Care Metal Framer Name Role Phone Kendra Leslie Primary Care Provider [phone] Allergies Active Allergy Reactions Criticality Noted Date [...] age to complete this topic Care Teams Metal Framer Relationship Specialty Start Date End Date Kenrda Leslie ANP [address] [address] PCP - General Nurse Practitioner Adult Health 10/26/20
--- OUTSIDE RECORDS SUMMARY | 2024-09-22 11:17 | XMS_ITS | Encounter Summary ---
Author Organization [facility] Address [address] [place] [address] Care Team Providers Care Customer Relations Assistant Name Role Phone Gumaro Abdalla MD Primary Care Provider [phone] Kendra Leslie NP Primary Care Provider [phone] Encounter Details Date Type Department Care Team (Late st Contact Info) Description 12/10/2018 Hospital Orders Only [facility] Multispecialty Care - [facility] [address] [facility], [address] [place] [address] Ted Gillespie MD [address] [place] [address] Social History Tobacco Use Types Packs/Day Years [...] on filedocumented in this encounter Care Teams Customer Relations Assistant Relationship Specialty Start Date End Date Gumaro Abdalla MD [address] [place] [id number] PCP - General FAMILY PRACTICE 01/04/19 09/04/20 Kendra Leslie NP [address] [place] [address] PCP - General NURSE PRACTITIONER 09/05/20 documented as of this encounter
--- OUTSIDE RECORDS SUMMARY | 2024-09-22 11:17 | XMS_ITS | Referral Summary ---
Author Organization [facility] Address [address] [place] [address] Care Team Providers Care Lamination Machine Operator Name Role Phone Regina Lieberman REGISTER OF WILLS Unavailable Marine Yost Unavailable Becca Valles REGISTER OF WILLS Primary Care Provider Encounters Date Type Department Care Team Description 09/20/2024 Telephone [facility] Scheduling [address] [place] [address] Angeles Herring 08/25/2024 2:59 PM MARRIAGE PERFORMER - 08/25/2024 11:59 PM [facility] Hospital Encounter [facility] [address] [place] [address] Screening mammogram, encounter for Discharge Disposition: Discharge [...] 05/07/2023 Assessment & Plan (05/27/2023 2:06 PM MARRIAGE PERFORMER): No evidence of renal artery stenosis based [...] 09/25/2020 Assessment & Plan (05/27/2023 2:07 PM MARRIAGE PERFORMER): Recommend statin therapy. Assessment & Plan (05/07/2023 2:09 PM CDT): Recommend statin therapy. Obesity 09/25/2020 Transient ischemic attack 09/11/2020 Anxiety 06/11/2020 Hypertension 06/11/2020 Assessment & Plan (05/27/2023 2:06 PM MARRIAGE PERFORMER): Ongoing workup by her PCP. Continue Norvasc [...] on file Legal Sex Female 3:10 AM MARRIAGE PERFORMER Gender Identity Female 04/29/2023 12:37 PM CDT [...] Read Routine (OP Routine) 08/25/2024 3:16 PM MARRIAGE PERFORMER Screening mammogram, encounter for from Last 3 Months Results * Screening Mammogram Bilateral W Lonny (08/25/2024 3:16 PM MARRIAGE PERFORMER) Anatomical Region Laterality Modality Breast Bilateral Mammography Narrative 08/26/2024 2:25 PM MARRIAGE PERFORMER Mammogram Technique: Bilateral Digital Breast Tomosynthesis, Bilateral C-view 2D Screening mammogram. Views obtained: bilateral craniocaudal and bilateral mediolateral oblique. Computer Aided Detection was performed. Mammogram Findings: The present examination has been compared to prior imaging studies performed at [facility] on 07/11/2022, 07/28/2022 and 07/15/2023. [...] compared to prior imaging studies performed at [facility] on 07/11/2022, 07/28/2022 and 07/15/2023. [...] nal Result from Last 3 Months Insurance [facility] HMO/PPO Address: [id number] [place] [address] [facility] [employer] [facility] HMO/PPO Address: [address] [place] [address] [place] [facility] [employer] [facility] HMO/PPO Address: [facility] [address] [place] [address] [place] Care Teams Lamination Machine Operator Relationship Specialty [place] [address] [place] [address] PCP - General Nurse Practitioner 08/22/24 Regina Lieberman, LILIAN [address] [facility] [address] [place] [address] Nurse Practitioner Nurse Practitioner 07/11/22 Marine Yost PA [address] [place] [address] [address] [place] [address] Physician Station Engineer Orthopedic Surgery 03/05/23
--- OUTSIDE RECORDS SUMMARY | 2024-09-22 11:17 | XMS_ITS | Encounter Summary ---
Author Organization [facility] Address [address] [place] [address] Care Team Providers Care Weaving Supervisor Name Role Phone Chava Leslieie LILIAN Primary Care Provider [phone] Encounter Details Date Type Department Care Team (Late st Contact Info) Description 09/06/2020 Hospital Follow-up Call [facility] [place] [address] Brittney Parham, RN Social History Tobacco Use [...] COVID-19? No / Unsure 09/03/2020 9:07 AM ORNAMENTAL PAINTER documented as of this encounter Functional Status * RETIRED Are you deaf or do you have serious difficulty hearing Answer Date of Assessment Author Status No 09/03/2020 7:05 PM ORNAMENTAL PAINTER Activ e * RETIRED Are you blind or do you have serious difficulty seeing, even when wearing glasses? Answer Date of Assessment Author Status No 09/03/2020 7:05 PM ORNAMENTAL PAINTER Activ e * Do you have serious [...] on filedocumented in this encounter Care Teams Weaving Supervisor Relationship Specialty Start Date End Date Kendra Leslie NP [address] [place] [address] PCP - General NURSE PRACTITIONER 09/05/20 documented as of this encounter
--- OUTSIDE RECORDS SUMMARY | 2024-09-22 11:17 | XMS_ITS | Continuity of Care Document ---
Author Organization [facility] Address [address] [place] [address] Phone Care Team Providers Care Fur Ironer Name Role Phone Fadia Prescott Unavailable Unavailable Procedures Procedure Date Office Consultation Advance Directives Directive Yes / No Effective Date File Name No Information Encounters Encounter Description Practice Location Reason(s) For Visit Diagnoses Date Provider Providers Copied on Encounter Office Consultation [facility], [address], [place], [place], [id number], [place] tel:[phone] [facility] No Information [address] [facility] , [address], [place], [address], [place]. tel:[phone] Referring Provider: Janessa Quach OD, [address] [facility], [place], [address]. tel:[phone] Family History Family Member Type Diagnosis Age At Onset No Information Payers Payer name Insurance type Covered libertarian ID Authoriza tion(s) [place] [id number] Social History Type Description Quantity Date Captured [...]
--- OUTSIDE RECORDS SUMMARY | 2024-09-22 11:17 | XMS_ITS | CONTINUITY OF CARE DOCUMENT ---
Author Name caty alememily Address Unknown Organization [facility] Address [address] [place] [address] Phone [phone] Care Team Providers Care Chef De Partie Name Role Phone Rosy BAUGH, Yvon Unavailable JAI MILTON Unavailable [phone] JAI MILTON Unavailable PROBLEMS Condition Status Date [...] In-person encounter Office Visit Yvon Gallegos MD [facility] - In-person encounter Office Visit Yvon Gallegos MD [facility] - In-person encounter Office Visit Yvon Gallegos MD [facility] - In-person encounter Office Visit Yvon Gallegos MD [facility] - In-person encounter Office Visit Franklin Quinn MD [facility] - In-person encounter Office Visit Franklin Quinn MD [facility] PVC'sCOVID antibodies positive, swab negDizzinessHypokalemiaDyspneaHeadaches - In-person encounter Office Visit Yvon Gallegos MD [facility] Postural orthostatic tachycardia syndrom e - In-person encounter Office Visit Yvon Gallegos MD [facility] HTN screeningHyperlipidemiaHypertensionSleep apnea, obstructive, mildObesityTIA VITAL [...] Cristobal blood pressure, systolic 144 mm[Hg] She [facility] Cristobal oxygen saturation, oximetry 95 % Yamile [...] iron binding capacity, unsaturated 191 ug/dL LinkLogic 554-996 7327/09/ 29 iron binding capacity, total 296 ug/dL LinkLogic 043-692 0789/09/ 29 lipoprotein, beta, serum, point, quantitative, calculated [...] LinkLogic 3.5-5.2 sodium, serum 141 mmol/L LinkLogic 897-325 0843/09/ 29 urea nitrogen/creatinine ratio, serum 26 LinkLogic [...] Not Estab. platelet count 230 X10E3/UL LinkLogic 787-668 3501/09/ 29 red blood cell distribution width 13.2 [...] LinkLogic 0-130 platelet count 254 X10E3/UL LinkLogic 721-844 5489/04/ 10 red blood cell distribution width 13.2 [...] LinkLogic 3.5-5.2 sodium, serum 142 mmol/L LinkLogic 592-741 8577/04/ 10 urea nitrogen/creatinine ratio, serum 18 LinkLogic [...] USE Medication Status Instructions Dates Provider Indications [facility] león Ozempic 0.25 mg or 0.5 [...] Payer name Policy type / Coverage type [place] red democrat ID AARP MEDICARE ADVANTAGE HMO-POS HMO [id number] ADVANCE DIRECTIVES Name Date DISCUSSED - NO DECISION MADE TREATMENT PLAN Date Name Performer [id number],S, Yvondavid alexander MD [id number],B, Yvondavid Aburtoada benjamin BAUGH [id number],S, Yvondavid Aburtoada benjamin BAUGH [id number],S, Yvon alexander MD [id number],B, Yvon alexander MD [id number],B, Yvon Aburtoada benjamin BAUGH [id number],S, Yvon alexander MD [id number],B, Yvon Lamonteada benjamin BAUGH [id number],S, Yvon Ramada benjamin BAUGH [id number],S, Yvon Aburtoada benjamin BAUGH [id number],S, Yvon Ramada bnejamin BAUGH [id number],B,Lost 25 pound s. Yvon Gallegos MD [id number],S, Yvon Ramada benjamin BAUGH [id number],S, Yvon Ramada benjamin BAUGH [id number],B, Yvon Ramleo alexander MD Cardiology Yvon Gallegos [...] reduced dose. 631 total out of a 203341 beats analyzed roughly 0.1% burden. R hythm: [...] w Patient 13: O rders: A ldosterone (530697) C ortisol (824816) M etanephrines, Frac., Pl. Free (907798) C BC (H/H, RBC, INDICES, WBC, PLT) (9699) K idney Ultrasound (CPT-20429) U RINALYSIS, COMPLETE W/REFLEX TO CULTURE (3020) [facility] Electrophysiology Ne w Patient 13: O rders: B ASIC METABOLIC PANEL W/EGFR (90469) K idney Ultrasound (CPT-23611) U RINALYSIS, COMPLETE W/REFLEX TO CULTURE (3020) [...] 13: 6 31 total out of a 065679 beats analyzed roughly 0.1% burden. H er [...]
--- OUTSIDE RECORDS SUMMARY | 2024-09-22 11:17 | XMS_ITS | Encounter Summary ---
Author Organization [facility] Address [address] [place] [address] Care Team Providers Care Wire Bender Name Role Phone Unavailable Primary Care Provider Unavailabl e Reason for Visit * Diagnostic Imaging (Routine) - Closed Specialty Diagnoses / Procedures Referred By Kyle wong Referred To Contact Procedures Breast Imaging Screening Outside Reference Dina Otero NP Phone: tel: fax: Referral ID Status Reason Start Date Expiration Date Visits Re quested Visits Authorized [id number] Closed 08/12/2021 09/11/2022 1 1 Encounter Details Date Type Department Care Team (Late st Contact Info) Description 03/20/1916 Hospital Encounter [facility] [address] [place] [address] [id number] Social History Tobacco Use Types Packs/Day Years [...] file Legal Sex Female 3:10 AM MANAGER MEETING Gender Identity Female 04/29/2023 12:37 PM CDT Sexual Orientation Straight 04/29/2023 12 :37 PM CDT documented as of this encounter Functional Status documented as of this encounter Plan of Treatment Not on file documented as of this encounter Procedures Procedure Name Priority Date/Time Associated Diagnosis Comments BREAST IMAGING MG SCREENING OUTSIDE REFERENCE Routine 03/20/1916 12:00 AM MANAGER MEETING documented in this encounter Results * Breast Imaging Screening Outside Reference (03/20/1916 12:00 AM MANAGER MEETING) Impressions [facility]_M[facility]MO[facility] - 08/12/2021 4:29 PM MANAGER MEETING These images are for Reference purposes only and have not been reviewed by [facility] Radiology. There will be no report generated by a [facility] Radiologist. Narrative [facility]_MAMMO[facility] - 08/12/2021 4:29 PM MANAGER MEETING EXAMINATION: Images For Reference Purposes Only us Dina Otero NP IMG MAMMO PROCEDURES Fin al Result [facility] documented in this encounter Visit Diagnoses Not on filedocumented in this encounter
--- OUTSIDE RECORDS SUMMARY | 2024-09-22 11:17 | XMS_ITS | Clinical Summary ---
Author Organization [facility] Address [address] [place] [address] Care Team Providers Care Quality Coordinator Name Role Phone Regina Lieberman TEACHER DRAMATICS Unavailable Marine Yost Unavailable Becca Valles NP Primary Care Provider [phone] Allergies Active Allergy Reactions Criticality Noted Date [...] 05/07/2023 Assessment & Plan (05/27/2023 2:06 PM LETTERPRESS PRINTING MACHINIST): No evidence of renal artery stenosis based [...] 09/25/2020 Assessment & Plan (05/27/2023 2:07 PM LETTERPRESS PRINTING MACHINIST): Recommend statin therapy. Assessment & Plan (05/07/2023 2:09 PM CDT): Recommend statin therapy. Obesity 09/25/2020 Transient ischemic attack 09/11/2020 Anxiety 06/11/2020 Hypertension 06/11/2020 Assessment & Plan (05/27/2023 2:06 PM LETTERPRESS PRINTING MACHINIST): Ongoing workup by her PCP. Continue Norvasc [...] Type Department Care Team Description 09/20/2024 Telephone [facility] Scheduling [address] [place] [address] NevaehMauraAngeles 08/25/2024 2:59 PM LETTERPRESS PRINTING MACHINIST - 08/25/2024 11:59 PM LETTERPRESS PRINTING MACHINIST Hospital Encounter [facility] Breast Imaging [facility] [place] [address] Screening mammogram, encounter for Discharge Disposition: Discharge [...] on file Legal Sex Female 3:10 AM LETTERPRESS PRINTING MACHINIST Gender Identity Female 04/29/2023 12:37 PM CDT [...] Read Routine (OP Routine) 08/25/2024 3:16 PM LETTERPRESS PRINTING MACHINIST Screening mammogram, encounter for from Last 3 Months Results * Screening Mammogram Bilateral W Lonny (08/25/2024 3:16 PM LETTERPRESS PRINTING MACHINIST) Anatomical Region Laterality Modality Breast Bilateral Mammography Narrative 08/26/2024 2:25 PM LETTERPRESS PRINTING MACHINIST Mammogram Technique: Bilateral Digital Breast Tomosynthesis, Bilateral C-view 2D Screening mammogram. Views obtained: bilateral craniocaudal and bilateral mediolateral oblique. Computer Aided Detection was performed. Mammogram Findings: The present examination has been compared to prior imaging studies performed at [facility] on 07/11/2022, 07/28/2022 and 07/15/2023. The breasts [...] to prior imaging studies performed at [facility] on 07/11/2022, 07/28/2022 and 07/15/2023. The breasts [...] nal Result from Last 3 Months Insurance [facility] CHOICE PLUS [facility] CHOICE PLUS [place] [facility] CORE HEALTH PLAN [place] Care Teams Quality Coordinator Relationship Specialty [place] [address] [place] [address] PCP - General Nurse Practitioner 08/22/24 Regina Lieberman NP [address] [place], [place] [id number] Nurse Practitioner Nurse Practitioner 07/11/22 Marine Yost PA [address] [place] [address] [address] [place] [address] Physician Oil Pit Attendant Orthopedic Surgery 03/05/23
--- OUTSIDE RECORDS SUMMARY | 2024-09-22 11:17 | XMS_ITS | Clinical Summary ---
Author Organization [facility] Address [address], [place] [address] Phone Care Team Providers Care Ceo And President Name Role Phone Mathew Johnson MD Primary Care Provider [phone] Allergies Active Allergy Reactions Criticality Noted Date [...] chew. Active ergocalciferol (VITAMIN D-2) 1.25 MG (91851 UT) capsule Take 50,000 Units by mouth [...] Comments Blood Pressure 112/78 09/08/2023 3:58 PM CORROSION PREVENTION METAL SPRAYER Pulse 68 09/08/2023 3:58 PM CORROSION PREVENTION METAL SPRAYER Temperature 36.8 C (98.2 F) 10/24/2021 2:01 PM CDT Respiratory Rate - - Oxygen Saturation - - Inhaled Oxygen Concentration - - Weight 90.3 kg (199 lb) 09/08/2023 3:58 PM CORROSION PREVENTION METAL SPRAYER Height 162.6 cm (5' 4 ) 12/23/2023 3:57 PM CDT Body Mass Index 34.16 09/08/2023 3:58 PM CORROSION PREVENTION METAL SPRAYER Plan of Treatment Health Maintenance Due Date Last Done Comments Pneumococcal PPSV23 Highest Risk Adult (1 of 3 - PCV13) 1998 Influenza Vaccine (#1) 2024 3, 05/19/2022, 03/30/2019, Additional history exists Care Teams Ceo And President Relationship Specialty Start Date End Date Mathew Johnson MD [address] [place] [address] Dr. Delaney [address] [place] [id number] PCP - General Family Medicine 04/08/23
== END 2024-09-22 09:52 | disposition home or self-care (01) ==
LOC: CHSIMG 09:53
PROVIDERS: PCP Nurse Practitioner; Visit Provider Nurse Practitioner
DX: M41.9 Scoliosis, unspecified (principal); R53.1 Weakness; M54.12 Radiculopathy, cervical region; M54.16 Radiculopathy, lumbar region; M43.02 Spondylolysis, cervical region
CPT/HCPCS: 72141; 72148

== ENCOUNTER 2024-12-10 11:40 | Outpatient (CLI) | payer BC, SELFPAY ==
--- OUTSIDE RECORDS SUMMARY | 2024-12-10 11:49 | XMS_ITS | Referral Summary ---
Author Organization [facility] Address [address] [place] [address] Care Team Providers Care Quality Control Projectionist Name Role Phone Regina Lieberman EDITOR NEWS Unavailable Marine Yost Unavailable Becca Valles EDITOR NEWS Primary Care Provider [phone] Encounters Date Type Department Care Team Description 09/20/2024 Telephone [facility] [place] Scheduling [address] [place] [address] Angeles Herring from Last 3 Months Allergies Active Allergy [...] 05/07/2023 Assessment & Plan (05/27/2023 2:06 PM SHORTHAND TEACHER): No evidence of renal artery stenosis based [...] 09/25/2020 Assessment & Plan (05/27/2023 2:07 PM SHORTHAND TEACHER): Recommend statin therapy. Assessment & Plan (05/07/2023 2:09 PM CDT): Recommend statin therapy. Obesity 09/25/2020 Transient ischemic attack 09/11/2020 Anxiety 06/11/2020 Hypertension 06/11/2020 Assessment & Plan (05/27/2023 2:06 PM SHORTHAND TEACHER): Ongoing workup by her PCP. Continue Norvasc [...] often do you have a drink containing alc ohol? Never 02/09/2024 Average Number of Drinks Not on file 024 Q3: How often do you have si [...] on file Legal Sex Female 3:10 AM SHORTHAND TEACHER Gender Identity Female 04/29/2023 12:37 PM CDT [...] 3:48 PM CDT Height 162.6 cm (5' 4) 02/09/2024 3:48 PM CDT Body Mass Index 38.28 02/09/2024 3:48 PM CDT Plan of Treatment Not on file Procedures Procedure Name Priority Date/Time Associated Diagnosis Comments SCREENING MAMMOGRAM BILATERAL W LONNY Schedule Routine, Read Routine (OP Routine) 08/25/2024 3:16 PM SHORTHAND TEACHER Screening mammogram, encounter for from Last 3 Months or Most Recently Relevant to Health Maintenance Results * Screening Mammogram Bilateral W Lonny (08/25/2024 3:16 PM SHORTHAND TEACHER) Anatomical Region Laterality Modality Breast Bilateral Mammography Narrative 08/26/2024 2:25 PM SHORTHAND TEACHER Mammogram Technique: Bilateral Digital Breast Tomosynthesis, Bilateral [...] Most Recently Relevant to Health Maintenance Insurance [facility] CHOICE PLUS [facility] CHOICE PLUS [place] [facility] CORE HEALTH PLAN [place] Care Teams Quality Control Projectionist Relationship Specialty [place] [address] [place] [address] PCP - General Nurse Practitioner 08/22/24 Regina Lieberman NP [address] [place], [place] [id number] Nurse Practitioner Nurse Practitioner 07/11/22 Marine Yost PA [address] [place] [address] [address] [place] [address] Physician Operator Catalyst Concentration Orthopedic Surgery 03/05/23
--- OUTSIDE RECORDS SUMMARY | 2024-12-10 11:49 | XMS_ITS | Clinical Summary ---
Author Organization [facility] Address [address] [place] [address] Care Team Providers Care Manufacturing Sales Representative Name Role Phone Regina Lieberman DEBURRING MACHINE OPERATOR Unavailable Marine Yost Unavailable Becca Valles NP [...] 05/07/2023 Assessment & Plan (05/27/2023 2:06 PM EMISSIONS TESTING AND REPAIR TECHNICIAN): No evidence of renal artery stenosis based [...] 09/25/2020 Assessment & Plan (05/27/2023 2:07 PM EMISSIONS TESTING AND REPAIR TECHNICIAN): Recommend statin therapy. Assessment & Plan (05/07/2023 2:09 PM CDT): Recommend statin therapy. Obesity 09/25/2020 Transient ischemic attack 09/11/2020 Anxiety 06/11/2020 Hypertension 06/11/2020 Assessment & Plan (05/27/2023 2:06 PM EMISSIONS TESTING AND REPAIR TECHNICIAN): Ongoing workup by her PCP. Continue Norvasc [...] Type Department Care Team Description 09/20/2024 Telephone [facility] Scheduling [address] [place], [place] [id number] Angeles Herring from Last 3 Months Immunizations Immunization Administration [...] on file Legal Sex Female 3:10 AM EMISSIONS TESTING AND REPAIR TECHNICIAN Gender Identity Female 04/29/2023 12:37 PM [...] - season) 2024 08/02/2021, 07/12/2021 Influenza Vaccine (Season Ended) 2025 04/06/2023, 05/19/2022, 06/12/2020, Additional history exists Breast Cancer [...] Read Routine (OP Routine) 08/25/2024 3:16 PM EMISSIONS TESTING AND REPAIR TECHNICIAN Screening mammogram, encounter for from Last 3 Months or Most Recently Relevant to Health Maintenance Results * Screening Mammogram Bilateral W Lonny (08/25/2024 3:16 PM EMISSIONS TESTING AND REPAIR TECHNICIAN) Anatomical Region Laterality Modality Breast Bilateral Mammography Narrative 08/26/2024 2:25 PM EMISSIONS TESTING AND REPAIR TECHNICIAN Mammogram Technique: Bilateral Digital Breast Tomosynthesis, Bilateral C-view 2D Screening mammogram. Views obtained: bilateral craniocaudal and bilateral mediolateral oblique. Computer Aided Detection was performed. Mammogram Findings: The present examination has been compared to prior imaging studies performed at [facility] on 07/11/2022, 07/28/2022 and [...] compared to prior imaging studies performed at [facility] on 07/11/2022, 07/28/2022 and [...] Most Recently Relevant to Health Maintenance Insurance [facility] CHOICE PLUS BL [place] [facility] CORE HEALTH PLAN [place] Care Teams Manufacturing Sales Representative Relationship Specialty [place] [address] [place] [address] PCP - General Nurse Practitioner 08/22/24 Regina Lieberman, DEBURRING MACHINE OPERATOR [address] [place] [address] Nurse Practitioner Nurse Practitioner 07/11/22 Marine Yost PA [address] [place] [address] [address] [place] [address] Physician K9 Handler Orthopedic Surgery 03/05/23
--- OUTSIDE RECORDS SUMMARY | 2024-12-10 11:49 | XMS_ITS | Encounter Summary ---
Author Organization [facility] Address [address] [address] Phone Care Team Providers Care Field Advisor Name Role Phone Mathew Johnson MD Primary Care Provider [phone] Reason for Visit * Reason Comments Med Refill Encounter Details Date Type Department Care Team ([facility] st Contact Info) Description 07/08/2023 Refill [facility] [address] [facility] [address] [place] [address] Ann Dickerson DIE CASTING SUPERVISOR [address] [id number] Social History Tobacco Use Types Packs/Day Years Used Date Smoking Tobacco: Never Smokeless Tobacco: Never Alcohol Use Standard Drinks/Week Comments Yes 0 (1 standard drink = 0.6 oz pur e alcohol) occassionslly Comments Unknown Sex and Gender Information Value Date Recorded Sex Assigned at Not on file Legal Sex Female 8:55 AM [facility] Gender Identity Not on file Sexual Orientation Not on file documented as of this encounter Plan of Treatment Not on file documented as of this encounter Visit Diagnoses Not on filedocumented in this encounter Care Teams Field Advisor Relationship Specialty Start Date End Date Mathew Johnson MD [address] [place], [place] [address]Jana Rhett [address] [place] [phone] PCP - General Family Medicine 04/08/23 documented as of this encounter
--- OUTSIDE RECORDS SUMMARY | 2024-12-10 11:50 | XMS_ITS | CONTINUITY OF CARE DOCUMENT ---
Author Name caty alememily Address Unknown Organization [facility] Address [address] [place] [address] Phone [phone] Care Team Providers Care Finisher Hand Name Role Phone Rosy BAUGH, Yvon Unavailable JAI MILTON Unavailable JAI MILTON Unavailable PROBLEMS [...] In-person encounter Office Visit Yvon Gallegos MD [facility] - In-person encounter Office Visit Yvon Gallegos MD [facility] - In-person encounter Office Visit Yvon Gallegos MD [facility] - In-person encounter Office Visit Yvon Gallegos MD [facility] - In-person encounter Office Visit Franklin Quinn MD [facility] - In-person encounter Office Visit Franklin Quinn MD [facility] PVC'sCOVID antibodies positive, swab negDizzinessHypokalemiaDyspneaHeadaches - In-person encounter Office Visit Yvon Gallegos MD [facility] Postural orthostatic tachycardia syndrom e - In-person encounter Office Visit Yvon Gallegos MD [facility] HTN screeningHyperlipidemiaHypertensionSleep apnea, obstructive, mildObesityTIA VITAL [...] Tim Gallegos MD blood pressure, resting Yes Krsih sofia Cristobal blood pressure, diastolic 88 mm[Hg] darrin Cristobal blood pressure, systolic 144 mm[Hg] [facility] oxygen saturation, oximetry 95 % [...] iron binding capacity, unsaturated 191 ug/dL LinkLogic 513-036 7690/09/ 29 iron binding capacity, total 296 ug/dL [facility] 550-145 7881/09/ 29 lipoprotein, beta, serum, point, quantitative, calculated [...] LinkLogic 3.5-5.2 sodium, serum 141 mmol/L LinkLogic 415-860 0223/09/ 29 urea nitrogen/creatinine ratio, serum 26 LinkLogic [...] Not Estab. platelet count 230 X10E3/UL LinkLogic 680-580 3570/09/ 29 red blood cell distribution width 13.2 [...] LinkLogic 0-130 platelet count 254 X10E3/UL LinkLogic 375-539 3326/04/ 10 red blood cell distribution width 13.2 [...] LinkLogic 3.5-5.2 sodium, serum 142 mmol/L LinkLogic 255-073 1845/04/ 10 urea nitrogen/creatinine ratio, serum 18 LinkLogic [...] USE Medication Status Instructions Dates Provider Indications [facility] león Ozempic 0.25 mg or 0.5 [...] Payer name Policy type / Coverage type [place] red green party ID AARP MEDICARE ADVANTAGE HMO-POS HMO [id number] ADVANCE DIRECTIVES Name Date DISCUSSED - NO DECISION MADE TREATMENT PLAN Date Name Performer [id number],S, Yvondavid alexander MD [id number],B, Yvondavid Aburtoada benjamin BAUGH [id number],S, Yvondavid Aburtoada benjamin BAUGH [id number],S, Yvon alexander MD [id number],B, Yvon alexander MD [id number],B, Yvon Aburtoada benjamin BAUGH [id number],S, Yvon alexander MD [id number],B, Yvon Lamonteada benjamin BAUGH [id number],S, Yvon Ramada benjamin BAUGH [id number],S, Yvon Aburtoada benjamin BAUGH [id number],S, Yvon Ramada benjamin BAUGH [id number],B,Lost 25 pound s. Yvon Gallegos MD [id number],S, Yvon Ramada benjamin BAUGH [id number],S, Yvon Ramada benjamin BAUGH [id number],B, Yvon Ramleo alexander MD Cardiology Yvon Gallegos [...] reduced dose. 631 total out of a 978368 beats analyzed roughly 0.1% burden. R hythm: [...] w Patient 13: O rders: A ldosterone (795162) C ortisol (889244) M etanephrines, Frac., Pl. Free (539652) C BC (H/H, RBC, INDICES, WBC, PLT) (0809) K idney Ultrasound (CPT-78075) U RINALYSIS, COMPLETE W/REFLEX TO CULTURE (3020) [facility] Electrophysiology Ne w Patient 13: O rders: B ASIC METABOLIC PANEL W/EGFR (30857) K idney Ultrasound (CPT-97949) U RINALYSIS, COMPLETE W/REFLEX TO CULTURE (3020) [...] 13: 6 31 total out of a 413572 beats analyzed roughly 0.1% burden. H er [...]
--- OUTSIDE RECORDS SUMMARY | 2024-12-10 11:50 | XMS_ITS | Continuity of Care Document ---
Author Organization [facility] Address [address] [place] [address] Phone Care Team Providers Care Washer Meat Name Role Phone Fadia Prescott Unavailable Unavailable Procedures Procedure Date Office Consultation Advance Directives Directive Yes / No Effective Date File Name No Information Encounters Encounter Description Practice Location Reason(s) For Visit Diagnoses Date Provider Providers Copied on Encounter Office Consultation [facility], [address], [place], [place], [id number], [place] tel:[phone] [facility] No Information [address] , [address], [place], [address], [place]. tel:[phone] Referring Provider: Janessa Quach OD, [address] [facility], [place], [address]. tel:[phone] Family History Family Member Type Diagnosis Age At Onset No Information Payers Payer name Insurance type Covered democrat ID Authoriza tion(s) [employer] [place] Out Of [place] [id number] Social History Type Description Quantity Date Captured [...]
--- OUTSIDE RECORDS SUMMARY | 2024-12-10 11:50 | XMS_ITS | Encounter Summary ---
Author Organization [facility] Address [address] [place] [address] Care Team Providers Care Legal Transcriptionist Name Role Phone Unavailable Primary Care Provider Unavailabl e Reason for Visit * Diagnostic Imaging (Routine) - Closed Specialty Diagnoses / Procedures Referred By Kyle wong Referred To Contact Procedures Breast Imaging Screening Outside Reference Dina Otero NP Phone: tel: fax: Referral ID Status Reason Start Date Expiration Date Visits Re quested Visits Authorized [id number] Closed 08/12/2021 09/11/2022 1 1 Encounter Details Date Type Department Care Team (Late st Contact Info) Description 03/20/1916 Hospital Encounter [facility] [address] [place] [id number] Social History Tobacco Use Types Packs/Day Years [...] on file Legal Sex Female 3:10 AM [employer] STILL OPERATOR Gender Identity Female 04/29/2023 12:37 PM CDT Sexual Orientation Straight 04/29/2023 12 :37 PM CDT documented as of this encounter Functional Status documented as of this encounter Plan of Treatment Not on file documented as of this encounter Procedures Procedure Name Priority Date/Time Associated Diagnosis Comments BREAST IMAGING MG SCREENING OUTSIDE REFERENCE Routine 03/20/1916 12:00 AM NAPHTHAL[employer] STILL OPERATOR documented in this encounter Results * Breast Imaging Screening Outside Reference (03/20/1916 12:00 AM NAPHTHALENE STILL OPERATOR) Impressions [facility] - 08/12/2021 4:29 PM NAPHTHALENE STILL OPERATOR These images are for Reference purposes only and have not been reviewed by [facility]. There will be no report generated by a [facility]. Narrative [facility] - 08/12/2021 4:29 PM NAPHTHALENE STILL OPERATOR EXAMINATION: Images For Reference Purposes Only us Dina Otero NP IMG MAMMO PROCEDURES Fin al Result [facility] documented in this encounter Visit Diagnoses Not on filedocumented in this encounter
--- OUTSIDE RECORDS SUMMARY | 2024-12-10 11:50 | XMS_ITS | Clinical Summary ---
Author Organization [facility] Agatha Wilcox Address [address] [place] [address] Care Team Providers Care Stationary Engineer Apprentice Name Role Phone Kendra Leslie Primary Care Provider [phone] Allergies Active Allergy Reactions Criticality Noted Date [...] 10:06 AM CDT Height 160 cm (5' 3) 10/26/2020 10:06 AM CDT Body Mass Index 43.44 10/26/2020 10:06 AM CDT Plan of Treatment Health Maintenance Due Date Last Done Comments DTAP/TDAP/TD VACCINES (1 - Tdap) 1998 HEPATITIS B VACCINES (1 of 3 - 19+ 3-dose series) 1998 HPV/Cotest (21-29) 01/29/2000 CERVICAL CANCER SCREENING 2009 HPV/Cotest (30-65) 2009 PAP SMEAR 2009 BREAST CANCER SCREENING 2019 COLORECTAL SCREENING 01/29/2024 Colorectal Cancer Screening 01/29/2024 FIT-DNA Q 3 years 01/29/2024 FIT/FOBT Q 1 year 01/29/2024 Flex Sig/CT Colonography Q 5 years 01/29/2024 INFLUENZA VACCINE (#1) 2024 06/12/2020 HPV VACCINES Aged Out No longer eligi ble based on patient's age to complete this topic Care Teams Stationary Engineer Apprentice Relationship Specialty Start Date End Date Kendra Leslie ANP [address] [address] PCP - General Nurse Practitioner Adult Health 10/26/20
--- OUTSIDE RECORDS SUMMARY | 2024-12-10 11:50 | XMS_ITS | Clinical Summary ---
Author Organization [facility] Ren[facility] bustillos Address [address] [address] Phone Care Team Providers Care Summer School Coordinator Name Role Phone Mathew Johnson MD Primary Care Provider [phone] Allergies Active Allergy Reactions Criticality Noted Date Comments Fluoxetine 06/18/2021 Latex 06/18/2021 Medications magnesium oxide (MAG-OX) 400 mg tablet 400 [...] chew. Active ergocalciferol (VITAMIN D-2) 1.25 MG (53622 UT) capsule Take 50,000 Units by mouth 1 (one) time per week Active escitalopram (LEXAPRO) 10 MG tablet Take 10 mg by mouth in the morning and 10 mg in the evening. Active losartan-hydroC HLOROthiazide (HYZAAR) 100-25 MG per tablet Take 1 [...] on file Legal Sex Female 8:55 AM [facility] Gender Identity Not on file Sexual Orientation Not on file Last Filed Vital Signs Vital Sign Reading Time Taken Comments Blood Pressure 112/78 09/08/2023 3:58 PM SKILLED NURSING FACILITY COUNSELOR Pulse 68 09/08/2023 3:58 PM SKILLED NURSING FACILITY COUNSELOR Temperature 36.8 C (98.2 F) 10/24/2021 2:01 PM CDT Respiratory Rate - - Oxygen Saturation - - Inhaled Oxygen Concentration - - Weight 90.3 kg (199 lb) 09/08/2023 3:58 PM SKILLED NURSING FACILITY COUNSELOR Height 162.6 cm (5' 4) 12/23/2023 3:57 PM CDT Body Mass Index 34.16 09/08/2023 3:58 PM SKILLED NURSING FACILITY COUNSELOR Plan of Treatment Health Maintenance Due Date Last Done Comments Pneumococcal PPSV23 Highest Risk Adult (1 of 3 - PCV13) 1998 Influenza Vaccine (Season Ended) 2025 04/06/2023, 05/19/2022, 03/30/2019, Additional history exists Insurance Care Teams Summer School Coordinator Relationship Specialty Start Date End Date Mathew Johnson MD [facility] [place] [phone] PCP - General Family Medicine 04/08/23
--- OUTSIDE RECORDS SUMMARY | 2024-12-10 11:50 | XMS_ITS | Data Portability ---
Author Organization [facility] [employer], Main Office Address [address] [place] [address] Assessment No assessment recorded. Plan of Treatment Reminders Order Date Submit Date Provider Last Modified By Organization Details Last Modified Time Details Appointments None recorded. Lab TSH, serum or plasma 2024 025 [email or web address] 2 [facility], [address] [place], [address], 5 08:21:43 CBC w/ auto diff 2024 025 [facility], [address] [place], [address], 5 18:57:05 vitamin D, 25-hydroxy, total, serum 2024 025 [facility], [address] [place], [address], 5 13:13:00 vitamin B12 + folate, serum or blood 2024 025 [email or web address] 2 [facility], [address] [place], [address], 5 08:21:43 iron + total iron-bindin g capacity (TIBC), serum 2024 025 [email or web address] 2 [facility], [address] [place], [address], 5 08:21:43 ferritin, serum or plasma 2024 025 [email or web address] 2 [facility], [address] [place], [address], 5 08:21:43 CMP, serum or plasma 2024 025 [email or web address] 2 [facility], [address] [place], [address], 5 08:21:43 magnesium, serum or plasma 2024 025 [email or web address] 2 [facility], [address] [place], [address], 5 08:21:44 Referral sleep medicine referral - Please eval and treat. Please call patient to schedule an appointment . Thank you 2023 024 [email or web address] Nehemiah Lainez MD, [facility] [place], [address], 4 09:29:53 Procedures None recorded. Surgeries None recorded. Imaging XR, facial bones, 3 or more view - left face 2024 025 [email or web address] 256 [facility] ([facility]), [address] [place], [address], 5 08:47:01 XR, mandible, 4 or more view 2024 025 [email or web address] [facility] ([facility]), [address] [place], [address], 5 09:50:38 XR, elbow, 3 or more view 2024 025 [email or web address] 256 [facility] ([facility]), [address] [place], [address], 5 08:47:02 XR, forearm, 2 view 2024 025 [email or web address] [facility] ([facility]), [address] [place], [address], 5 17:15:16 XR, wrist, 3 or more view [email or web address] ([facility]), [address] [place], [address], 5 08:47:02 XR, hand, 3 or more view 2024 025 [facility] ([facility]), [address] [place], [address], 5 17:14:09 XR, shoulder, 2 or more view - Please call pt to schedule 2024 025 [facility] ([facility]), [address] [place], [address], 5 17:13:09 MRI, lumbar spine, w/o contrast - Please call pt to schedule and get pre-pay 2023 [email or web address] [place] [address] ([facility] Sched[facility]), [address] [place], [address], 4 10:31:49 Medication Orders cyclobenzap rine 10 mg tablet 2024 025 [email or web address] 200 [facility], [address] [place] [address], [address], 5 16:50:55 phentermine 37.5 mg tablet 2023 024 vicente [facility]/Pharmacy #[id number], [address] [place], [address], 5 13:03:36 tramadol 50 mg tablet 2023 024 [facility]/Pharmacy #[id number], [address] [place], [address], 4 12:56:22 prednisone 20 mg tablet 2023 024 [email or web address] 2 [facility]/Pharmacy #[id number], [address] [place], [address], 4 15:30:10 alprazolam 0.5 mg tablet 2023 024 [facility]/Pharmacy #[id number], [address] [place], [address], 4 12:56:22 tramadol 50 mg tablet 2023 024 [facility]/Pharmacy #[id number], [address] [place], [address], 4 13:03:14 lidocaine 5 % topical cream 2023 024 [email or web address] 200 [facility]/Pharmacy #[id number], [address] [place], [address], 4 14:18:26 Depo-Medrol 80 mg/mL suspension for injection 2023 024 [email or web address] Not available 4 14:47:56 phentermine 37.5 mg tablet 2023 024 [email or web address] [facility]/Pharmacy #[id number], [address] [place], [address], 5 13:03:36 lidocaine 5 % topical patch 2023 024 [facility]/Pharmacy #[id number], [address] [place], [address], 4 09:26:23 acetaminoph en 300 mg-codeine 30 mg tablet 2023 024 [email or web address] [facility][id number], [address] [place], [address], 12:43:52 alprazolam 0.5 mg tablet 2023 024 GISELL [facility][id number], [address] [place], [address], 09:25:21 Patient TargetsNo targets recorded. Patient InstructionsNo [...] more view No observ ation record ed. [email or web address] ([facility] Sched[facility]) [address] [place], [address], 07/25/2024 16:32:36 07/25/19 25 07/21/2024 XR, shoul patricia, 2 or more view No observ ation record ed. [address] [place], [address], 08/08/2024 17:13:09 07/25/19 25 07/21/2024 XR, elbow , 3 or more view No observ ation record ed. [email or web address] [place], [address], 08/08/2024 17:13:37 07/25/19 25 07/21/2024 XR, hand, 3 or more view No observ ation record ed. [address] [place], [address], 08/08/2024 17:14:09 08/26/19 25 08/25/2024 MAMMO , scree cassia, digit al, bilat eral No observ ation record ed. [email or web address] [id number] [place], [address], 08/29/2024 16:20:46 Result Notes None recorded. Problems Name Problem SNOMED Code Status Onset Date Resolution Date Notes Provider Name and Address Organization Details Recorded Time Disorder of shoulder 476280674 Completed Not Available [facility] 3 16:59:18 Mammogra phic mass of right breast 23754656206 296691 Active 2021 Not Available [facility] 3 16:59:18 Current tear of medial cartilag e AND/OR meniscus of knee Completed Not Available [facility] 3 16:59:18 Vitamin D deficien cy 99206735 Active 2019 Not Available [facility] 3 16:59:18 Hyperten sive disorder 52555563 Active 2019 Not Available [facility] 3 16:59:18 Hypokale glen 34396622 Active 2020 Not Available [facility] 3 16:59:18 Sprain of ankle 65575952 Completed Not Available [facility] 3 16:59:18 Anxiety 03389214 Active 2019 Not Available [facility] 3 16:59:18 COVID-19 285802399 Active 2020 Not Available [facility] 3 16:59:18 Abnormal weight 37930227 Active 2022 JAVON Mart null, [facility] [employer] [facility] 3 09:17:52 Obesity 704670719 Active 2022 Mathew Johnson MD [address], [place], [address] , [facility] [employer] [facility] 3 09:32:13 Dyspnea 484405927 Active 2022 Mathew Johnson MD [address], [place], [address] , [facility] [facility] 3 09:33:47 Costal chondrit is 78910966 Active 2022 Mathew Johnson MD [address], [address], [place], [address] , [place] [facility] [place] [facility] 3 09:38:18 Essentia l hyperten arias 38976399 Active 2022 Mathew Johnson MD [address], [address], [place], [address] , [place] [facility] [place] [facility] 3 09:33:02 Pain in left foot 24212584989 9107 Active 2022 Mathew Johnson MD [address], [address], [place], [address] , [facility] [place] [facility] 3 09:34:57 Injury of right knee 16575998443 771791 Active 2022 JAMIE Meraz [address], [address], [place], [address] , [facility] [place] [facility] 3 10:03:17 Phlebiti s of superfic ial veins of lower extremit y 58952913 Active 2022 JAMIE Meraz [address], [address], [place], [address] , [facility] [place] [facility] 3 10:18:00 Pain of left knee joint 59000903478 4107 Active 2022 JAVON Babin, [place] [facility] [place] [facility] 3 14:36:27 Pain of right knee joint 29023751670 4100 Active 2022 TACHO Dinh, [place] [facility] [place] [facility] 3 16:48:43 Acute tear of medial meniscus of right knee 16979980376 999774 Active 2022 JAMIE Andrews [address], [address], [place], [address] , [facility] [place] [facility] 3 16:53:53 Panic attack 223817524 Active 2022 Mathew Johnson MD [address], [place], [address] , [facility] 3 09:37:30 Mixed anxiety and depressi ve disorder 687534824 Active 2022 Mathew Johnson MD [address], [place], [address] , [facility] 3 10:51:13 Synovial cyst of right knee 06191606851 9104 Active 2022 Mathew Johnson MD [address], [place], [address] , [facility] 3 09:54:11 Tremor 35698185 Active 2022 Mathew Johnson MD [address] [address], [place], [address] , [facility] 3 09:56:31 Overweig ht 970533992 Active 2022 Mathew Johnson MD [address] [address], [place], [address] , [facility] 3 09:59:35 Chronic kidney disease 418137457 Active [address] Ziegler in [place] and JAMIE Sarmiento [address] [address], [place], [address] , [facility] 4 13:03:35 Memory impairme nt 832432649 Active 2022 Mathew Johnson MD [address], [place], [address] , [facility] 3 10:01:04 Pruritic rash 03331803 Active 2022 Mathew Johnson MD [address] [place] [address], [place], [address] , [facility] 3 10:41:08 Urinary symptoms 834824378 Active 2022 Mathew Johnson MD [address], [address], [place], [address] , [facility] [place] [facility] 3 10:48:30 Sinusiti s 74415136 Active 2023 JAMIE Meraz [address], [address], [place], [address] , [facility] 4 15:35:24 Bilatera l earache 624636019 Active 2023 JAMIE Meraz [address], [address], [place], [address] , [facility] 4 13:56:02 Phlebiti s of superfic ial veins of lower extremit y 26398552 Active 2023 JAMIE Meraz [address], [address], [place], [address] , [facility] 4 13:56:08 Edema 346134291 Active 2023 JAMIE Meraz [address], [address], [place], [address] , [facility] 4 12:51:40 Low back pain 678690374 Active 2023 JAMIE Meraz [address], [address], [place], [address] , [facility] 4 14:19:51 Excessiv e daytime sleepine ss - normal night sleep 883334006 Active 2023 JAMIE Meraz [address], [address], [place], [address] , [facility] 4 14:21:18 Injury of left shoulder 88084634165 413216 Active 2024 JAMIE Meraz [address], [address], [place], [address] , [facility] [employer] 5 13:10:55 Injury of face 443085394 Active 2024 JAMIE Meraz [address] [facility], [address] [address], [place], [address] , [facility] [employer] [facility] [employer] [facility] 5 13:12:19 Fatigue 99824168 Active 2024 JAMIE Meraz [address] [facility], [address] [address], [place], [address] , [facility] [employer] [facility] 5 13:18:01 Injury of left elbow region 54666245513 239097 Active 2024 JAMIE Meraz [address] [facility], [address] [address], [place], [address] , [facility] [employer] 5 10:02:26 Notes:Some problems listed i n Document: #[id number] could not be added to this patient's chart. Please review this document and add these problems to the patient's chart manually as needed. Problem Notes None recorded. Procedures Surgical History Date Name Laterality Status Provider Name and Address Organization Details Recorded Time 11/11/19 24 Knee completed Yolande Walker RN [place] [facility] [employer] 05/31/2024 12:46:54 07/13/19 10 Hysterectomy completed Not Available [facility] 023 16:57:30 tarsal tunnel release completed JAVON Babin [facility] [employer] 12/16/2022 14:35:11 Imaging Results None recorded. Procedure Notes None recorded. Medical Equipment None Reported. Allergies Allergen ID Allergen Name Allergen Category Reaction Reaction Severity Criticality Documentation Date Start Date Code Code System Note Provider Name and Address Organization Details Recorded Time 82221 Prozac medicatio n other severe Not available 09/10/2022 83471 RxNorm Not Available [facility] 3 17:01:23 Medications Name Sig Start Date Stop Date Status Note LastModified by Organization Details LastModified Time Prescript ion - Renewal active Not Available Not Available Not Available celecoxib 200 mg capsule 05/27 completed Not [...] by injectio n route. 05/27 completed [facility]: [id number] 10-30 Not Available Not Available Not Available amlodipin [...] by injectio n route. 05/27 completed [facility] [address] 10-11 Not Available Not Available Not Available [...] Updated DateTime 5 162.56 cm 39.5 kg/m2 486084. 25 g 98.3 [degF] 79 /min 98 % 98 % 100 mm[Hg] 70 mm[Hg] Yolande Walker RN [facility] [employer] 5 13:06:04 Date Recorded Body height Body mass index (BMI) Body weight Body temperature Heart rate Respiratory rate Oxygen saturation Oxygen saturation in Arterial blood by Pulse oximetry Systolic blood pressure Diastolic blood pressure Provider Name and Address Organization Details Last Updated DateTime 4 162.56 cm 35.6 kg/m2 02865.6 7 g 98 [degF] 80 /min 20 /min 99 % 99 % 128 mm[Hg] 66 mm[Hg] Jalil Murphy [place] [employer] 4 09:17:00 Date Recorded Body height Body mass index (BMI) Body weight Body temperature Respiratory rate Heart rate Oxygen saturation Oxygen saturation in Arterial blood by Pulse oximetry Systolic blood pressure Diastolic blood pressure Provider Name and Address Organization Details Last Updated DateTime 4 162.56 cm 36.9 kg/m2 57096.3 6 g 97.9 [degF] 16 /min 74 /min 99 % 99 % 98 mm[Hg] 66 mm[Hg] Yolande Walker RN [facility] [employer] [facility] 4 14:13:15 Date Recorded Body height Body mass index (BMI) Body weight Body temperature Heart rate Oxygen saturation Oxygen saturation in Arterial blood by Pulse oximetry Systolic blood pressure Diastolic blood pressure Provider Name and Address Organization Details Last Updated DateTime 4 162.56 cm 38.1 kg/m2 846980. 21 g 98.7 [degF] 77 /min 94 % 94 % 110 mm[Hg] 65 mm[Hg] Danica Drake MA [facility] [employer] [facility] 4 12:45:01 Date Recorded Body height Body mass index (BMI) Body weight Body temperature Heart rate Oxygen saturation Oxygen saturation in Arterial blood by Pulse oximetry Systolic blood pressure Diastolic blood pressure Provider Name and Address Organization Details Last Updated DateTime 4 162.56 cm 39 kg/m2 870547. 47 g 98.3 [degF] 86 /min 99 % 99 % 98 mm[Hg] 70 mm[Hg] Yolande Walker RN [facility] [employer] [facility] 4 12:48:46 Social History Question Answer Notes LastModified by Organizat ion Details LastModified Time Tobacco Smoking Status Never Smoker Cyndy braun [facility] [employer] [facility] 10/03/2022 09:12:24 What Is Your Level Of Caffeine Consumption? Moderate [id number] Information not available 09/10/2022 How Much Tobacco Do You Chew? None [id number] Information not available 09/10/2022 In The 14 Days Before Symptom Onset, Have You Had Close Contact With A Laboratory-confirm ed COVID-19 While That Case Was Ill? No [email or web address] Information n ot available 10/03/2022 In The 14 Days Before Symptom Onset, Have You Had Close Contact With A Person Who Is Under Investigation For COVID-19 While That Person Was Ill? No [email or web address] Information not available 10/03/2022 What Type Of Diet Are You Following? REGULAR [id number] Information not available 09/10/2022 Which Illicit Or Recreational Drugs Have You Used? No [email or web address] Information not available 10/03/2022 Have You Ever Been Counseled For Unhealthy Alcohol Use? No [email or web address] Information not available 10/03/2022 Has Tobacco Cessation Counseling Been Provided? No [email or web address] Information not available 10/03/2022 Have You Recently Traveled Abroad? No [email or web address] Information not available 10/03/2022 Do You Have Any Dietary Restrictions? No [email or web address] Information not available 10/03/2022 Sex: Unknown Functional Status Question Answer Note LastModified by Organizat ion Details LastModified Time Do you use any illicit or recreational drugs? No [email or web address] Information not available 10/03/2022 Do you or have you ever used any other forms of tobacco or nicotine? No [email or web address] Information not available 10/03/2022 What is your level of alcohol consumption? Occasional [id number] Information not available 09/10/2022 Do you or have you ever used smokeless tobacco? Never used smokeless tobacco [id number] Information not available 09/10/2022 Do you or have you ever used e-cigarettes or vape? Never used electronic cigarettes Information not available 10/03/2022 What is your exercise level? None [id number] Information not available 09/10/2022 Mental Status None recorded. Family History Relationship Description Onset Age of this Age Resolved Age Notes LastModified by Organization Details LastModified Time Mother Heart disease [email or web address] Not available 2022 14:34:04 Maternal Grandmother Family history of malignant neoplasm [email or web address] Not available 01/12 12:14:24 Notes:low BP, & BS mom & Sis ter Medical History Condition Response BLINDNESS N RHEUMATIC FEVER N BLADDER PROBLEMS N KIDNEY STONES N OTHER # 1 N POLIO N LUNG DISEASE/DISORDER N RADIATION / CHEMOTHERAPY N COPD N Other # 2 N BLOOD DISEASES N SURGERY N EAR OR HEARING PROBLEMS N MUMPS N BOWEL PROBLEMS N DEPRESSION (INCLUDING POST ) N FEMALE PROBLEMS / INFECTIONS N STROKE/TIA N THYROID DISEASE N ULCERS [...] PF, 30 mcg/0.3 mL dose 2 completed TRICE Marrufo, [facility] [employer] [facility] 04/08/2023 10:33:22 COVID-19, mRNA, LNP-S, PF, 30 mcg/0.3 mL dose 1 completed TRICE Marrufo, [employer] [facility] 04/08/2023 10:33:22 Influenza, split virus, quadrivalent, preservative 0 completed Not Available [facility] 09/10/2022 17:01:19 Influenza, split virus, quadrivalent, PF 2 completed Not Available [facility] 09/10/2022 17:01:19 Influenza, split virus, quadrivalent, PF 3 completed Mathew Johnson MD [address] [facility], [address], [place], [address], [facility] [employer] [facility] 04/06/2023 18:38:18 Past Encounters Encounter ID Performer Location Encounter Start Date Encounter Closed Date Diagnosis/Indication Diagnosis SNOMED-CT Code Diagnosis ICD10 Code Diagnosis Note [id number] S[facility] [place] [address] [place] [address] y , [place] [address] 09/11/2020 00:00:00 09/11/2020 09:41:45 [id number] [facility] [place] [address] [place] [address] [place] [address] 09/18/2020 00:00:00 09/18/2020 10:28:32 [id number] Mathew Johnson MD [facility] [place] [address] [place] [address] [place] [address] 12/18/2020 00:00:00 12/19/2020 08:09:36 [id number] Mathew Johnson MD [facility] [place] [address] [place] [address] [place] [address] 05/02/2021 00:00:00 05/02/2021 15:37:39 [id number] Mathew Johnson MD [facility] [place] [address] [place] [address] [place] [address] 10/24/2021 00:00:00 10/24/2021 10:19:23 [id number] Mathew Johnson MD [facility] [place] [address] [place] [address] [place] [address] 05/19/2022 00:00:00 05/19/2022 09:06:36 [id number] Mathew Johnson MD [facility] [place] [address] [place] [address] [place] [address] 05/28/2022 00:00:00 05/28/2022 13:33:08 [id number] Mathew Johnson MD [facility] [place] [address] [place] [address] [place] [address] 08/15/2022 00:00:00 08/15/2022 17:09:03 [id number] Mathew Johnson MD [facility] [place] [address] [place] [address] [place] [address] 10/03/2022 09:10:12 10/03/2022 09:45:56 Obesity 935742279 E66.9 Call for refills. F/u in 2 months. Dyspnea 734264688 R06.00 May need to see pulmonolog ist. Costal chondritis 264459 04 M94.0 Heat and NSAIDs [id number] Mathew Johnson MD [facility] [place] [address] [place] [address] [place] [address] 12/03/2022 09:14:26 12/03/2022 09:38:24 Essential hypertension 00317311 I10 Recheck BP 160/108. Watch salt in diet and check BP away from here. If continues to be high needs f/u appt. Anxiety 38246479 F41.9 Call for refills of alprazolam Pain in left foot 999869 2587 51776 M79.672 Ice and elevate and see manager grant if needed. [id number] Mathew Johnson MD [facility] [place] [address] [place] [address] [place] [address] 12/15/2022 09:43:13 12/15/2022 10:21:51 Injury of right knee 1939285897 5936483 S89.91XA Phlebitis of superficial veins of lower extremity 00536516 I80.02 ankle, left [id number] Alfredo Castellanos MD [facility] [place] [address] [place] [address] 12/16/2022 14:07:59 12/18/2022 15:31:05 Pain of right knee joint 5116930428 08225 M25.561 Acute tear of medial meniscus of right knee 8960969299 3954958 S83.241A [id number] Alfredo Castellanos MD [facility] [place] [address] [place] [address] 12/30/2022 15:02:49 12/30/2022 15:54:54 Acute tear of medial meniscus of right knee 8618926847 3185669 S83.241A Injury of right knee 112 2553997 9779042 S89.91XA Pre-surger y evaluation 360850029 Z01.818 [id number] Mathew Johnson MD [facility] [address] [place] [address] 12/30/2022 15:56:27 12/30/2022 16:22:35 Acute tear of medial meniscus of right knee 5582240716 7562067 S83.241D RICE and NSAIDs [id number] Mathew Johnson MD [facility] [place] [address] 02/02/2023 09:42:26 02/02/2023 10:06:39 Anxiety 03354753 F41.9 Call for refills of alprazolam . Double up on lexapro and call for 20 mg dosage. Essential hypertension 93168741 I10 Recheck BP 160/100. Watch salt in diet and check BP away from here. If continues to be high needs f/u appt. [id number] Mathew Johnson MD [facility] [address] [place] [address] 03/06/2023 08:45:28 03/06/2023 09:45:59 Pain of right knee joint 5581957330 24551 M25.561 Panic attack 430912694 F 41.0 Take 1 po TID prn and call when runs out for refill to TID 3 #90Continu e counseling . F/u in 1 month [id number] Mathew Johnson MD [facility] Donato velez [address] [place] [address] [place] [address] 04/06/2023 09:11:48 04/06/2023 10:02:35 Synovial cyst of right knee 4466052488 73301 M71.21 f/u with ortho Tremor 77668304 R25.1 Overweight 648906464 E66 .3 Continue phentermin e Chronic ki dney disease 526847531 N18.9 F/u with nephrologi st. Memory impairment 905512 006 R41.3 Brain fog. Administra tion of influenza vaccine 56222450 Z23 [id number] Mathew Johnson MD [facility] Donato velez [address] [place] [address] [place] [address] 04/08/2023 10:17:46 04/08/2023 11:05:58 Pruritic rash 30650451 L28.2 Urinary symptoms 8341219 08 R39.9 F/u with nephrologi st seeing them for urinary retention. [id number] Mtahew Johnson MD [facility] Donato velez [address] [place] [address] [place] [address] 04/27/2023 09:54:55 04/27/2023 10:35:35 Essential hypertension 72774046 I10 Recheck BP 120/80. Watch salt in diet and check BP away from here Start new BP meds. Losartan/h ct and amlodipine F/u in 2 weeks. Call if BPs are running high still.Has renal artery stenosis. [id number] Mathew Johnson MD [facility] Donato velez [address] [place] [address] [place] [address] 05/11/2023 11:55:21 05/11/2023 12:19:45 Essential hypertension 36346916 I10 Recheck BP 120/70. Watch salt in diet and check BP away from here. Call if BPs are running high. F/u in 3 monthsHas renal artery stenosis. F/u with nephrologi st/vascula r surgeon Mixed anxi ety and depressive disorder 879948611 F41.8 Continue current meds. [id number] Mathew Johnson MD [facility] Donato velez [facility] , [place] [address] 05/27/2023 12:49:03 05/27/2023 13:54:17 Essential hypertension 66861104 I10 F/u in 2 weeks. D/c labetolol and start propranolo l. Renewal of prescription 547368522 Z76.0 Tremor 88528625 R25.1 Will try propranolo l for this and d/c the labetolol [id number] Mathew Johnson MD [facility] Donato velez [facility] , [place] [address] 07/14/2023 14:56:53 07/14/2023 15:45:15 Vitamin D deficiency 02540451 E55.9 Acute tear of medial meniscus of right knee 8086214953 1353654 S83.241D [id number] Mathew Johnson MD [facility] Donato velez [facility] [place] [address] 10/14/2023 09:10:49 10/14/2023 09:41:51 Chronic kidney disease 041560521 N18.9 Acute tear of medial meniscus of right knee 3435649504 7365929 S83.241D Essential hypertension 23650996 I10 Mixed anxi ety and depressive disorder 143813264 F41.8 Obesity 769103305 E66.9 Anxiety 19995392 F41.9 Vitamin D deficiency 347 44018 E55.9 [id number] Nehemiah Mcintyre MD [facility] Donato velez [facility] [place] [address] 11/18/2023 13:43:13 11/18/2023 14:31:55 Pain of right knee joint 3166938561 47729 M25.561 Low back pain 491896360 M54.50 Excessive daytime sleepiness - normal night sleep 281659987 G47.19 Anxiety 32021181 F41.9 Chronic ki dney disease 672095883 N18.9 Essential hypertension 35039144 I10 Obesity 516340706 E66.9 Synovial c yst of right knee 7512910106 59323 M71.21 Vitamin D deficiency 347 94914 E55.9 [id number] Nehemiah Mcintyre MD [facility] [address] [facility] [place] [address] 01/13/2024 12:11:59 01/13/2024 13:58:49 Acute tear of medial meniscus of right knee 9312028174 9348446 S83.241D Anxiety 51547398 F41.9 Chronic ki dney disease 609192185 N18.9 Essential hypertension 67911118 I10 Obesity 413250043 E66.9 Panic attack 121175856 F 41.0 Vitamin D deficiency 347 02863 E55.9 [id number] Nehemiah Mcintyre MD [facility] [address] [facility] [place] [address] 05/31/2024 12:30:19 05/31/2024 13:05:31 Anxiety 30730546 F41.9 Acute tear of medial meniscus of right knee 1368908534 6781635 S83.241D Obesity 117059673 E66.9 Low back pain 140541244 M54.50 Essential hypertension 90992166 I10 Vitamin D deficiency 347 83705 E55.9 Panic attack 454974807 F 41.0 Chronic ki dney disease 532958540 N18.9 Injury of right knee 863 7901982 6254366 S89.91XA Mixed anxi ety and depressive disorder 867926359 F41.8 [id number] Nehemiah Mcintyre MD [facility] [address] [place] [address] 07/21/2024 12:46:53 07/21/2024 13:44:36 Injury of left shoulder 7923881063 8065476 S49.92XA Injury of face 911650234 S09.93XA Fatigue 57937322 R53.83 Health Concerns Section Related Observation LastModified by Organization Detai ls LastModified Time None Recorded Concern Status LastModified by Organization Details LastModified Time None Recorded Advance Directives Directive None Recorded Payers Encounter Date Sequence Insurance Name Policy Number Policy Bell Covered Member ID Bell Member ID Guarantor Name 10/14/2023 1 [facility] [id number] Carmen Garza [id number] Carmen Garza 11/18/2023 1 [facility] [id number] Carmen Garza [id number] Carmen Garza 01/13/2024 1 [facility] [id number] Carmen Garza [id number] Carmen Garza 05/31/2024 1 *SELF PAY* Am umer Garza 07/21/2024 1 [place] [id number] Carmen Garza [id number] Carmen Garza Notes Date Note Type Note Provider Name and Address Organization Details Recorded Time 10/14/2023 text/html almost a year with no alcohol. lidocaine patch denied. buying 4% patches otc , expensive JAMIE Meraz [address], [place], [address], [employer] 10/26/2023 15:11:59 11/18/2023 text/html seeing ortho JAMIE Meraz [address], [place], [address], [employer] 12/06/2023 22:52:36 01/13/2024 text/html had knee surgery, doing well JAMIE Meraz [address], [place], [address], [employer] 02/06/2024 10:48:28 05/31/2024 text/html ortho drained off a lot of fluid right knee JAMIE Meraz [address], [place], [address], [employer] 06/18/2024 18:58:59 07/21/2024 text/html fell , left elbow really hurts and is bruise , left shoulder too , left wrist , forearm , hand , facial bones , left jaw swollen JAMIE Meraz [address], [place], [address], [place] [facility] 07/26/2024 16:54:08 OBGyn Episode No OBEpisode recorded.
[2024-12-10 13:18] LABS: Basophils Absolute Auto 0.02 K/mm3 (0.00-0.10); Basophils Percent Auto 0.3 % (0.0-1.0); Eosinophils Absolute Auto 0.04 K/mm3 (0.02-0.50); Eosinophils Percent Auto 0.6 % (1.0-6.0); Hematocrit 41.8 % (35.0-49.0); Hemoglobin 13.3 g/dL (12.0-15.0); Immature Granulocyte Absolute 0.03 K/mm3 (0.00-0.00); Immature Granulocyte Percent A 0.5 % (0.0-0.0); Lymphocytes Absolute Auto 1.53 K/mm3 (1.10-4.50); Lymphocytes Percent Auto 23.1 % (18.0-42.0); Mean Corpuscular HGB Conc 31.8 g/dL (32-36); Mean Corpuscular Hemoglobin 27.2 pg (27.0-31.0); Mean Corpuscular Volume 85.5 fL (78.0-102.0); Mean Platelet Volume 9.9 fl (9.2-11.8); Monocytes Absolute Auto 0.54 K/mm3 (0.10-0.90); Monocytes Percent Auto 8.1 % (2.0-11.0); Neutrophils Absolute Auto 4.47 K/mm3 (1.70-7.20); Neutrophils Percent Auto 67.4 % (50.0-70.0); Platelet Count Result 260 K/mm3 (150-420); Red Blood Count 4.89 M/mm3 (4.20-5.40); Red Cell Distribution Width 12.9 % (11.6-14.4); White Blood Count 6.6 K/mm3 (4.8-10.8)
[2024-12-10 13:42] LABS: Alanine Aminotransferase 18 U/L (6-35); Albumin Level 4.1 g/dL (3.5-5.1); Alkaline Phosphatase 69 U/L (38-126); Anion Gap 4 mmol/L (4-12); Aspartate Amino Transferase 27 U/L (14-36); Bilirubin,Total 0.6 mg/dL (0.2-1.3); Blood Urea Nitrogen 15 mg/dL (7-17); Carbon Dioxide 28 mmol/L (22-30); Chloride 106 mmol/L (98-107); Cholesterol 205 mg/dL (0-200); Estimated Glomerular Filt Rate > 60; Glucose 94 mg/dL (65-110); HDL Direct 47 mg/dL; Iron 104 ug/dL (37-170); LDL Cholesterol Calculated 141 mg/dL (<130); Magnesium 2.1 mg/dL (1.6-2.3); Osmolality Calculated 286 mOsm/kg (285-295); Sodium 138 mmol/L (137-145); Total Protein 6.8 g/dL (6.3-8.2); Triglycerides 87 mg/dL (<150)
[2024-12-10 14:59] LABS: Percent Iron Saturation 39 % (20-50)
[2024-12-12 15:37] LABS: Hepatitis C Virus Antibody NON-REACTIVE (NON-REACTIVE)
== END 2024-12-10 11:41 | disposition home or self-care (01) ==
LOC: CHSLAB 11:48
PROVIDERS: PCP Nurse Practitioner; Visit Provider Nurse Practitioner
DX: M19.90 Unspecified osteoarthritis, unspecified site (principal); I15.1 Hypertension secondary to other renal disorders; N95.1 Menopausal and female climacteric states; Z13.1 Encounter for screening for diabetes mellitus; Z13.6 Encounter for screening for cardiovascular disorders; Z11.59 Encounter for screening for other viral diseases; R53.83 Other fatigue
CPT/HCPCS: 36415; 80053; 80061; 82607; 82728; 83540; 83550; 83735; 85025; 86803

== ENCOUNTER 2024-12-23 09:56 | Outpatient (CLI) | payer BC, SELFPAY ==
--- NOTE | ~2024-12-23 | US_ITS ---
EXAMINATION: US venous doppler [facility] DATE: 12/23/2024 11:09 INDICATION: Left lower leg pain TECHNIQUE: Grayscale ultrasound images without and with compression and Doppler ultrasound images of the left lower extremity veins were obtained. COMPARISON: None. FINDINGS: The visualized portions of left common femoral vein, profunda (deep) femoral vein, femoral vein, popl iteal vein, peroneal veins, posterior tibial veins, gastrocnemius vein and greater saphenous vein out flow are patent. IMPRESSION: 1. No deep venous thrombosis in the left lower limb. Reviewed, dictated and finalized at location A.
--- OUTSIDE RECORDS SUMMARY | 2024-12-23 10:06 | XMS_ITS | Continuity of Care Document ---
Author Organization [facility] Address [address] [place] [address] Phone Care Team Providers Care Boxing Inspector Name Role Phone Fadia Prescott Unavailable Unavailable Procedures Procedure Date Office Consultation Advance Directives Directive Yes / No Effective Date File Name No Information Encounters Encounter Description Practice Location Reason(s) For Visit Diagnoses Date Provider Providers Copied on Encounter Office Consultation [facility], [address], [place], [place], [id number], [place] tel:[phone] [facility] No Information [address] [facility] , [address], [place], [address], [place]. tel:[phone] Referring Provider: Janessa Quach OD, [address] [facility], [place], [address]. tel:[phone] Family History Family Member Type Diagnosis Age At Onset No Information Payers Payer name Insurance type Covered alliance party ID Authoriza tion(s) [place] [id number] Social History Type Description Quantity Date Captured [...]
--- OUTSIDE RECORDS SUMMARY | 2024-12-23 10:06 | XMS_ITS | Referral Summary ---
Author Organization [facility] Address 1 [place] [address] Care Team Providers Care Airport Clerk Name Role Phone Regina Lieberman COMPOSITE LAYUP WORKER Unavailable Marine Yost Unavailable Becca Valles NP Primary Care Provider [phone] Allergies Active Allergy Reactions Criticality Noted Date [...] 05/07/2023 Assessment & Plan (05/27/2023 2:06 PM ADMISSIONS COUNSELOR): No evidence of renal artery stenosis based [...] 09/25/2020 Assessment & Plan (05/27/2023 2:07 PM ADMISSIONS COUNSELOR): Recommend statin therapy. Assessment & Plan (05/07/2023 2:09 PM CDT): Recommend statin therapy. Obesity 09/25/2020 Transient ischemic attack 09/11/2020 Anxiety 06/11/2020 Hypertension 06/11/2020 Assessment & Plan (05/27/2023 2:06 PM ADMISSIONS COUNSELOR): Ongoing workup by her PCP. Continue Norvasc [...] on file Legal Sex Female 3:10 AM ADMISSIONS COUNSELOR Gender Identity Female 04/29/2023 12:37 PM CDT [...] Read Routine (OP Routine) 08/25/2024 3:16 PM ADMISSIONS COUNSELOR Screening mammogram, encounter for from Last 3 Months or Most Recently Relevant to Health Maintenance Results * Screening Mammogram Bilateral W Lonny (08/25/2024 3:16 PM ADMISSIONS COUNSELOR) Anatomical Region Laterality Modality Breast Bilateral Mammography Narrative 08/26/2024 2:25 PM ADMISSIONS COUNSELOR Mammogram Technique: Bilateral Digital Breast Tomosynthesis, Bilateral C-view 2D Screening mammogram. Views obtained: bilateral craniocaudal and bilateral mediolateral oblique. Computer Aided Detection was performed. Mammogram Findings: The present examination has been compared to prior imaging studies performed at [facility] on 07/11/2022, 07/28/2022 and 07/15/2023. [...] compared to prior imaging studies performed at [facility] on 07/11/2022, 07/28/2022 and 07/15/2023. [...] to Health Maintenance Insurance [employer] CHOICE PLUS [facility] CHOICE PLUS [place] [facility] CORE HEALTH PLAN [place] Care Teams Airport Clerk Relationship Specialty [place] [address] [place] [address] PCP - General Nurse Practitioner 08/22/24 Regina Lieberman, LILIAN [address] [place] [address] Nurse Practitioner Nurse Practitioner 07/11/22 Marine Yost PA [address] [place] [address] [address] [place] [address] Physician Hvac Maintenance Technician Orthopedic Surgery 03/05/23
--- OUTSIDE RECORDS SUMMARY | 2024-12-23 10:06 | XMS_ITS | Clinical Summary ---
Author Organization [facility] Address [address], [place] [address] Phone Care Team Providers Care Plastic Sheets Supervisor Name Role Phone Mathew Johnson MD Primary Care Provider [phone] Allergies Active Allergy Reactions Criticality Noted Date [...] chew. Active ergocalciferol (VITAMIN D-2) 1.25 MG (58286 UT) capsule Take 50,000 Units by mouth [...] Comments Blood Pressure 112/78 09/08/2023 3:58 PM HEEL SEAT FILLER Pulse 68 09/08/2023 3:58 PM HEEL SEAT FILLER Temperature 36.8 C (98.2 F) 10/24/2021 2:01 PM CDT Respiratory Rate - - Oxygen Saturation - - Inhaled Oxygen Concentration - - Weight 90.3 kg (199 lb) 09/08/2023 3:58 PM HEEL SEAT FILLER Height 162.6 cm (5' 4) 12/23/2023 3:57 PM CDT Body Mass Index 34.16 09/08/2023 3:58 PM HEEL SEAT FILLER Plan of Treatment Upcoming Encounters Date Type Department Care Team (Late st Contact Info) Description 02/07/2025 3:40 PM CDT Office Visit [facility] [address] [facility] 1 [place] [address] Alex Ziegler MD [address] [facility] 1 [place] [address] Health Maintenance Due Date Last Done Comments Pneumococcal PPSV23 Highest Risk Adult (1 of 3 - PCV13) 1998 Influenza Vaccine (Season Ended) 2025 04/06/2023, 05/19/2022, 03/30/2019, Additional history exists Insurance [facility] Care Teams Plastic Sheets Supervisor Relationship Specialty Start Date End Date Mathew Johnson MD [facility] [place] [address] PCP - General Family Medicine 04/08/23
--- OUTSIDE RECORDS SUMMARY | 2024-12-23 10:06 | XMS_ITS | Clinical Summary ---
Author Organization [facility] Address [address] [place] [address] Care Team Providers Care Independent Marketing Consultant Name Role Phone Regina Lieberman CONTROL PANEL OPERATOR Unavailable Marine Yost Unavailable Becca Valles [...] 05/07/2023 Assessment & Plan (05/27/2023 2:06 PM EXECUTIVE SECRETARY SOCIAL WELFARE): No evidence of renal artery stenosis based [...] 09/25/2020 Assessment & Plan (05/27/2023 2:07 PM EXECUTIVE SECRETARY SOCIAL WELFARE): Recommend statin therapy. Assessment & Plan (05/07/2023 2:09 PM CDT): Recommend statin therapy. Obesity 09/25/2020 Transient ischemic attack 09/11/2020 Anxiety 06/11/2020 Hypertension 06/11/2020 Assessment & Plan (05/27/2023 2:06 PM EXECUTIVE SECRETARY SOCIAL WELFARE): Ongoing workup by her PCP. Continue Norvasc [...] on file Legal Sex Female 3:10 AM EXECUTIVE SECRETARY SOCIAL WELFARE Gender Identity Female 04/29/2023 12:37 PM CDT [...] ( season) 2024 08/02/2021, 07/12/2021 Influenza Vaccine (Season [...] Read Routine (OP Routine) 08/25/2024 3:16 PM EXECUTIVE SECRETARY SOCIAL WELFARE Screening mammogram, encounter for from Last 3 Months or Most Recently Relevant to Health Maintenance Results * Screening Mammogram Bilateral W Lonny (08/25/2024 3:16 PM EXECUTIVE SECRETARY SOCIAL WELFARE) Anatomical Region Laterality Modality Breast Bilateral Mammography Narrative 08/26/2024 2:25 PM EXECUTIVE SECRETARY SOCIAL WELFARE Mammogram Technique: Bilateral Digital Breast Tomosynthesis, Bilateral C-view 2D Screening mammogram. Views obtained: bilateral craniocaudal and bilateral mediolateral oblique. Computer Aided Detection was performed. Mammogram Findings: The present examination has been compared to prior imaging studies performed at on 07/11/2022, 07/28/2022 and 07/15/2023. The breasts [...] compared to prior imaging studies performed at on 07/11/2022, 07/28/2022 and 07/15/2023. The breasts [...] Most Recently Relevant to Health Maintenance Insurance [facility] HMO/PPO Address: [place] [address] [facility] CHOICE PLUS [facility] HMO/PPO Address: [address] [address] [place] [address] BL [place] [facility] CORE HEALTH PLAN [facility] HMO/PPO Address: [address] [place] [address] BL [place] Care Teams Independent Marketing Consultant Relationship Specialty [place] [address] [place] [address] PCP - General Nurse Practitioner 08/22/24 Regina Lieberman, CONTROL PANEL OPERATOR [address] [place] [address] Nurse Practitioner Nurse Practitioner 07/11/22 Marine Yost PA [address] [place] [address] [address] [place] [address] Physician Supervisor Assembly Stock Orthopedic Surgery 03/05/23
--- OUTSIDE RECORDS SUMMARY | 2024-12-23 10:06 | XMS_ITS | Clinical Summary ---
Author Organization [facility] Agatha Wilcox Address [address] [place] [place] [address] Care Team Providers Care Separator Tender Name Role Phone Kendra Leslie Primary Care Provider [phone] Allergies Active Allergy Reactions Criticality Noted Date [...] age to complete this topic Care Teams Separator Tender Relationship Specialty Start Date End Date Kendra Leslie ANP [address] [address] PCP - General Nurse Practitioner Adult Health 10/26/20
--- OUTSIDE RECORDS SUMMARY | 2024-12-23 10:06 | XMS_ITS | Encounter Summary ---
Author Organization [facility] Address [address] [place] [address] Phone Care Team Providers Care Ballistics Expert Forensic Name Role Phone Mathew Johnson MD Primary Care Provider [phone] Reason for Visit * Reason Comments Med Refill Encounter Details Date Type Department Care Team ([facility] Contact Info) Description 07/08/2023 Refill [facility] [address] [place] [phone] Ann Dickerson NP [address] [phone] Social History Tobacco Use Types Packs/Day Years Used Date Smoking Tobacco: Never Smokeless Tobacco: Never Alcohol Use Standard Drinks/Week Comments Yes 0 (1 standard drink = 0.6 oz pur e alcohol) occassionslly Comments Unknown Sex and Gender Information Value Date Recorded Sex Assigned at Not on file Legal Sex Female 8:55 AM [facility] Gender Identity Not on file Sexual Orientation Not on file documented as of this encounter Plan of Treatment Upcoming Encounters Date Type Department Care Team ([facility] Contact Info) Description 02/07/2025 3:40 PM CDT Office Visit [facility] 1 [place], [place] [id number] Alex Ziegler MD [address] [phone] documented as of this encounter Visit Diagnoses Not on filedocumented in this encounter Care Teams Ballistics Expert Forensic Relationship Specialty Start Date End Date Mathew Johnson MD [address] [place], [place] [address] [place] [address] PCP - General Family Medicine 04/08/23 documented as of this encounter
--- OUTSIDE RECORDS SUMMARY | 2024-12-23 10:06 | XMS_ITS | Encounter Summary ---
Author Organization [facility] Address [address] [place] [address] Care Team Providers Care Journeyman Press Operator Name Role Phone Unavailable Primary Care Provider Unavailabl e Reason for Visit * Diagnostic Imaging (Routine) - Closed Specialty Diagnoses / Procedures Referred By Kyle wong Referred To Contact Procedures Breast Imaging Screening Outside Reference Dina Otero NP Phone: tel: fax: Referral ID Status Reason Start Date Expiration Date Visits Re quested Visits Authorized [id number] Closed 08/12/2021 09/11/2022 1 1 Encounter Details Date Type Department Care Team (Late st Contact Info) Description 03/20/1916 Hospital Encounter [facility] [address] [place] [id number] Social History Tobacco Use Types Packs/Day Years [...] on file Legal Sex Female 3:10 AM CUT OUT STITCHER Gender Identity Female 04/29/2023 12:37 PM CDT Sexual Orientation Straight 04/29/2023 12 :37 PM CDT documented as of this encounter Functional Status documented as of this encounter Plan of Treatment Not on file documented as of this encounter Procedures Procedure Name Priority Date/Time Associated Diagnosis Comments BREAST IMAGING MG SCREENING OUTSIDE REFERENCE Routine 03/20/1916 12:00 AM CUT OUT STITCHER documented in this encounter Results * Breast Imaging Screening Outside Reference (03/20/1916 12:00 AM CUT OUT STITCHER) Impressions [facility]MO[facility] - 08/12/2021 4:29 PM CUT OUT STITCHER These images are for Reference purposes only and have not been reviewed by [facility] Radiology. There will be no report generated by a [facility] Radiologist. Narrative [facility] - 08/12/2021 4:29 PM CUT OUT STITCHER EXAMINATION: Images For Reference Purposes Only us Dina Otero NP IMG MAMMO PROCEDURES Fin al Result [facility] documented in this encounter Visit Diagnoses Not on filedocumented in this encounter
== END 2024-12-23 09:57 | disposition home or self-care (01) ==
PROVIDERS: PCP Nurse Practitioner; Visit Provider Nurse Practitioner Family
DX: M79.662 Pain in left lower leg (principal)
CPT/HCPCS: 93971

== ENCOUNTER 2025-03-15 08:50 | Outpatient (CLI) | payer BC, SELFPAY ==
--- OUTSIDE RECORDS SUMMARY | 2008-07-18 10:15 | XMS_ITS | Continuity of Care Document ---
Author Organization [facility] Address [address] [place] [address] Phone Care Team Providers Care Rehabilitator Name Role Phone Fadia Prescott Unavailable Unavailable Procedures Procedure Date Office Consultation Advance Directives Directive Yes / No Effective Date File Name No Information Encounters Encounter Description Practice Location Reason(s) For Visit Diagnoses Date Provider Providers Copied on Encounter Office Consultation [facility], [address], [place], [place], [id number], [place] tel:[phone] [facility] No Information [phone] [facility] , [address], [place], [address], [place]. tel:[phone] Referring Provider: Janessa Quach OD, [address] [facility], [place], [address]. tel:[phone] Family History Family Member Type Diagnosis Age At Onset No Information Payers Payer name Insurance type Covered democrat ID Authoriza tion(s) [place] [id number] Social History Type Description Quantity Date Captured Comments Sex Female Smoking Status No Information Chief Complaint And Reason For Visit No Information Reason For Referral Reason For Referral No Information History Of Present Illness Encounter Date Complaint History Of Prese nt Illness No Information Functional Status Date Functional Assessmen t No Information Instructions Date Instruction Additional Infor mation No Information Assessments Type Assessment Date No Information Patient Care Teams Name Effective Dates (start - stop) Status Members No Information
--- NOTE | ~2025-03-15 | US_ITS ---
US arterial ankle brachial ind INDICATION: Atherosclerosis TECHNIQUE: Segmental pressures and plethysmographic and Doppler waveforms of the brachial and lower extremity arteries were obtained. COMPARISON: None. FINDINGS: Right and left brachial artery pressures of 118 mm Hg and 124 mm Hg, respectively, are concordant (normal difference <= 30 mmHg). The right ankle-brachial index (HALI) is 1.05 (normal >= 0.9-1.0). The right great toe-brachial index (TBI) is 0.88 (normal >= 0.60). The left HALI is 1. The left TBI is 0.75. IMPRESSION: 1. Normal ankle-brachial indices. Reviewed, dictated and finalized at location O.
--- OUTSIDE RECORDS SUMMARY | 2025-03-15 09:18 | XMS_ITS | Clinical Summary ---
Author Organization [facility] Agatha Wilcox Address [address] [place] [address] Care Team Providers Care Manager Reading Name Role Phone Kendra Leslie Primary Care Provider [phone] Allergies Active Allergy Reactions Criticality Noted Date [...] Q 5 years 01/29/2024 INFLUENZA VACCINE (#1) 2025 06/12/2020 HPV VACCINES Aged Out No longer eligi ble based on patient's age to complete this topic Care Teams Manager Reading Relationship Specialty Start Date End Date Kendra Leslie ANP [address] [address] PCP - General Nurse Practitioner Adult Health 10/26/20
--- OUTSIDE RECORDS SUMMARY | 2025-03-15 09:18 | XMS_ITS | Clinical Summary ---
Author Organization [facility] Address [address] [place] [address] Care Team Providers Care Service Desk Director Name Role Phone Regina Lieberman MANAGER VAN Unavailable Marine Yost Unavailable Becca Valles NP Primary Care Provider [phone] Allergies Active Allergy Reactions Criticality Noted Date [...] & Plan (05/27/2023 2:06 PM MANAGER OF HUMAN RESOURCES): No evidence of renal artery stenosis based [...] & Plan (05/27/2023 2:07 PM MANAGER OF HUMAN RESOURCES): Recommend statin therapy. Assessment & Plan (05/07/2023 2:09 PM CDT): Recommend statin therapy. Obesity 09/25/2020 Transient ischemic attack 09/11/2020 Anxiety 06/11/2020 Hypertension 06/11/2020 Assessment & Plan (05/27/2023 2:06 PM MANAGER OF HUMAN RESOURCES): Ongoing workup by her PCP. Continue Norvasc [...] Legal Sex Female 3:10 AM MANAGER OF HUMAN RESOURCES Gender Identity Female 04/29/2023 12:37 PM CDT [...] season) 2024 08/02/2021, 07/12/2021 Influenza Vaccine (#1) 2025 3, 05/19/2022, 06/12/2020, Additional history exists Breast [...] Read Routine (OP Routine) 08/25/2024 3:16 PM MANAGER OF HUMAN RESOURCES Screening mammogram, encounter for from Last 3 Months or Most Recently Relevant to Health Maintenance Results * Screening Mammogram Bilateral W Lonny (08/25/2024 3:16 PM MANAGER OF HUMAN RESOURCES) Anatomical Region Laterality Modality Breast Bilateral Mammography Narrative 08/26/2024 2:25 PM MANAGER OF HUMAN RESOURCES Mammogram Technique: Bilateral Digital Breast Tomosynthesis, Bilateral C-view 2D Screening mammogram. Views obtained: bilateral craniocaudal and bilateral mediolateral oblique. Computer Aided Detection was performed. Mammogram Findings: The present examination has been compared to prior imaging studies performed at [facility] on 07/11/2022, 07/28/2022 and 07/15/2023. [...] compared to prior imaging studies performed at [facility] on 07/11/2022, 07/28/2022 and 07/15/2023. [...] Most Recently Relevant to Health Maintenance Insurance [facility] CHOICE PLUS [place] [facility] CORE HEALTH PLAN [place] Care Teams Service Desk Director Relationship Specialty [place] [address] [place] [address] PCP - General Nurse Practitioner 08/22/24 Regina Lieberman, MANAGER VAN [address] [place] [address] Nurse Practitioner Nurse Practitioner 07/11/22 Marine Yost PA [address] [place] [address] [address] [place] [address] Physician Associate Financial Advisor Orthopedic Surgery 03/05/23
--- OUTSIDE RECORDS SUMMARY | 2025-03-15 09:18 | XMS_ITS | Encounter Summary ---
Author Organization [facility] Renetta utions Address [address] [place] [address] Phone Care Team Providers Care Telemarketing Supervisor Name Role Phone Mathew Johnson MD Primary Care Provider [phone] Reason for Visit * Reason Comments Med Refill Encounter Details Date Type Department Care Team ([facility] Contact Info) Description 07/08/2023 Refill [facility] [address] [place] [address] [phone] Ann Dickerson NP [address] [phone] Social History Tobacco Use Types Packs/Day Years Used Date Smoking Tobacco: Never Smokeless Tobacco: Never Alcohol Use Standard Drinks/Week Comments Yes 0 (1 standard drink = 0.6 oz pur e alcohol) occassionslly Comments Unknown Sex and Gender Information Value Date Recorded Sex Assigned at Not on file Legal Sex Female 8:55 AM MST Gender Identity Not on file Sexual Orientation Not on file documented as of this encounter Plan of Treatment Upcoming Encounters Date Type Department Care Team ([facility] Contact Info) Description 03/23/2025 3:40 PM CDT Office Visit [facility] 1 [place], [place] [phone] Alex Ziegler MD [address] [phone] documented as of this encounter Visit Diagnoses Not on filedocumented in this encounter Care Teams Telemarketing Supervisor Relationship Specialty Start Date End Date Mathew Johnson MD [address] [place], [place] [address]Jana Rhett 1 [place] [address] PCP - General Family Medicine 04/08/23 documented as of this encounter
--- OUTSIDE RECORDS SUMMARY | 2025-03-15 09:18 | XMS_ITS | Clinical Summary ---
Author Organization [facility] Physician Renetta bustillos Address [address] [address] Phone Care Team Providers Care Power Superintendent Name Role Phone Mathew Johnson MD Primary Care Provider [phone] Allergies Active Allergy Reactions Criticality Noted Date [...] chew. Active ergocalciferol (VITAMIN D-2) 1.25 MG (00961 UT) capsule Take 50,000 Units by mouth [...] on file Legal Sex Female 8:55 AM [facility] Gender Identity Not on file Sexual Orientation Not on file Last Filed Vital Signs Vital Sign Reading Time Taken Comments Blood Pressure 112/78 09/08/2023 3:58 PM GRASSROOTS ORGANIZER Pulse 68 09/08/2023 3:58 PM GRASSROOTS ORGANIZER Temperature 36.8 C (98.2 F) 10/24/2021 2:01 PM CDT Respiratory Rate - - Oxygen Saturation - - Inhaled Oxygen Concentration - - Weight 90.3 kg (199 lb) 09/08/2023 3:58 PM GRASSROOTS ORGANIZER Height 162.6 cm (5' 4) 12/23/2023 3:57 PM CDT Body Mass Index 34.16 09/08/2023 3:58 PM GRASSROOTS ORGANIZER Plan of Treatment Upcoming Encounters Date Type Department Care Team (Late st Contact Info) Description 03/23/2025 3:40 PM CDT Office Visit [facility] 5[address] [facility] 1 [place] [address] Alex Ziegler MD 5003 [facility] 1 [place] [address] Health Maintenance Due Date Last Done Comments Pneumococcal PPSV23 Highest Risk Adult (1 of 3 - PCV13) 1998 Influenza Vaccine (#1) 2025 3, 05/19/2022, 03/30/2019, Additional history exists Insurance [facility] Care Teams Power Superintendent Relationship Specialty Start Date End Date Mathew Johnson MD [facility] [place] [address] PCP - General Family Medicine 04/08/23
--- OUTSIDE RECORDS SUMMARY | 2025-03-15 09:18 | XMS_ITS | Encounter Summary ---
Author Organization [facility] Healthcare Address [address] [place] [address] Care Team Providers Care Dairy Chemist Name Role Phone Unavailable Primary Care Provider Unavailabl e Reason for Visit * Diagnostic Imaging (Routine) - Closed Specialty Diagnoses / Procedures Referred By Kyle wong Referred To Contact Procedures Breast Imaging Screening Outside Reference Dina Otero NP Phone: tel: fax: Referral ID Status Reason Start Date Expiration Date Visits Re quested Visits Authorized [id number] Closed 08/12/2021 09/11/2022 1 1 Encounter Details Date Type Department Care Team (Late st Contact Info) Description 03/20/1916 Hospital Encounter [facility] [address] [place] [id number] Social History Tobacco Use Types Packs/Day Years [...] on file Legal Sex Female 3:10 AM TECHNICAL SUPPORT ANALYST Gender Identity Female 04/29/2023 12:37 PM CDT Sexual Orientation Straight 04/29/2023 12 :37 PM CDT documented as of this encounter Functional Status documented as of this encounter Plan of Treatment Not on file documented as of this encounter Procedures Procedure Name Priority Date/Time Associated Diagnosis Comments BREAST IMAGING MG SCREENING OUTSIDE REFERENCE Routine 03/20/1916 12:00 AM TECHNICAL SUPPORT ANALYST documented in this encounter Results * Breast Imaging Screening Outside Reference (03/20/1916 12:00 AM TECHNICAL SUPPORT ANALYST) Impressions [facility] - 08/12/2021 4:29 PM TECHNICAL SUPPORT ANALYST These images are for Reference purposes only and have not been reviewed by [facility]. There will be no report generated by a [facility] Radiologist. Narrative [facility] - 08/12/2021 4:29 PM TECHNICAL SUPPORT ANALYST EXAMINATION: Images For Reference Purposes Only us Dina Otero NP IMG MAMMO PROCEDURES Fin al Result [facility] documented in this encounter Visit Diagnoses Not on filedocumented in this encounter
[2025-03-15 09:30] LABS: Add Urine Microscopic? NO; Appearance Urine Clear (Clear); Glucose Urine UA Negative (Negative); Hematocrit 44.1 % (35.0-49.0); Hemoglobin 14.1 g/dL (12.0-15.0); Immature Granulocyte Percent A 0.3 % (0.0-0.0); Leukocyte Esterase Ur Negative (Negative); Lymphocytes Absolute Auto 1.84 K/mm3 (1.10-4.50); Mean Corpuscular HGB Conc 32.0 g/dL (32-36); Mean Corpuscular Hemoglobin 27.8 pg (27.0-31.0); Mean Corpuscular Volume 87.0 fL (78.0-102.0); Nitrate Urine Negative (Negative); Nucleated Red Blood Cells Absolute Auto 0.00 K/mm3 (0.00-0.00); Nucleated Red Blood Cells Perc 0.0 % (0-0.0); Platelet Count Result 252 K/mm3 (150-420); Red Blood Count 5.07 M/mm3 (4.20-5.40); Specific Grav Ur 1.020 (1.010-1.020); White Blood Count 6.6 K/mm3 (4.8-10.8)
[2025-03-15 09:39] LABS: Total Protein Urine Random < 5 mg/dL; Ur Ttl Prot Creatinine Ratio 0.03 mg/mg (0-0.20)
[2025-03-15 10:35] LABS: Albumin Level 4.1 g/dL (3.5-5.1); Anion Gap 9 mmol/L (4-12); Blood Urea Nitrogen 24 mg/dL (7-17); Calcium 9.4 mg/dL (8.4-10.2); Carbon Dioxide 26 mmol/L (22-30); Chloride 105 mmol/L (98-107); Estimated Glomerular Filt Rate > 60; Glucose 85 mg/dL (65-110); Osmolality Calculated 293 mOsm/kg (285-295); Potassium 4.5 mmol/L (3.4-5.0); Sodium 140 mmol/L (137-145)
== END 2025-03-15 08:51 | disposition home or self-care (01) ==
PROVIDERS: PCP Nurse Practitioner; Visit Provider Nurse Practitioner
DX: I70.223 Atherosclerosis of native arteries of extremities with rest pain, bilateral legs (principal); I12.9 Hypertensive chronic kidney disease with stage 1 through stage 4 chronic kidney disease, or unspecified chronic kidney disease; N18.2 Chronic kidney disease, stage 2 (mild); E26.89 Other hyperaldosteronism; R53.83 Other fatigue
CPT/HCPCS: 36415; 80069; 81003; 82306; 82570; 84156; 85025; 93922

== ENCOUNTER 2025-05-22 08:54 | Outpatient (CLI) | payer BC, SELFPAY ==
[2025-05-22 09:15] LABS: Hematocrit 46.5 % (35.0-49.0); Hemoglobin 14.5 g/dL (12.0-15.0); Immature Granulocyte Percent A 0.5 % (0.0-0.0); Lymphocytes Absolute Auto 1.90 K/mm3 (1.10-4.50); Mean Corpuscular HGB Conc 31.2 g/dL (32-36); Mean Corpuscular Hemoglobin 28.3 pg (27.0-31.0); Mean Corpuscular Volume 90.8 fL (78.0-102.0); Nucleated Red Blood Cells Absolute Auto 0.00 K/mm3 (0.00-0.00); Nucleated Red Blood Cells Perc 0.0 % (0-0.0); Platelet Count Result 277 K/mm3 (150-420); Red Blood Count 5.12 M/mm3 (4.20-5.40); White Blood Count 7.8 K/mm3 (4.8-10.8)
--- OUTSIDE RECORDS SUMMARY | 2025-05-22 09:24 | XMS_ITS | Clinical Summary ---
Author Organization [facility] Renetta bustillos Address [address] [address] Phone Care Team Providers Care Alarm Service Technician Name Role Phone Mathew Johnson MD Primary Care Provider [phone] Allergies Active Allergy Reactions Criticality Noted Date Comments Fluoxetine 06/18/2021 Latex 06/18/2021 Medications magnesium oxide (MAG-OX) 400 mg tablet 400 mg in the morning and 400 mg in the evening. Active ergocalciferol (VITAMIN D-2) 1.25 MG (90558 UT) capsule Take 50,000 Units by mouth 1 (one) time per week Active losartan-hydroC HLOROthiazide (HYZAAR) 100-25 MG per tablet Take 1 tablet by mouth 1 (one) time each day Take 0.5 tab daily Active KLOR-CON 20 MEQ CR tablet TAKE 1 TABLET BY MOUTH 1 TIME EACH DAY. 90 tablet 1 07/09/2023 Active propranolol XL (INNOPRAN XL) 80 MG 24 hr capsule Take 80 mg by mouth 1 (one) time each day Active meloxicam (MOBIC) 15 MG tablet Take 15 mg by mouth 1 (one) time each day Active sertraline (ZOLOFT) 50 MG tablet Take 50 mg by mouth at bed time Active clonazePAM (KlonoPIN) 0.5 MG tablet Take 0.5 mg by mouth at night if needed for anxiety Active Active Problems Problem Noted Date Diagnosed [...] Acute kidney injury due to trauma 01/14/2023 Encounters Date Type Department Care Team Description 03/23/2025 1:20 PM CDT Office Visit [facility] 5[address] [facility] 1 [place] [address] Alex Ziegler MD Chronic kidney disease stage 2 (Primary Dx); Essential hypertension; Pseudoprimary hyperaldosteronism (CMS-HCC) from Last 3 Months Family History Medical History Relation Comments Diabetes [...] on file Legal Sex Female 8:55 AM [facility] Gender Identity Not on file Sexual Orientation Not on file Last Filed Vital Signs Vital Sign Reading Time Taken Comments Blood Pressure 111/75 03/23/2025 1:24 PM CDT Pulse 82 03/23/2025 1:24 PM CDT Temperature 36.8 C (98.2 F) 10/24/2021 2:01 PM CDT Respiratory Rate - - Oxygen Saturation - - Inhaled Oxygen Concentration - - Weight 100 kg (221 lb) 03/23/2025 1:24 PM CDT Height 162.6 cm (5' 4) 03/23/2025 1:24 PM CDT Body Mass Index 37.93 03/23/2025 1:24 PM CDT Plan of Treatment Upcoming Encounters Date Type Department Care Team (Late st Contact Info) Description 09/21/2025 11:00 AM CDT Office Visit [facility] [address] [facility] 1 [place] [address] Alex Ziegler MD [address] [place] [phone] Health Maintenance Due Date Last Done Comments Pneumococcal PPSV23 Highest Risk Adult (1 of 3 - PCV13) 1998 Influenza Vaccine (#1) 2025 3, 05/19/2022, 03/30/2019, Additional history exists Insurance [facility] Care Teams Alarm Service Technician Relationship Specialty Start Date End Date Mathew Johnson MD [facility] [place] [address] PCP - General Family Medicine 04/08/23
--- OUTSIDE RECORDS SUMMARY | 2025-05-22 09:24 | XMS_ITS | Clinical Summary ---
Author Organization [facility] Address 1 [place] [address] Care Team Providers Care Therapeutic Riding Instructor Name Role Phone Regina Lieberman DIRECTOR OF CURRICULUM Unavailable Marine Yost Unavailable Becca Valles NP Primary Care Provider [phone] Allergies Active Allergy Reactions Criticality Noted Date [...] 05/07/2023 Assessment & Plan (05/27/2023 2:06 PM WATER RESOURCE ENGINEERING SPECIALIST): No evidence of renal artery stenosis [...] 09/25/2020 Assessment & Plan (05/27/2023 2:07 PM WATER RESOURCE ENGINEERING SPECIALIST): Recommend statin therapy. Assessment & Plan (05/07/2023 2:09 PM CDT): Recommend statin therapy. Obesity 09/25/2020 Transient ischemic attack 09/11/2020 Anxiety 06/11/2020 Hypertension 06/11/2020 Assessment & Plan (05/27/2023 2:06 PM WATER RESOURCE ENGINEERING SPECIALIST): Ongoing workup by her PCP. Continue [...] on file Legal Sex Female 3:10 AM WATER RESOURCE ENGINEERING SPECIALIST Gender Identity Female 04/29/2023 12:37 PM [...] Visit/Exam 18-64 1997 Covid-19 Vaccine ( season) 2025 08/02/2021, 07/12/2021 Influenza Vaccine (#1) 2025 3, [...] Read Routine (OP Routine) 08/25/2024 3:16 PM WATER RESOURCE ENGINEERING SPECIALIST Screening mammogram, encounter for from Last 3 Months or Most Recently Relevant to Health Maintenance Results * Screening Mammogram Bilateral W Lonny (08/25/2024 3:16 PM WATER RESOURCE ENGINEERING SPECIALIST) Anatomical Region Laterality Modality Breast Bilateral Mammography Narrative 08/26/2024 2:25 PM WATER RESOURCE ENGINEERING SPECIALIST Mammogram Technique: Bilateral Digital Breast Tomosynthesis, Bilateral C-view 2D Screening mammogram. Views obtained: bilateral craniocaudal and bilateral mediolateral oblique. Computer Aided Detection was performed. Mammogram Findings: The present examination has been compared to prior imaging studies performed at [facility] on 07/11/2022, 07/28/2022 and 07/15/2023. The [...] compared to prior imaging studies performed at [facility] on 07/11/2022, 07/28/2022 and 07/15/2023. The [...] Most Recently Relevant to Health Maintenance Insurance [facility] [employer] [facility] [employer] [place] Care Teams Therapeutic Riding Instructor Relationship Specialty [place] [address] [place] [address] PCP - General Nurse Practitioner 08/22/24 Regina Lieberman, DIRECTOR OF CURRICULUM [address] [place] [address] Nurse Practitioner Nurse Practitioner 07/11/22 Marine Yost PA [address] [place] [address] [address] [place] [address] Physician Exploration Driller Orthopedic Surgery 03/05/23
--- OUTSIDE RECORDS SUMMARY | 2025-05-22 09:24 | XMS_ITS | Clinical Summary ---
Author Organization [facility] Agatha Wilcox Address [address] [place] [address] Care Team Providers Care Snowsport Instructor Name Role Phone Kendra Leslie Primary Care Provider [phone] Allergies Active Allergy Reactions Criticality Noted Date [...] age to complete this topic Care Teams Snowsport Instructor Relationship Specialty Start Date End Date Kendra Leslie ANP [address] [address] PCP - General Nurse Practitioner Adult Health 10/26/20
--- OUTSIDE RECORDS SUMMARY | 2025-05-22 09:24 | XMS_ITS | Encounter Summary ---
Author Organization [facility] Healthcare Address [address] [place] [address] Care Team Providers Care Sap Portal Architect Name Role Phone Unavailable Primary Care Provider Unavailabl e Reason for Visit * Diagnostic Imaging (Routine) - Closed Specialty Diagnoses / Procedures Referred By Kyle wong Referred To Contact Procedures Breast Imaging Screening Outside Reference Dina Otero NP Phone: tel: fax: Referral ID Status Reason Start Date Expiration Date Visits Re quested Visits Authorized [id number] Closed 08/12/2021 09/11/2022 1 1 Encounter Details Date Type Department Care Team (Late st Contact Info) Description 03/20/1916 Hospital Encounter [facility] [address] [place] [phone] Social History Tobacco Use Types Packs/Day Years [...] on file Legal Sex Female 3:10 AM DIRECTOR OF CONSERVATION Gender Identity Female 04/29/2023 12:37 PM CDT Sexual Orientation Straight 04/29/2023 12 :37 PM CDT documented as of this encounter Functional Status * Question Answer Date of Assessment Author MAP (mmHg) 94 12/01/2023 3:52 PM CDT Almaz Horvath RN * [place] Fall Risk Question Answer Date of Assessment Author History of Falling 0 12/01/2023 12:00 PM CD Almaz Simeon RN Secondary Diagnosis 0 12/01/2023 12:00 PM C Almaz Campbell RN Ambulatory Aids 0 12/01/2023 12:00 PM CDT Almaz Montoya RN Intravenous Therapy/Heparin/Saline Lock 20 12/01/2023 12:00 PM ALIVIAT Almaz Escobar RN Gait/Transferring 0 12/01/2023 12:00 PM CDT Almaz Escobar RN Mental Status 0 12/01/2023 12:00 PM CDT Almaz Layton RN [place] Fall Risk Score (Score >= 45 places fall precaution order) 20 12/01/2023 12:00 PM ALIVIAT Almaz Escobar RN Prior Fall Event (Autopopulated from EMR) None found 12/01/2023 12:00 PM CDT [place] Escobar RN * BP Location Answer Date of Assessment Author Right arm 02/09/2024 3:48 PM CDT Lili Lloyd MA * Alcohol Withdrawal BP Hierarchy Answer Date of Assessment Author 71 03/05/2023 10:31 AM CDT Samantha Jackson RN * Alcohol Use Question Answer Date of Assessment Author Q1: How often do you have a drink containing alcohol? Never 02/09/2024 3:50 PM CDT Dunia Lloyd MA Q2: How many drinks containing alcohol do you have on a typical day when you are drinking? Patient does not drink 12/01/2023 12:01 PM CDT Almaz Escobar RN Q3: How often do you have six or more drinks on one occasion? Never 02/09/2024 3:50 PM CDT Dunia Lloyd MA * Fall Risk Assessment Tool - MEDFRAT Question Answer Date of Assessment Author History of falling in last 3 months, including since admission 0 09/22/2020 3:16 PM Kenan Blair RN Confusion or disorientation 0 09/22/2020 3: 16 PM Kenan Blair RN Intoxicated or sedated 0 09/22/2020 3:16 PM Kenan Blair RN Impaired gait 0 09/22/2020 3:16 PM Kenan Ron RN Mobility assist device used 0 09/22/2020 3: 16 PM Kenan Blair RN Altered elimination 0 09/22/2020 3:16 PM CS Kenan Dong RN Fall risk score: (1-2 low ri sk), (3-4 moderate risk), (5 or more high risk) 0 09/22/2020 3:16 PM Kenan Blair RN * BP Location Answer Date of Assessment Author Right arm 02/09/2024 3:48 PM CDT Lili Lloyd MA * Question Answer Date of Assessment Author Bed In Lowest Position Yes 09/22/2020 5:52 PM Nancy Velasquez RN Bed Wheels Locked Yes 09/22/2020 5:52 PM DIRECTOR OF CONSERVATION Nancy Simmons RN documented as of this encounter Plan of Treatment Not on file documented as of this encounter Procedures Procedure Name Priority Date/Time Associated Diagnosis Comments BREAST IMAGING MG SCREENING OUTSIDE REFERENCE Routine 03/20/1916 12:00 AM DIRECTOR OF CONSERVATION documented in this encounter Results * Breast Imaging Screening Outside Reference (03/20/1916 12:00 AM DIRECTOR OF CONSERVATION) Impressions [facility] - 08/12/2021 4:29 PM DIRECTOR OF CONSERVATION These images are for Reference purposes only and have not been reviewed by [facility]. There will be no report generated by a [facility] Radiologist. Narrative [facility] - 08/12/2021 4:29 PM DIRECTOR OF CONSERVATION EXAMINATION: Images For Reference Purposes Only us Dina Otero NP IMG MAMMO PROCEDURES Fin al Result [facility] documented in this encounter Visit Diagnoses Not on filedocumented in this encounter
--- OUTSIDE RECORDS SUMMARY | 2025-05-22 09:24 | XMS_ITS | Encounter Summary ---
Author Organization [facility] Renetta utions Address [address] [place] [phone] Phone Care Team Providers Care Caustic Preparer Name Role Phone Mathew Johnson MD Primary Care Provider [phone] Reason for Visit * Reason Comments Med Refill Encounter Details Date Type Department Care Team ([facility] Contact Info) Description 07/08/2023 Refill [facility] [address] [place] [address] [phone] Ann Dickerson NP [address] [phone] Social History Tobacco Use Types Packs/Day Years [...] Upcoming Encounters Date Type Department Care Team ([facility] Contact Info) Description 09/21/2025 11:00 AM CDT Office Visit [facility] [address] [place] [address] [phone] Alex Ziegler MD [address] [phone] documented as of this encounter Visit Diagnoses Not on filedocumented in this encounter Care Teams Caustic Preparer Relationship Specialty Start Date End Date Mathew Johnson MD [address] [place], [place] [address]Jana [address]aney [address] [place] [address] PCP - General Family Medicine 04/08/23 documented as of this encounter
[2025-05-22 09:35] LABS: Alanine Aminotransferase 30 U/L (6-35); Albumin Level 4.0 g/dL (3.5-5.1); Alkaline Phosphatase 70 U/L (38-126); Anion Gap 2 mmol/L (4-12); Aspartate Amino Transferase 31 U/L (14-36); Bilirubin,Total 1.4 mg/dL (0.2-1.3); Blood Urea Nitrogen 23 mg/dL (7-17); Calcium 9.1 mg/dL (8.4-10.2); Carbon Dioxide 31 mmol/L (22-30); Chloride 106 mmol/L (98-107); Cholesterol 261 mg/dL (0-200); Estimated Glomerular Filt Rate > 60; Glucose 101 mg/dL (65-110); HDL Direct 77 mg/dL; Osmolality Calculated 291 mOsm/kg (285-295); Potassium 4.4 mmol/L (3.4-5.0); Sodium 139 mmol/L (137-145); Total Protein 6.7 g/dL (6.3-8.2); Triglycerides 108 mg/dL (<150)
== END 2025-05-22 08:55 | disposition home or self-care (01) ==
LOC: CHSLAB 08:58
PROVIDERS: PCP Nurse Practitioner; Visit Provider Nurse Practitioner
DX: I10 Essential (primary) hypertension (principal); E78.5 Hyperlipidemia, unspecified; E55.9 Vitamin D deficiency, unspecified
CPT/HCPCS: 36415; 80053; 80061; 82306; 85025

== ENCOUNTER 2025-06-16 13:07 | Outpatient (CLI) | payer BC, SELFPAY ==
--- NOTE | ~2025-06-16 | XR_ITS ---
EXAMINATION: XR knee RT 3V, 06/16/2025 13:19 COURT MONITOR HISTORY: Chronic Rt. knee pain >1 year. NKI COMPARISON: No comparisons available. Findings: No acute fracture or malalignment. Moderate tricompartmental degenerative changes, small effusion Soft tissues unremarkable. Impression: No acute fracture or malalignment. Reviewed, dictated and finalized at location P. T MONITOR Impression: No acute fracture or malalignment.
== END 2025-06-16 13:08 | disposition home or self-care (01) ==
LOC: CHSIMG 13:11
PROVIDERS: PCP Nurse Practitioner
DX: M25.561 Pain in right knee (principal)
CPT/HCPCS: 73562

== ENCOUNTER 2025-06-19 16:38 | Outpatient (CLI) | payer BC, SELFPAY ==
[2025-06-19 17:38] LABS: Creatine Kinase 46 U/L (30-135)
[2025-06-21 13:09] LABS: Anti-CCP Ab, IgG/IgA 8 units (0-19)
== END 2025-06-19 16:39 | disposition home or self-care (01) ==
LOC: CHSLAB 16:39
PROVIDERS: PCP Nurse Practitioner; Visit Provider Nurse Practitioner
DX: G72.9 Myopathy, unspecified (principal)
CPT/HCPCS: 36415; 82085; 82550; 86200